=== PATIENT | female | born 1985 | race African-American/Black ===

== ENCOUNTER 2017-08-21 12:26 | Emergency (ER) | payer SELFPAY ==
[2017-08-21 13:23] LABS: Absolute Lymphocytes (CBC) 1.4 K/uL (0.7-4.9); Absolute Monocytes 0.3 K/uL (0.1-1.3); Absolute Neutrophil 1.8 K/uL (1.8-8.0); Basophils % 0.3 % (0-1.3); Hematocrit 30.7 % (36.0-45.0); Lymphocytes % 39.7 % (15.3-44.8); MCH 24.8 pg (27.0-35.0); Monocytes % 7.2 % (3.3-12.3); RBC Red Blood Cell Count 3.99 M/uL (3.86-4.86)
[2017-08-21 13:42] LABS: ALT/SGPT 16 U/L (12-78); AST/SGOT 14 U/L (15-37); Albumin 3.3 g/dL (3.4-5.0); Alkaline Phosphatase 38 U/L (45-117); BUN Blood Urea Nitrogen 11 mg/dL (7-18); Bicarbonate 29 mmol/L (21-32); Bilirubin Direct 0.1 mg/dL (0-0.2); Bilirubin Total 0.5 mg/dL (0.2-1.0); Glucose Level 83 mg/dL (74-106); Lipase 76 U/L (73-393); Potassium 3.5 mmol/L (3.5-5.1); Protein, Total 7.5 g/dL (6.4-8.2); Sodium Level 140 mmol/L (136-145)
--- NOTE | 2017-08-21 13:45 | RAD REPORT ---
EXAM DESCRIPTION: CT - Abdomen Pelvis Wo Contrast - 08/21/2017 1:27 pm CLINICAL HISTORY: Abdominal pain, iodinated contrast allergy COMPARISON: CT study January 2017 TECHNIQUE: Axial [address] imaging of the abdomen and pelvis was performed without IV contrast. No IV contrast was given because of allergy, abnormal renal function, patient refusal or physician re quest. No oral contrast administered. All CT scans are performed using dose optimization technique as appropriate and may include automated exposure control or mA/KV adjustment according to patient size. FINDINGS: No suspicious findings in the lung bases. The liver, spleen and pancreas show no suspicious findings on non-contrast imaging. Gallbladder and b iliary tree are also without suspicious finding. No hydronephrosis or suspicious renal mass. No significant adrenal finding. Isodense renal masses an d pyelonephritis cannot be excluded in the absence of IV contrast. The urinary bladder is without sig nificant finding. Uterus and ovaries show no suspicious findings. No dilated bowel loops or bowel wall thickening. No free air, free fluid or inflammatory stranding. N o hernia, mass or bulky lymphadenopathy. No suspicion for appendicitis. There is moderate stool volum e in the right-side of the colon. No suspicious bony findings. IMPRESSION: Non-contrast enhanced CT abdomen and pelvis imaging show no significant or suspicious fi nding. Full assessment is limited is the absence of IV contrast.
[2017-08-21 13:54] LABS: Urine Bacteria 20-50 /HPF (<20); Urine Culture Reflex Order REFLEXED; Urine RBC <5 /HPF (NONE SEEN)
[2017-08-21 13:54] LABS: Urine Blood NEGATIVE (NEG); Urine Glucose NEGATIVE (NEG); Urine Protein NEGATIVE (NEG); Urine Specific Gravity 1.025 (1.005-1.030)
[2017-08-21] MEDS ORDERED: HYDROCODONE/APAP 5/325 MG TAB ONE (13:54)
--- NOTE | 2017-08-21 14:31 | EDPHYS ---
Physician Documentation [facility] Name: Alanna Barreto Age: 31 yrs Sex: Female : 1985 Arrival Date: 08/21/2017 Time: 12:30 Bed 24 Private MD: None, None ED Physician Leonard Lin HPI: 08/21 13:00 This 31 yrs old Black Female presents to ER via Ambulatory with complaints of Abdominal rn Cramping. 13:00 The patient presents with abdominal pain that is diffuse. Onset: The symptoms/episode rn began/occurred 1 week(s) ago. The symptoms do not radiate. Associated signs and symptoms: Pertinent positives: diarrhea, Pertinent negatives: dysuria, fever. The symptoms are described as crampy, intermittent. Modifying factors: The symptoms are alleviated by nothing, the symptoms are aggravated by nothing. Severity of pain: At its worst the pain was mild in the emergency department the pain is unchanged. The patient has not experienced similar symptoms in the past. 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 - Social history:: Smoking status: Patient/guardian denies using tobacco. - Ebola Screening: : Patient negative for fever greater than or equal to 101.5 degrees Fahrenheit, and additional compatible Ebola Virus Disease symptoms Patient denies exposure to infectious person Patient denies travel to an Ebola-affected area in the 21 days before illness onset No symptoms or risks identified at this time. - Family history:: not pertinent. - Hospitalizations: : No recent hospitalization is reported. ROS: 13:00 Constitutional: Negative for fever, chills, and weight loss, Eyes: Negative for injury, rn pain, redness, and discharge, Neck: Negative for injury, pain, and swelling, Cardiovascular: Negative for chest pain, palpitations, and edema, Respiratory: Negative for shortness of breath, cough, wheezing, and pleuritic chest pain, Abdomen/GI: + abd cramping/diarrhea, no vomiting MS/Extremity: Negative for injury and deformity, Neuro: Negative for headache, weakness, numbness, tingling, and seizure. Exam: 13:00 Constitutional: This is a well developed, well nourished patient who is awake, alert, rn and in no acute distress. Head/Face: Normocephalic, atraumatic. ENT: MMM Cardiovascular: Regular rate and rhythm with a normal S1 and S2. No gallops, murmurs, or rubs. Normal PMI, no JVD. No pulse deficits. Respiratory: Lungs have equal breath sounds bilaterally, clear to auscultation and percussion. No rales, rhonchi or wheezes noted. No increased work of breathing, no retractions or nasal flaring. Abdomen/GI: soft, mild left sided abd tenderness, no rebound MS/ Extremity: Pulses equal, no cyanosis. Neurovascular intact. Full, normal range of motion. Equal circumference. Neuro: Awake and alert, GCS 15, oriented to person, place, time, and situation. Cranial nerves II-XII grossly intact. Motor strength 5/5 in all extremities. Sensory grossly intact. Cerebellar exam normal. Normal gait. Vital Signs: 12:37 BP 108 / 76; Pulse 72; Resp 18; Temp 98.6; Pulse Ox 98% on R/A; Weight 65.77 kg; Height aj 5 ft. 4 in. (162.56 cm); 14:04 BP 105 / 77; Pulse 65; Resp 14; Temp 97.8; Pulse Ox 99% on R/A; Pain 8/10; ch 14:40 BP 108 / 61; Pulse 68; Resp 16; Temp 98.8; Pulse Ox 99% on R/A; Pain 6/10; ch 12:37 Body Mass Index 24.89 (65.77 kg, 162.56 cm) aj MDM: 12:53 Patient medically screened. rn 14:30 Differential diagnosis: gastritis, gastroesophageal reflux disease, non-specific abd rn pain, pancreatitis, Ureterolithiasis, urinary tract infection. Data reviewed: vital signs, nurses notes, lab test result(s), radiologic studies, CT scan, and as a result, I will discharge patient. Counseling: I had a detailed discussion with the patient and/or guardian regarding: the historical points, exam findings, and any diagnostic results supporting the discharge/admit diagnosis, lab results, radiology results, the need for outpatient follow up, to return to the emergency department if symptoms worsen or persist or if there are any questions or concerns that arise at home. Special discussion: Based on the patient's Hx, exam, and Dx evaluation, there is no indication for emergent surgery or inpatient Tx. It is understood by the patient/guardian that if the Sx's persist or worsen they need to return immediately for re-evaluation. I discussed with the patient/guardian in detail that at this point there is no indication for admission to the hospital. It is understood, however, that if the symptoms persist or worsen the patient needs to return immediately for re-evaluation. 08/21 12:59 Order name: Basic Metabolic Panel rn 08/21 12:59 Order name: CBC with Diff rn 08/21 12:59 Order name: Creatinine for perianesthesia rn 08/21 12:59 Order name: Hepatic Function rn 08/21 12:59 Order name: Lipase rn 08/21 12:59 Order name: Urine Microscopic Only rn 08/21 12:59 Order name: Basic Metabolic Panel; Complete Time: 14:30 EDMS 08/21 12:59 Order name: CBC with Automated Diff; Complete Time: 14:30 EDMS 08/21 12:59 Order name: Creatinine (Radiology Only); Complete Time: 14:30 EDMS 08/21 12:59 Order name: Liver (Hepatic) Function; Complete Time: 14:30 EDMS 08/21 12:59 Order name: Lipase; Complete Time: 14:30 EDMS 08/21 12:59 Order name: Urine Microscopic Only; Complete Time: 14:30 EDMS 08/21 13:28 Order name: Urine Dipstick--Ancillary (enter results); Complete Time: 14:30 ag 08/21 13:28 Order name: Urine --Ancillary (enter results); Complete Time: 14:30 ag 08/21 12:59 Order name: Urine Test (obtain specimen); Complete Time: 13:16 rn 08/21 12:59 Order name: IV Saline Lock; Complete Time: 13:16 rn 08/21 12:59 Order name: Labs collected and sent; Complete Time: 13:16 rn 08/21 12:59 Order name: Urine Dipstick-Ancillary (obtain specimen); Complete Time: 13:16 rn 08/21 12:59 Order name: CT Abd/Pelvis - Without Cont; Complete Time: 14:30 rn 08/21 13:54 Order name: Urine Culture EDMS Administered Medications: No medications were administered Disposition: 08/21/17 14:31 Discharged to Home. Impression: Urinary tract infection, site not specified. - Condition is Stable. - Discharge Instructions: Urinary Tract Infection. - Prescriptions for Macrobid 100 mg Oral Capsule - take 1 capsule by ORAL route every 12 hours for 10 days; 20 capsule. - Medication Reconciliation Form, Thank You Letter, Antibiotic Education, Prescription Opioid Use form. - Follow up: Private Physician; When: As needed; Reason: Recheck today's complaints, Re-evaluation by your physician. - Problem is new. - Symptoms have improved. Signatures: Dispatcher [employer] EDMS Olga Thompson RN RN ch Myers, Amanda, RN RN aj Nieto, Roman, MD MD internal combustion engine subassembler: (The following items were deleted from the chart) 14:41 14:31 08/21/2017 14:31 Discharged to Home. Impression: Urinary tract infection, site ch not specified. Condition is Stable. Forms are Medication Reconciliation Form, Thank You Letter, Antibiotic Education, Prescription Opioid Use. Follow up: Private Physician; When: As needed; Reason: Recheck today's complaints, Re-evaluation by your physician. Problem is new. Symptoms have improved. rn
--- NOTE | 2017-08-21 14:31 | ER ---
Nurse's Notes [facility] Name: Alanna Barreto Age: 31 yrs Sex: Female : 1985 Arrival Date: 08/21/2017 Time: 12:30 Bed 24 Private MD: None, None Diagnosis: Urinary tract infection, site not specified Presentation: 08/21 12:35 Presenting complaint: Patient states: Generalized abdominal pain for 1 week, with aj nausea. Denies vomiting. Transition of care: patient was not received from another setting of care. Onset of symptoms was August 15, 2017. Risk Assessment: Do you want to hurt yourself or someone else? Patient reports no desire to harm self or others. Initial Sepsis Screen: Does the patient meet any 2 criteria? No. Patient's initial sepsis screen is negative. Does the patient have a suspected source of infection? No. Patient's initial sepsis screen is negative. Care prior to arrival: None. 12:35 Method Of Arrival: Ambulatory aj 12:35 Acuity: CHRISTOPHER 3 aj Triage Assessment: 12:37 General: Appears in no apparent distress. comfortable, Behavior is calm, cooperative, aj appropriate for age. Pain: Complains of pain in abdomen. Neuro: Level of Consciousness is awake, alert, obeys commands, Oriented to person, place, time, situation, Appropriate for age. Respiratory: Airway is patent Respiratory effort is even, unlabored, Respiratory pattern is regular, symmetrical. GI: Abdomen is non-distended, obese, Reports lower abdominal pain, upper abdominal pain, nausea. Derm: Skin is intact, is healthy with good turgor, Skin is pink, warm \T\ dry. normal. 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 - Social history:: Smoking status: Patient/guardian denies using tobacco. - Ebola Screening: : Patient negative for fever greater than or equal to 101.5 degrees Fahrenheit, and additional compatible Ebola Virus Disease symptoms Patient denies exposure to infectious person Patient denies travel to an Ebola-affected area in the 21 days before illness onset No symptoms or risks identified at this time. - Family history:: not pertinent. - Hospitalizations: : No recent hospitalization is reported. Screenin:14 Abuse screen: Denies threats or abuse. Denies injuries from another. Nutritional ch screening: No deficits noted. Tuberculosis screening: No symptoms or risk factors identified. Fall Risk None identified. Assessment: 13:14 General: Appears in no apparent distress. comfortable, Behavior is calm, cooperative, ch appropriate for age. Pain: Complains of pain in abdomen Pain currently is 8 out of 10 on a pain scale. Pain began gradually, 10 days ago. Neuro: No deficits noted. Respiratory: Airway is patent Respiratory effort is even, unlabored, Breath sounds are clear bilaterally. GI: Bowel sounds present X 4 quads. Abd is soft X 4 quads Abdomen is tender to palpation X 4 quads. Reports diarrhea, nausea. : No signs and/or symptoms were reported regarding the genitourinary system. Derm: Skin is pink, warm \T\ dry. 14:03 Reassessment: Patient appears in no apparent distress at this time. Patient and/or ch family updated on plan of care and expected duration. Pain level reassessed. Patient is alert, oriented x 3, equal unlabored respirations, skin warm/dry/pink. 14:21 Reassessment: Patient appears in no apparent distress at this time. No changes from previously documented assessment. Patient and/or family updated on plan of care and expected duration. Pain level reassessed. Patient is alert, oriented x 3, equal unlabored respirations, skin warm/dry/pink. 14:40 Reassessment: Patient appears in no apparent distress at this time. Patient and/or ch family updated on plan of care and expected duration. Pain level reassessed. Patient is alert, oriented x 3, equal unlabored respirations, skin warm/dry/pink. Vital Signs: 12:37 BP 108 / 76; Pulse 72; Resp 18; Temp 98.6; Pulse Ox 98% on R/A; Weight 65.77 kg; Height aj 5 ft. 4 in. (162.56 cm); 14:04 BP 105 / 77; Pulse 65; Resp 14; Temp 97.8; Pulse Ox 99% on R/A; Pain 8/10; ch 14:40 BP 108 / 61; Pulse 68; Resp 16; Temp 98.8; Pulse Ox 99% on R/A; Pain 6/10; ch 12:37 Body Mass Index 24.89 (65.77 kg, 162.56 cm) ED Course: 12:30 Patient arrived in ED. mr 12:30 None, None is Private Physician. mr 12:37 Triage completed. aj 12:37 Arm band placed on right wrist. Patient placed in waiting room, Patient notified of wait time. 12:53 Leonard Lin MD is Attending Physician. rn 12:58 Olga Thompson RN is Primary Nurse. ch 13:14 No apparent distress. Resting quietly. ch 13:14 Patient has correct armband on for positive identification. Placed in gown. Bed in low ch position. Call light in reach. Side rails up X 1. Adult w/ patient. Warm blanket given. 13:14 No provider procedures requiring assistance completed. Initial lab(s) drawn, by ky, ch sent to lab. Urine collected: clean catch specimen. Inserted saline lock: 20 gauge in right antecubital area, using aseptic technique. Blood collected. 13:16 Basic Metabolic Panel Sent. ch 13:16 CBC with Diff Sent. ch 13:16 Creatinine for Radiology Sent. ch 13:16 Hepatic Function Sent. ch 13:16 Lipase Sent. ch 13:16 Urine Microscopic Only Sent. ch 13:27 CT Abd/Pelvis - Without Cont In Process Unspecified. EDMS 14:03 Pulse ox on. NIBP on. ch 14:40 IV discontinued, intact, bleeding controlled, No redness/swelling at site. Pressure ch dressing applied. Administered Medications: No medications were administered Outcome: 14:31 Discharge ordered by . rn 14:40 Discharged to home ambulatory, with family. ch 14:40 Condition: stable 14:40 Discharge instructions given to patient, family, Instructed on discharge instructions, follow up and referral plans. medication usage, Demonstrated understanding of instructions, follow-up care, medications, Prescriptions given X 1. 14:41 Patient left the ED. Signatures: Dispatcher [employer] EDNH Olga Thompson RN RN ch Myers, Amanda, RN RN aj Rivera, Maria mr Leonard Lin MD MD rn
[2017-08-21 14:47] VITALS: O2SAT 99
[2017-08-21 14:48] VITALS: BP 108/61; TEMP 98.8
== END 2017-08-21 14:41 | disposition home or self-care (01) ==
LOC: ER 12:26
DX: N39.0 Urinary tract infection, site not specified (principal); Z88.6 Allergy status to analgesic agent; Z88.8 Allergy status to other drugs, medicaments and biological substances; Z91.048 Other nonmedicinal substance allergy status
CPT/HCPCS: 36415; 74176; 80048; 80076; 81003; 81015; 81025; 83690; 85025; 87086; 87088; 99284

== ENCOUNTER 2017-10-25 13:25 | Emergency (ER) | payer SELFPAY ==
--- NOTE | 2017-10-25 14:04 | EDPHYS ---
Physician Documentation [facility] Name: Alanna Barreto Age: 32 yrs Sex: Female : 1985 Arrival Date: 10/25/2017 Time: 13:26 Bed 15 Private MD: None, None ED Physician Leonard Lin HPI: 10/25 14:00 This 32 yrs old Black Female presents to ER via Ambulatory with complaints of Toothache.[facility] 14:00 The patient presents with swelling. The problem is located in the lower left lateral jmm incisor, lower left central incisor, lower right central incisor and lower right lateral incisor. Onset: The symptoms/episode began/occurred gradually, 1 week(s) ago. Duration: The symptoms are continuous. Modifying factors: The symptoms are alleviated by nothing, the symptoms are aggravated by nothing. Associated signs and symptoms: Pertinent negatives: fever. 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 - Social history:: Smoking status: Patient/guardian denies using tobacco. - Ebola Screening: : Patient denies travel to an Ebola-affected area in the 21 days before illness onset. ROS: 14:00 Constitutional: Negative for fever, chills, and weight loss. [facility] 14:00 Cardiovascular: Negative for chest pain, palpitations, and edema, Respiratory: Negative for shortness of breath, cough, wheezing, and pleuritic chest pain, Abdomen/GI: Negative for abdominal pain, nausea, vomiting, diarrhea, and constipation. 14:00 ENT: Positive for Gum pain 14:00 All other systems are negative. Exam: 14:00 Head/Face: atraumatic. [facility] 14:00 Cardiovascular: Regular rate and rhythm. No edema appreciated Respiratory: Normal respirations, no respiratory distress appreciated Back: Normal ROM Skin: General appearance color normal MS/ Extremity: Moves all extremities, no obvious deformities appreciated, no edema noted to the lower extremities Neuro: Awake and alert, normal gait Psych: Behavior is normal, Mood is normal, Patient is cooperative and pleasant 14:00 Constitutional: The patient appears in no acute distress, alert, awake. 14:00 ENT: Dental exam: gum swelling, that is moderate, specifically in the lower left cuspid (#22), lower left lateral incisor (#23), lower left central incisor (#24), lower right central incisor (#25), lower right lateral incisor (#26) and lower right cuspid (#27). Vital Signs: 13:51 BP 113 / 70; Pulse 74; Resp 18; Temp 97.4(TE); Pulse Ox 100% on R/A; Weight 83.91 kg aj1 (R); Height 5 ft. 4 in. (162.56 cm) (R); Pain 10/10; 14:25 BP 97 / 69; Pulse 74; Resp 15; Pulse Ox 97% on R/A; rb1 13:51 Body Mass Index 31.75 (83.91 kg, 162.56 cm) 1 MDM: 14:00 Patient medically screened. [facility] 14:00 Data reviewed: vital signs, nurses notes. Counseling: I had a detailed discussion with [facility] the patient and/or guardian regarding: the historical points, exam findings, and any diagnostic results supporting the discharge/admit diagnosis, the need for outpatient follow up, to return to the emergency department if symptoms worsen or persist or if there are any questions or concerns that arise at home. Administered Medications: No medications were administered Disposition: 14:00 Chart complete. [facility] 16:44 Co-signature as Attending Physician, Leonard Lin MD. rn Disposition: 10/25/17 14:03 Discharged to Home. Impression: Gingivitis and periodontal diseases. - Condition is Stable. - Discharge Instructions: Gingivitis. - Prescriptions for Peridex 0.12 % Mucous Membrane mouthwash - place 15 milliliter by MUCOUS MEMBRANE route 2 times per day after brushing teeth, swish in mouth for 30 seconds then spit out; 1 bottle. Amoxicillin 875 mg Oral Tablet - take 1 tablet by ORAL route every 12 hours for 10 days; 20 tablet. Ultracet 37.5- 325 mg Oral Tablet - take 1 tablet by ORAL route every 6 hours - for up to 5 days; do not exceed 8 tablets per day.; 12 tablet. - Medication Reconciliation Form, Thank You Letter, Antibiotic Education, Prescription Opioid Use form. - Follow up: Private Physician; When: 2 - 3 days; Reason: Recheck today's complaints, Continuance of care, Re-evaluation by your physician. Signatures: Vanessa Whitaker RN RN aj1 Baljit Bearden PA PA jmm Nieto, Roman, MD MD rn Dede Vivas RN RN rb1 Corrections: (The following items were deleted from the chart) 14:29 14:03 10/25/2017 14:03 Discharged to Home. Impression: Gingivitis and periodontal rb1 diseases. Condition is Stable. Forms are Medication Reconciliation Form, Thank You Letter, Antibiotic Education, Prescription Opioid Use. Follow up: Private Physician; When: 2 - 3 days; Reason: Recheck today's complaints, Continuance of care, Re-evaluation by your physician. yonatan
--- NOTE | 2017-10-25 14:04 | ER ---
Nurse's Notes [facility] Name: Alanna Barreto Age: 32 yrs Sex: Female : 1985 Arrival Date: 10/25/2017 Time: 13:26 Bed 15 Private MD: None, None Diagnosis: Gingivitis and periodontal diseases Presentation: 10/25 13:48 Presenting complaint: Patient states: She has been having a pain to her gums and her aj1 bottom two front teeth for the past 3 days. Denies fever. Transition of care: patient was not received from another setting of care. Onset of symptoms was October 22, 2017. Risk Assessment: Do you want to hurt yourself or someone else? Patient reports no desire to harm self or others. Initial Sepsis Screen: Does the patient meet any 2 criteria? No. Patient's initial sepsis screen is negative. Does the patient have a suspected source of infection? No. Patient's initial sepsis screen is negative. Care prior to arrival: None. 13:48 Method Of Arrival: Ambulatory aj1 13:48 Acuity: CHRISTOPHER 4 aj1 Triage Assessment: 13:51 General: Appears in no apparent distress. comfortable, Behavior is calm, cooperative, aj1 appropriate for age. Pain: Complains of pain in lower left central incisor and lower right central incisor Pain currently is 10 out of 10 on a pain scale. EENT: Reports pain since to two front teeth and gums. Neuro: Level of Consciousness is awake, alert, obeys commands. Cardiovascular: Patient's skin is warm and dry. Respiratory: Airway is patent Respiratory effort is even, unlabored, Respiratory pattern is regular, symmetrical. 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 - Social history:: Smoking status: Patient/guardian denies using tobacco. - Ebola Screening: : Patient denies travel to an Ebola-affected area in the 21 days before illness onset. Screenin:00 Abuse screen: Denies threats or abuse. Nutritional screening: No deficits noted. rb1 Tuberculosis screening: No symptoms or risk factors identified. Fall Risk None identified. Assessment: 14:00 General: Appears uncomfortable, Behavior is calm, cooperative, Denies fever. Pain: rb1 Complains of pain in lower jaw Pain currently is 10 out of 10 on a pain scale. Pain began x 3 days. Neuro: Level of Consciousness is awake, alert, obeys commands, Oriented to person, place, time, situation. Cardiovascular: Capillary refill < 3 seconds is brisk in bilateral fingers. Respiratory: Airway is patent Respiratory effort is even, unlabored, Respiratory pattern is regular, symmetrical. GI: No signs and/or symptoms were reported involving the gastrointestinal system. : No signs and/or symptoms were reported regarding the genitourinary system. Derm: Skin is pink, warm \T\ dry. Vital Signs: 13:51 BP 113 / 70; Pulse 74; Resp 18; Temp 97.4(TE); Pulse Ox 100% on R/A; Weight 83.91 kg aj1 (R); Height 5 ft. 4 in. (162.56 cm) (R); Pain 10/10; 14:25 BP 97 / 69; Pulse 74; Resp 15; Pulse Ox 97% on R/A; rb1 13:51 Body Mass Index 31.75 (83.91 kg, 162.56 cm) aj ED Course: 13:26 Patient arrived in ED. sb2 13:27 None, None is Private Physician. sb2 13:51 Triage completed. aj1 13:51 Arm band placed on Patient placed in an exam room. [facility] 13:54 Baljit Bearden PA is PHCP. [facility] 13:54 Leonard Lin MD is Attending Physician. [facility] 14:00 Patient has correct armband on for positive identification. Bed in low position. Call rb1 light in reach. Side rails up X 1. Pulse ox on. NIBP on. 14:14 Dede Vivas, RN is Primary Nurse. rb1 14:29 No provider procedures requiring assistance completed. Patient did not have IV access rb1 during this emergency room visit. Administered Medications: No medications were administered Outcome: 14:03 Discharge ordered by . jmm 14:29 Patient left the ED. rb1 14:29 Discharged to home ambulatory. rb1 14:29 Condition: stable 14:29 Discharge instructions given to patient, Instructed on discharge instructions, follow up and referral plans. medication usage, Demonstrated understanding of instructions, follow-up care, medications, Prescriptions given X 3. Signatures: Vanessa Whitaker RN RN aj1 Baljit Bearden PA PA jmm Barber, Rebecca, RN RN rb1 Sarah Evans2
[2017-10-25 14:41] VITALS: BP 113/70; TEMP 97.4; O2SAT 100
== END 2017-10-25 14:29 | disposition home or self-care (01) ==
LOC: ER 13:25
DX: K05.10 Chronic gingivitis, plaque induced (principal); K05.6 Periodontal disease, unspecified; K21.9 Gastro-esophageal reflux disease without esophagitis; F41.8 Other specified anxiety disorders; Z88.8 Allergy status to other drugs, medicaments and biological substances; Z88.6 Allergy status to analgesic agent; Z91.041 Radiographic dye allergy status
CPT/HCPCS: 99283

== ENCOUNTER 2017-12-09 14:21 | Emergency (ER) | payer SELFPAY ==
[2017-12-09 15:39] LABS: Urine Bacteria NONE SEEN /HPF (<20); Urine RBC NONE SEEN /HPF (NONE SEEN)
[2017-12-09 15:40] LABS: Urine Culture Reflex Order NOT NEEDED
[2017-12-09 15:57] LABS: Absolute Lymphocytes (CBC) 1.1 K/uL (0.7-4.9); Absolute Monocytes 0.3 K/uL (0.1-1.3); Basophils % 0.7 % (0-1.3); Eosinophils % 0.5 % (0-4.4); Hematocrit 35.8 % (36.0-45.0); Lymphocytes % 32.4 % (15.3-44.8); MCH 24.6 pg (27.0-35.0); MCV 77.6 fL (80-100); MPV 8.4 fL (7.6-11.3); Monocytes % 8.3 % (3.3-12.3); RBC Red Blood Cell Count 4.61 M/uL (3.86-4.86)
[2017-12-09 15:58] LABS: BUN Blood Urea Nitrogen 10 mg/dL (7-18); Bicarbonate 30 mmol/L (21-32); Glucose Level 87 mg/dL (74-106); Potassium 3.6 mmol/L (3.5-5.1); Sodium Level 137 mmol/L (136-145)
--- NOTE | 2017-12-09 16:28 | RAD REPORT ---
EXAM DESCRIPTION: CT - Stone Protocol - 12/09/2017 4:16 pm CLINICAL HISTORY: Abdominal pain. Dysuria COMPARISON: August 2017 TECHNIQUE: Computed axial tomography of the abdomen pelvis was obtained without oral or IV contrast. Lack of IV and oral contrast limits evaluation of solid organs, bowel, and vessels. Coronal reformat delmi images were obtained and reviewed. All CT scans are performed using dose optimization technique as appropriate and may include automated exposure control or mA/KV adjustment according to patient size. FINDINGS: A renal calculus is not seen. An ureteral calculus is not noted. A bladder calculus is not present. The liver, spleen, pancreas and adrenals appear grossly normal There is no evidence of diverticulitis. The appendix appears normal Tiny umbilical hernia is present IMPRESSION: Negative for a genitourinary calculus
--- NOTE | 2017-12-09 16:35 | ER ---
Nurse's Notes [facility] Name: Alanna Barreto Age: 32 yrs Sex: Female : 1985 Arrival Date: 12/09/2017 Time: 14:23 Bed 7 Private MD: Diagnosis: Dysuria Presentation: 12/09 14:47 Presenting complaint: Patient states: "I have burning when I urinate and I have a pain aj1 in my left side for the past 2 weeks." Reports that she feels like she's had a fever, but she has not checked it. Also reports poor appetite. Transition of care: patient was not received from another setting of care. Onset of symptoms was November 2017. Risk Assessment: Do you want to hurt yourself or someone else? Patient reports no desire to harm self or others. Initial Sepsis Screen: Does the patient meet any 2 criteria? No. Patient's initial sepsis screen is negative. Does the patient have a suspected source of infection? Yes: Dysuria/Frequency/Urgency/UTI. Care prior to arrival: None. 14:47 Method Of Arrival: Ambulatory aj1 14:47 Acuity: CHRISTOPHER 4 aj1 Triage Assessment: 14:48 General: Appears in no apparent distress. comfortable, Behavior is calm, cooperative, aj1 appropriate for age. Pain: Pain currently is 10 out of 10 on a pain scale. Neuro: Level of Consciousness is awake, alert, obeys commands. Cardiovascular: Patient's skin is warm and dry. Respiratory: Airway is patent Respiratory effort is even, unlabored, Respiratory pattern is regular, symmetrical. : Reports burning with urination. 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 - Social history:: Smoking status: unknown. - Ebola Screening: : No symptoms or risks identified at this time. Screenin:11 Abuse screen: Denies threats or abuse. Denies injuries from another. Nutritional sv screening: No deficits noted. Tuberculosis screening: No symptoms or risk factors identified. Fall Risk None identified. Assessment: 15:25 General: Appears in no apparent distress. comfortable, well developed, Behavior is sv calm, cooperative, appropriate for age. Pain: Complains of pain in anterior aspect of left lateral abdomen, left upper quadrant and left lower quadrant Pain currently is 10 out of 10 on a pain scale. Pain began about 2 weeks. Neuro: Level of Consciousness is awake, alert, obeys commands, Oriented to person, place, time, situation, Moves all extremities. Full function Gait is steady, Speech is normal. Respiratory: Respiratory effort is even, unlabored, Respiratory pattern is regular, symmetrical. GI: Abd is soft X 4 quads Abd is non tender in right upper quadrant and right lower quadrant Abdomen is tender to palpation in left upper quadrant and left lower quadrant Reports nausea, decreased appetite. : Reports burning with urination. Derm: Skin is pink, warm \\T\\ dry. Vital Signs: 14:48 BP 127 / 79; Pulse 72; Resp 16; Temp 97.6; Pulse Ox 100% on R/A; Weight 74.84 kg (R); aj1 Height 5 ft. 4 in. (162.56 cm) (R); Pain 10/10; 14:48 Body Mass Index 28.32 (74.84 kg, 162.56 cm) aj1 ED Course: 14:23 Patient arrived in ED. as 14:48 Triage completed. aj1 14:48 Arm band placed on Patient placed in waiting room, Patient notified of wait time. aj1 15:10 Therese Warner [facility]-C [facility]. kb 15:10 Tay Goodwin MD is Attending Physician. kb 15:11 Marnie Roberson, BRADY is Primary Nurse. sv 15:11 Patient has correct armband on for positive identification. Bed in low position. Adult sv w/ patient. Door closed. Head of bed elevated. 15:30 Initial lab(s) drawn, by me, sent to lab. Inserted saline lock: 20 gauge in right sv antecubital area, using aseptic technique. Blood collected. Flushed right antecubital with 5 ml normal saline. 15:42 Awaiting lab results. sv 15:42 Basic Metabolic Panel Sent. sv 16:[address] vm2 16:16 CT Stone Protocol In Process Unspecified. EDMS 16:17 CT completed. Patient tolerated procedure well. Patient moved back from CT. 2 16:50 No provider procedures requiring assistance completed. IV discontinued, intact, sv bleeding controlled, No redness/swelling at site. Pressure dressing applied. Administered Medications: No medications were administered Outcome: 16:34 Discharge ordered by . river 16:50 Discharged to home ambulatory, with family. sv 16:50 Condition: stable 16:50 Discharge instructions given to patient, Instructed on discharge instructions, follow up and referral plans. Demonstrated understanding of instructions, follow-up care. 16:50 Patient left the ED. sv Signatures: Dispatcher [employer] EDMS Therese Warner, ORNAMENTER HAND-C ORNAMENTER HAND-Vanessa Campbell RN RN aj1 Marnie Roberson RN RN Felisa Baez Victoria 2
--- NOTE | 2017-12-09 16:35 | EDPHYS ---
Physician Documentation [facility] Name: Alanna Barreto Age: 32 yrs Sex: Female : 1985 Arrival Date: 12/09/2017 Time: 14:23 Bed 7 Private MD: ED Physician Tay Goodwin HPI: 12/09 16:00 This 32 yrs old Black Female presents to ER via Ambulatory with complaints of Pain With kb Urination. 16:00 The patient presents with abdominal pain in the left upper quadrant, in the left lower kb quadrant. Onset: The symptoms/episode began/occurred 2 week(s) ago. The symptoms do not radiate. Associated signs and symptoms: Pertinent positives: diarrhea, dysuria, nausea. The symptoms are described as achy. Modifying factors: The symptoms are alleviated by nothing, the symptoms are aggravated by nothing. Severity of pain: At its worst the pain was moderate in the emergency department the pain is unchanged. The patient has not experienced similar symptoms in the past. The patient has not recently seen a physician. 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 - Social history:: Smoking status: unknown. - Ebola Screening: : No symptoms or risks identified at this time. ROS: 16:00 Constitutional: Negative for fever, chills, and weight loss, Cardiovascular: Negative kb for chest pain, palpitations, and edema, Respiratory: Negative for shortness of breath, cough, wheezing, and pleuritic chest pain, Back: Negative for injury and pain, MS/Extremity: Negative for injury and deformity, Skin: Negative for injury, rash, and discoloration, Neuro: Negative for headache, weakness, numbness, tingling, and seizure. 16:00 Abdomen/GI: Positive for abdominal pain, nausea, diarrhea. 16:00 : Positive for burning with urination. Exam: 16:00 Constitutional: This is a well developed, well nourished patient who is awake, alert, kb and in no acute distress. Head/Face: Normocephalic, atraumatic. Chest/axilla: Normal chest wall appearance and motion. Nontender with no deformity. No lesions are appreciated. Cardiovascular: Regular rate and rhythm with a normal S1 and S2. No gallops, murmurs, or rubs. Normal PMI, no JVD. No pulse deficits. Respiratory: Lungs have equal breath sounds bilaterally, clear to auscultation and percussion. No rales, rhonchi or wheezes noted. No increased work of breathing, no retractions or nasal flaring. Back: No spinal tenderness. No costovertebral tenderness. Full range of motion. Skin: Warm, dry with normal turgor. Normal color with no rashes, no lesions, and no evidence of cellulitis. MS/ Extremity: Pulses equal, no cyanosis. Neurovascular intact. Full, normal range of motion. Neuro: Awake and alert, GCS 15, oriented to person, place, time, and situation. Cranial nerves II-XII grossly intact. Motor strength 5/5 in all extremities. Sensory grossly intact. Cerebellar exam normal. Normal gait. 16:00 Abdomen/GI: Inspection: abdomen appears normal, Bowel sounds: normal, in all quadrants, Palpation: soft, in all quadrants, mild abdominal tenderness, in the left upper quadrant and left lower quadrant. Vital Signs: 14:48 BP 127 / 79; Pulse 72; Resp 16; Temp 97.6; Pulse Ox 100% on R/A; Weight 74.84 kg (R); aj1 Height 5 ft. 4 in. (162.56 cm) (R); Pain 10/10; 14:48 Body Mass Index 28.32 (74.84 kg, 162.56 cm) aj1 MDM: 15:10 Patient medically screened. kb 16:00 Data reviewed: vital signs, nurses notes. Data interpreted: Pulse oximetry: on room air kb is 100 %. Interpretation: normal. 16:33 Counseling: I had a detailed discussion with the patient and/or guardian regarding: the kb historical points, exam findings, and any diagnostic results supporting the discharge/admit diagnosis, lab results, radiology results, the need for outpatient follow up, a family practitioner, to return to the emergency department if symptoms worsen or persist or if there are any questions or concerns that arise at home. 12/09 15:10 Order name: Urine Microscopic Only; Complete Time: 15:50 kb 12/09 15:27 Order name: Basic Metabolic Panel kb 12/09 15:27 Order name: CBC with Diff; Complete Time: 15:59 kb 12/09 15:28 Order name: Basic Metabolic Panel; Complete Time: 15:59 EDMS 12/09 15:39 Order name: Urine Dipstick--Ancillary (enter results) bd 12/09 15:39 Order name: Urine --Ancillary (enter results) bd 12/09 15:10 Order name: Urine Test (obtain specimen); Complete Time: 15:11 kb 12/09 15:10 Order name: Urine Dipstick-Ancillary (obtain specimen); Complete Time: 15:11 kb 12/09 15:27 Order name: IV Saline Lock; Complete Time: 15:42 kb 12/09 15:27 Order name: Labs collected and sent; Complete Time: 15:42 kb 12/09 16:00 Order name: CT Stone Protocol; Complete Time: 16:32 kb Administered Medications: No medications were administered Disposition: 12/09/17 16:34 Discharged to Home. Impression: Dysuria. - Condition is Stable. - Discharge Instructions: Dysuria. - Medication Reconciliation Form, Thank You Letter, Antibiotic Education, Prescription Opioid Use form. - Follow up: Emergency Department; When: As needed; Reason: Worsening of condition. Follow up: Private Physician; When: 2 - 3 days; Reason: Recheck today's complaints, Continuance of care, Re-evaluation by your physician. Signatures: Dispatcher [employer] EDMO Therese Warner, SHAMAR LONGORIA-Vanessa Campbell RN RN aj1 Marnie Roberson RN RN sv Corrections: (The following items were deleted from the chart) 16:50 16:34 12/09/2017 16:34 Discharged to Home. Impression: Dysuria. Condition is Stable. sv Forms are Medication Reconciliation Form, Thank You Letter, Antibiotic Education, Prescription Opioid Use. Follow up: Emergency Department; When: As needed; Reason: Worsening of condition. Follow up: Private Physician; When: 2 - 3 days; Reason: Recheck today's complaints, Continuance of care, Re-evaluation by your physician. kb
[2017-12-09 16:47] LABS: Urine Blood NEGATIVE (NEG); Urine Glucose NEGATIVE (NEG); Urine Protein NEGATIVE (NEG); Urine Specific Gravity 1.015 (1.005-1.030); Urine pH 8.5 (5.0-7.0)
[2017-12-09 16:55] VITALS: BP 127/79; TEMP 97.6; O2SAT 100
== END 2017-12-09 16:50 | disposition home or self-care (01) ==
LOC: ER 14:21
DX: R30.0 Dysuria (principal); Z88.6 Allergy status to analgesic agent; Z88.8 Allergy status to other drugs, medicaments and biological substances; Z91.048 Other nonmedicinal substance allergy status
CPT/HCPCS: 36415; 74176; 76377; 80048; 81003; 81015; 81025; 85025; 99284

== ENCOUNTER 2018-03-26 12:56 | Emergency (ER) | payer SELFPAY ==
[2018-03-26 15:21] LABS: Absolute Lymphocytes (CBC) 1.1 K/uL (0.7-4.9); Absolute Monocytes 0.3 K/uL (0.1-1.3); Absolute Neutrophil 1.6 K/uL (1.8-8.0); Basophils % 0.4 % (0-1.3); Eosinophils % 0.6 % (0-4.4); Hematocrit 34.4 % (36.0-45.0); Lymphocytes % 36.6 % (15.3-44.8); MPV 8.7 fL (7.6-11.3); Monocytes % 9.5 % (3.3-12.3); RBC Red Blood Cell Count 4.44 M/uL (3.86-4.86)
[2018-03-26 15:32] LABS: ALT/SGPT 14 U/L (12-78); AST/SGOT 13 U/L (15-37); Albumin 3.7 g/dL (3.4-5.0); Alkaline Phosphatase 41 U/L (45-117); BUN Blood Urea Nitrogen 10 mg/dL (7-18); Bicarbonate 26 mmol/L (21-32); Bilirubin Direct 0.2 mg/dL (0-0.2); Bilirubin Total 0.5 mg/dL (0.2-1.0); Glucose Level 81 mg/dL (74-106); Lipase 125 U/L (73-393); Potassium 3.7 mmol/L (3.5-5.1); Protein, Total 7.7 g/dL (6.4-8.2); Sodium Level 139 mmol/L (136-145)
--- NOTE | 2018-03-26 16:31 | RAD REPORT ---
EXAM DESCRIPTION: CT - Stone Protocol - 03/26/2018 4:17 pm CLINICAL HISTORY: Abdominal pain, left flank pain COMPARISON: CT study November 2017 TECHNIQUE: Axial 5 mm thick images were obtained without oral or IV contrast. The [id number] span s the entirety of the system partially obscuring uppermost abdomen and lung bases. All CT scans are performed using dose optimization technique as appropriate and may include automated exposure control or mA/KV adjustment according to patient size. FINDINGS: No hydronephrosis is present and no obstructing ureteral calculi. No suspicious renal mass es. Isodense masses and pyelonephritis are not excluded on a stone protocol CT scan. No urinary bladd er suspicious finding. No significant adrenal finding. Uterus and ovaries show no significant finding or suspicious change from comparison. Imaged portions of the liver, spleen and pancreas show no suspicious findings on non-contrast imaging . No gallbladder or biliary tree abnormality identified. No dilated bowel loops or bowel wall thickening. A few small mesenteric lymph nodes are present. No hernia, mass or bulky lymphadenopathy noted. No free air, free fluid or inflammatory stranding. No significant bony abnormality. IMPRESSION: No hydronephrosis, obstructing calculus or other acute finding. 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 A few small mesenteric lymph nodes are present. Isodense masses and pyelonephritis are not excluded on stone protocol technique.Overall assessment is limited in the absence of oral and IV contrast.
[2018-03-26 16:33] LABS: Urine Blood NEGATIVE (NEG); Urine Glucose NEGATIVE (NEG); Urine Protein 1+ (NEG); Urine pH 7.5 (5.0-7.0)
[2018-03-26 16:36] LABS: Urine Bacteria <20 /HPF (<20); Urine Culture Reflex Order NOT NEEDED; Urine RBC NONE SEEN /HPF (NONE SEEN)
--- NOTE | 2018-03-26 17:02 | EDPHYS ---
Physician Documentation [facility] Name: Alanna Barreto Age: 32 yrs Sex: Female : 1985 Arrival Date: 03/26/2018 Time: 12:59 Bed 28 Private MD: None, None ED Physician Tay Goodwin HPI: 03/26 15:45 This 32 yrs old Black Female presents to ER via Ambulatory with complaints of Abdominal cp Pain. 15:45 The patient presents with abdominal pain. 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 - Social history:: Smoking status: Patient/guardian denies using tobacco. - Ebola Screening: : No symptoms or risks identified at this time. ROS: 16:00 Constitutional: Negative for body aches, chills, fever, poor PO intake. cp 16:00 Eyes: Negative for injury, pain, redness, and discharge. cp 16:00 ENT: Negative for drainage from ear(s), ear pain, sore throat, difficulty swallowing, difficulty handling secretions. 16:00 Neck: Negative for pain with movement, pain at rest, stiffness, tenderness. 16:00 Cardiovascular: Negative for chest pain, edema, palpitations. 16:00 Respiratory: Negative for cough, shortness of breath, wheezing. 16:00 Abdomen/GI: Positive for abdominal pain, nausea, Negative for vomiting, diarrhea, constipation, black/tarry stool, rectal bleeding. 16:00 Back: Negative for radiated pain. 16:00 : Positive for burning with urination, Negative for hematuria, vaginal bleeding, vaginal discharge. 16:00 Skin: Negative for cellulitis, rash. 16:00 Neuro: Negative for altered mental status, dizziness, headache, weakness. 16:00 All other systems are negative. Exam: 16:05 Constitutional: The patient appears in no acute distress, alert, awake, non-toxic, well cp developed, well nourished. 16:05 Head/Face: Normocephalic, atraumatic. Eyes: Pupils equal round and reactive to light, cp extra-ocular motions intact. Lids and lashes normal. Conjunctiva and sclera are non-icteric and not injected. Cornea within normal limits. Periorbital areas with no swelling, redness, or edema. ENT: Nares patent. No nasal discharge, no septal abnormalities noted. Tympanic membranes are normal and external auditory canals are clear. Oropharynx with no redness, swelling, or masses, exudates, or evidence of obstruction, uvula midline. Mucous membranes moist. Chest/axilla: Normal chest wall appearance and motion. Nontender with no deformity. No lesions are appreciated. 16:05 Cardiovascular: Rate: normal, Rhythm: regular, Edema: is not appreciated, JVD: is not appreciated. 16:05 Respiratory: the patient does not display signs of respiratory distress, Respirations: normal, no use of accessory muscles, no retractions, no splinting, no tachypnea, labored breathing, is not present, Breath sounds: are clear throughout, no decreased breath sounds, no stridor, no wheezing. 16:05 Abdomen/GI: Inspection: abdomen appears normal, Bowel sounds: active, all quadrants, Palpation: soft, in all quadrants, mild abdominal tenderness, in the anterior aspect of left lateral abdomen and left upper quadrant, rebound tenderness, is not appreciated, involuntary guarding, is not appreciated. 16:05 Back: pain, is absent, ROM is normal. 16:05 Skin: cellulitis, is not appreciated, no rash present. 16:05 Neuro: Orientation: to person, place \T\ time. Mentation: is normal, Cerebellar function: is grossly normal, Motor: moves all fours, strength is normal, Sensation: is normal. Vital Signs: 13:00 BP 112 / 74; Pulse 73; Resp 16; Temp 98.6; Pulse Ox 100% ; Weight 68.04 kg; Height 5 sv ft. 4 in. (162.56 cm); 17:10 BP 120 / 78; Pulse 70; Resp 18; Pulse Ox 100% on R/A; Pain 0/10; mg2 13:00 Body Mass Index 25.75 (68.04 kg, 162.56 cm) sv MDM: 15:00 Patient medically screened. cp 15:00 Differential diagnosis: cholecystitis, Cholelithiasis, diverticulitis, Ectopic cp , gastritis, Pelvic Inflammatory Disease, Pyelonephritis, Ureterolithiasis, urinary tract infection. 17:00 Data reviewed: vital signs, nurses notes, lab test result(s), radiologic studies, CT cp scan. 17:00 Counseling: I had a detailed discussion with the patient and/or guardian regarding: the cp historical points, exam findings, and any diagnostic results supporting the discharge/admit diagnosis, lab results, radiology results, to return to the emergency department if symptoms worsen or persist or if there are any questions or concerns that arise at home. Response to treatment: the patient's symptoms have mildly improved after treatment, and as a result, I will discharge patient. Special discussion: Based on the patient's Hx, exam, and Dx evaluation, there is no indication for emergent surgery or inpatient Tx. It is understood by the patient/guardian that if the Sx's persist or worsen they need to return immediately for re-evaluation. 03/26 14:56 Order name: Basic Metabolic Panel; Complete Time: 15:39 mg2 03/26 16:46 Interpretation: Normal except: CL 109. cp 03/26 14:56 Order name: CBC with Diff mg2 03/26 16:53 Interpretation: Normal except: WBC 2.9; HGB 10.8; HCT 34.4; MCV 77.5; MCH 24.2; MCHC cp 31.2; NEUT A 1.6. 03/26 14:56 Order name: Creatinine for Radiology; Complete Time: 15:39 mg2 03/26 14:56 Order name: Hepatic Function; Complete Time: 15:39 mg2 03/26 16:53 Interpretation: Normal except: AST 13; ALK 41; GLOB 4.0; A/G 0.9. cp 03/26 14:56 Order name: Lipase; Complete Time: 15:39 mg2 03/26 15:05 Order name: Urine Microscopic Only; Complete Time: 16:46 cp 03/26 14:56 Order name: IV Saline Lock; Complete Time: 15:02 mg2 03/26 14:56 Order name: Labs collected and sent; Complete Time: 15:02 mg2 03/26 15:05 Order name: Urine Test (obtain specimen); Complete Time: 16:10 cp 03/26 15:05 Order name: Urine Dipstick-Ancillary (obtain specimen); Complete Time: 16:10 cp 03/26 15:41 Order name: CT Stone Protocol; Complete Time: 16:46 cp 03/26 16:19 Order name: Urine Dipstick--Ancillary (enter results); Complete Time: 16:46 eb 03/26 16:59 Interpretation: Normal except: UPH 7.5; UPROT 1+. cp 03/26 16:19 Order name: Urine --Ancillary (enter results); Complete Time: 16:46 eb 03/26 16:46 Order name: PO challenge; Complete Time: 17:09 cp Administered Medications: No medications were administered Disposition: 03/26/18 17:02 Discharged to Home. Impression: Unspecified abdominal pain. - Condition is Stable. - Discharge Instructions: Abdominal Pain, Adult. - Prescriptions for Bentyl 20 mg Oral Tablet - take 2 tablet by ORAL route every 6 hours As needed; 40 tablet. Zofran 4 mg Oral Tablet - take 1 tablet by ORAL route every 12 hours As needed; 20 tablet. - Medication Reconciliation Form, Thank You Letter, Antibiotic Education, Prescription Opioid Use form. - Follow up: Braden Peña MD; When: 2 - 3 days; Reason: Recheck today's complaints. - Problem is new. - Symptoms have improved. Addendum: 03/29/2018 07:45 Co-signature as Attending Physician, Tay Goodwin MD I agree with the assessment and k dr plan of care. Signatures: Dispatcher [employer] Marnie Guillen, RN RN Tay Goodwin MD MD kdr Alberto Palomino PA PA cp Chris Hill RN RN mg2 Corrections: (The following items were deleted from the chart) 03/26 17:15 17:02 03/26/2018 17:02 Discharged to Home. Impression: Unspecified abdominal pain. mg2 Condition is Stable. Forms are Medication Reconciliation Form, Thank You Letter, Antibiotic Education, Prescription Opioid Use. Follow up: Braden Peña; When: 2 - 3 days; Reason: Recheck today's complaints. Problem is new. Symptoms have improved. cp
--- NOTE | 2018-03-26 17:02 | ER ---
Nurse's Notes [facility] Name: Alanna Barreto Age: 32 yrs Sex: Female : 1985 Arrival Date: 03/26/2018 Time: 12:59 Bed 28 Private MD: None, None Diagnosis: Unspecified abdominal pain Presentation: 03/26 12:59 Presenting complaint: Patient states: left side pain, nausea, unable to eat x 2 weeks. sv Transition of care: patient was not received from another setting of care. Onset of symptoms was February 2018. Care prior to arrival: None. 12:59 Method Of Arrival: Ambulatory sv 12:59 Acuity: CHRISTOPHER 3 sv 17:11 Risk Assessment: Do you want to hurt yourself or someone else? Patient reports no mg2 desire to harm self or others. Initial Sepsis Screen: Does the patient meet any 2 criteria? No. Patient's initial sepsis screen is negative. Does the patient have a suspected source of infection? No. Patient's initial sepsis screen is negative. Triage Assessment: 13:04 General: Appears in no apparent distress. comfortable, Behavior is calm, cooperative, sv appropriate for age. Pain: Complains of pain in posterior aspect of left lateral abdomen and anterior aspect of left lateral abdomen. Neuro: Level of Consciousness is awake, alert, obeys commands, Oriented to person, place, time, situation, Gait is steady. Respiratory: Respiratory effort is even, unlabored, Respiratory pattern is regular, symmetrical. Derm: Skin is pink, warm \T\ dry. 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 - Social history:: Smoking status: Patient/guardian denies using tobacco. - Ebola Screening: : No symptoms or risks identified at this time. Screenin:04 Abuse screen: Denies threats or abuse. Denies injuries from another. Nutritional mg2 screening: No deficits noted. Tuberculosis screening: No symptoms or risk factors identified. Fall Risk IV access (20 points). Assessment: 15:02 General: Appears in no apparent distress. comfortable, Behavior is calm, cooperative. mg2 Pain: Complains of pain in LUQ Pain radiates to RUQ Pain currently is 10 out of 10 on a pain scale. Quality of pain is described as aching, Pain began gradually, 2 weeks ago Is intermittent. Neuro: Level of Consciousness is awake, alert, obeys commands, Oriented to person, place, time, situation. Cardiovascular: Capillary refill < 3 seconds Patient's skin is warm and dry. Respiratory: Airway is patent Respiratory effort is even, unlabored, Respiratory pattern is regular, symmetrical. GI: Abdomen is round non-distended, Reports upper abdominal pain, nausea. : No signs and/or symptoms were reported regarding the genitourinary system. EENT: No signs and/or symptoms were reported regarding the EENT system. Derm: Skin is intact, is healthy with good turgor, Skin is pink, warm \T\ dry. normal. Musculoskeletal: Circulation, motion, and sensation intact. Capillary refill < 3 seconds. 17:10 Reassessment: po challenge tolerated. mg2 Vital Signs: 13:00 BP 112 / 74; Pulse 73; Resp 16; Temp 98.6; Pulse Ox 100% ; Weight 68.04 kg; Height 5 sv ft. 4 in. (162.56 cm); 17:10 BP 120 / 78; Pulse 70; Resp 18; Pulse Ox 100% on R/A; Pain 0/10; mg2 13:00 Body Mass Index 25.75 (68.04 kg, 162.56 cm) sv ED Course: 12:59 Patient arrived in ED. sb2 12:59 None, None is Private Physician. sb2 13:00 Triage completed. sv 13:04 Arm band placed on Patient placed in waiting room, Patient notified of wait time. sv 14:47 Jose Oquendo NP is PHCP. pm1 14:47 Tay Goodwin MD is Attending Physician. pm1 14:47 PHCP role handed off by Jose Oquendo NP cp 14:47 Alberto Palomino PA is PHCP. cp 14:51 Chris Hill RN is Primary Nurse. mg2 15:04 No provider procedures requiring assistance completed. Inserted saline lock: 20 gauge mg2 in left antecubital area, using aseptic technique. Blood collected. 16:18 CT Stone Protocol In Process Unspecified. EDMS 16:44 CT completed. Patient tolerated procedure well. Patient moved to CT via wheelchair. Patient moved back from OR. 17:01 Braden Peña MD is Referral Physician. cp 17:10 IV discontinued, intact, bleeding controlled, No redness/swelling at site. Pressure mg2 dressing applied. 17:11 Patient has correct armband on for positive identification. mg2 Administered Medications: No medications were administered Outcome: 17:02 Discharge ordered by . cp 17:10 Discharged to home ambulatory. mg2 17:10 Condition: stable 17:10 Discharge instructions given to patient, Instructed on discharge instructions, follow up and referral plans. medication usage, Demonstrated understanding of instructions, follow-up care, medications, Prescriptions given X 2. 17:15 Patient left the ED. mg2 Signatures: Dispatcher [employer] EDMS Marnie Roberson, RN RN Samuel Quintanilla Corey, PA PA cp Jose Oquendo, GARMENT FORM ASSEMBLER GARMENT FORM ASSEMBLER pm1 Sarah Evans sb2 Chris Hill RN RN mg2
[2018-03-26 17:37] VITALS: TEMP 98.6; O2SAT 100
[2018-03-26 17:38] VITALS: BP 120/78
[2018-03-26 19:44] LABS: Blood Morphology Comment NOT SEEN (NOT SEEN); Platelet Estimate ADEQ; Urine White Blood Cell Casts OK
== END 2018-03-26 17:15 | disposition home or self-care (01) ==
LOC: ER 12:56
DX: R10.9 Unspecified abdominal pain (principal); Z88.6 Allergy status to analgesic agent; Z88.8 Allergy status to other drugs, medicaments and biological substances; Z91.048 Other nonmedicinal substance allergy status
CPT/HCPCS: 36415; 74176; 76377; 80048; 80076; 81003; 81015; 81025; 83690; 85025; 99284

== ENCOUNTER 2018-10-09 15:39 | Emergency (ER) | payer SELFPAY ==
--- OUTSIDE RECORDS SUMMARY | 2018-10-09 15:41 | XMS REPORT ---
:1985 Author Organization [facility] Address [address] [place] [address] [address] [place] [address] Care Team Providers Name Role Phone Unavailable Unavailable Unavailable Problems This patient has no known problems. Allergies, Adverse Reactions, Alerts This patient has no known allergies or adverse reactions. Medications This patient has no known medications.
[2018-10-09 17:08] LABS: Urine Blood NEGATIVE (NEG); Urine Glucose NEGATIVE (NEG); Urine Protein NEGATIVE (NEG); Urine Specific Gravity 1.015 (1.005-1.030)
--- NOTE | 2018-10-09 17:49 | ER ---
Nurse's Notes [facility] Name: Alanna Barreto Age: 32 yrs Sex: Female : 1985 Arrival Date: 10/09/2018 Time: 15:43 Bed 25 Private MD: Diagnosis: Urinary tract infection, site not specified Presentation: 10/09 16:27 Presenting complaint: Patient states: Nausea, low back and abdominal pain x 3 weeks, ph denies V/D, also reports fever and chills x 3 days and intermittent burning w/ urination, LMP approx 2 months ago but pt reports irregular menses. Transition of care: patient was not received from another setting of care. Onset of symptoms. Risk Assessment: Do you want to hurt yourself or someone else? Patient reports no desire to harm self or others. Initial Sepsis Screen: Does the patient meet any 2 criteria? No. Patient's initial sepsis screen is negative. Does the patient have a suspected source of infection? No. Patient's initial sepsis screen is negative. Care prior to arrival: None. 16:27 Method Of Arrival: Ambulatory ph 16:27 Acuity: CHRISTOPHER 3 ph Triage Assessment: 17:55 GI: Reports nausea. 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 - Social history:: Smoking status: . - Ebola Screening: : No symptoms or risks identified at this time. Screenin:34 Abuse screen: Denies threats or abuse. Denies injuries from another. Nutritional mg2 screening: No deficits noted. Tuberculosis screening: No symptoms or risk factors identified. Fall Risk None identified. Assessment: 17:33 General: Appears in no apparent distress. comfortable, Behavior is calm, cooperative. mg2 Pain: Complains of pain in abdomen Pain does not radiate. Pain currently is 2 out of 10 on a pain scale. Quality of pain is described as aching, Pain began gradually. Neuro: Level of Consciousness is awake, alert, obeys commands, Oriented to person, place, time, situation. Cardiovascular: Capillary refill < 3 seconds Patient's skin is warm and dry. Respiratory: Airway is patent Respiratory effort is even, unlabored, Respiratory pattern is regular, symmetrical. GI: Abdomen is round non-distended. : No signs and/or symptoms were reported regarding the genitourinary system. : Urine is see urine dip. EENT: No signs and/or symptoms were reported regarding the EENT system. Derm: Skin is intact, is healthy with good turgor, Skin is pink, warm \T\ dry. normal. Musculoskeletal: No signs and/or symptoms reported regarding the musculoskeletal system. Vital Signs: 16:29 BP 108 / 79; Pulse 64; Resp 18; Temp 98.1; Pulse Ox 100% on R/A; Weight 84.37 kg; ph Height 5 ft. 4 in. (162.56 cm); 17:35 BP 110 / 57; Pulse 70; Resp 18; Temp 98; Pulse Ox 100% on R/A; Pain 2/10; mg2 16:29 Body Mass Index 31.93 (84.37 kg, 162.56 cm) ph ED Course: 15:43 Patient arrived in ED. mr 16:22 Baljit Bearden PA is PHCP. [facility] 16:23 Alberto Ponce MD is Attending Physician. [facility] 16:29 Triage completed. ph 16:29 Arm band placed on. ph 16:54 Chris Hill, BRADY is Primary Nurse. mg2 17:34 intraabdominal ultrasound bedside. Patient did not have IV access during this emergency mg2 room visit. 17:35 Patient has correct armband on for positive identification. mg2 Administered Medications: No medications were administered Outcome: 17:48 Discharge ordered by . [facility] 17:54 Discharged to home ambulatory. mg2 17:54 Condition: stable 17:54 Discharge instructions given to patient, Instructed on discharge instructions, follow up and referral plans. medication usage, Demonstrated understanding of instructions, follow-up care, medications, Prescriptions given X 1. 17:55 Patient left the ED. mg2 Signatures: Baljit Bearden PA PA jmm Rivera, Mary mr VilledaJacy, RN RN Chris Hill, BRADY RN mg2
--- NOTE | 2018-10-09 17:50 | EDPHYS ---
Physician Documentation [facility] Name: Alanna Barreto Age: 32 yrs Sex: Female : 1985 Arrival Date: 10/09/2018 Time: 15:43 Bed 25 Private MD: ED Physician Alberto Ponce HPI: 10/09 16:41 This 32 yrs old Black Female presents to ER via Ambulatory with complaints of Nausea. jmm 16:41 The patient presents with urinary symptoms, dysuria. Onset: The symptoms/episode jmm began/occurred gradually, 3 week(s) ago. Modifying factors: The symptoms are alleviated by nothing, the symptoms are aggravated by nothing. This is a 32 year old female with a history of anxiety, depression, GERD that presents to the ED with concerns she may be . Patient states she has taken multiple tests at home which have been negative. LMP was in July. Patient has sensation there is something moving in her abdomen. . 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 - Social history:: Smoking status: . - Ebola Screening: : No symptoms or risks identified at this time. ROS: 16:41 Constitutional: Negative for fever, chills, and weight loss, Cardiovascular: Negative jmm for chest pain, palpitations, and edema, Respiratory: Negative for shortness of breath, cough, wheezing, and pleuritic chest pain. 16:41 Abdomen/GI: Positive for abdominal pain. 16:41 : Positive for urinary symptoms. 16:41 All other systems are negative. Exam: 16:41 Constitutional: This is a well developed, well nourished patient who is awake, alert, jmm and in no acute distress. Head/Face: atraumatic. Eyes: EOMI, no conjunctival erythema appreciated ENT: Moist Mucus Membranes Neck: Trachea midline, Supple Chest/axilla: Normal chest wall appearance and motion. Cardiovascular: Regular rate and rhythm. No edema appreciated Respiratory: Normal respirations, no respiratory distress appreciated 16:41 Back: Normal ROM Skin: General appearance color normal MS/ Extremity: Moves all extremities, no obvious deformities appreciated, no edema noted to the lower extremities Neuro: Awake and alert, normal gait Psych: Behavior is normal, Mood is normal, Patient is cooperative and pleasant 16:41 Abdomen/GI: Inspection: abdomen appears normal, Bowel sounds: normal, Palpation: abdomen is soft and non-tender, in all quadrants, rebound tenderness, is not appreciated, voluntary guarding, is not appreciated. Vital Signs: 16:29 BP 108 / 79; Pulse 64; Resp 18; Temp 98.1; Pulse Ox 100% on R/A; Weight 84.37 kg; ph Height 5 ft. 4 in. (162.56 cm); 17:35 BP 110 / 57; Pulse 70; Resp 18; Temp 98; Pulse Ox 100% on R/A; Pain 2/10; mg2 16:29 Body Mass Index 31.93 (84.37 kg, 162.56 cm) ph MDM: 16:41 Patient medically screened. esmer 17:48 Data reviewed: vital signs, nurses notes. Counseling: I had a detailed discussion with yonatan the patient and/or guardian regarding: the historical points, exam findings, and any diagnostic results supporting the discharge/admit diagnosis, lab results, the need for outpatient follow up, to return to the emergency department if symptoms worsen or persist or if there are any questions or concerns that arise at home. 17:48 ED course: Abdomen is non tender to palpation. Symptoms have been ongoing for 3 weeks. yonatan I do not suspect an acute intraabdominal process. UPT negative. Patient advised to follow up with GI and otherwise given strict return precautions. Patient understood and agrees with the plan of care. . 08 16:58 Order name: Urine Dipstick--Ancillary (enter results); Complete Time: 17:31 sp 10/09 16:58 Order name: Urine --Ancillary (enter results); Complete Time: 17:31 sp 10/09 16:52 Order name: Urine Dipstick-Ancillary (obtain specimen); Complete Time: 16:56 jessica 10/09 16:54 Order name: Urine Test (obtain specimen); Complete Time: 16:56 [facility] Administered Medications: No medications were administered Disposition: 10/09/18 17:48 Discharged to Home. Impression: Urinary tract infection, site not specified. - Condition is Stable. - Discharge Instructions: Urinary Tract Infection, Adult. - Prescriptions for Cephalexin 500 mg Oral Capsule - take 1 capsule by ORAL route every 12 hours for 10 days; 20 capsule. - Medication Reconciliation Form, Thank You Letter, Antibiotic Education, Prescription Opioid Use form. - Follow up: Private Physician; When: 2 - 3 days; Reason: Recheck today's complaints, Continuance of care, Re-evaluation by your physician. Signatures: Dispatcher [employer] EDAlberto Baumann MD MD cha Mickail, Joel, PA PA Jacy Higuera, RN RN ph Chris Hill RN RN mg2 Corrections: (The following items were deleted from the chart) 17:55 17:48 10/09/2018 17:48 Discharged to Home. Impression: Urinary tract infection, site mg2 not specified. Condition is Stable. Forms are Medication Reconciliation Form, Thank You Letter, Antibiotic Education, Prescription Opioid Use. Follow up: Private Physician; When: 2 - 3 days; Reason: Recheck today's complaints, Continuance of care, Re-evaluation by your physician. yonatan
[2018-10-09 19:09] VITALS: O2SAT 100
[2018-10-09 19:12] VITALS: BP 110/57; TEMP 98
== END 2018-10-09 17:55 | disposition home or self-care (01) ==
LOC: ER 15:39
DX: N39.0 Urinary tract infection, site not specified (principal); Z88.6 Allergy status to analgesic agent; Z88.8 Allergy status to other drugs, medicaments and biological substances; Z91.048 Other nonmedicinal substance allergy status
CPT/HCPCS: 81003; 81025; 99282

== ENCOUNTER 2019-01-13 10:33 | Emergency (ER) | payer SELFPAY ==
--- OUTSIDE RECORDS SUMMARY | 2019-01-13 10:35 | XMS REPORT ---
:1985 [facility] Address [address] [place] [address] [address] [place] [address] Care Team Providers Name Role Phone Unavailable Unavailable Unavailable Problems This patient has no known problems. Allergies, Adverse Reactions, Alerts This patient has no known allergies or adverse reactions. Medications This patient has no known medications.
--- NOTE | 2019-01-13 11:00 | ER ---
Nurse's Notes [facility] Name: Alanna Barreto Age: 33 yrs Sex: Female : 1985 Arrival Date: 01/13/2019 Time: 10:35 Bed 19 Private MD: Diagnosis: Fever, unspecified;Acute upper respiratory infection, unspecified;Cough Presentation: 01/13 10:36 Presenting complaint: Patient states: i am having trouble breathing and am coughing and tw2 running fever, i have been taking medicine and it is not helping and my throat is sore. Transition of care: patient was not received from another setting of care. Onset of symptoms was January 13, 2019. Risk Assessment: Do you want to hurt yourself or someone else? Patient reports no desire to harm self or others. Initial Sepsis Screen: Does the patient meet any 2 criteria? No. Patient's initial sepsis screen is negative. Does the patient have a suspected source of infection? No. Patient's initial sepsis screen is negative. Care prior to arrival: None. 10:36 Method Of Arrival: Ambulatory tw2 10:36 Acuity: CHRISTOPHER 4 tw2 Triage Assessment: 10:37 General: Appears in no apparent distress. Behavior is calm, cooperative, appropriate tw2 for age. Pain: Denies pain. Pain: Complains of pain in mouth. EENT: Reports nasal congestion nasal discharge. Respiratory: Reports shortness of breath cough that is non-productive. 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 - Social history:: Smoking status: . - Ebola Screening: : Patient denies travel to an Ebola-affected area in the 21 days before illness onset. - Family history:: not pertinent. Screenin:54 Abuse screen: Denies threats or abuse. Nutritional screening: No deficits noted. tw2 Tuberculosis screening: No symptoms or risk factors identified. Fall Risk None identified. Assessment: 11:00 General: Appears in no apparent distress. comfortable, well groomed, Behavior is calm, ph cooperative, appropriate for age, Reports chills for fever for. Pain: Denies pain. Neuro: Level of Consciousness is awake, alert, Oriented to person, place, time, situation. Cardiovascular: Capillary refill < 3 seconds in bilateral Patient's skin is warm and dry. Respiratory: Reports shortness of breath on exertion cough that is Airway is patent Respiratory effort is even, unlabored, Respiratory pattern is regular, symmetrical, Breath sounds are coarse in mediastinum. GI: No signs and/or symptoms were reported involving the gastrointestinal system. Derm: Skin is intact, Skin is pink, warm \T\ dry. Vital Signs: 10:38 BP 120 / 86; Pulse 75; Resp 18; Temp 97.7(TE); Pulse Ox 100% on R/A; Weight 72.57 kg tw2 (R); Height 5 ft. 4 in. (162.56 cm); Pain 10/10; 10:38 Body Mass Index 27.46 (72.57 kg, 162.56 cm) tw2 ED Course: 10:35 Patient arrived in ED. mr 10:37 Triage completed. tw2 10:37 Arm band placed on. tw2 10:40 Bed in low position. Call light in reach. tw2 10:43 Alberto Ponce MD is Attending Physician. esmer 10:45 Jacy Villeda, BRADY is Primary Nurse. ph 11:25 No provider procedures requiring assistance completed. Patient did not have IV access ph during this emergency room visit. Administered Medications: 11:24 Drug: Zithromax 500 mg Route: PO; ph 11:27 Follow up: Response: No adverse reaction; Medication administered at discharge. ph Outcome: 11:00 Discharge ordered by . [facility] 11:26 Discharged to home ambulatory. ph 11:26 Condition: good 11:26 Discharge instructions given to patient, Instructed on discharge instructions, follow up and referral plans. medication usage, Demonstrated understanding of instructions, follow-up care, medications, Prescriptions given X 3. 11:27 Patient left the ED. ph Signatures: Alberto Ponce MD MD cha Rivera, Mary Jacy Villeda, BRADY RN Jenniffer Cuellar RN RN tw2 Corrections: (The following items were deleted from the chart) 10:38 10:36 Presenting complaint: Patient states: i am having trouble breathing and am tw2 coughing and running fever, i have been taking medicine and it is not helping. tw2
--- NOTE | 2019-01-13 11:01 | EDPHYS ---
Physician Documentation [facility] Name: Alanna Barreto Age: 33 yrs Sex: Female : 1985 Arrival Date: 01/13/2019 Time: 10:35 Bed 19 Private MD: ED Physician Alberto Ponce HPI: 01/13 10:54 This 33 yrs old Black Female presents to ER via Ambulatory with complaints of Fever. esmer 10:54 The patient reports fever, that was measured at 100 degrees Fahrenheit. Onset: The esmer symptoms/episode began/occurred 3 day(s) ago. Modifying factors: there are no obvious modifying factors. Associated signs and symptoms: Pertinent positives: chills, cough, nausea, runny nose, sinus congestion, sinus drainage. Severity of symptoms: At their worst the symptoms were mild in the emergency department the symptoms are unchanged. The patient has experienced similar episodes in the past, a few times. 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 - Social history:: Smoking status: . - Ebola Screening: : Patient denies travel to an Ebola-affected area in the 21 days before illness onset. - Family history:: not pertinent. ROS: 10:54 Eyes: Negative for injury, pain, redness, and discharge, ENT: Negative for injury, esmer pain, and discharge, Neck: Negative for injury, pain, and swelling, Cardiovascular: Negative for chest pain, palpitations, and edema, Abdomen/GI: Negative for abdominal pain, nausea, vomiting, diarrhea, and constipation, Back: Negative for injury and pain, : Negative for injury, bleeding, discharge, and swelling, MS/Extremity: Negative for injury and deformity, Skin: Negative for injury, rash, and discoloration, Neuro: Negative for headache, weakness, numbness, tingling, and seizure, Psych: Negative for depression, anxiety, suicide ideation, homicidal ideation, and hallucinations, Allergy/Immunology: Negative for hives, rash, and allergies, Endocrine: Negative for neck swelling, polydipsia, polyuria, polyphagia, and marked weight changes, Hematologic/Lymphatic: Negative for swollen nodes, abnormal bleeding, and unusual bruising. 10:54 Constitutional: Positive for chills, fatigue, fever. 10:54 Respiratory: Positive for cough, with no reported sputum. Exam: 10:54 Constitutional: This is a well developed, well nourished patient who is awake, alert, esmer and in no acute distress. Head/Face: Normocephalic, atraumatic. Eyes: Pupils equal round and reactive to light, extra-ocular motions intact. Lids and lashes normal. Conjunctiva and sclera are non-icteric and not injected. Cornea within normal limits. Periorbital areas with no swelling, redness, or edema. ENT: Nares patent. No nasal discharge, no septal abnormalities noted. Tympanic membranes are normal and external auditory canals are clear. Oropharynx with no redness, swelling, or masses, exudates, or evidence of obstruction, uvula midline. Mucous membranes moist. Neck: Trachea midline, no thyromegaly or masses palpated, and no cervical lymphadenopathy. Supple, full range of motion without nuchal rigidity, or vertebral point tenderness. No Meningismus. Chest/axilla: Normal chest wall appearance and motion. Nontender with no deformity. No lesions are appreciated. Cardiovascular: Regular rate and rhythm with a normal S1 and S2. No gallops, murmurs, or rubs. Normal PMI, no JVD. No pulse deficits. Respiratory: Lungs have equal breath sounds bilaterally, clear to auscultation and percussion. No rales, rhonchi or wheezes noted. No increased work of breathing, no retractions or nasal flaring. Abdomen/GI: Soft, non-tender, with normal bowel sounds. No distension or tympany. No guarding or rebound. No evidence of tenderness throughout. Back: No spinal tenderness. No costovertebral tenderness. Full range of motion. Skin: Warm, dry with normal turgor. Normal color with no rashes, no lesions, and no evidence of cellulitis. MS/ Extremity: Pulses equal, no cyanosis. Neurovascular intact. Full, normal range of motion. Neuro: Awake and alert, GCS 15, oriented to person, place, time, and situation. Cranial nerves II-XII grossly intact. Motor strength 5/5 in all extremities. Sensory grossly intact. Cerebellar exam normal. Normal gait. Psych: Awake, alert, with orientation to person, place and time. Behavior, mood, and affect are within normal limits. 10:54 Musculoskeletal/extremity: DVT Exam: No signs of deep vein thrombosis. no pain, no esmer swelling, no tenderness, negative Homans' sign noted on exam, no appreciated bluish discoloration, no erythema, no increased warmth. Vital Signs: 10:38 BP 120 / 86; Pulse 75; Resp 18; Temp 97.7(TE); Pulse Ox 100% on R/A; Weight 72.57 kg tw2 (R); Height 5 ft. 4 in. (162.56 cm); Pain 10/10; 10:38 Body Mass Index 27.46 (72.57 kg, 162.56 cm) tw2 MDM: 10:43 Patient medically screened. [facility] 10:58 Data reviewed: vital signs, nurses notes. [facility] Administered Medications: 11:24 Drug: Zithromax 500 mg Route: PO; ph 11:27 Follow up: Response: No adverse reaction; Medication administered at discharge. ph Disposition: 01/13/19 11:00 Discharged to Home. Impression: Fever, unspecified, Acute upper respiratory infection, unspecified, Cough. - Condition is Stable. - Discharge Instructions: Fever, Adult, Upper Respiratory Infection, Adult, Upper Respiratory Infection, Adult, [id number], Cough, Adult, [id number], Cough, Adult. - Prescriptions for Bromfed DM 2- 30-10 mg/5 mL Oral syrup - take 10 milliliter by ORAL route every 4 hours; 160 milliliter. Randi- D 12 Hour 60-120 mg Oral Tablet Sustained Release 12 hr - take 1 tablet by ORAL route every 12 hours As needed; 20 tablet. Zithromax Z- Mumtaz 250 mg Oral Tablet - take 1 tablet by ORAL route as directed for 5 days Day 1 - take two (2) tablets one time. Day 2, 3, 4 , 5 take one (1) tablet once daily.; 6 tablet. - Medication Reconciliation Form, Thank You Letter, Antibiotic Education, Prescription Opioid Use, Work release form form. - Follow up: Private Physician; When: 2 - 3 days; Reason: Recheck today's complaints, Continuance of care, Re-evaluation by your physician. - Problem is new. - Symptoms have improved. Signatures: Alberto Ponce MD MD cha Hall, Patricia, RN RN Jenniffer Hou RN RN tw2 Corrections: (The following items were deleted from the chart) 11:27 11:00 01/13/2019 11:00 Discharged to Home. Impression: Fever, unspecified; Acute upper ph respiratory infection, unspecified; Cough. Condition is Stable. Forms are Medication Reconciliation Form, Thank You Letter, Antibiotic Education, Prescription Opioid Use. Follow up: Private Physician; When: 2 - 3 days; Reason: Recheck today's complaints, Continuance of care, Re-evaluation by your physician. Problem is new. Symptoms have improved. esmer
[2019-01-13] MEDS ORDERED: AZITHROMYCIN 250 MG TAB ONE (11:18)
[2019-01-13 12:06] VITALS: BP 120/86; TEMP 97.7; O2SAT 100
== END 2019-01-13 11:27 | disposition home or self-care (01) ==
LOC: ER 10:33
DX: J06.9 Acute upper respiratory infection, unspecified (principal); R05 Cough; Z88.6 Allergy status to analgesic agent; Z88.8 Allergy status to other drugs, medicaments and biological substances; Z91.048 Other nonmedicinal substance allergy status
CPT/HCPCS: 99283

== ENCOUNTER 2019-07-05 08:57 | Emergency (ER) | payer SELFPAY ==
--- OUTSIDE RECORDS SUMMARY | 2019-07-05 09:56 | XMS REPORT ---
:1985 Author Organization [facility] t Address [address] [place] [address] [address] [place] [address] Care Team Providers Name Role Phone Unavailable Unavailable Unavailable Problems This patient has no known problems. Allergies, Adverse Reactions, Alerts This patient has no known allergies or adverse reactions. Medications This patient has no known medications. Procedures This patient has no known procedures. Results This patient has no known results.
[2019-07-05 10:00] LABS: Absolute Lymphocytes (CBC) 0.8 K/uL (0.7-4.9); Basophils % 0.2 % (0-1.3); Hematocrit 34.1 % (36.0-45.0); Lymphocytes % 17.8 % (15.3-44.8); MPV 9.3 fL (7.6-11.3); RBC Red Blood Cell Count 4.34 M/uL (3.86-4.86)
[2019-07-05] MEDS ORDERED: NA CHLORIDE 0.9% 1,000 ML ONE (10:05)
[2019-07-05] MEDS ORDERED: MORPHINE 2 MG/ML SYR ONE (10:05)
[2019-07-05] MEDS ORDERED: ONDANSETRON 4 MG/2 ML VIAL ONE (10:05)
[2019-07-05] MEDS ORDERED: FAMOTIDINE 20 MG/2 ML VIAL IV ONE (10:06)
[2019-07-05 10:16] LABS: ALT/SGPT 14 U/L (12-78); AST/SGOT 15 U/L (15-37); Albumin 3.4 g/dL (3.4-5.0); Alkaline Phosphatase 37 U/L (45-117); BUN Blood Urea Nitrogen 7 mg/dL (7-18); Bicarbonate 25 mmol/L (21-32); Bilirubin Direct 0.2 mg/dL (0-0.2); Bilirubin Total 0.4 mg/dL (0.2-1.0); Glucose Level 95 mg/dL (74-106); Lipase 122 U/L (73-393); Potassium 3.9 mmol/L (3.5-5.1); Protein, Total 7.7 g/dL (6.4-8.2); Sodium Level 139 mmol/L (136-145)
--- NOTE | 2019-07-05 10:26 | RAD REPORT ---
EXAM DESCRIPTION: CT - Abdomen Pelvis Wo Contrast - 07/05/2019 10:07 am CLINICAL HISTORY: Abdominal pain COMPARISON: 2019 TECHNIQUE: Computed axial tomography of the abdomen and pelvis was obtained. IV and oral contrast we re not requested. All CT scans are performed using dose optimization technique as appropriate and may include automated exposure control or mA/KV adjustment according to patient size. FINDINGS: The evaluation of solid organs, vessels and bowel is limited secondary to the lack of con trast administration. The liver, spleen, pancreas, adrenals and kidneys appear grossly normal. The appendix is normal. There is no evidence of diverticulitis. Tiny umbilical hernia IMPRESSION: No acute abnormality is displayed.
--- NOTE | 2019-07-05 11:07 | EDPHYS ---
Physician Documentation [facility] Name: Alanna Barreto Age: 33 yrs Sex: Female : 1985 Arrival Date: 07/05/2019 Time: 09:02 Bed 18 Private MD: ED Physician Tay Goodwin HPI: 07/04 09:42 This 33 yrs old Black Female presents to ER via Ambulatory with complaints of Nausea, kdr Abdominal Pain. 09:42 The patient presents to the emergency department with nausea, that is moderate, kdr diarrhea, that is intermittent, abdominal pain, of the anterior aspect of left lateral abdomen and abdomen diffusely. Onset: The symptoms/episode began/occurred suddenly, last night. Possible causes: unknown. The symptoms are aggravated by food , The symptoms are alleviated by nothing. Associated signs and symptoms: Pertinent positives: abdominal pain, anorexia, nausea, Pertinent negatives: constipation, dysuria, fever, GI bleeding, hematuria, vaginal discharge, vomiting. Severity of symptoms: At their worst the symptoms were moderate in the emergency department the symptoms are unchanged. The patient has not experienced similar symptoms in the past. The patient has not recently seen a physician. 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 - Social history:: Smoking status: . ROS: 09:42 Constitutional: Negative for fever, chills, and weight loss, Eyes: Negative for injury, kdr pain, redness, and discharge, Neck: Negative for injury, pain, and swelling, Cardiovascular: Negative for chest pain, palpitations, and edema, Respiratory: Negative for shortness of breath, cough, wheezing, and pleuritic chest pain, Back: Negative for injury and pain, : Negative for injury, bleeding, discharge, and swelling, MS/Extremity: Negative for injury and deformity, Skin: Negative for injury, rash, and discoloration, Neuro: Negative for headache, weakness, numbness, tingling, and seizure activity. Psych: Negative for depression, anxiety, suicide ideation, homicidal ideation, and hallucinations, Allergy/Immunology: Negative for hives, rash, and allergies, Endocrine: Negative for neck swelling, polydipsia, polyuria, polyphagia, and marked weight changes, Hematologic/Lymphatic: Negative for swollen nodes, abnormal bleeding, and unusual bruising. 09:42 Abdomen/GI: Positive for abdominal pain, nausea, diarrhea, Negative for vomiting, abdominal distension, dysphagia, hematemesis, black/tarry stool, rectal pain, rectal bleeding, bowel incontinence. Exam: 09:42 Constitutional: This is a well developed, well nourished patient who is awake, alert, kdr and in no acute distress. Head/Face: Normocephalic, atraumatic. Eyes: Pupils equal round and reactive to light, extra-ocular motions intact. Lids and lashes normal. Conjunctiva and sclera are non-icteric and not injected. Cornea within normal limits. Periorbital areas with no swelling, redness, or edema. Neck: Trachea midline, no thyromegaly or masses palpated, and no cervical lymphadenopathy. Supple, full range of motion without nuchal rigidity, or vertebral point tenderness. No Meningismus. Chest/axilla: Normal chest wall appearance and motion. Nontender with no deformity. No lesions are appreciated. Cardiovascular: Regular rate and rhythm with a normal S1 and S2. No gallops, murmurs, or rubs. Normal PMI, no JVD. No pulse deficits. Respiratory: Lungs have equal breath sounds bilaterally, clear to auscultation and percussion. No rales, rhonchi or wheezes noted. No increased work of breathing, no retractions or nasal flaring. Back: No spinal tenderness. No costovertebral tenderness. Full range of motion. Skin: Warm, dry with normal turgor. Normal color with no rashes, no lesions, and no evidence of cellulitis. MS/ Extremity: Pulses equal, no cyanosis. Neurovascular intact. Full, normal range of motion. Neuro: Awake and alert, GCS 15, oriented to person, place, time, and situation. Cranial nerves II-XII grossly intact. Motor strength 5/5 in all extremities. Sensory grossly intact. Cerebellar exam normal. Normal gait. Psych: Awake, alert, with orientation to person, place and time. Behavior, mood, and affect are within normal limits. 09:42 Abdomen/GI: Inspection: abdomen appears normal, Bowel sounds: active, all quadrants, Palpation: soft, mild abdominal tenderness, in the left upper quadrant and abdomen diffusely. Vital Signs: 09:14 BP 124 / 75; Pulse 76; Resp 17; Temp 97.8(TE); Pulse Ox 100% on R/A; Weight 85.73 kg tw2 (R); Height 5 ft. 4 in. (162.56 cm); Pain 10/10; 10:30 BP 109 / 74; Pulse 62; Resp 17; Pulse Ox 100% on R/A; tw2 11:18 BP 112 / 69; Pulse 57; Resp 17; Pulse Ox 100% on R/A; tw2 12:21 BP 106 / 66; Pulse 69; Resp 17; Pulse Ox 97% on R/A; ph 09:14 Body Mass Index 32.44 (85.73 kg, 162.56 cm) tw2 MDM: 09:42 Data reviewed: vital signs, nurses notes, lab test result(s), radiologic studies. kdr Counseling: I had a detailed discussion with the patient and/or guardian regarding: the historical points, exam findings, and any diagnostic results supporting the discharge/admit diagnosis, lab results, radiology results. 11:07 Patient medically screened. [facility] 07/04 09:37 Order name: Basic Metabolic Panel; Complete Time: 10:21 [facility] 07/04 09:37 Order name: CBC with Diff; Complete Time: 10:21 [facility] 07/04 09:37 Order name: Hepatic Function; Complete Time: 10:21 kdr 07/04 09:37 Order name: Lipase; Complete Time: 10:21 [facility] 07/04 11:48 Order name: Urine Dipstick--Ancillary (enter results) 07/04 11:48 Order name: Urine --Ancillary (enter results) 07/04 09:37 Order name: IV Saline Lock; Complete Time: 09:58 kdr 07/04 09:37 Order name: Labs collected and sent; Complete Time: 09:58 [facility] 07/04 09:41 Order name: CT Abd/Pelvis - Without Contrast; Complete Time: 11:00 kdr Administered Medications: 10:20 Drug: NS 0.9% 1000 ml Route: IV; Rate: 1 bolus; Site: right antecubital; tw2 12:20 Follow up: IV Status: Order to discontinue infusion; IV Intake: 500ml tw2 10:20 Drug: Zofran (Ondansetron) 4 mg Route: IVP; Site: right antecubital; tw2 11:13 Follow up: Response: No adverse reaction; Nausea is decreased tw2 10:22 Drug: Pepcid 20 mg Route: IVP; Site: right antecubital; tw2 11:13 Follow up: Response: No adverse reaction tw2 10:24 Drug: morphine 2 mg Route: IVP; Site: right antecubital; tw2 11:13 Follow up: Response: No adverse reaction; Pain is decreased; RASS: Alert and Calm (0) tw2 11:13 Not Given (discharge ordered.): NS 0.9% 1000 ml IV at 125 ml/hr once tw2 Disposition: 07/05/19 11:07 Discharged to Home. Impression: Abdominal and pelvic pain, Diarrhea, unspecified. - Condition is Stable. - Discharge Instructions: Abdominal Pain, Adult, [id number], Diarrhea, Adult, [id number]. - Prescriptions for Bentyl 20 mg Oral Tablet - take 1 tablet by ORAL route every 6 hours As needed; 10 tablet. Pepcid 20 mg Oral Tablet - take 1 tablet by ORAL route every 12 hours for 5 days; 20 tablet. Zofran 4 mg Oral Tablet - take 1 tablet by ORAL route every 4-6 hours As needed; 12 tablet. Tramadol 50 mg Oral Tablet - take 1 tablet by ORAL route every 8 hours as needed; 12 tablet. - Medication Reconciliation Form, Thank You Letter, Prescription Opioid Use, Work release form form. - Follow up: Private Physician; When: 2 - 3 days; Reason: If symptoms return, Further diagnostic work-up, Recheck today's complaints, Continuance of care, Re-evaluation by your physician. - Problem is new. - Symptoms have improved. Signatures: Dispatcher [employer] EDMS Tay Goodwin MD MD [facility] Jacy Villeda RN RN Jenniffer Hou RN RN tw2 Corrections: (The following items were deleted from the chart) 12:24 11:07 07/05/2019 11:07 Discharged to Home. Impression: Abdominal and pelvic pain; ph Diarrhea, unspecified. Condition is Stable. Forms are Work release form, Medication Reconciliation Form, Thank You Letter, Antibiotic Education, Prescription Opioid Use. Follow up: Private Physician; When: 2 - 3 days; Reason: If symptoms return, Further diagnostic work-up, Recheck today's complaints, Continuance of care, Re-evaluation by your physician. Problem is new. Symptoms have improved. kdr
--- NOTE | 2019-07-05 11:07 | ER ---
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 Coronavirus screen: Proceed with normal triage. Patient reports a cough. Patient denies shortness of breath or difficulty breathing. Patient denies measured and/or subjective temperature greater than 100.4F prior to today's visit. Patient denies travel on a cruise ship or to a country the [facility] currently lists as an affected area. Patient denies contact with known and/or suspected case of COVID-19. Ebola Screen: Patient denies travel to an Ebola-affected area in the 21 days before illness onset. Initial Sepsis Screen: Does the patient meet any 2 criteria? No. Patient's initial sepsis screen is negative. Does the patient have a suspected source of infection? No. Patient's initial sepsis screen is negative. Risk Assessment: Do you want to hurt yourself or someone else? Patient reports no desire to harm self or others. Onset of symptoms was July 05, 2019. 09:14 Method Of Arrival: Ambulatory tw2 09:14 Acuity: CHRISTOPHER 3 tw2 Triage Assessment: 09:17 General: Appears in no apparent distress. Behavior is cooperative, appropriate for age, tw2 anxious. Pain: Complains of pain in abdomen diffusely. GI: Reports lower abdominal pain, upper abdominal pain, intolerance of fluids, intolerance of food, nausea. 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 - Social history:: Smoking status: . Screenin:02 Abuse screen: Denies threats or abuse. Nutritional screening: No deficits noted. tw2 Tuberculosis screening: No symptoms or risk factors identified. Fall Risk None identified. Assessment: 09:10 General: Appears in no apparent distress. Behavior is cooperative, appropriate for age, tw2 anxious. Neuro: Level of Consciousness is awake, alert, obeys commands, Oriented to person, place, time, situation. Cardiovascular: Heart tones S1 S2 Patient's skin is warm and dry. Respiratory: Airway is patent Respiratory effort is even, unlabored, Respiratory pattern is regular, symmetrical, Breath sounds are clear bilaterally. GI: Abdomen is round non-distended, Bowel sounds present X 4 quads. Abd is soft X 4 quads Reports lower abdominal pain, upper abdominal pain, nausea. : No signs and/or symptoms were reported regarding the genitourinary system. EENT: No signs and/or symptoms were reported regarding the EENT system. Derm: No signs and/or symptoms reported regarding the dermatologic system. Musculoskeletal: Range of motion: intact in all extremities. 10:30 Reassessment: Patient appears in no apparent distress at this time. No changes from tw2 previously documented assessment. Patient and/or family updated on plan of care and expected duration. Pain level reassessed. Patient is alert, oriented x 3, equal unlabored respirations, skin warm/dry/pink. 11:02 Reassessment: Patient appears in no apparent distress at this time. Patient and/or tw2 family updated on plan of care and expected duration. Pain level reassessed. Patient is alert, oriented x 3, equal unlabored respirations, skin warm/dry/pink. Patient states feeling better. 12:22 Reassessment: Patient appears in no apparent distress at this time. No changes from ph previously documented assessment. Patient and/or family updated on plan of care and expected duration. Pain level reassessed. Patient is alert, oriented x 3, equal unlabored respirations, skin warm/dry/pink. Patient states feeling better. Vital Signs: 09:14 BP 124 / 75; Pulse 76; Resp 17; Temp 97.8(TE); Pulse Ox 100% on R/A; Weight 85.73 kg tw2 (R); Height 5 ft. 4 in. (162.56 cm); Pain 10/10; 10:30 BP 109 / 74; Pulse 62; Resp 17; Pulse Ox 100% on R/A; tw2 11:18 BP 112 / 69; Pulse 57; Resp 17; Pulse Ox 100% on R/A; tw2 12:21 BP 106 / 66; Pulse 69; Resp 17; Pulse Ox 97% on R/A; ph 09:14 Body Mass Index 32.44 (85.73 kg, 162.56 cm) tw2 ED Course: 09:02 Patient arrived in ED. mr 09:12 Bed in low position. Call light in reach. Side rails up X 1. Pulse ox on. NIBP on. tw2 09:15 Tay Goodwin MD is Attending Physician. kdr 09:16 Triage completed. tw2 09:18 Arm band placed on. tw2 09:34 Jenniffer Hou RN is Primary Nurse. tw2 09:57 CT Abd/Pelvis - Without Contrast In Process Unspecified. EDMS 10:20 Inserted saline lock: 20 gauge in right antecubital area, using aseptic technique. tw2 Blood collected. 11:16 No provider procedures requiring assistance completed. tw2 12:23 IV discontinued, intact, bleeding controlled, No redness/swelling at site. Pressure ph dressing applied. Administered Medications: 10:20 Drug: NS 0.9% 1000 ml Route: IV; Rate: 1 bolus; Site: right antecubital; tw2 12:20 Follow up: IV Status: Order to discontinue infusion; IV Intake: 500ml tw2 10:20 Drug: Zofran (Ondansetron) 4 mg Route: IVP; Site: right antecubital; tw2 11:13 Follow up: Response: No adverse reaction; Nausea is decreased tw2 10:22 Drug: Pepcid 20 mg Route: IVP; Site: right antecubital; tw2 11:13 Follow up: Response: No adverse reaction tw2 10:24 Drug: morphine 2 mg Route: IVP; Site: right antecubital; tw2 11:13 Follow up: Response: No adverse reaction; Pain is decreased; RASS: Alert and Calm (0) tw2 11:13 Not Given (discharge ordered.): NS 0.9% 1000 ml IV at 125 ml/hr once tw2 Intake: 12:20 IV: 500ml; Total: 500ml. tw2 Outcome: 11:07 Discharge ordered by . kdr 12:22 Discharged to home ambulatory. ph 12:22 Condition: stable 12:22 Discharge instructions given to patient, Instructed on discharge instructions, follow up and referral plans. no drinking with medication, no driving heavy equipment, medication usage, Demonstrated understanding of instructions, follow-up care, medications, Prescriptions given X 4. 12:24 Patient left the ED. ph Signatures: Dispatcher [employer] EDMS Tay Goodwin MD MD kdr Rivera, Mary mr Jacy Villeda RN RN ph Jenniffer Hou RN RN tw2
[2019-07-05 12:10] LABS: Urine Blood NEGATIVE (NEG); Urine Glucose NEGATIVE (NEG); Urine Protein NEGATIVE (NEG); Urine Specific Gravity 1.025 (1.005-1.030)
== END 2019-07-05 12:24 | disposition home or self-care (01) ==
LOC: ER 08:57
DX: R19.7 Diarrhea, unspecified (principal); Z88.6 Allergy status to analgesic agent; Z88.8 Allergy status to other drugs, medicaments and biological substances
CPT/HCPCS: 36415; 74176; 80048; 80076; 81003; 81025; 83690; 85025; 96361; 96374; 96375; 99284; J2270; J2405; J7030

== ENCOUNTER 2019-09-03 19:18 | Emergency (ER) | payer SELFPAY ==
--- OUTSIDE RECORDS SUMMARY | 2019-09-03 19:21 | XMS REPORT | Continuity of Care Document ---
:1985 Author Organization [facility] t Address [address] [place] [address] [address]. [address] [place] [address] Care Team Providers Name Role Phone Unavailable Unavailable Unavailable Problems This patient has no known problems. Allergies, Adverse Reactions, Alerts This patient has no known allergies or adverse reactions. Medications This patient has no known medications. Procedures This patient has no known procedures. Results This patient has no known results.
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
[2019-09-04 00:19] VITALS: TEMP 98.5; O2SAT 95
[2019-09-04 00:20] VITALS: BP 107/71
--- NOTE | 2019-09-05 09:49 | RAD REPORT ---
EXAM DESCRIPTION: CTA head with contrast Head angio CLINICAL HISTORY: Left-sided weakness COMPARISON: CT head without contrast 09/03/2019 at 8:58 PM TECHNIQUE: Head CTA axial images acquired with IV contrast. Coronal and sagittal CTA MIPs and MPRs c reated. Exam performed according to departmental dose-optimization program which includes automated e xposure control, adjustment of mA and/or kV according to patient size, and/or use of iterative recons truction technique. FINDINGS: Small calcified atherosclerotic plaque of intracranial left vertebral artery causing mild stenosis (about 10% diameter stenosis). Unremarkable intracranial right vertebral, right posterior cerebral, and basilar arteries. Persistent origin of left posterior cerebral artery and atretic left P1 segment (normal variant ). Right and left internal carotid arteries' cavernous segments shows minimal calcified atherosclerotic plaques causing no significant stenosis (less than 10% diameter stenosis). Unremarkable bilateral middle and anterior cerebral arteries. No evidence of aneurysm, AVM, or large intracranial arterial occlusion. IMPRESSION: 1. No evidence of aneurysm, AVM, or large intracranial arterial occlusion. 2. Minimal calcified atherosclerotic plaques described above. If there remains strong clinical suspicion of acute ischemic infarct, then MR brain/head recommended (if there are no contraindications). Electronically signed by: Roman Nation MD 09/03/2019 11:33 PM CDT Due to temporary technical issues with the PACS/Fluency reporting system, reports are being signed by the in house radiologist without review as a courtesy to ensure prompt reporting. The interpreting r adiologist is fully responsible for the content of the report.
== END 2019-09-04 00:01 | disposition home or self-care (01) ==
LOC: ER 19:18
DX: S00.83XA Contusion of other part of head, initial encounter (principal); W22.8XXA Striking against or struck by other objects, initial encounter; Y93.9 Activity, unspecified; Y92.9 Unspecified place or not applicable; Z88.6 Allergy status to analgesic agent; Z88.8 Allergy status to other drugs, medicaments and biological substances; Z91.048 Other nonmedicinal substance allergy status
CPT/HCPCS: 70486; 76377; 99284

== ENCOUNTER 2021-01-17 11:47 | Emergency (ER) | payer OTHER, SELFPAY ==
--- OUTSIDE RECORDS SUMMARY | 2021-01-17 11:49 | XMS REPORT | Continuity of Care Document ---
:1985 Author Organization [facility] t Address [address] [place] [address] [address]. [address] [place] [address] Care Team Providers Name Role Phone Luisu_P Attending Clinician Unavailable Luisu_P Admitting Clinician Unavailable Problems This patient has no known problems. Allergies, Adverse Reactions, Alerts This patient has no known allergies or adverse reactions. Medications This patient has no known medications. Procedures This patient has no known procedures. Encounters Start End Encounter Admission Attending Care Care Encounter Source Date/Time Date/Time Type Type Clinicians Facility Department ID 2020-03-28 2020-03-28 Outpatient [id number] [place] 09:06:00 09:06:00 [facility] Results This patient has no known results.
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
--- NOTE | 2021-01-17 15:08 | RAD REPORT ---
EXAM DESCRIPTION: RAD - Hand Left 3 View - 01/17/2021 2:57 pm CLINICAL HISTORY: PAIN COMPARISON: Hand Left 3 View dated 08/08/2015 FINDINGS: No acute fracture. No malalignment. No significant focal degenerative changes. IMPRESSION: No acute osseous abnormality involving the left hand.
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
[2021-01-17] MEDS ORDERED: CYCLOBENZAPRINE 10 MG TAB ONE (15:24)
[2021-01-17 16:04] VITALS: TEMP 98.1; O2SAT 100
[2021-01-17 16:05] VITALS: BP 109/69
== END 2021-01-17 15:36 | disposition home or self-care (01) ==
LOC: ER 11:47
DX: S29.012A Strain of muscle and tendon of back wall of thorax, initial encounter (principal); V43.52XA Car driver injured in collision with other type car in traffic accident, initial encounter
CPT/HCPCS: 70450; 71250; 72125; 99284

== ENCOUNTER 2022-02-21 07:53 | Emergency (ER) | payer SELFPAY ==
--- OUTSIDE RECORDS SUMMARY | 2022-02-21 07:59 | XMS REPORT | Continuity of Care Document ---
:1985 Author Organization [facility] t Address [address] [place] [address] Care Team Providers Name Role Phone Raju_P Attending Clinician Unavailable Luisu_P Admitting Clinician Unavailable [...] Department ID 2020-03-28 2020-03-28 Outpatient Marques_P [facility] [id number] [place] 09:06:00 09:06:00 0210 [facility] Results This patient has no known results.
[2022-02-21] MEDS ORDERED: KETOROLAC 30 MG/ML INJ ONE (08:35)
[2022-02-21 08:53] LABS: SARS-COV-2 RT PCR NEGATIVE (NEGATIVE)
--- NOTE | 2022-02-21 08:59 | RAD REPORT ---
EXAM DESCRIPTION: RAD - Chest Single View - 02/21/2022 8:49 am CLINICAL HISTORY: COUGH COMPARISON: Chest Single View dated 05/25/2016; Chest Single View dated 02/24/2016; Chest Single View da delmi 08/08/2015 FINDINGS: Lines: None. Lungs: No evidence of edema or pneumonia. Pleural: No significant pleural effusions or pneumothorax. Cardiac: The heart size is within normal limits. Mediastinum: Within normal limits. Bones: No acute fractures. Other: None IMPRESSION: No acute cardiopulmonary disease.
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
--- NOTE | 2022-02-21 09:24 | EDPHYS ---
Physician Documentation [facility] Name: Alanna Barreto Age: 36 yrs Sex: Female : 1985 Arrival Date: 02/21/2022 Time: 07:56 Bed 11 Private MD: ED Physician Jason Esparza HPI: 02/21 08:26 This 36 yrs old Black Female presents to ER via Ambulatory with complaints of Cough, ms3 Shortness Of Breath, Chest Pain. 08:26 36-year-old female with past medical history of anxiety, depression, GERD presents for ms3 cough and shortness of breath that is been ongoing for 2 weeks. Patient states she is currently having 10/10 sharp chest pain that is located diffusely through her chest. Patient states pain is worse with cough. Patient denies alleviating factors. Patient states her immunizations are current for COVID and she has not received her flu shot. Patient denies fevers chills, nausea, vomiting. Patient states she is allergic to ibuprofen, and [id number] pain medications. Patient states her allergy is GI upset when taking those medications.. 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 - Social history:: Smoking status: Patient denies any tobacco usage or history of. ROS: 08:26 Constitutional: Negative for fever, and chills. Neck: Negative for injury, pain, and ms3 swelling, Abdomen/GI: Negative for abdominal pain, nausea, vomiting, diarrhea, and constipation. 08:26 Cardiovascular: Positive for chest pain, with cough. 08:26 Respiratory: Positive for cough, shortness of breath. Exam: 08:26 Constitutional: This is a well developed, well nourished patient who is awake, alert, ms3 and in no acute distress. Head/Face: Normocephalic, atraumatic. Chest/axilla: Normal chest wall appearance and motion. Nontender with no deformity. Cardiovascular: Regular rate and rhythm with a normal S1 and S2. No gallops, murmurs, or rubs. Normal PMI, no JVD. No pulse deficits. Respiratory: Lungs have equal breath sounds bilaterally, clear to auscultation and percussion. No rales, rhonchi or wheezes noted. No increased work of breathing, no retractions or nasal flaring. Abdomen/GI: Soft, non-tender, with normal bowel sounds. No distension or tympany. No guarding or rebound. No evidence of tenderness throughout. Skin: Warm, dry with normal turgor. Normal color with no rashes, no lesions, and no evidence of cellulitis. 08:46 ECG was reviewed by the Attending Physician. ms3 Vital Signs: 07:59 Pulse 91; Resp 18; Temp 97.7; Pulse Ox 100% ; Weight 83.91 kg; Height 5 ft. 5 in. ap3 (165.10 cm); 08:01 BP 117 / 70; ap3 09:35 BP 117 / 78; Pulse 71; Resp 18; Pulse Ox 100% on R/A; kr3 07:59 Body Mass Index 30.79 (83.91 kg, 165.10 cm) ap3 MDM: 08:24 Patient medically screened. ms3 08:26 Differential Diagnosis: Bronchitis Influenza Upper Respiratory Infection Viral Syndrome ms3 Pneumonia. 09:24 Data reviewed: vital signs, nurses notes, lab test result(s), radiologic studies, plain ms3 films, My interpretation: normal , and as a result, I will discharge patient. Test interpretation: by ED physician or midlevel provider: ECG, plain radiologic studies. Counseling: I had a detailed discussion with the patient and/or guardian regarding: the historical points, exam findings, and any diagnostic results supporting the discharge/admit diagnosis, lab results, radiology results, the need for outpatient follow up, to return to the emergency department if symptoms worsen or persist or if there are any questions or concerns that arise at home. ED course: Patient COVID, flu, RSV negative. Patient's chest x-ray is normal. No indication for admission at this time. Patient to follow-up Dr. Simmons in 2 to 3 days. Patient understands agrees with plan. All questions were answered. Return precautions discussed include worsening symptoms, or any other concerns. On reevaluation patient is alert and oriented x4, in no apparent distress, nontoxic, ambulatory emergency primary, speaking full sentences. Patient given prescription for Tessalon Perles.. 02/21 08:04 Order name: COVID-19/FLU A+B/RSV; Complete Time: 08:54 ap3 02/21 08:25 Order name: CXR XRAY; Complete Time: 09:08 ms3 02/21 08:25 Order name: EKG; Complete Time: 08:26 ms3 02/21 08:25 Order name: EKG - Nurse/Tech; Complete Time: 09:02 ms3 EC:46 Rate is 80 beats/min. Rhythm is regular. QRS [employer] is Normal. PA interval is normal. QRS ms3 interval is normal. QT interval is normal. Clinical impression: Normal ECG. Interpreted by me. Reviewed by me. Administered Medications: 08:38 Drug: Ketorolac 15 mg Route: IM; Site: right deltoid; kr3 09:37 Follow up: Response: No adverse reaction kr3 Disposition Summary: 02/21/22 09:23 Discharge Ordered Location: Home ms3 Condition: Stable ms3 Diagnosis - Acute upper respiratory infection, unspecified ms3 - Chest pain, unspecified ms3 Followup: ms3 - With: Eulogio Simmons DO - When: 2 - 3 days - Reason: Recheck today's complaints Discharge Instructions: - Discharge Summary Sheet ms3 - Upper Respiratory Infection, Adult ms3 Forms: - Medication Reconciliation Form ms3 - Thank You Letter ms3 - Work release form eb - Antibiotic Education ms3 - Prescription Opioid Use ms3 Prescriptions: - Tessalon Perles 100 mg Oral Capsule - take 1 capsule by ORAL route every 8 hours As needed; 15 capsule; Refills: 0, ms3 Product Selection Permitted Signatures: Dispatcher [employer] Nuris Andres RN RN ap3 Jason Esparza DO DO ms3 Shannon Norris RN RN kr3
[2022-02-21 09:45] VITALS: TEMP 97.7; O2SAT 100
[2022-02-21 09:55] VITALS: BP 117/78
--- NOTE | 2022-02-24 16:34 | EKG ---
Test Date: 2022-02-21 Test Time: 08:39:46 Report Clerk: TAYLER MEASUREMENT RESULTS: Intervals: Rate: 80 NV: 136 QRSD: 74 QT: 348 QTc: 401 [place]: P: 28 NV: 136 QRS: 30 T: 44 INTERPRETIVE STATEMENTS: Normal sinus rhythm Normal ECG Compared to ECG 05/25/2016 02:32:19 No significant changes Electronically Signed On 02-24-22 16:29:26 BANK NOTE DESIGNER by Dillon Alegria
== END 2022-02-21 09:38 | disposition home or self-care (01) ==
LOC: ER 07:53
DX: J06.9 Acute upper respiratory infection, unspecified (principal); R07.9 Chest pain, unspecified; Z20.822 Contact with and (suspected) exposure to COVID-19; Z88.6 Allergy status to analgesic agent; Z91.048 Other nonmedicinal substance allergy status
CPT/HCPCS: 0241U; 71045; 93005; 96372; 99284

== ENCOUNTER 2022-03-07 07:49 | Emergency (ER) | payer SELFPAY ==
--- OUTSIDE RECORDS SUMMARY | 2022-03-07 07:57 | XMS REPORT | Continuity of Care Document ---
:1985 Author Organization [facility] t Address [facility] [place] [address] Care Team Providers Name Role Phone Luisu_P [...] ID 2020-03-28 2020-03-28 Outpatient Marques_P [facility] [id number] [place] 09:06:00 09:06:00 0210 [facility] Results This patient has no known results.
[2022-03-07] MEDS ORDERED: HYDROCODONE/APAP 5/325 MG TAB ONE (08:30)
[2022-03-07] MEDS ORDERED: DIAZEPAM 5 MG TABLET ONE (08:30)
[2022-03-07] MEDS ORDERED: METHYLPREDNISOLONE 125 MG INJ ONE (09:45)
[2022-03-07] MEDS ORDERED: DIPHENHYDRAMINE 50 MG/ML VIAL ONE (09:46)
[2022-03-07 10:31] LABS: Potassium 4.2 mmol/L (3.5-5.1)
[2022-03-07 10:33] LABS: Absolute Lymphocytes (CBC) 1.2 K/uL (0.7-4.9); Hematocrit 33.7 % (36.0-45.0); Lymphocytes % 30.5 % (15.3-44.8); MCV 76.2 fL (80-100); MPV 8.7 fL (7.6-11.3); RBC Red Blood Cell Count 4.42 M/uL (3.86-4.86)
--- NOTE | 2022-03-07 10:55 | RAD REPORT ---
EXAM DESCRIPTION: CT - Head Brain Wo Cont - 03/07/2022 10:46 am CLINICAL HISTORY: Headache COMPARISON: 2020 TECHNIQUE: Computed axial tomography of the head was obtained. IV contrast was not requested. All CT scans are performed using dose optimization technique as appropriate and may include automated exposure control or mA/KV adjustment according to patient size. FINDINGS: An intracranial bleed is not seen . The ventricles are normal in caliber. No extra-axial fluid collection is noted. Cerebellar tonsillar ectopia is present Fluid within the sinuses/ mastoids is not seen. IMPRESSION: Cerebellar tonsillar ectopia No acute intracranial abnormality is seen. If patient's symptoms persist MRI of the brain would be r ecommended.
--- NOTE | 2022-03-07 10:59 | RAD REPORT ---
EXAM DESCRIPTION: Emily Angio03/07/2022 10:44 am CLINICAL HISTORY: Neck pain COMPARISON: None TECHNIQUE: 50 cc Isovue 370 was administered intravenously. 3D MIP reconstruction performed All CT scans are performed using dose optimization technique as appropriate and may include automated exposure control or mA/KV adjustment according to patient size. FINDINGS: The common carotid, internal carotid and external carotid arteries bilaterally are unremar kable. No significant plaque Right vertebral artery is hypoplastic. Vertebral arteries are otherwise unremarkable. No dissection seen IMPRESSION: No significant abnormality is displayed NASCET criteria used. Mild 0-49% stenosis Moderate 50-69% stenosis Severe 70-99% stenosis
--- NOTE | 2022-03-07 11:04 | RAD REPORT ---
EXAM DESCRIPTION: CTHead angio03/07/2022 10:42 am CLINICAL HISTORY: Neck pain/headache COMPARISON: None TECHNIQUE: CT angiogram of the head was obtained. 3D MIPS reconstruction performed. All CT scans are performed using dose optimization technique as appropriate and may include automated exposure control or mA/KV adjustment according to patient size. FINDINGS: The basilar, internal carotid, anterior cerebral, middle cerebral and posterior cerebral a rteries do not demonstrate a significant abnormality An aneurysm is not seen A significant stenosis is not noted. IMPRESSION: No acute abnormality is displayed
--- NOTE | 2022-03-07 11:38 | ER ---
Nurse's Notes [facility] Name: Alanna Barreto Age: 36 yrs Sex: Female : 1985 Arrival Date: 03/07/2022 Time: 07:51 Bed 8 Private MD: Diagnosis: Neck pain;Tension-type headache;Pain in left shoulder Presentation: 03/07 08:18 Chief complaint: Patient states: she is having pain in her head that radiates down her ap3 neck into her left arm. patient reports her pain to be 10/10. Coronavirus screen: At this time, the client does not indicate any symptoms associated with coronavirus-19. Ebola Screen: No symptoms or risks identified at this time. Initial Sepsis Screen: Does the patient meet any 2 criteria? No. Patient's initial sepsis screen is negative. Does the patient have a suspected source of infection? No. Patient's initial sepsis screen is negative. Risk Assessment: Do you want to hurt yourself or someone else? Patient reports no desire to harm self or others. Onset of symptoms is unknown. 08:18 Method Of Arrival: Ambulatory ap3 08:18 Acuity: CHRISTOPHER 3 ap3 Triage Assessment: 08:20 Headache History: The patient has had previous headaches and this one is similar to ap3 previous episodes. General: Appears in no apparent distress. Behavior is calm, cooperative. Pain: Complains of pain in head, left side of neck, left shoulder Pain currently is 10 out of 10 on a pain scale. Pain began gradually, Noted to be pain upon palpation of the left neck. Pain: Also complains of no other associated symptoms. Neuro: Level of Consciousness is awake, alert, obeys commands, Oriented to person, place, time. Cardiovascular: Patient's skin is warm and dry. Respiratory: Airway is patent Respiratory effort is even, unlabored, Respiratory pattern is regular, symmetrical. 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 - Social history:: Smoking status: Patient denies any tobacco usage or history of. Screenin:22 [facility] ED Fall Risk Assessment (Adult) History of falling in the last 3 months, ap3 including since admission No falls in past 3 months (0 pts). Abuse screen: Denies threats or abuse. Nutritional screening: No deficits noted. Tuberculosis screening: No symptoms or risk factors identified. Vital Signs: 08:18 BP 119 / 77; Pulse 84; Resp 17; Temp 98.4; Pulse Ox 100% ; Weight 83.91 kg; Height 5 ap3 ft. 5 in. (165.10 cm); 08:18 Pain 10/10; ap3 09:53 BP 129 / 79; Pulse 73; Pulse Ox 100% on R/A; ap3 11:43 BP 115 / 75; Pulse 67; Pulse Ox 100% on R/A; ap3 08:18 Body Mass Index 30.79 (83.91 kg, 165.10 cm) ap3 ED Course: 07:51 Patient arrived in ED. am2 07:57 Jason Esparza DO is Attending Physician. ms3 08:19 Triage completed. ap3 08:22 Arm band placed on right wrist. ap3 08:22 Patient has correct armband on for positive identification. Bed in low position. Call ap3 light in reach. Side rails up X 1. Pulse ox on. NIBP on. Door closed. Noise minimized. 08:31 Nuris Valladares, RN is Primary Nurse. ap3 09:53 Inserted saline lock: 22 gauge in right antecubital area, using aseptic technique. ap3 10:44 CT Head Angio In Process Unspecified. EDMS 10:46 CT Neck Angio In Process Unspecified. EDMS 10:47 CT Head Brain wo Cont In Process Unspecified. EDMS 11:36 Eulogio Simmons DO is Referral Physician. ms3 11:52 No provider procedures requiring assistance completed. IV discontinued, intact, ap3 bleeding controlled, No redness/swelling at site. Pressure dressing applied. Administered Medications: 08:31 Drug: HYDROcodone-acetaminophen 5 mg-325 mg 1 tabs Route: PO; ap3 09:53 Follow up: Response: No adverse reaction; Pain is unchanged, physician notified ap3 08:31 Drug: Valium (diazepam) 5 mg Route: PO; ap3 09:53 Follow up: Response: No adverse reaction; Pain is unchanged, physician notified ap3 09:53 Drug: Benadryl (diphenhydrAMINE) 50 mg Route: IVP; Site: right antecubital; ap3 11:43 Follow up: Response: No adverse reaction ap3 09:53 Drug: SOLU-Medrol (methylPrednisoLONE) 125 mg Route: IVP; Site: right antecubital; ap3 11:43 Follow up: Response: No adverse reaction ap3 Medication: 08:22 VIS not applicable for this client. ap3 Outcome: 11:37 Discharge ordered by MD. ms3 11:52 Discharged to home ambulatory, with family. ap3 11:52 Condition: good 11:52 Discharge instructions given to patient, family, Instructed on discharge instructions, follow up and referral plans. medication usage, Demonstrated understanding of instructions, follow-up care, medications, Prescriptions given X 1. 11:59 Patient left the ED. ap3 Signatures: Dispatcher [employer] EDMS Nuris Langford am2 Nuris Valladares, RN RN ap3 Jason Esparza DO DO ms3 Corrections: (The following items were deleted from the chart) 08:20 08:20 Home Meds: apple cider vinegar 500 mg Oral tab; ap3 ap3
--- NOTE | 2022-03-07 11:38 | EDPHYS ---
Physician Documentation [facility] Name: Alanna Barreto Age: 36 yrs Sex: Female : 1985 Arrival Date: 03/07/2022 Time: 07:51 Bed 8 Private MD: ED Physician Jason Esparza HPI: 03/07 08:53 This 36 yrs old Black Female presents to ER via Ambulatory with complaints of left ms3 sided pain, Headache. 08:53 36-year-old female presents for left-sided headache, left neck pain, left shoulder ms3 pain. Patient states her symptoms began 2 days prior to arrival. Patient notes she recently has had a URI. Patient denies fevers, chills, nausea, vomiting, numbness.. 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 - Social history:: Smoking status: Patient denies any tobacco usage or history of. ROS: 08:55 Constitutional: Negative for fever, and chills. Neck: Negative for injury, pain, and ms3 swelling, Cardiovascular: Negative for chest pain, and palpitations. Respiratory: Negative for shortness of breath, cough, wheezing, and pleuritic chest pain, Abdomen/GI: Negative for abdominal pain, nausea, vomiting, diarrhea, and constipation, MS/Extremity: Negative for injury and deformity, Skin: Negative for injury, rash, and discoloration. 08:55 Neuro: Positive for headache. 08:55 All other systems are negative. Exam: 08:55 Constitutional: This is a well developed, well nourished patient who is awake, alert, ms3 and in no acute distress. Head/Face: Normocephalic, atraumatic. Neck: Trachea midline, no cervical lymphadenopathy. Supple, full range of motion without nuchal rigidity, or vertebral point tenderness. No Meningismus. Chest/axilla: Normal chest wall appearance and motion. Nontender with no deformity. Cardiovascular: Regular rate and rhythm with a normal S1 and S2. No gallops, murmurs, or rubs. Normal PMI, no JVD. No pulse deficits. Abdomen/GI: Soft, non-tender, with normal bowel sounds. No distension or tympany. No guarding or rebound. No evidence of tenderness throughout. Skin: Warm, dry with normal turgor. Normal color with no rashes, no lesions, and no evidence of cellulitis. 08:55 Musculoskeletal/extremity: Extremities: noted in the Left shoulder: pain, tenderness, Spasm. Vital Signs: 08:18 BP 119 / 77; Pulse 84; Resp 17; Temp 98.4; Pulse Ox 100% ; Weight 83.91 kg; Height 5 ap3 ft. 5 in. (165.10 cm); 08:18 Pain 10/10; ap3 09:53 BP 129 / 79; Pulse 73; Pulse Ox 100% on R/A; ap3 11:43 BP 115 / 75; Pulse 67; Pulse Ox 100% on R/A; ap3 08:18 Body Mass Index 30.79 (83.91 kg, 165.10 cm) ap3 MDM: 08:13 Patient medically screened. ms3 08:55 Differential diagnosis: muscle spasm, tension almanzar, sinusitis. ms3 09:30 ED course: Patient states she is still having left sided ALMANZAR, neck, shoulder pain. Will ms3 obtain CTA Head/ Neck.. 11:43 Data reviewed: vital signs, nurses notes, lab test result(s), CBC, electrolytes, ms3 radiologic studies, CT scan, and as a result, I will discharge patient. Consideration of Admission/Observation Escalation of care including admission/observation considered. No emergent medical condition requiring admission identified at this time.. I considered the following discharge prescriptions or medication management in the emergency department I discussed and recommended Over The Counter medications, Medications were administered in the Emergency Department. See MAR. Care significantly affected by the following chronic conditions: Anxiety, Depression, GERD. Counseling: I had a detailed discussion with the patient and/or guardian regarding: the historical points, exam findings, and any diagnostic results supporting the discharge/admit diagnosis, lab results, radiology results, the need for outpatient follow up. 03/07 09:38 Order name: CBC with Diff; Complete Time: 10:49 ms3 03/07 09:38 Order name: BMP; Complete Time: 10:49 ms3 01/20 09:34 Order name: CT Head Angio; Complete Time: 11:32 ms3 03/07 09:34 Order name: CT Neck Angio; Complete Time: 11:32 ms3 03/07 10:29 Order name: CT Head Brain wo Cont; Complete Time: 11:32 ms3 03/07 10:58 Order name: CREATININE WHOLE BLOOD; Complete Time: 11:32 EDMS Administered Medications: 08:31 Drug: HYDROcodone-acetaminophen 5 mg-325 mg 1 tabs Route: PO; ap3 09:53 Follow up: Response: No adverse reaction; Pain is unchanged, physician notified ap3 08:31 Drug: Valium (diazepam) 5 mg Route: PO; ap3 09:53 Follow up: Response: No adverse reaction; Pain is unchanged, physician notified ap3 09:53 Drug: Benadryl (diphenhydrAMINE) 50 mg Route: IVP; Site: right antecubital; ap3 11:43 Follow up: Response: No adverse reaction ap3 09:53 Drug: SOLU-Medrol (methylPrednisoLONE) 125 mg Route: IVP; Site: right antecubital; ap3 11:43 Follow up: Response: No adverse reaction ap3 Disposition Summary: 03/07/22 11:37 Discharge Ordered Location: Home ms3 Condition: Stable ms3 Diagnosis - Neck pain ms3 - Tension-type headache ms3 - Pain in left shoulder ms3 Followup: ms3 - With: Eulogio Simmons DO - When: 2 - 3 days - Reason: Recheck today's complaints Discharge Instructions: - Discharge Summary Sheet ms3 - Musculoskeletal Pain ms3 Forms: - Medication Reconciliation Form ms3 - Thank You Letter ms3 - Antibiotic Education ms3 - Prescription Opioid Use ms3 Prescriptions: - Cyclobenzaprine 5 mg Oral Tablet - take 1 tablet by ORAL route 3 times per day As needed; 15 tablet; Refills: 0, ms3 Product Selection Permitted Signatures: Dispatcher [employer] Nuris Andres RN RN ap3 Jason Esparza DO DO ms3 Corrections: (The following items were deleted from the chart) 08:20 08:20 Home Meds: apple cider vinegar 500 mg Oral tab; ap3 ap3 08:55 08:53 36-year-old female presents for left-sided headache, left neck pain, left ms3 shoulder pain. Patient states her symptoms began 2 days prior to arrival. Patient notes she recently has had a URI. Patient denies fevers, chills, nausea, vomiting, numbness.. ms3
[2022-03-07 12:37] VITALS: TEMP 98.4; O2SAT 100
[2022-03-07 12:39] VITALS: BP 115/75
== END 2022-03-07 11:59 | disposition home or self-care (01) ==
LOC: ER 07:49
DX: G44.209 Tension-type headache, unspecified, not intractable (principal); M54.2 Cervicalgia; M25.512 Pain in left shoulder; Z91.048 Other nonmedicinal substance allergy status
CPT/HCPCS: 36415; 70450; 70496; 70498; 80048; 82565; 85025; 96374; 96375; 99284; J1200; J2930; Q9967

== ENCOUNTER 2022-07-07 16:56 | Emergency (ER) | payer OTHER ==
--- OUTSIDE RECORDS SUMMARY | 2022-07-07 16:59 | XMS REPORT | Continuity of Care Document ---
:1985 Author Organization [facility] t Address [address] [place] [id number] Care Team Providers Name Role Phone Luisu_P [...] ID 2020-03-28 2020-03-28 Outpatient Marques_P MM[facility] MMG [id number] [place] 09:06:00 09:06:00 0210 [facility] Results This patient has no known results.
--- NOTE | 2022-07-07 18:26 | RAD REPORT ---
EXAM DESCRIPTION: RAD - Chest Single View - 07/07/2022 6:15 pm CLINICAL HISTORY: BLUNT CHEST TRAUMA Chest pain. COMPARISON: Chest Single View dated 02/21/2022; Chest Single View dated 05/25/2016; Chest Single View da delmi 02/24/2016; Chest Single View dated 08/08/2015 FINDINGS: Portable technique limits examination quality. The lungs are grossly clear. The heart is normal in size. No displaced fractures. IMPRESSION: No acute intrathoracic process suspected.
--- NOTE | 2022-07-07 18:27 | RAD REPORT ---
EXAM DESCRIPTION: RAD - Humerus Right - 07/07/2022 6:15 pm CLINICAL HISTORY: PAIN COMPARISON: No comparisons FINDINGS: No acute fracture or dislocation.
--- NOTE | 2022-07-07 18:31 | RAD REPORT ---
EXAM DESCRIPTION: RAD - Forearm Left - 07/07/2022 6:15 pm CLINICAL HISTORY: PAIN COMPARISON: <Comparisons> FINDINGS: No bone or joint abnormality.
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
[2022-07-07 19:45] VITALS: BP 127/74; TEMP 98.5; O2SAT 100
== END 2022-07-07 19:08 | disposition home or self-care (01) ==
LOC: ER 16:56
DX: R07.9 Chest pain, unspecified (principal); M79.632 Pain in left forearm; M79.621 Pain in right upper arm; Z88.6 Allergy status to analgesic agent; Z91.048 Other nonmedicinal substance allergy status
CPT/HCPCS: 71045

== ENCOUNTER 2022-08-19 20:32 | Emergency (ER) | payer OTHER ==
--- OUTSIDE RECORDS SUMMARY | 2022-08-19 20:35 | XMS REPORT | Continuity of Care Document ---
:1985 Author Organization [facility] t Address [address] [place] [id number] Care Team Providers Name Role Phone Luisu_P [...] ID 2020-03-28 2020-03-28 Outpatient Marques_P [id number] [place] 09:06:00 09:06:00 [id number] [facility] Results This patient has no known results.
[2022-08-19 21:33] LABS: Absolute Lymphocytes (CBC) 0.9 K/uL (0.7-4.9); Hematocrit 34.9 % (36.0-45.0); Lymphocytes % 33.3 % (15.3-44.8); MCV 77.4 fL (80-100); MPV 8.9 fL (7.6-11.3); RBC Red Blood Cell Count 4.51 M/uL (3.86-4.86)
[2022-08-19 21:46] LABS: Troponin High Sensitivity 3.9 pg/mL (<58.9)
[2022-08-19] MEDS ORDERED: KETOROLAC 30 MG/ML INJ ONE (21:53)
[2022-08-19] MEDS ORDERED: METOCLOPRAMIDE 10 MG/2mL INJ ONE (21:53)
[2022-08-19] MEDS ORDERED: DIPHENHYDRAMINE 50 MG/ML VIAL ONE (21:53)
[2022-08-19] MEDS ORDERED: NA CHLORIDE 0.9% 1,000 ML ONE (21:54)
[2022-08-19] MEDS ORDERED: GUAIFENESIN/DM 5 ML UCUP ONE (21:54)
[2022-08-19 22:26] LABS: Blood Morphology Comment NOT SEEN (NOT SEEN); Platelet Estimate ADEQ; White Blood Cell Scan OK (OK)
--- NOTE | 2022-08-19 22:42 | RAD REPORT ---
EXAM DESCRIPTION: RADChest Single View08/19/2022 10:23 pm CLINICAL HISTORY: CHEST PAIN COMPARISON: Chest Single View dated 07/07/2022; Chest Single View dated 02/21/2022; Chest Single View d ated 05/25/2016; Chest Single View dated 02/24/2016 TECHNIQUE: Portable AP view of the chest. FINDINGS: The lungs are clear. No pneumothorax or effusion. The cardiomediastinal contours are unre markable. IMPRESSION: No acute cardiopulmonary process.
[2022-08-19 22:45] LABS: Protime INR 1.01
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
[2022-08-20 00:27] VITALS: BP 125/92; TEMP 97.6; O2SAT 99
--- NOTE | 2022-08-20 12:29 | EKG ---
Test Date: 2022-08-19 Test Time: 21:05:27 Educational Therapy Teacher: CATHERINE MEASUREMENT RESULTS: Intervals: Rate: 77 MS: 134 QRSD: 84 QT: 364 QTc: 411 [place]: P: 24 MS: 134 QRS: 26 T: 40 INTERPRETIVE STATEMENTS: Normal sinus rhythm Normal ECG Compared to ECG 02/21/2022 08:39:46 No significant changes Electronically Signed On 08-20-22 12:28:47 CDT by Dillon Alegria
== END 2022-08-19 23:53 | disposition home or self-care (01) ==
LOC: ER 20:32
DX: U07.1 COVID-19 (principal); Z91.048 Other nonmedicinal substance allergy status
CPT/HCPCS: 93005; 85025; 80048; 36415; 85610; 84484; 83880; 71045; 96375; 96374; 99284; J2765; J1200; J7030

== ENCOUNTER 2023-01-06 02:37 | Emergency (ER) | payer OTHER, SELFPAY ==
--- OUTSIDE RECORDS SUMMARY | 2023-01-06 02:41 | XMS REPORT | Continuity of Care Document ---
:1985 Author Organization [facility] t Address [address] [place] [address] Care Team Providers Name Role Phone PCP, PATIENT DOES NOT HAVE A Primary Care Physician UnavailMARIELA Prajapati Attending Clinician Unavailable Mariela Martins CNM Attending Clinician GC_CHAKA_Connor_S Attending Clinician Unavailable Doctor Unassigned, [place] Attending Clinician Unavailable YFN BLOCK Attending Clinician Unavailable YFN BLOCK Attending Clinician Unavailable Pcp, Patient Does Not Have A Attending Clinician [phone] Marques_P Attending Clinician Unavailable MARIELA MARTINS Admitting Clinician Unavailable NIKO_Connor_Natalie Admitting Clinician Unavailable Marques_Su Admitting Clinician Unavailable Payers Payer Name Policy Type Policy Number Effective Date Expiration Date S ource [place] [id number] 2022 00:00:00 Problems Condition Condition Condition Status Onset Resolution Last Treating Co mments Source Name Details Category Date Date Treatment Clinician Date Declines Declines Disease Active 2022-02 Unive rs flu flu 0-25 ity of vaccine vaccine 00:00: [place] [facility] Menorrhagi Menorrhagi Disease Active 2022-02 U omar a with a with 0-25 ity of irregular irregular 00:00: [facility] s cycle cycle Medical [place] Dysmenorrh Dysmenorrh Disease Active 2022-02 U omar ea ea 0-25 ity of 00:00: [place] [facility] History of History of Disease Active 2022-02 Overview : Univers abnormal abnormal 0-24 Formattin ity of cervical cervical 00:00: g of this [place] Pap smear Pap smear 00 note Medi geri might be Branch different from the original. 5 negative pap with +hpv02/23 negative pap and hpv2022 LGSIL with +HPV, FU 1 year per ASCCP guideline s History of History of Disease Active U nivers tubal tubal 4- ity of ligation ligation 00:00: [place] [facility] Over Over Disease Active Univers weight weight 02-24 ity of 00:00: Medical Branch History of History of Disease Active U nivers depression depression 02-24 it y of 00:00: Medical Branch History of History of Disease Active U nivers anxiety anxiety 02-24 ity of 00:00: Medical Branch Encounter Encounter Disease Active Uni vers for other for other 02-24 ity of general general 00:00: [place] counseling counseling 00 Me dical or advice or advice Bran ch on on contracept contracept ion ion Obesity Obesity Disease Active Univers (BMI (BMI 02-24 ity of 30-39.9) 30-39.9) 00:00: [place] [facility] Anxiety Anxiety Disease Active Univers and and 02-24 ity of depression depression 00:00: [place] [facility] Cervical Cervical Disease Active 2014-02 Overview: Un jd high risk high risk 2-02 Formattin i ty of human human 00:00: g of this [place] papillomav papillomav 00 note Me dical irus (HPV) irus (HPV) might be Branch DNA test DNA test different positive positive from the original. Pap pending Well woman Well woman Disease Active 2014-02 U nivers exam exam 2 ity of 00:00: [place] [facility] History of History of Disease Active 2014-02 U nivers herpes herpes 03-19 [place] of genitalis genitalis 00:[place] [facility] [place] Allergies, Adverse Reactions, Alerts Allergy Allergy Status Severity Reaction(s) Onset Inactive Treating Comm ents Source Name Type Date Date Clinician IBUPROFE DRUG Active N/V 2014-02 Univers N INGREDI 2 ity of 00:00: [place] 00 [facility] IODINE DRUG Active Rash 2014-02 Univers INGREDI 03-19 ity of 00:00: [place] 00 [facility] Ibuprofe Propensi Active Nausea 2014-02 Univer s n ty to and/or 03-19 ity of adverse Vomiting 00:00: [place] reaction 00 [facility] Iodine Propensi Active Rash 2014-02 Univers ty to 03-19 ity of adverse 00:00: [place] reaction [facility] Social History Social Habit Start Date Stop Date Quantity Comments Source Gender identity [facility] 2022-12-10 2022-12-10 0 /d University of 00:00:00 00:00:00 [facility] History of Social 2022-12-09 2022-12-09 Univers ity of function 00:00:00 00:00:00 [facility] Tobacco use and 2015-01-16 2015-01-16 Smokeless Universit y of exposure 00:00:00 00:00:00 tobacco non-user [facility] Sex Ass[birth year] At [birth year] Universit y of 00:00:00 00:00:00 [facility] Smoking Status Start Date Stop Date Source Never smoked tobacco [facility] Medications Ordered Filled Start Stop Current Ordering Indication Dosage Frequency Signature Comments Components Source Medication Medication Date Date Medication? Clinician (SIG) Name Name ibuprofen Yes TAKE 1 Univer s 600 mg 7-05 TABLET BY ity of tablet 00:00: MOUTH [place] 00 EVERY 6 Medical HOURS Branch NEEDED FOR PAIN TAKE WITH FOOD PAXLOVID, Yes TAKE BY Unive rs EUA, 300 mg 7-05 MOUTH ity of (150 mg x 00:00: [place] 2 [place] 2)-100 mg 00 TABLETS 2 Medic al tablet TIMES A Branch DAY proMETHazin Yes TAKE BY Uni vers e 25 mg 7-05 MOUTH 1 ity of tablet 00:00: TABLET [place] 00 EVERY 6 Medical HOURS Branch NEEDED FOR NAUSEA ibuprofen 2022- No TAKE 1 Unive rs 600 mg 7-05 -24 TABLET BY ity of tablet 00:00: 00:00 MOUTH [place] 00 :00 EVERY 6 Medical HOURS Branch NEEDED FOR PAIN TAKE WITH FOOD PAXLOVID, 2022- No TAKE BY [facility] ers EUA, 300 mg 7-05 10-24 MOUTH ity of (150 mg x 00:00: 00:00 DIRECTED 2 [place] 2)-100 mg 00 :00 TABLETS 2 Medic al tablet TIMES A Branch DAY proMETHazin 2022- No TAKE BY Un jd e 25 mg 7-05 10-24 MOUTH 1 ity of tablet 00:00: 00:00 TABLET [place] 00 :00 EVERY 6 Medical HOURS Branch NEEDED FOR NAUSEA ibuprofen 2022- No TAKE 1 Unive rs 600 mg 7-05 10-24 TABLET BY ity of tablet 00:00: 00:00 MOUTH [place] 00 :00 EVERY 6 Medical HOURS Branch NEEDED FOR PAIN TAKE WITH FOOD PAXLOVID, 2022- No TAKE BY [facility] ers EUA, 300 mg 7-05 10-24 MOUTH ity of (150 mg x 00:00: 00:00 DIRECTED 2 [place] 2)-100 mg 00 :00 TABLETS 2 Medic al tablet TIMES A Branch DAY proMETHazin 2022- No TAKE BY Un jd e 25 mg 7-05 10-24 MOUTH 1 ity of tablet 00:00: 00:00 TABLET [place] 00 :00 EVERY 6 Medical HOURS Branch NEEDED FOR NAUSEA orphenadrin Yes TAKE 1 Univ ers e 100 mg SR 5-26 TABLET BY ity of tablet 00:00: MOUTH [place] 00 TWICE A Medical DAY Branch NEEDED orphenadrin 2022-0 2022- No TAKE 1 Uni vers e 100 mg SR 5-26 10-24 TABLET BY it y of tablet 00:00: 00:00 MOUTH [place] 00 :00 TWICE A Medical DAY Branch NEEDED orphenadrin 2022-0 2022- No TAKE 1 Uni vers e 100 mg SR 5-26 10-24 TABLET BY it y of tablet 00:00: 00:00 MOUTH [place] 00 :00 TWICE A Medical DAY Branch NEEDED CIPROFLOXAC Yes Take by Uni vers IN HCL 4-09 mouth. ity of (CIPRO 13:57: [place] ORAL) 52 Medical Branch citalopram Yes [id number] 20mg Take 1 U nivers (CELEXA) 20 1-11 tablet by ity of mg tablet 00:00: mouth [place] 00 daily. Medical Branch citalopram Yes [id number] 20mg Take 1 U nivers (CELEXA) 20 1-11 tablet by ity of mg tablet 00:00: mouth [place] 00 daily. [facility] Branch citalopram Yes [id number] 20mg Take 1 U nivers (CELEXA) 20 1-11 tablet by ity of mg tablet 00:00: mouth [place] 00 daily. [facility] Branch citalopram 2022- No [id number] 20mg Take 1 Univers (CELEXA) 20 1-11 10-24 tablet by it y of mg tablet 00:00: 00:00 mouth [place] 00 :00 daily. [facility] Branch citalopram 2022- No [id number] 20mg Take 1 Univers (CELEXA) 20 1-11 10-24 tablet by it y of mg tablet 00:00: 00:00 mouth [place] 00 :00 daily. [facility] Immunizations Ordered Filled Date Status Comments Source Immunization Name Immunization Name SARS-COV-2 COVID-19 2021-12-23 Completed Unive rsity of VACCINE, [facility] [place] SARS-COV-2 COVID-19 2021-09-12 Completed Unive rsity of VACCINE - (MODERNA) 00:00:00 [facility] SARS-COV-2 COVID-19 2020-07-09 Completed Unive rsity of VACCINE - (MODERNA) 00:00:00 [facility] SARS-COV-2 COVID-19 2020-06-12 Completed Unive rsity of VACCINE - (MODERNA) 00:00:00 [facility] TDAP 2016-02-25 Completed University of 00:00:00 [facility] SARS-COV-2 COVID-19 Unknown Completed Unive rsity of VACCINE - (MODERNA) [facility] SARS-COV-2 COVID-19 Unknown Completed Unive rsity of VACCINE - (MODERNA) [facility] SARS-COV-2 COVID-19 Unknown Completed Unive rsity of VACCINE - (MODERNA) [facility] SARS-COV-2 COVID-19 Unknown Completed Unive rsity of VACCINE, BIVALENT [place] [facility] (MODERNA BOOSTER) Branch HPV9 Unknown Completed [facility] TDAP Unknown Completed [facility] SARS-COV-2 COVID-19 Unknown Completed Unive rsity of VACCINE - (MODERNA) [facility] SARS-COV-2 COVID-19 Unknown Completed Unive rsity of VACCINE - (MODERNA) [facility] SARS-COV-2 COVID-19 Unknown Completed Unive rsity of VACCINE - (MODERNA) [facility] SARS-COV-2 COVID-19 Unknown Completed Unive rsity of VACCINE, BIVALENT [place] [facility] (MODERNA BOOSTER) Branch HPV9 Unknown Completed [facility] TDAP Unknown Completed [facility] SARS-COV-2 COVID-19 Unknown Completed Unive rsity of VACCINE - (MODERNA) [facility] SARS-COV-2 COVID-19 Unknown Completed Unive rsity of VACCINE - (MODERNA) [facility] SARS-COV-2 COVID-19 Unknown Completed Unive rsity of VACCINE - (MODERNA) [facility] SARS-COV-2 COVID-19 Unknown Completed Unive rsity of VACCINE, BIVALENT [place] [facility] (MODERNA BOOSTER) Branch HPV9 Unknown Completed [facility] TDAP Unknown Completed [facility] SARS-COV-2 COVID-19 Unknown Completed Unive rsity of VACCINE - (MODERNA) [facility] SARS-COV-2 COVID-19 Unknown Completed Unive rsity of VACCINE - (MODERNA) [facility] SARS-COV-2 COVID-19 Unknown Completed Unive rsity of VACCINE - (MODERNA) [facility] SARS-COV-2 COVID-19 Unknown Completed Unive rsity of VACCINE, BIVALENT [place] [facility] (MODERNA BOOSTER) Branch HPV9 Unknown Completed [facility] TDAP Unknown Completed [facility] SARS-COV-2 COVID-19 Unknown Completed Unive rsity of VACCINE - (MODERNA) [facility] SARS-COV-2 COVID-19 Unknown Completed Unive rsity of VACCINE - (MODERNA) [facility] SARS-COV-2 COVID-19 Unknown Completed Unive rsity of VACCINE - (MODERNA) [facility] SARS-COV-2 COVID-19 Unknown Completed Unive rsity of VACCINE, BIVALENT [place] [facility] (MODERNA BOOSTER) Branch HPV9 Unknown Completed [facility] TDAP Unknown Completed [facility] SARS-COV-2 COVID-19 Unknown Completed Unive rsity of VACCINE - (MODERNA) [facility] SARS-COV-2 COVID-19 Unknown Completed Unive rsity of VACCINE - (MODERNA) [facility] SARS-COV-2 COVID-19 Unknown Completed Unive rsity of VACCINE - (MODERNA) [facility] SARS-COV-2 COVID-19 Unknown Completed Unive rsity of VACCINE, BIVALENT [place] [facility] (MODERNA BOOSTER) Branch HPV9 Unknown Completed [facility] TDAP Unknown Completed [facility] SARS-COV-2 COVID-19 Unknown Completed Unive rsity of VACCINE - (MODERNA) [facility] SARS-COV-2 COVID-19 Unknown Completed Unive rsity of VACCINE - (MODERNA) [facility] SARS-COV-2 COVID-19 Unknown Completed Unive rsity of VACCINE - (MODERNA) [facility] SARS-COV-2 COVID-19 Unknown Completed Unive rsity of VACCINE, BIVALENT [place] [facility] (MODERNA BOOSTER) Branch TDAP Unknown Completed [facility] SARS-COV-2 COVID-19 Unknown Completed Unive rsity of VACCINE - (MODERNA) [facility] SARS-COV-2 COVID-19 Unknown Completed Unive rsity of VACCINE - (MODERNA) [facility] SARS-COV-2 COVID-19 Unknown Completed Unive rsity of VACCINE - (MODERNA) [facility] SARS-COV-2 COVID-19 Unknown Completed Unive rsity of VACCINE, BIVALENT [place] [facility] (MODERNA BOOSTER) Branch TDAP Unknown Completed [facility] Vital Signs Vital Name Observation Time Observation Value Comments Source Systolic blood 2022-12-09 13:37:00 132 mm[Hg] Univer sity of pressure [facility] Diastolic blood 2022-12-09 13:37:00 83 mm[Hg] Unive rsity of pressure [facility] Heart rate 2022-12-09 13:37:00 68 /min [facility] Body temperature 2022-12-09 13:37:00 36.33 Arlen [facility] Res[facility] rate 2022-12-09 13:37:00 18 /min [facility] Body height 2022-12-09 13:37:00 165.1 cm [facility] Body weight 2022-12-09 13:37:00 96.798 kg [facility] BMI 2022-12-09 13:37:00 35.51 kg/m2 [facility] Procedures Procedure Date / Time Performing Clinician Source Performed US PELVIS COMPLETE WITH 2022-12-24 15:50:00 Mariela Martins [facility] TRANSVAGINAL [facility] THYROID STIMULATING 2022-12-09 14:35:00 Mariela Martins [facility] HORMONE [facility] CBC WITH DIFF 2022-12-09 14:35:00 Mariela Martins [facility] GLYCOSYLATED HEMOGLOBIN 2022-12-09 14:35:00 Mariela Martins [facility] (A1C) [facility] HCV ANTIBODY 2022-12-09 14:35:00 Mariela Martins [facility] HIV 1/2 AG-AB WITH 2022-12-09 14:35:00 Mariela Martins [facility] REFLEX [facility] SYPHILIS IGG/IGM 2022-12-09 14:35:00 Mariela Martins [facility] PAP SMEAR-LIQUID 2022-12-09 14:29:00 Mariela Martins [facility] GARDASIL 9 (HPV 9V) 2022-12-09 13:48:27 Brandi Cole [facility] VACCINE [facility] ASSIGNMENT OF BENEFITS 2022-12-09 13:07:14 Doctor Unassigned, No [facility] Encounters Start End Encounter Admission Attending Care Care Encounter Source Date/Time Date/Time Type Type Clinicians Facility Department ID 2023-06-16 2023-06-16 Outpatient R [facility] [id number] Univers 08:30:00 08:30:00 [facility] 2023-01-13 2023-01-13 Outpatient R [facility] [id number] Univers 08:30:00 08:30:00 [facility] 2022-12-24 2022-12-24 Outpatient R SHRADDHA [facility] [id number] Univers 08:57:28 23:59:00 MARIELA boateng [facility] 2022-12-24 2022-12-24 [facility] [id number] Univers 08:57:28 23:59:00 Encounter Mariela Silverman [place] [id number] ity [facility] 4.2.7.2.686 [place] [id number] [address] 2022-12-23 2022-12-23 Telephone [facility] [id number] Univers 00:00:00 00:00:00 Mariela Herrera [employer] [id number] i ty of [facility] 4.2.7.2.686 [place] MATERNAL [id number] [facility] & CHILD [address] [place] [address] 2022-12-22 2022-12-22 Telephone [facility] [id number] Univers 00:00:00 00:00:00 Mariela Silverman [employer] [id number] i ty of [facility] 4.2.7.2.686 [place] MATERNAL [id number] [facility] & [address] 2022-12-22 2022-12-22 Telephone [facility] [id number] Univers 00:00:00 00:00:00 Mariela Silverman [employer] [id number] i ty of [facility] 4.7.2.686 [place] MATERNAL [id number] [facility] & [address] 2022-12-17 2022-12-17 Outpatient GC_GCBZW_Ka PRIV PRIV [id number] [facility] 00:00:00 00:00:00 jg_Natalie [id number] [facility] 2022-12-09 2022-12-09 [facility] [id number] [facility] 09:00:00 09:35:19 MARIELA boateng [facility] 2022-12-09 2022-12-09 Office [facility] [id number] [facility] 09:00:00 09:35:19 Visit Mariela Silverman [employer] [id number] i ty of REGIONAL 4.2.7.2.686 [place] MATERNAL [phone] Med ical & CHILD 107 [facility] 2022-12-09 2022-12-09 Orders Doctor TODD [id number] Univers 00:00:00 00:00:00 Only Unassigned, [place] 350.1.13.10 ity of [place] [facility] 4.2.7.2.686 [place] [id number] [address] 2022-10-06 2022-10-06 Outpatient R YFN BLOCK [facility] B [id number] Univers 09:30:00 09:30:00 YFN BLOCK [facility] 2022-10-02 2022-10-02 Patient Doctor [facility] [id number] Univers 00:00:00 00:00:00 Secure Msg Unassigned, ANICETO 350.1.13.10 ity of [place] [facility] 4.2.7.2.686 [place] [facility] [id number] [facility] [address] 2022-09-29 2022-09-29 Pre Visit PcpANCA [id number] Univers 00:00:00 00:00:00 Outreach Patient NAINA 350.1.13.10 i ty of Does Not [place] 4.2.7.2.686 [place] Have A [id number] [place] [id number] [place] 2020-03-28 2020-03-28 Outpatient Raju_P MMG MMG [id number] [place] 09:06:00 09:06:00 [facility]10 [facility] Results Test Description Test Time Test Comments Results Result Comments Source [facility] ONLY - SYPHILIS IGG/IGM 2022-12-10 16:28:05 Test Item Value Reference Range Interpretation Comme nts Syphilis IgG/IgM (test code = Non-reactive Non-reactive 14706-3) MANGO (test code = MANGO) Non-reactive - No serologic evidence of T. pallidum infection. Cannot exclude incubating or early syphilis. Submit a second specimen in 2-4 weeks if syphilis is clinically suspected. Equivocal - Further testing to follow. Reactive - Further testing to follow. Lab Interpretation (test code = Normal 15553-7) [facility] ONLY - SYPHILIS [id number] 16:28:05 Test Item Value Reference Range Interpretation Comments Syphilis IgG/IgM (test Non-reactive Non-reactive code = 61202-3) MANGO (test code = MANGO) Non-reactive - No serologic evidence of T. pallidum infection. Cannot exclude incubating or early syphilis. Submit a second specimen in 2-4 weeks if syphilis is clinically suspected. Equivocal - Further testing to follow. Reactive - Further testing to follow. Lab Interpretation (test Normal code = 95689-1) [facility] 1/2 AG-AB WITH [id number] 08:00:17 Test Item Value Reference Range Interpretation Comments HIV 0.08 Negative Semi-quantitative (test code = 34541-4) MANGO (test code = Non-reactive for HIV-1 MANGO) antigen and HIV-1/HIV-2 antibodies. ?No laboratory evidence of HIV infection. ?Repeat in 2-4 weeks if acute HIV infection is suspected. [facility] 1/2 AG-AB WITH [id number] 08:00:17 Test Item Value Reference Range Interpretation Comments HIV 0.08 Negative Semi-quantitative (test code = 20676-1) MANGO (test code = Non-reactive for HIV-1 MANGO) antigen and HIV-1/HIV-2 antibodies. ?No laboratory evidence of HIV infection. ?Repeat in 2-4 weeks if acute HIV infection is suspected. [place] [facility]2022-12-10 07:25:06 Test Item Value Reference Range Interpretation Comments HGB A1C (test code = 5.2 % 4.0-5.7 4548-4) MANGO (test code = MANGO) Reference RangesNormal: <5.7%Prediabetes: 5.7 - 6.4%Diabetes: > 6.5% Lab Interpretation (test Normal code = 69602-5) [place] [facility]2022-12-10 07:25:06 Test Item Value Reference Range Interpretation Comments HGB A1C (test code = 5.2 % 4.0-5.7 4548-4) MANGO (test code = MANGO) Reference RangesNormal: <5.7%Prediabetes: 5.7 - 6.4%Diabetes: > 6.5% Lab Interpretation (test Normal code = 07803-9) [facility] [id number] 06:52:12 Test Item Value Reference Range Interpretation Comments HCV Ab (test code = 54488-4) Negative HCV Semi-Quantitative (test code = 0.02 07695-6) [facility] [id number] 06:52:12 Test Item Value Reference Range Interpretation Comments HCV Ab (test code = 17136-3) Negative HCV Semi-Quantitative (test code = 0.02 25351-6) [facility] [id number] 06:35:06 Test Item Value Reference Range Interpretation Comments TSH (test code = 1.04 See_Comment Biotin has been [id number]) reported to cau se a negative bias, interpret resul ts relative to pat ient's use of biotin. [Automated mess age] The system [employer] generated this result transmitted ref erence range: 0.45 - 4 .70 mIU/L. The refe rence range was not u sed to interpret this result as normal/abnor mal. Lab Interpretation (test Normal code = 19654-8) [place] [facility] [id number] 06:35:06 Test Item Value Reference Range Interpretation Comments TSH (test code = 1.04 See_Comment Biotin has been [id number]) reported to cau se a negative bias, interpret resul ts relative to pat ient's use of biotin. [Automated mess age] The system [employer] generated this result transmitted ref erence range: 0.45 - 4 .70 mIU/L. The refe rence range was not u sed to interpret this result as normal/abnor mal. Lab Interpretation (test Normal code = 51234-7) [facility] WITH [id number] 06:00:26 Test Item Value Reference Range Interpretation Comments WBC (test code = 3.63 See_Comment L [Automated 6690-2) message] The sy stem which generated this result transmitted reference range : 4.30 - 11.10 10*3/?L. The reference range was not used to interpret this result as normal/abnormal . RBC (test code = 4.76 See_Comment [Automated 789-8) message] The sy stem which generated this result transmitted reference range : 3.93 - 5.25 10*6/?L. The reference range was not used to interpret this result as normal/abnormal . HGB (test code = 11.6 g/dL 11.6-15.0 718-7) HCT (test code = 38.2 % 35.7-45.2 4544-3) MCV (test code = 80.3 fL 80.6-95.5 L 787-2) MCH (test code = 24.4 pg 25.9-32.8 L 785-6) MCHC (test code = 30.4 g/dL 31.6-35.1 L 786-4) RDW-SD (test code = 38.6 fL 39.0-49.9 L 31614-6) RDW-CV (test code = 13.3 % 12.0-15.5 788-0) PLT (test code = 368 See_Comment H [Automated 777-3) message] The sy stem which generated this result transmitted reference range : 166 - 358 10*3/ ?L. The reference r arlin was not used to interpret this result as normal/abnormal . MPV (test code = 11.4 fL 9.5-12.9 68216-8) NRBC/100 WBC (test 0.0 See_Comment [Automat ed code = 8571968174) message] The system which generated this result transmitted reference range : 0.0 - 10.0 /100 WBCs. The refer ence range was not u sed to interpret th is result as normal/abnormal . NRBC x10^3 (test code See_Comment [Auto mated = [id number]) message] The s ystem which generated this result transmitted reference range : 10*3/?L. The reference range was not used to interpret this result as normal/abnormal . GRAN MAT (NEUT) % 52.0 % (test code = 770-8) IMM GRAN % (test code 0.00 % = 5087659553) LYMPH % (test code = 27.5 % 736-9) MONO % (test code = 18.2 % 5905-5) EOS % (test code = 1.7 % 713-8) BASO % (test code = 0.6 % 706-2) GRAN MAT x10^3(ANC) 1.89 10*3/uL 1.88-7.09 (test code = 6716042209) IMM GRAN x10^3 (test 0.00-0.06 code = 1994894596) LYMPH x10^3 (test code 1.00 10*3/uL 1.32-3.29 L = 731-0) MONO x10^3 (test code 0.66 10*3/uL 0.33-0.92 = 742-7) EOS x10^3 (test code = 0.06 10*3/uL 0.03-0.39 711-2) BASO x10^3 (test code 0.01-0.07 = 704-7) Lab Interpretation Abnormal (test code = 94143-5) [facility] WITH [id number] 06:00:26 Test Item Value Reference Range Interpretation Comments WBC (test code = 3.63 See_Comment L [Automated 6690-2) message] The sy stem which generated this result transmitted reference range : 4.30 - 11.10 10*3/?L. The reference range was not used to interpret this result as normal/abnormal . RBC (test code = 4.76 See_Comment [Automated 789-8) message] The sy stem which generated this result transmitted reference range : 3.93 - 5.25 10*6/?L. The reference range was not used to interpret this result as normal/abnormal . HGB (test code = 11.6 g/dL 11.6-15.0 718-7) HCT (test code = 38.2 % 35.7-45.2 4544-3) MCV (test code = 80.3 fL 80.6-95.5 L 787-2) MCH (test code = 24.4 pg 25.9-32.8 L 785-6) MCHC (test code = 30.4 g/dL 31.6-35.1 L 786-4) RDW-SD (test code = 38.6 fL 39.0-49.9 L 98857-2) RDW-CV (test code = 13.3 % 12.0-15.5 788-0) PLT (test code = 368 See_Comment H [Automated 777-3) message] The sy stem which generated this result transmitted reference range : 166 - 358 10*3/ ?L. The reference r arlin was not used to interpret this result as normal/abnormal . MPV (test code = 11.4 fL 9.5-12.9 18193-9) NRBC/100 WBC (test 0.0 See_Comment [Automat ed code = [id number]) message] The system which generated this result transmitted reference range : 0.0 - 10.0 /100 WBCs. The refer ence range was not u sed to interpret th is result as normal/abnormal . NRBC x10^3 (test code See_Comment [Auto mated = [id number]) message] The s ystem which generated this result transmitted reference range : 10*3/?L. The reference range was not used to interpret this result as normal/abnormal . GRAN MAT (NEUT) % 52.0 % (test code = 770-8) IMM GRAN % (test code 0.00 % = 3783677932) LYMPH % (test code = 27.5 % 736-9) MONO % (test code = 18.2 % 5905-5) EOS % (test code = 1.7 % 713-8) BASO % (test code = 0.6 % 706-2) GRAN MAT x10^3(ANC) 1.89 10*3/uL 1.88-7.09 (test code = 0024556788) IMM GRAN x10^3 (test 0.00-0.06 code = 3330236904) LYMPH x10^3 (test code 1.00 10*3/uL 1.32-3.29 L = 731-0) MONO x10^3 (test code 0.66 10*3/uL 0.33-0.92 = 742-7) EOS x10^3 (test code = 0.06 10*3/uL 0.03-0.39 711-2) BASO x10^3 (test code 0.01-0.07 = 704-7) Lab Interpretation Abnormal (test code = 71396-5) [facility] Notes Date/Time Note Provider Source 2022-09-29 08:02:44 [id number]:02:44Summary: Pre-Visit [facility] [place] [facility], [facility], and Care Everywhere searched for patient records.No new records found. Taste Filtert Message sent to patient with open care gaps. Patient is established with [facility]. No call necessary. [id number] encounter [id number]:03:34Telephone encounter [id number] for patient [id number] [id number] [id number]:[id number] .[id number]. [id number]"
[2023-01-06] MEDS ORDERED: ASPIRIN 81 MG CHEWABLE TABLET ONE (03:12)
[2023-01-06] MEDS ORDERED: MORPHINE 4 MG/ML SYR ONE (03:13)
[2023-01-06] MEDS ORDERED: DIAZEPAM 5 MG TABLET ONE (03:13)
[2023-01-06] MEDS ORDERED: ONDANSETRON 4 MG/2 ML VIAL ONE (03:13)
[2023-01-06 03:40] LABS: Absolute Lymphocytes (CBC) 1.3 K/uL (0.7-4.9); Hematocrit 35.6 % (36.0-45.0); MCV 76.4 fL (80-100); MPV 8.4 fL (7.6-11.3); Platelets 320 thou/uL (152-406); RBC Red Blood Cell Count 4.66 M/uL (3.86-4.86)
[2023-01-06 03:41] LABS: Protime INR 1.01
[2023-01-06 04:07] LABS: Albumin 3.4 g/dL (3.4-5.0); Bilirubin Direct 0.1 mg/dL (0-0.2); Bilirubin Indirect, Calculated 0.3 mg/dL (0.2-0.8); Bilirubin Total 0.4 mg/dL (0.2-1.0); Magnesium 2.1 mg/dL (1.6-2.4); Potassium 3.5 mEq/L (3.5-5.1); Protein, Total 8.1 g/dL (6.4-8.2); Thyroid Stimulating Hormone 2.52 uIU/mL (0.358-3.740); Troponin High Sensitivity 5.2 pg/mL (<58.9)
--- NOTE | 2023-01-06 06:11 | ER ---
Nurse's Notes [facility] Name: Alanna Barreto Age: 37 yrs Sex: Female : 1985 Arrival Date: 01/06/2023 Time: 02:37 Bed 15 Private MD: Diagnosis: Anxiety disorder, unspecified;Chest pain, unspecified Presentation: 01/06 02:50 Chief complaint: Patient states: chest pain/tightness in the center of chest to right jw7 side with numbness/tightness throughout body as well. 02:50 Acuity: CHRISTOPHER 2 jw7 02:50 Coronavirus screen: At this time, the client does not indicate any symptoms associated jw7 with coronavirus-19. Ebola Screen: No symptoms or risks identified at this time. Initial Sepsis Screen: Does the patient meet any 2 criteria? RR > 20 per min. HR > 90 bpm. Yes Does the patient have a suspected source of infection? No. Patient's initial sepsis screen is negative. Risk Assessment: Do you want to hurt yourself or someone else? Patient reports no desire to harm self or others. Onset of symptoms was January 06, 2023. 02:50 Method Of Arrival: EMS: [facility] jw7 Triage Assessment: 02:50 General: Appears in no apparent distress. uncomfortable, Behavior is calm, cooperative. jw7 02:50 Pain: Complains of pain in chest and throughout body Pain does not radiate. Pain [facility] currently is 10 out of 10 on a pain scale. Quality of pain is described as numb, tightness Pain began suddenly, Is continuous, Alleviated by medications. EENT: No deficits noted. No signs and/or symptoms were reported regarding the EENT system. Neuro: Cormier Agitation-Sedation Scale (RASS): 0 - Alert and Calm Level of Consciousness is awake, alert, obeys commands, Oriented to person, place, time, situation. Cardiovascular: Reports chest pain, shortness of breath, Capillary refill < 3 seconds Clubbing of nail beds is absent JVD is absent Patient's skin is warm and dry. Rhythm is sinus rhythm. Respiratory: Reports shortness of breath Airway is patent Trachea midline Respiratory effort is even, unlabored, Respiratory pattern is regular, symmetrical, Parent/caregiver reports the patient having cough that is productive. GI: No deficits noted. No signs and/or symptoms were reported involving the gastrointestinal system. : No deficits noted. No signs and/or symptoms were reported regarding the genitourinary system. Derm: No deficits noted. No signs and/or symptoms reported regarding the dermatologic system. Musculoskeletal: No deficits noted. No signs and/or symptoms reported regarding the musculoskeletal system. 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 - Social history:: Smoking status: Patient denies any tobacco usage or history of. Patient/guardian denies using alcohol, street drugs, IV drugs. - Family history:: not pertinent. Screenin:50 Abuse screen: Denies threats or abuse. Denies injuries from another. jw7 02:50 [facility] ED Fall Risk Assessment (Adult) History of falling in the last 3 months, jw7 including since admission No falls in past 3 months (0 pts) Score/Fall Risk Level 0 - 2 = Low Risk Oriented to surroundings, Maintained a safe environment. Nutritional screening: No deficits noted. Tuberculosis screening: No symptoms or risk factors identified. Assessment: 03:29 General: see triage assessment. jw7 04:36 Reassessment: Patient appears in no apparent distress at this time. Patient and/or [facility] family updated on plan of care and expected duration. Pain level reassessed. Patient is alert, oriented x 3, equal unlabored respirations, skin warm/dry/pink. Patient states symptoms have improved. 05:39 Reassessment: Patient appears in no apparent distress at this time. No changes from jw7 previously documented assessment. Patient and/or family updated on plan of care and expected duration. Pain level reassessed. Patient is alert, oriented x 3, equal unlabored respirations, skin warm/dry/pink. 06:26 Reassessment: Patient appears in no apparent distress at this time. No changes from jw7 previously documented assessment. Patient and/or family updated on plan of care and expected duration. Pain level reassessed. Patient is alert, oriented x 3, equal unlabored respirations, skin warm/dry/pink. Vital Signs: 02:50 BP 119 / 94; Pulse 92; Resp 23 S; Temp 97.8(O); Pulse Ox 100% on R/A; Weight 96.62 kg; jw7 Height 5 ft. 5 in. ; Pain 10/10; 03:29 BP 125 / 74; Pulse 83; Resp 12 S; Pulse Ox 100% on R/A; jw7 04:36 BP 117 / 74; Pulse 70; Resp 14 S; Pulse Ox 98% on R/A; jw7 05:30 BP 124 / 80; Pulse 66; Resp 14 S; Pulse Ox 98% on R/A; jw7 06:27 BP 116 / 81; Pulse 68; Resp 16 S; Pulse Ox 98% on R/A; jw7 02:50 Body Mass Index 35.44 (96.62 kg, 165.1 cm) jw7 02:50 Pain Scale: Adult jw7 [place] Coma Score: 04:29 Eye Response: spontaneous(4). Motor Response: obeys commands(6). Verbal Response: sp4 oriented(5). Total: 15. ED Course: 02:43 Patient arrived in ED. as6 02:46 Sean Cross MD is Attending Physician. sp4 02:50 Patient has correct armband on for positive identification. Bed in low position. Call jw7 light in reach. Side rails up X2. 02:50 Arm band placed on. jw7 02:52 Jacquelyn Vizcaino, RN is Primary Nurse. jw7 03:18 Initial lab(s) drawn, by ED staff, sent to lab. EKG done, by ED staff, reviewed by jw7 Sean Cross MD. Inserted saline lock: 20 gauge in right antecubital area, using aseptic technique. Blood collected. 03:19 XRAY Chest (1 view) In Process Unspecified. EDMS 03:24 Triage completed. jw7 04:36 Troponin High Sensitivity Sent. jw7 06:10 Dillon Alegria MD is Referral Physician. sp4 06:27 No provider procedures requiring assistance completed. IV discontinued, intact, jw7 bleeding controlled, No redness/swelling at site. Pressure dressing applied. 06:28 Provided Education on: discharge instructions and medication usage. jw7 Administered Medications: 03:18 Drug: Diazepam PO 5 mg PO once Route: PO; jw7 04:37 Follow up: Response: No adverse reaction; Marked relief of symptoms jw7 03:18 Drug: morphine IVP or IV 4 mg IVP once over 4 mins Route: IVP; Infused Over: 4 mins; jw7 Site: right antecubital; 04:37 Follow up: Response: No adverse reaction; Marked relief of symptoms jw7 03:18 Drug: Ondansetron IVP 4 mg IVP once; over 2 minutes Route: IVP; Site: right antecubital;jw7 04:37 Follow up: Response: No adverse reaction jw7 03:18 Drug: Aspirin PO Chewable Tablet 324 mg PO once; 81 mg tablets x 4 Route: PO; jw7 04:37 Follow up: Response: No adverse reaction jw7 Medication: 06:28 VIS not applicable for this client. jw7 Outcome: 06:10 Discharge ordered by . sp4 06:27 Discharged to home ambulatory, jw7 06:27 Condition: stable 06:27 Discharge instructions given to patient, Instructed on discharge instructions, follow up and referral plans. medication usage, Demonstrated understanding of instructions, follow-up care, medications, Prescriptions given X 1, 06:29 Patient left the ED. jw7 Signatures: Dispatcher [employer] EDMS Favian Finch RN RN as6 Jacquelyn Vizcaino RN RN jw7 Sean Cross MD MD sp4
--- NOTE | 2023-01-06 06:11 | EDPHYS ---
Physician Documentation [facility] Name: Alanna Barreto Age: 37 yrs Sex: Female : 1985 Arrival Date: 01/06/2023 Time: 02:37 Bed 15 Private MD: ED Physician Sean Cross HPI: 01/06 02:48 This 37 yrs old Black Female presents to ER via Unassigned with complaints of chest sp4 pains for one year, anxiety . 02:59 Patient reports chest pain for 1 year. Described as pressure daily associated with sp4 shortness of breath. At 11 PM yesterday chest pains have intensified described as pressure and tightness associated with generalized weakness and shortness of breath. Patient denied any history of prior cardiac assessment. No history of diabetes hypertension. History of bilateral tubal ligation.. 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 - Social history:: Smoking status: Patient denies any tobacco usage or history of. Patient/guardian denies using alcohol, street drugs, IV drugs. - Family history:: not pertinent. ROS: 02:59 Constitutional: Negative for fever, chills, and weight loss, Cardiovascular: Positive sp4 chest pain , positive shortness of breath, positive generalized weakness 02:59 All other systems are negative, Exam: 02:59 Constitutional: This is a well developed, well nourished patient who is awake, alert, sp4 and in no acute distress. Anxious appearing Head/Face: Normocephalic, atraumatic. Eyes: Pupils equal round and reactive to light, extra-ocular motions intact. Lids and lashes normal. Conjunctiva and sclera are not injected. Cornea within normal limits. Periorbital areas with no swelling, redness, or edema. ENT: Nares patent. No nasal discharge, no septal abnormalities noted. Tympanic membranes are normal and external auditory canals are clear. Oropharynx with no redness, swelling, or masses, exudates, or evidence of obstruction, uvula midline. Mucous membranes moist. Neck: Trachea midline, no thyromegaly or masses palpated, and no cervical lymphadenopathy. Supple, full range of motion without nuchal rigidity, or vertebral point tenderness. Chest/axilla: Normal chest wall appearance and motion. Nontender with no deformity. No lesions are appreciated. Cardiovascular: Regular rate and rhythm with a normal S1 and S2. No gallops, murmurs, or rubs. Normal PMI, no JVD. No pulse deficits. Respiratory: Lungs have equal breath sounds bilaterally, clear to auscultation and percussion. No rales, rhonchi or wheezes noted. No increased work of breathing, no retractions or nasal flaring. Abdomen/GI: Soft, non-tender, with normal bowel sounds. No distension or tympany. No guarding or rebound. No evidence of tenderness throughout. Back: No spinal tenderness. No costovertebral tenderness. Skin: Warm, dry with normal turgor. Normal color with no rashes, no lesions, and no evidence of cellulitis. MS/ Extremity: Pulses equal, no cyanosis. Neurovascular intact. Full, normal range of motion. Neuro: Awake and alert, GCS 15, oriented to person, place, time, and situation. Cranial nerves II-XII grossly intact. Motor strength 5/5 in all extremities. Sensory grossly intact. Psych: Awake, alert, with orientation to person, place and time. Behavior, mood, and affect are within normal limits 03:05 ECG was reviewed by the Attending Physician. EKG at 0 246, normal sinus rhythm at the sp4 rate of 84, no ST elevation or depression, no ectopy, overall normal EKG Vital Signs: 02:50 BP 119 / 94; Pulse 92; Resp 23 S; Temp 97.8(O); Pulse Ox 100% on R/A; Weight 96.62 kg; jw7 Height 5 ft. 5 in. ; Pain 10/10; 03:29 BP 125 / 74; Pulse 83; Resp 12 S; Pulse Ox 100% on R/A; jw7 04:36 BP 117 / 74; Pulse 70; Resp 14 S; Pulse Ox 98% on R/A; jw7 05:30 BP 124 / 80; Pulse 66; Resp 14 S; Pulse Ox 98% on R/A; jw7 06:27 BP 116 / 81; Pulse 68; Resp 16 S; Pulse Ox 98% on R/A; jw7 02:50 Body Mass Index 35.44 (96.62 kg, 165.1 cm) 7 02:50 Pain Scale: Adult jw7 Janiya Coma Score: 04:29 Eye Response: spontaneous(4). Motor Response: obeys commands(6). Verbal Response: sp4 oriented(5). Total: 15. MDM: 03:05 Differential Diagnosis altered mental status, sepsis, flu. Data reviewed: vital signs, sp4 nurses notes, EMS record, old medical records, lab test result(s), EKG, radiologic studies, plain films. 03:07 Patient medically screened. sp4 04:20 ED course: Chest X ray - TECHNIQUE: Single AP view of the chest. FINDINGS: Lung volumes sp4 diminished. Mild bronchovascular crowding. Cardiac silhouette is normal in size. No pneumothorax. No large pleural effusion. No focal consolidation. No acute bony finding. IMPRESSION: 1. No acute cardiopulmonary findings. 2. Low lung volumes with associated hypoventilatory changes. . 04:29 Consideration of Admission/Observation Escalation of care including sp4 admission/observation considered. ED course: This time no sign of ACS. 06:09 ED course: Troponin X 2 is negative . ED course: Stable for discharge home. . sp4 01/06 02:47 Order name: Basic Metabolic Panel; Complete Time: 04:19 sp4 01/06 02:47 Order name: CBC with Diff; Complete Time: 04:05 sp4 01/06 02:47 Order name: LFT's; Complete Time: 04:19 sp4 01/06 02:47 Order name: Magnesium; Complete Time: 04:19 sp4 01/06 02:47 Order name: NT PRO-BNP; Complete Time: 04:19 sp4 01/06 02:47 Order name: PT-INR; Complete Time: 04:05 sp4 01/06 02:47 Order name: Troponin HS; Complete Time: 04:19 sp4 01/06 02:47 Order name: TSH; Complete Time: 04:19 sp4 01/06 04:21 Order name: Troponin High Sensitivity; Complete Time: 06:09 sp4 01/06 02:47 Order name: XRAY Chest (1 view) sp4 01/06 02:47 Order name: EKG; Complete Time: 02:47 sp4 01/06 02:47 Order name: Cardiac monitoring; Complete Time: 02:52 sp4 01/06 02:47 Order name: EKG - Nurse/Tech; Complete Time: 02:52 sp4 01/06 02:47 Order name: IV Saline Lock; Complete Time: 03:17 sp4 01/06 02:47 Order name: Labs collected and sent; Complete Time: 03:17 sp4 01/06 02:47 Order name: O2 Per Protocol; Complete Time: 02:52 sp4 01/06 02:47 Order name: O2 Sat Monitoring; Complete Time: : sp4 EC:05 Rate is 84 beats/min. Rhythm is regular, Normal Sinus Rhythm. QRS [place] is Normal. CA sp4 interval is normal. QRS interval is normal. QT interval is normal. No Q waves. T waves are Normal. No ST changes noted. Clinical impression: Normal ECG. Interpreted by me. Reviewed by me. Administered Medications: 03:18 Drug: Diazepam PO 5 mg PO once Route: PO; jw7 04:37 Follow up: Response: No adverse reaction; Marked relief of symptoms jw7 03:18 Drug: morphine IVP or IV 4 mg IVP once over 4 mins Route: IVP; Infused Over: 4 mins; jw7 Site: right antecubital; 04:37 Follow up: Response: No adverse reaction; Marked relief of symptoms jw7 03:18 Drug: Ondansetron IVP 4 mg IVP once; over 2 minutes Route: IVP; Site: right antecubital;jw7 04:37 Follow up: Response: No adverse reaction jw7 03:18 Drug: Aspirin PO Chewable Tablet 324 mg PO once; 81 mg tablets x 4 Route: PO; jw7 04:37 Follow up: Response: No adverse reaction jw7 Disposition Summary: 01/06/23 06:10 Discharge Ordered Problem: new sp4 Symptoms: have improved sp4 Condition: Stable sp4 Diagnosis - Anxiety disorder, unspecified sp4 - Chest pain, unspecified sp4 Followup: sp4 - With: Dillon Alegria MD - When: 7 - 10 days - Reason: Recheck today's complaints Discharge Instructions: - Discharge Summary Sheet sp4 - Chest Wall Pain, [id number] sp4 Forms: - Patient Portal Instructions sp4 Prescriptions: - Klonopin 1 mg Oral tablet - take 1 tablet ORAL route once daily As needed PRN anxiety; 20 tablet; Refills: sp4 0, Product Selection Permitted Signatures: Dispatcher [employer] Jacquelyn Heredia RN RN jw7 Sean Cross MD MD sp4
[2023-01-06 06:39] VITALS: TEMP 97.8
[2023-01-06 06:53] VITALS: O2SAT 98
[2023-01-06 07:02] VITALS: BP 116/81
--- NOTE | 2023-01-06 13:45 | RAD REPORT ---
EXAM DESCRIPTION: Chest Single View CLINICAL HISTORY: CHEST PAIN COMPARISON: None TECHNIQUE: Single AP view of the chest. FINDINGS: Lung volumes diminished. Mild bronchovascular crowding. Cardiac silhouette is normal in size. No pneumothorax. No large pleural effusion. No focal consolidation. No acute bony finding. IMPRESSION: 1. No acute cardiopulmonary findings. 2. Low lung volumes with associated hypoventilatory changes. Electronically signed by: Kirk Pedraza MD 01/06/2023 03:34 AM SERVICE ELECTRICIAN Due to temporary technical issues with the PACS/Fluency reporting system, reports are being signed by the in house radiologists without review as a courtesy to insure prompt reporting. The interpreting radiologist is fully responsible for the content of the report.
--- NOTE | 2023-01-07 16:53 | EKG ---
Test Date: 2023-01-06 Test Time: 02:46:10 Icu Manager: CESILIA MEASUREMENT RESULTS: Intervals: Rate: 84 CT: 146 QRSD: 76 QT: 352 QTc: 415 [place]: P: 59 CT: 146 QRS: 55 T: 77 INTERPRETIVE STATEMENTS: Normal sinus rhythm Normal ECG Compared to ECG 08/19/2022 21:05:27 No significant changes Electronically Signed On 01-07-23 16:50:07 CEMETERY MANAGER by Dillon Alegria
== END 2023-01-06 06:29 | disposition home or self-care (01) ==
LOC: ER 02:37
DX: R07.9 Chest pain, unspecified (principal); F41.9 Anxiety disorder, unspecified; F32.A Depression, unspecified; K21.9 Gastro-esophageal reflux disease without esophagitis; Z88.8 Allergy status to other drugs, medicaments and biological substances
CPT/HCPCS: 36415; 71045; 80048; 80076; 83735; 83880; 84443; 84484; 85025; 85610; 93005; 96374; 96375; 99285; J2405

== ENCOUNTER → 2023-04-15 | Emergency (ER) | payer OTHER ==
[~2023-04-15] MED LIST: dexAMETHasone 10 MG/ML VIAL ONE
--- OUTSIDE RECORDS SUMMARY | 2023-04-15 17:31 | XMS REPORT | Continuity of Care Document ---
Author Name Unknown Address [address] [facility] [address] [place] [address] [facility] Address [address] [facility] [address] [place] [address] Care Team Providers Care Manager Channel Name Role Phone Van Hinson MD Primary Care Physician + [phone] VAN HINSON Attending Clinician VAN Nieves Attending Clinician Ronen le 2, [facility] Attending Clinician Unavailable JOSSUE MARTIN K.Augustina Attending Clinician Raudel Martin MD, Jossue K.HEmber Attending Clinician + [phone] Nathalie Prajapati LMSW Attending Clinician Unava ilayden Doctor Unassigned, Dysart Attending Clinician U navailable Nurse, Ang Rmchp Rgv Cprit Obgyn Attending Clini allie Unavailable Brandi Angela Attending Clinician + BRANDI COLE Attending Clinician Unavail MARIELA Carvajal Attending Clinician Mariela Marquez CNM Attending Clinician [phone] [email or web address] Attending Clinician UnavailYFN Branham Attending Clinician YFN Rodriguez Attending Clinician Raudel cates Pcp, Patient Does Not Have A Attending Clinician Raju_P Attending Clinician Unavailable JOSSUE MARTIN.HEmber Admitting Clinician Unavaildarleen darryn LLANESLULAMARIELA A Admitting Clinician Unavaildarleen cates [email or web address]_Kadiyala_S Admitting Clinician Unavaila darryn Mohan_P Admitting Clinician Unavailable Payers Payer Name Policy Type Policy Number Effective Date Expirati on Date Source [employer] [id number] 2023 00:00:00 [employer] [id number] 2023 00:00:00 [employer] P[employer] [id number] 2023 00:00:00 2023 00:00:00 Problems Condition Name Condition Details Condition Category Status Onset Date Resolution Date Last Treatment Date Treating Clinician Comments Source Declines flu vaccine Declines flu vaccine Disease Active 2022-02 00:00: 00 [facility] Menorrhagi a with irregular cycle Menorrhagi a with irregular cycle Disease Active 2022-02 00:00: 00 [facility] Dysmenorrh ea Dysmenorrh ea Disease Active 2022-02 00:00: 00 [facility] History of abnormal cervical Pap smear History of abnormal cervical Pap smear Disease Active 2022-02 0 00:00: 00 Overview: Formattin g of this note might be different from the original. 5 negative pap with +hpv02/23 negative pap and hpv2022 LGSIL with +HPV, FU 1 year per ASCCP guideline s [facility] History of tubal ligation History of tubal ligation Disease Active 05-25 00:00: 00 [facility] Over weight Over weight Disease Active 02-24 00:00: 00 [facility] History of depression History of depression Disease Active 02-24 00:00: 00 [facility] History of anxiety History of anxiety Disease Active 02-24 00:00: 00 [facility] Encounter for other general counseling or advice on contracept ion Encounter for other general counseling or advice on contracept ion Disease Active 02-24 00:00: 00 [facility] Obesity (BMI 30-39.9) Obesity (BMI 30-39.9) Disease Active 02-24 00:00: 00 [facility] Anxiety and depression Anxiety and depression Disease Active 02-24 00:00: 00 [facility] Cervical high risk human papillomav irus (HPV) DNA test positive Cervical high risk human papillomav irus (HPV) DNA test positive Disease Active 2014-02 00:00: 00 Overview: Formattin g of this note might be different from the original. Pap pending [facility] Well woman exam Well woman exam Disease Active 2014-02 00:00: 00 [facility] History of herpes genitalis History of herpes genitalis Disease Active 2014-02 00:00: 00 [facility] Allergies, Adverse Reactions, Alerts Allergy Name Allergy Type Status Severity Reaction(s) Onset Date Inactive Date Treating Clinician Comments Source IBUPROFE N DRUG INGREDI Active N/V 2014-02 00:00: 00 [facility] IODINE DRUG INGREDI Active Rash 2014-02 00:00: 00 [facility] Ibuprofe n Propensi ty to adverse reaction s Active Nausea and/or Vomiting 2014-02 00:00: 00 [facility] Iodine Propensi ty to adverse reaction s Active Rash 2014-02 00:00: 00 [facility] Social History Social Habit Start Date Stop Date Quantity Comments Source Gender identity [facility] Alcohol intake 2023-02-19 00:00:00 2023-02-19 00:00:00 0 /d [facility] Tobacco use and exposure 2023-01-20 00:00:00 2023-01-20 00:00:00 Smokeless tobacco non-user [facility] History of Social function 2023-01-15 00:00:00 2023-01-15 00:00:00 [facility] Sex Assigned At 1985 00:00:00 1985 00:00:00 [facility] Smoking Status Start Date Stop Date Source Never smoked tobacco [facility] Medications Ordered Medication Name Filled Medication Name Start Date Stop Date Current Medication? Ordering Clinician Indication Dosage Frequency Signature (SIG) Comments Components Source diphenhydrA MINE 25 mg tablet 4-0 2-20 00:00: 00 04-10 05:59 :00 Yes 25mg Take 1 tablet by mouth every 12 (twelve) hours for 3 doses. Start morning before procedure. Take last dose morning of procedure [facility] famotidine 20 mg tablet 4-0 2-20 00:00: 00 04-10 05:59 :00 Yes 20mg Take 1 tablet by mouth every 12 (twelve) hours for 3 doses. Start morning before procedure. Take last dose morning of procedure [facility] diphenhydrA MINE 25 mg tablet 4-0 2-20 00:00: 00 04-10 05:59 :00 Yes 25mg Take 1 tablet by mouth every 12 (twelve) hours for 3 doses. Start morning before procedure. Take last dose morning of procedure [facility] famotidine 20 mg tablet 4-0 2-20 00:00: 00 04-10 05:59 :00 Yes 20mg Take 1 tablet by mouth every 12 (twelve) hours for 3 doses. Start morning before procedure. Take last dose morning of procedure [facility] diphenhydrA MINE 25 mg tablet 2023-0 2-20 00:00: 00 04-10 05:59 :00 Yes 25mg Take 1 tablet by mouth every 12 (twelve) hours for 3 doses. Start morning before procedure. Take last dose morning of procedure [facility] famotidine 20 mg tablet 4-0 2-20 00:00: 00 04-10 05:59 :00 Yes 20mg Take 1 tablet by mouth every 12 (twelve) hours for 3 doses. Start morning before procedure. Take last dose morning of procedure [facility] diphenhydrA MINE 25 mg tablet 4-0 2-20 00:00: 00 04-10 05:59 :00 Yes 25mg Take 1 tablet by mouth every 12 (twelve) hours for 3 doses. Start morning before procedure. Take last dose morning of procedure [facility] famotidine 20 mg tablet 4-0 2-20 00:00: 00 04-10 05:59 :00 Yes 20mg Take 1 tablet by mouth every 12 (twelve) hours for 3 doses. Start morning before procedure. Take last dose morning of procedure [facility] diphenhydrA MINE 25 mg tablet 4-0 2-20 00:00: 00 04-10 05:59 :00 Yes 25mg Take 1 tablet by mouth every 12 (twelve) hours for 3 doses. Start morning before procedure. Take last dose morning of procedure [facility] famotidine 20 mg tablet 4-0 2-20 00:00: 00 04-10 05:59 :00 Yes 20mg Take 1 tablet by mouth every 12 (twelve) hours for 3 doses. Start morning before procedure. Take last dose morning of procedure [facility] diphenhydrA MINE 25 mg tablet 2023-0 2-20 00:00: 00 04-10 05:59 :00 Yes 25mg Take 1 tablet by mouth every 12 (twelve) hours for 3 doses. Start morning before procedure. Take last dose morning of procedure [facility] famotidine 20 mg tablet 4-0 2-20 00:00: 00 04-10 05:59 :00 Yes 20mg Take 1 tablet by mouth every 12 (twelve) hours for 3 doses. Start morning before procedure. Take last dose morning of procedure [facility] diphenhydrA MINE 25 mg tablet 2023-0 2-20 00:00: 00 04-10 05:59 :00 Yes 25mg Take 1 tablet by mouth every 12 (twelve) hours for 3 doses. Start morning before procedure. Take last dose morning of procedure [facility] famotidine 20 mg tablet 4-0 2-20 00:00: 00 04-10 05:59 :00 Yes 20mg Take 1 tablet by mouth every 12 (twelve) hours for 3 doses. Start morning before procedure. Take last dose morning of procedure [facility] diphenhydrA MINE 25 mg tablet 4-0 2-20 00:00: 00 04-10 05:59 :00 Yes 25mg Take 1 tablet by mouth every 12 (twelve) hours for 3 doses. Start morning before procedure. Take last dose morning of procedure [facility] famotidine 20 mg tablet 4-0 2-20 00:00: 00 04-10 05:59 :00 Yes 20mg Take 1 tablet by mouth every 12 (twelve) hours for 3 doses. Start morning before procedure. Take last dose morning of procedure [facility] diphenhydrA MINE 25 mg tablet 2023-0 2-20 00:00: 00 04-10 05:59 :00 Yes 25mg Take 1 tablet by mouth every 12 (twelve) hours for 3 doses. Start morning before procedure. Take last dose morning of procedure [facility] famotidine 20 mg tablet 2023-0 2-20 00:00: 00 04-10 05:59 :00 Yes 20mg Take 1 tablet by mouth every 12 (twelve) hours for 3 doses. Start morning before procedure. Take last dose morning of procedure [facility] diphenhydrA MINE 25 mg tablet 2023-0 2-20 00:00: 00 04-10 05:59 :00 Yes 25mg Take 1 tablet by mouth every 12 (twelve) hours for 3 doses. Start morning before procedure. Take last dose morning of procedure [facility] famotidine 20 mg tablet 2023-0 2-20 00:00: 00 04-10 05:59 :00 Yes 20mg Take 1 tablet by mouth every 12 (twelve) hours for 3 doses. Start morning before procedure. Take last dose morning of procedure [facility] diphenhydrA MINE 25 mg tablet 2023-0 2-20 00:00: 00 04-10 05:59 :00 Yes 25mg Take 1 tablet by mouth every 12 (twelve) hours for 3 doses. Start morning before procedure. Take last dose morning of procedure [facility] famotidine 20 mg tablet 2023-0 2-20 00:00: 00 04-10 05:59 :00 Yes 20mg Take 1 tablet by mouth every 12 (twelve) hours for 3 doses. Start morning before procedure. Take last dose morning of procedure [facility] predniSONE 20 mg tablet 2023-0 2-20 00:00: 00 04-09 05:59 :00 Yes 40mg Take 2 tablets by mouth every 6 (six) hours for 4 doses. Start morning before procedure. Take last dose morning of procedure [facility] predniSONE 20 mg tablet 4-0 2-20 00:00: 00 04-09 05:59 :00 Yes 40mg Take 2 tablets by mouth every 6 (six) hours for 4 doses. Start morning before procedure. Take last dose morning of procedure [facility] predniSONE 20 mg tablet 4-0 2-20 00:00: 00 04-09 05:59 :00 Yes 40mg Take 2 tablets by mouth every 6 (six) hours for 4 doses. Start morning before procedure. Take last dose morning of procedure [facility] predniSONE 20 mg tablet 4-0 2-20 00:00: 00 04-09 05:59 :00 Yes 40mg Take 2 tablets by mouth every 6 (six) hours for 4 doses. Start morning before procedure. Take last dose morning of procedure [facility] predniSONE 20 mg tablet 4-0 2-20 00:00: 00 04-09 05:59 :00 Yes 40mg Take 2 tablets by mouth every 6 (six) hours for 4 doses. Start morning before procedure. Take last dose morning of procedure [facility] predniSONE 20 mg tablet 4-0 2-20 00:00: 00 04-09 05:59 :00 Yes 40mg Take 2 tablets by mouth every 6 (six) hours for 4 doses. Start morning before procedure. Take last dose morning of procedure [facility] predniSONE 20 mg tablet 4-0 2-20 00:00: 00 04-09 05:59 :00 Yes 40mg Take 2 tablets by mouth every 6 (six) hours for 4 doses. Start morning before procedure. Take last dose morning of procedure [facility] predniSONE 20 mg tablet 4-0 2-20 00:00: 00 04-09 05:59 :00 Yes 40mg Take 2 tablets by mouth every 6 (six) hours for 4 doses. Start morning before procedure. Take last dose morning of procedure [facility] predniSONE 20 mg tablet 4-0 2-20 00:00: 00 04-09 05:59 :00 Yes 40mg Take 2 tablets by mouth every 6 (six) hours for 4 doses. Start morning before procedure. Take last dose morning of procedure [facility] predniSONE 20 mg tablet 4-0 2-20 00:00: 00 04-09 05:59 :00 Yes 40mg Take 2 tablets by mouth every 6 (six) hours for 4 doses. Start morning before procedure. Take last dose morning of procedure [facility] predniSONE 20 mg tablet 4-0 2-20 00:00: 00 04-09 05:59 :00 Yes 40mg Take 2 tablets by mouth every 6 (six) hours for 4 doses. Start morning before procedure. Take last dose morning of procedure [facility] QUEtiapine 25 mg tablet 4-0 1-24 00:00: 00 Yes [id number] 25mg Take 1 tablet by mouth at bedtime. [facility] QUEtiapine 25 mg tablet 4-0 1-24 00:00: 00 Yes [id number] 25mg Take 1 tablet by mouth at bedtime. [facility] QUEtiapine 25 mg tablet 4-0 1-24 00:00: 00 Yes [id number] 25mg Take 1 tablet by mouth at bedtime. [facility] QUEtiapine 25 mg tablet 4-0 1-24 00:00: 00 Yes [id number] 25mg Take 1 tablet by mouth at bedtime. [facility] QUEtiapine 25 mg tablet 4-0 1-24 00:00: 00 Yes [id number] 25mg Take 1 tablet by mouth at bedtime. [facility] QUEtiapine 25 mg tablet 4-0 1-24 00:00: 00 Yes [id number] 25mg Take 1 tablet by mouth at bedtime. [facility] QUEtiapine 25 mg tablet 4-0 1-24 00:00: 00 Yes [id number] 25mg Take 1 tablet by mouth at bedtime. [facility] QUEtiapine 25 mg tablet 2024-0 1-24 00:00: 00 Yes [id number] 25mg Take 1 tablet by mouth at bedtime. [facility] QUEtiapine 25 mg tablet 4-0 1-24 00:00: 00 Yes [id number] 25mg Take 1 tablet by mouth at bedtime. [facility] QUEtiapine 25 mg tablet 0 24 00:00: 00 Yes [id number] 25mg Take 1 tablet by mouth at bedtime. [facility] QUEtiapine 25 mg tablet 0 24 00:00: 00 Yes [id number] 25mg Take 1 tablet by mouth at bedtime. [facility] QUEtiapine 25 mg tablet 0 24 00:00: 00 Yes [id number] 25mg Take 1 tablet by mouth at bedtime. [facility] QUEtiapine 25 mg tablet 2023-0 24 00:00: 00 Yes [id number] 25mg Take 1 tablet by mouth at bedtime. [facility] busPIRone 7.5 mg tablet 0 02-19 00:00: 00 Yes [id number] 7.5mg Take 1 tablet by mouth in the morning and 1 tablet in the evening. [facility] busPIRone 7.5 mg tablet 2023-0 02-19 00:00: 00 Yes [id number] 7.5mg Take 1 tablet by mouth in the morning and 1 tablet in the evening. [facility] busPIRone 7.5 mg tablet 02-19 00:00: 00 Yes [id number] 7.5mg Take 1 tablet by mouth in the morning and 1 tablet in the evening. [facility] busPIRone 7.5 mg tablet 0 02-19 00:00: 00 Yes [id number] 7.5mg Take 1 tablet by mouth in the morning and 1 tablet in the evening. [facility] busPIRone 7.5 mg tablet 2023-0 04 00:00: 00 Yes [id number] 7.5mg Take 1 tablet by mouth in the morning and 1 tablet in the evening. [facility] busPIRone 7.5 mg tablet 2023-0 02-19 00:00: 00 Yes [id number] 7.5mg Take 1 tablet by mouth in the morning and 1 tablet in the evening. [facility] busPIRone 7.5 mg tablet 2023-0 02-19 00:00: 00 Yes [id number] 7.5mg Take 1 tablet by mouth in the morning and 1 tablet in the evening. [facility] busPIRone 7.5 mg tablet 2023-0 02-19 00:00: 00 Yes [id number] 7.5mg Take 1 tablet by mouth in the morning and 1 tablet in the evening. [facility] busPIRone 7.5 mg tablet 2023-0 02-19 00:00: 00 Yes [id number] 7.5mg Take 1 tablet by mouth in the morning and 1 tablet in the evening. [facility] busPIRone 7.5 mg tablet 2023-0 02-19 00:00: 00 Yes [id number] 7.5mg Take 1 tablet by mouth in the morning and 1 tablet in the evening. [facility] busPIRone 7.5 mg tablet 2023-0 02-19 00:00: 00 Yes [id number] 7.5mg Take 1 tablet by mouth in the morning and 1 tablet in the evening. [facility] busPIRone 7.5 mg tablet 2023-0 02-19 00:00: 00 Yes [id number] 7.5mg Take 1 tablet by mouth in the morning and 1 tablet in the evening. [facility] busPIRone 7.5 mg tablet 2023-0 02-19 00:00: 00 Yes [id number] 7.5mg Take 1 tablet by mouth in the morning and 1 tablet in the evening. [facility] busPIRone 7.5 mg tablet 2023-0 02-19 00:00: 00 Yes [id number] 7.5mg Take 1 tablet by mouth in the morning and 1 tablet in the evening. [facility] busPIRone 7.5 mg tablet 2023-0 02-19 00:00: 00 Yes [id number] 7.5mg Take 1 tablet by mouth in the morning and 1 tablet in the evening. [facility] busPIRone 7.5 mg tablet 4-0 02-19 00:00: 00 Yes [id number] 7.5mg Take 1 tablet by mouth in the morning and 1 tablet in the evening. [facility] busPIRone 7.5 mg tablet 0 02-19 00:00: 00 Yes [id number] 7.5mg Take 1 tablet by mouth in the morning and 1 tablet in the evening. [facility] busPIRone 7.5 mg tablet 02-19 00:00: 00 Yes [id number] 7.5mg Take 1 tablet by mouth in the morning and 1 tablet in the evening. [facility] busPIRone 7.5 mg tablet 02-19 00:00: 00 02-19 00:00 :00 No [id number] 7.5mg Take 1 tablet by mouth in the morning and 1 tablet at noon and 1 tablet in the evening. [facility] busPIRone 7.5 mg tablet 02-19 00:00: 00 02-19 00:00 :00 No [id number] 7.5mg Take 1 tablet by mouth in the morning and 1 tablet at noon and 1 tablet in the evening. [facility] QUEtiapine 25 mg tablet 2022-02 00:00: 00 Yes [id number] 25mg Take 1 tablet by mouth at bedtime. [facility] QUEtiapine 25 mg tablet 2022-02 00:00: 00 Yes [id number] 25mg Take 1 tablet by mouth at bedtime. [facility] QUEtiapine 25 mg tablet 2022-02 00:00: 00 Yes [id number] 25mg Take 1 tablet by mouth at bedtime. [facility] QUEtiapine 25 mg tablet 2022-02 00:00: 00 Yes [id number] 25mg Take 1 tablet by mouth at bedtime. [facility] QUEtiapine 25 mg tablet 2022-02 00:00: 00 Yes [id number] 25mg Take 1 tablet by mouth at bedtime. [facility] QUEtiapine 25 mg tablet 2022-02 00:00: 00 Yes [id number] 25mg Take 1 tablet by mouth at bedtime. [facility] QUEtiapine 25 mg tablet 2022-02 00:00: 00 Yes [id number] 25mg Take 1 tablet by mouth at bedtime. [facility] QUEtiapine 25 mg tablet 2022-02 00:00: 00 Yes [id number] 25mg Take 1 tablet by mouth at bedtime. [facility] QUEtiapine 25 mg tablet 2022-02 00:00: 00 Yes [id number] 25mg Take 1 tablet by mouth at bedtime. [facility] QUEtiapine 25 mg tablet 2022-02 00:00: 00 Yes [id number] 25mg Take 1 tablet by mouth at bedtime. [facility] QUEtiapine 25 mg tablet 2022-02 00:00: 00 Yes [id number] 25mg Take 1 tablet by mouth at bedtime. [facility] QUEtiapine 25 mg tablet 2022-02 00:00: 00 Yes [id number] 25mg Take 1 tablet by mouth at bedtime. [facility] QUEtiapine 25 mg tablet 2022-02 00:00: 00 Yes [id number] 25mg Take 1 tablet by mouth at bedtime. [facility] QUEtiapine 25 mg tablet 2022-02 00:00: 00 Yes [id number] 25mg Take 1 tablet by mouth at bedtime. [facility] QUEtiapine 25 mg tablet 2022-02 00:00: 00 03-11 00:00 :00 No [id number] 25mg Take 1 tablet by mouth at bedtime. [facility] pantoprazol e 20 mg EC tablet 2022-02 00:00: 00 01-16 05:59 :00 Yes [id number] 20mg Take 1 tablet by mouth ONCE PRN (reflux) for up to 1 dose. [facility] pantoprazol e 20 mg EC tablet 2022-02 00:00: 00 01-16 05:59 :00 Yes [id number] 20mg Take 1 tablet by mouth ONCE PRN (reflux) for up to 1 dose. [facility] clonazePAM 1 mg tablet 2022-02 00:00: 00 Yes 1mg Take 1 tablet by mouth as needed (anxiety). [facility] clonazePAM 1 mg tablet 2022-02 00:00: 00 Yes 1mg Take 1 tablet by mouth as needed (anxiety). [facility] clonazePAM 1 mg tablet 2022-02 00:00: 00 Yes 1mg Take 1 tablet by mouth as needed (anxiety). [facility] clonazePAM 1 mg tablet 2022-02 00:00: 00 Yes 1mg Take 1 tablet by mouth as needed (anxiety). [facility] clonazePAM 1 mg tablet 2022-02 00:00: 00 Yes 1mg Take 1 tablet by mouth as needed (anxiety). [facility] clonazePAM 1 mg tablet 2022-02 00:00: 00 Yes 1mg Take 1 tablet by mouth as needed (anxiety). [facility] clonazePAM 1 mg tablet 2022-02 00:00: 00 Yes 1mg Take 1 tablet by mouth as needed (anxiety). [facility] clonazePAM 1 mg tablet 2022-02 00:00: 00 Yes 1mg Take 1 tablet by mouth as needed (anxiety). [facility] clonazePAM 1 mg tablet 2022-02 00:00: 00 Yes 1mg Take 1 tablet by mouth as needed (anxiety). [facility] clonazePAM 1 mg tablet 2022-02 00:00: 00 Yes 1mg Take 1 tablet by mouth as needed (anxiety). [facility] clonazePAM 1 mg tablet 2022-02 00:00: 00 Yes 1mg Take 1 tablet by mouth as needed (anxiety). [facility] clonazePAM 1 mg tablet 2022-02 00:00: 00 Yes 1mg Take 1 tablet by mouth as needed (anxiety). [facility] clonazePAM 1 mg tablet 2022-1 03-08 00:00: 00 Yes 1mg Take 1 tablet by mouth as needed (anxiety). [facility] clonazePAM 1 mg tablet 2022-03-08 00:00: 00 Yes 1mg Take 1 tablet by mouth as needed (anxiety). [facility] clonazePAM 1 mg tablet 2022-02 00:00: 00 Yes 1mg Take 1 tablet by mouth as needed (anxiety). [facility] clonazePAM 1 mg tablet 2022-02 00:00: 00 Yes 1mg Take 1 tablet by mouth as needed (anxiety). [facility] clonazePAM 1 mg tablet 2022-02 00:00: 00 Yes 1mg Take 1 tablet by mouth as needed (anxiety). [facility] clonazePAM 1 mg tablet 2022-02 00:00: 00 Yes 1mg Take 1 tablet by mouth as needed (anxiety). [facility] clonazePAM 1 mg tablet 2022-02 00:00: 00 Yes 1mg Take 1 tablet by mouth as needed (anxiety). [facility] clonazePAM 1 mg tablet 2022-02 00:00: 00 Yes 1mg Take 1 tablet by mouth as needed (anxiety). [facility] clonazePAM 1 mg tablet 2022-02 00:00: 00 Yes 1mg Take 1 tablet by mouth as needed (anxiety). [facility] clonazePAM 1 mg tablet 2022-02 00:00: 00 Yes 1mg Take 1 tablet by mouth as needed (anxiety). [facility] clonazePAM 1 mg tablet 2022-02 00:00: 00 Yes 1mg Take 1 tablet by mouth as needed (anxiety). [facility] [facility] clonazePAM 1 mg tablet 2022-02 00:00: 00 Yes 1mg Take 1 tablet by mouth as needed (anxiety). [facility] clonazePAM 1 mg tablet 2022-02 00:00: 00 Yes 1mg Take 1 tablet by mouth as needed (anxiety). [facility] clonazePAM 1 mg tablet 2022-1 03-08 00:00: 00 Yes 1mg Take 1 tablet by mouth as needed (anxiety). [facility] clonazePAM 1 mg tablet 2022-02 00:00: 00 Yes 1mg Take 1 tablet by mouth as needed (anxiety). [facility] clonazePAM 1 mg tablet 2022-02 1- 00:00: 00 Yes 1mg Take 1 tablet by mouth as needed (anxiety). [facility] ibuprofen 600 mg tablet 08-20 00:00: 00 Yes TAKE 1 TABLET BY MOUTH EVERY 6 HOURS NEEDED FOR PAIN TAKE WITH FOOD [facility] PAXLOVID, EUA, 300 mg (150 mg x 2)-100 mg tablet 08-20 00:00: 00 Yes TAKE BY MOUTH DIRECTED 2 TABLETS 2 TIMES A DAY [facility] proMETHazin e 25 mg tablet 08-20 00:00: 00 Yes TAKE BY MOUTH 1 TABLET EVERY 6 HOURS NEEDED FOR NAUSEA [facility] ibuprofen 600 mg tablet 08-20 00:00: 00 12-09 00:00 :00 No TAKE 1 TABLET BY MOUTH EVERY 6 HOURS NEEDED FOR PAIN TAKE WITH FOOD [facility] PAXLOVID, EUA, 300 mg (150 mg x 2)-100 mg tablet 08-20 00:00: 00 12-09 00:00 :00 No TAKE BY MOUTH DIRECTED 2 TABLETS 2 TIMES A DAY [facility] proMETHazin e 25 mg tablet 08-20 00:00: 00 12-09 00:00 :00 No TAKE BY MOUTH 1 TABLET EVERY 6 HOURS NEEDED FOR NAUSEA [facility] ibuprofen 600 mg tablet 08-20 00:00: 00 12-09 00:00 :00 No TAKE 1 TABLET BY MOUTH EVERY 6 HOURS NEEDED FOR PAIN TAKE WITH FOOD [facility] PAXLOVID, EUA, 300 mg (150 mg x 2)-100 mg tablet 08-20 00:00: 00 12-09 00:00 :00 No TAKE BY MOUTH DIRECTED 2 TABLETS 2 TIMES A DAY [facility] proMETHazin e 25 mg tablet 08-20 00:00: 00 12-09 00:00 :00 No TAKE BY MOUTH 1 TABLET EVERY 6 HOURS NEEDED FOR NAUSEA [facility] orphenadrin e 100 mg SR tablet 07-11 00:00: 00 Yes TAKE 1 TABLET BY MOUTH TWICE A DAY NEEDED [facility] orphenadrin e 100 mg SR tablet 07-11 00:00: 00 12-09 00:00 :00 No TAKE 1 TABLET BY MOUTH TWICE A DAY NEEDED [facility] orphenadrin e 100 mg SR tablet 07-11 00:00: 00 12-09 00:00 :00 No TAKE 1 TABLET BY MOUTH TWICE A DAY NEEDED [facility] CIPROFLOXAC IN HCL (CIPRO ORAL) 05-25 13:57: 52 Yes Take by mouth. [facility] citalopram (CELEXA) 20 mg tablet 02-26 00:00: 00 Yes [id number] 20mg Take 1 tablet by mouth daily. [facility] citalopram (CELEXA) 20 mg tablet 02-26 00:00: 00 Yes [id number] 20mg Take 1 tablet by mouth daily. [facility] citalopram (CELEXA) 20 mg tablet 02-26 00:00: 00 Yes [id number] 20mg Take 1 tablet by mouth daily. [facility] citalopram (CELEXA) 20 mg tablet 02-26 00:00: 00 12-09 00:00 :00 No [id number] 20mg Take 1 tablet by mouth daily. [facility] citalopram (CELEXA) 20 mg tablet 02-26 00:00: 00 12-09 00:00 :00 No [id number] 20mg Take 1 tablet by mouth daily. [facility] Immunizations Ordered Immunization Name Filled Immunization Name Date Status Comments Source SARS-COV-2 COVID-19 VACCINE, BIVALENT (MODERNA BOOSTER) 2021-12-23 00:00:00 Completed [facility] SARS-COV-2 COVID-19 VACCINE - (MODERNA) 2021-09-12 00:00:00 Completed [facility] SARS-COV-2 COVID-19 VACCINE - (MODERNA) 2020-07-09 00:00:00 Completed [facility] SARS-COV-2 COVID-19 VACCINE - (MODERNA) 2020-06-12 00:00:00 Completed [facility] TDAP 2016-02-25 00:00:00 Completed [facility] SARS-COV-2 COVID-19 VACCINE - (MODERNA) Unknown Completed [facility] SARS-COV-2 COVID-19 VACCINE - (MODERNA) Unknown Completed [facility] SARS-COV-2 COVID-19 VACCINE - (MODERNA) Unknown Completed [facility] SARS-COV-2 COVID-19 VACCINE, BIVALENT (MODERNA BOOSTER) Unknown Completed [facility] HPV9 Unknown Completed [facility] TDAP Unknown Completed [facility] SARS-COV-2 COVID-19 VACCINE - (MODERNA) Unknown Completed [facility] SARS-COV-2 COVID-19 VACCINE - (MODERNA) Unknown Completed [facility] SARS-COV-2 COVID-19 VACCINE - (MODERNA) Unknown Completed [facility] SARS-COV-2 COVID-19 VACCINE, BIVALENT (MODERNA BOOSTER) Unknown Completed [facility] HPV9 Unknown Completed [facility] TDAP Unknown Completed [facility] SARS-COV-2 COVID-19 VACCINE - (MODERNA) Unknown Completed [facility] SARS-COV-2 COVID-19 VACCINE - (MODERNA) Unknown Completed [facility] SARS-COV-2 COVID-19 VACCINE - (MODERNA) Unknown Completed [facility] SARS-COV-2 COVID-19 VACCINE, BIVALENT (MODERNA BOOSTER) Unknown Completed [facility] HPV9 Unknown Completed [facility] TDAP Unknown Completed [facility] SARS-COV-2 COVID-19 VACCINE - (MODERNA) Unknown Completed [facility] SARS-COV-2 COVID-19 VACCINE - (MODERNA) Unknown Completed [facility] SARS-COV-2 COVID-19 VACCINE - (MODERNA) Unknown Completed [facility] SARS-COV-2 COVID-19 VACCINE, BIVALENT (MODERNA BOOSTER) Unknown Completed [facility] HPV9 Unknown Completed [facility] TDAP Unknown Completed [facility] SARS-COV-2 COVID-19 VACCINE - (MODERNA) Unknown Completed [facility] SARS-COV-2 COVID-19 VACCINE - (MODERNA) Unknown Completed [facility] SARS-COV-2 COVID-19 VACCINE - (MODERNA) Unknown Completed [facility] SARS-COV-2 COVID-19 VACCINE, BIVALENT (MODERNA BOOSTER) Unknown Completed [facility] HPV9 Unknown Completed [facility] TDAP Unknown Completed [facility] SARS-COV-2 COVID-19 VACCINE - (MODERNA) Unknown Completed [facility] SARS-COV-2 COVID-19 VACCINE - (MODERNA) Unknown Completed [facility] SARS-COV-2 COVID-19 VACCINE - (MODERNA) Unknown Completed [facility] SARS-COV-2 COVID-19 VACCINE, BIVALENT (MODERNA BOOSTER) Unknown Completed [facility] HPV9 Unknown Completed [facility] TDAP Unknown Completed [facility] SARS-COV-2 COVID-19 VACCINE - (MODERNA) Unknown Completed [facility] SARS-COV-2 COVID-19 VACCINE - (MODERNA) Unknown Completed [facility] SARS-COV-2 COVID-19 VACCINE - (MODERNA) Unknown Completed [facility] SARS-COV-2 COVID-19 VACCINE, BIVALENT (MODERNA BOOSTER) Unknown Completed [facility] HPV9 Unknown Completed [facility] TDAP Unknown Completed [facility] SARS-COV-2 COVID-19 VACCINE - (MODERNA) Unknown Completed [facility] SARS-COV-2 COVID-19 VACCINE - (MODERNA) Unknown Completed [facility] SARS-COV-2 COVID-19 VACCINE - (MODERNA) Unknown Completed [facility] SARS-COV-2 COVID-19 VACCINE, BIVALENT (MODERNA BOOSTER) Unknown Completed [facility] HPV9 Unknown Completed [facility] HPV9 Unknown Completed [facility] TDAP Unknown Completed [facility] SARS-COV-2 COVID-19 VACCINE - (MODERNA) Unknown Completed [facility] SARS-COV-2 COVID-19 VACCINE - (MODERNA) Unknown Completed [facility] SARS-COV-2 COVID-19 VACCINE - (MODERNA) Unknown Completed [facility] SARS-COV-2 COVID-19 VACCINE, BIVALENT (MODERNA BOOSTER) Unknown Completed [facility] HPV9 Unknown Completed [facility] HPV9 Unknown Completed [facility] TDAP Unknown Completed [facility] SARS-COV-2 COVID-19 VACCINE - (MODERNA) Unknown Completed [facility] SARS-COV-2 COVID-19 VACCINE - (MODERNA) Unknown Completed [facility] SARS-COV-2 COVID-19 VACCINE - (MODERNA) Unknown Completed [facility] SARS-COV-2 COVID-19 VACCINE, BIVALENT (MODERNA BOOSTER) Unknown Completed [facility] HPV9 Unknown Completed [facility] HPV9 Unknown Completed [facility] TDAP Unknown Completed [facility] SARS-COV-2 COVID-19 VACCINE - (MODERNA) Unknown Completed [facility] SARS-COV-2 COVID-19 VACCINE - (MODERNA) Unknown Completed [facility] SARS-COV-2 COVID-19 VACCINE - (MODERNA) Unknown Completed [facility] SARS-COV-2 COVID-19 VACCINE, BIVALENT (MODERNA BOOSTER) Unknown Completed [facility] HPV9 Unknown Completed [facility] HPV9 Unknown Completed [facility] TDAP Unknown Completed [facility] SARS-COV-2 COVID-19 VACCINE - (MODERNA) Unknown Completed [facility] SARS-COV-2 COVID-19 VACCINE - (MODERNA) Unknown Completed [facility] SARS-COV-2 COVID-19 VACCINE - (MODERNA) Unknown Completed [facility] SARS-COV-2 COVID-19 VACCINE, BIVALENT (MODERNA BOOSTER) Unknown Completed [facility] HPV9 Unknown Completed [facility] HPV9 Unknown Completed [facility] TDAP Unknown Completed [facility] SARS-COV-2 COVID-19 VACCINE - (MODERNA) Unknown Completed [facility] SARS-COV-2 COVID-19 VACCINE - (MODERNA) Unknown Completed [facility] SARS-COV-2 COVID-19 VACCINE - (MODERNA) Unknown Completed [facility] SARS-COV-2 COVID-19 VACCINE, BIVALENT (MODERNA BOOSTER) Unknown Completed [facility] HPV9 Unknown Completed [facility] HPV9 Unknown Completed [facility] TDAP Unknown Completed [facility] SARS-COV-2 COVID-19 VACCINE - (MODERNA) Unknown Completed [facility] SARS-COV-2 COVID-19 VACCINE - (MODERNA) Unknown Completed [facility] SARS-COV-2 COVID-19 VACCINE - (MODERNA) Unknown Completed [facility] SARS-COV-2 COVID-19 VACCINE, BIVALENT (MODERNA BOOSTER) Unknown Completed [facility] HPV9 Unknown Completed [facility] HPV9 Unknown Completed [facility] TDAP Unknown Completed [facility] SARS-COV-2 COVID-19 VACCINE - (MODERNA) Unknown Completed [facility] SARS-COV-2 COVID-19 VACCINE - (MODERNA) Unknown Completed [facility] SARS-COV-2 COVID-19 VACCINE - (MODERNA) Unknown Completed [facility] SARS-COV-2 COVID-19 VACCINE, BIVALENT (MODERNA BOOSTER) Unknown Completed [facility] HPV9 Unknown Completed [facility] HPV9 Unknown Completed [facility] TDAP Unknown Completed [facility] SARS-COV-2 COVID-19 VACCINE - (MODERNA) Unknown Completed [facility] SARS-COV-2 COVID-19 VACCINE - (MODERNA) Unknown Completed [facility] SARS-COV-2 COVID-19 VACCINE - (MODERNA) Unknown Completed [facility] SARS-COV-2 COVID-19 VACCINE, BIVALENT (MODERNA BOOSTER) Unknown Completed [facility] HPV9 Unknown Completed [facility] HPV9 Unknown Completed [facility] TDAP Unknown Completed [facility] SARS-COV-2 COVID-19 VACCINE - (MODERNA) Unknown Completed [facility] TDAP Unknown Completed [facility] SARS-COV-2 COVID-19 VACCINE - (MODERNA) Unknown Completed [facility] SARS-COV-2 COVID-19 VACCINE - (MODERNA) Unknown Completed [facility] SARS-COV-2 COVID-19 VACCINE - (MODERNA) Unknown Completed [facility] SARS-COV-2 COVID-19 VACCINE - (MODERNA) Unknown Completed [facility] SARS-COV-2 COVID-19 VACCINE, BIVALENT (MODERNA BOOSTER) Unknown Completed [facility] HPV9 Unknown Completed [facility] HPV9 Unknown Completed [facility] SARS-COV-2 COVID-19 VACCINE - (MODERNA) Unknown Completed [facility] SARS-COV-2 COVID-19 VACCINE, BIVALENT (MODERNA BOOSTER) Unknown Completed [facility] TDAP Unknown Completed [facility] SARS-COV-2 COVID-19 VACCINE - (MODERNA) Unknown Completed [facility] SARS-COV-2 COVID-19 VACCINE - (MODERNA) Unknown Completed [facility] SARS-COV-2 COVID-19 VACCINE - (MODERNA) Unknown Completed [facility] SARS-COV-2 COVID-19 VACCINE, BIVALENT (MODERNA BOOSTER) Unknown Completed [facility] HPV9 Unknown Completed [facility] HPV9 Unknown Completed [facility] TDAP Unknown Completed [facility] SARS-COV-2 COVID-19 VACCINE - (MODERNA) Unknown Completed [facility] SARS-COV-2 COVID-19 VACCINE - (MODERNA) Unknown Completed [facility] SARS-COV-2 COVID-19 VACCINE - (MODERNA) Unknown Completed [facility] SARS-COV-2 COVID-19 VACCINE, BIVALENT (MODERNA BOOSTER) Unknown Completed [facility] HPV9 Unknown Completed [facility] HPV9 Unknown Completed [facility] TDAP Unknown Completed [facility] SARS-COV-2 COVID-19 VACCINE - (MODERNA) Unknown Completed [facility] SARS-COV-2 COVID-19 VACCINE - (MODERNA) Unknown Completed [facility] SARS-COV-2 COVID-19 VACCINE - (MODERNA) Unknown Completed [facility] SARS-COV-2 COVID-19 VACCINE, BIVALENT (MODERNA BOOSTER) Unknown Completed [facility] HPV9 Unknown Completed [facility] HPV9 Unknown Completed [facility] TDAP Unknown Completed [facility] SARS-COV-2 COVID-19 VACCINE - (MODERNA) Unknown Completed [facility] SARS-COV-2 COVID-19 VACCINE - (MODERNA) Unknown Completed [facility] SARS-COV-2 COVID-19 VACCINE - (MODERNA) Unknown Completed [facility] SARS-COV-2 COVID-19 VACCINE, BIVALENT (MODERNA BOOSTER) Unknown Completed [facility] HPV9 Unknown Completed [facility] HPV9 Unknown Completed [facility] TDAP Unknown Completed [facility] SARS-COV-2 COVID-19 VACCINE - (MODERNA) Unknown Completed [facility] SARS-COV-2 COVID-19 VACCINE - (MODERNA) Unknown Completed [facility] SARS-COV-2 COVID-19 VACCINE - (MODERNA) Unknown Completed [facility] SARS-COV-2 COVID-19 VACCINE, BIVALENT (MODERNA BOOSTER) Unknown Completed [facility] HPV9 Unknown Completed [facility] HPV9 Unknown Completed [facility] TDAP Unknown Completed [facility] SARS-COV-2 COVID-19 VACCINE - (MODERNA) Unknown Completed [facility] SARS-COV-2 COVID-19 VACCINE - (MODERNA) Unknown Completed [facility] SARS-COV-2 COVID-19 VACCINE - (MODERNA) Unknown Completed [facility] SARS-COV-2 COVID-19 VACCINE, BIVALENT (MODERNA BOOSTER) Unknown Completed [facility] HPV9 Unknown Completed [facility] HPV9 Unknown Completed [facility] TDAP Unknown Completed [facility] SARS-COV-2 COVID-19 VACCINE - (MODERNA) Unknown Completed [facility] TDAP Unknown Completed [facility] SARS-COV-2 COVID-19 VACCINE - (MODERNA) Unknown Completed [facility] SARS-COV-2 COVID-19 VACCINE - (MODERNA) Unknown Completed [facility] SARS-COV-2 COVID-19 VACCINE - (MODERNA) Unknown Completed [facility] SARS-COV-2 COVID-19 VACCINE, BIVALENT (MODERNA BOOSTER) Unknown Completed [facility] HPV9 Unknown Completed [facility] HPV9 Unknown Completed [facility] SARS-COV-2 COVID-19 VACCINE - (MODERNA) Unknown Completed [facility] TDAP Unknown Completed [facility] SARS-COV-2 COVID-19 VACCINE - (MODERNA) Unknown Completed [facility] SARS-COV-2 COVID-19 VACCINE - (MODERNA) Unknown Completed [facility] SARS-COV-2 COVID-19 VACCINE - (MODERNA) Unknown Completed [facility] SARS-COV-2 COVID-19 VACCINE - (MODERNA) Unknown Completed [facility] SARS-COV-2 COVID-19 VACCINE, BIVALENT (MODERNA BOOSTER) Unknown Completed [facility] HPV9 Unknown Completed [facility] HPV9 Unknown Completed [facility] SARS-COV-2 COVID-19 VACCINE, BIVALENT (MODERNA BOOSTER) Unknown Completed [facility] TDAP Unknown Completed [facility] SARS-COV-2 COVID-19 VACCINE - (MODERNA) Unknown Completed [facility] SARS-COV-2 COVID-19 VACCINE - (MODERNA) Unknown Completed [facility] SARS-COV-2 COVID-19 VACCINE - (MODERNA) Unknown Completed [facility] SARS-COV-2 COVID-19 VACCINE, BIVALENT (MODERNA BOOSTER) Unknown Completed [facility] HPV9 Unknown Completed [facility] HPV9 Unknown Completed [facility] TDAP Unknown Completed [facility] SARS-COV-2 COVID-19 VACCINE - (MODERNA) Unknown Completed [facility] SARS-COV-2 COVID-19 VACCINE - (MODERNA) Unknown Completed [facility] SARS-COV-2 COVID-19 VACCINE - (MODERNA) Unknown Completed [facility] SARS-COV-2 COVID-19 VACCINE, BIVALENT (MODERNA BOOSTER) Unknown Completed [facility] HPV9 Unknown Completed [facility] HPV9 Unknown Completed [facility] TDAP Unknown Completed [facility] SARS-COV-2 COVID-19 VACCINE - (MODERNA) Unknown Completed [facility] SARS-COV-2 COVID-19 VACCINE - (MODERNA) Unknown Completed [facility] SARS-COV-2 COVID-19 VACCINE - (MODERNA) Unknown Completed [facility] SARS-COV-2 COVID-19 VACCINE, BIVALENT (MODERNA BOOSTER) Unknown Completed [facility] HPV9 Unknown Completed [facility] HPV9 Unknown Completed [facility] TDAP Unknown Completed [facility] SARS-COV-2 COVID-19 VACCINE - (MODERNA) Unknown Completed [facility] SARS-COV-2 COVID-19 VACCINE - (MODERNA) Unknown Completed [facility] SARS-COV-2 COVID-19 VACCINE - (MODERNA) Unknown Completed [facility] SARS-COV-2 COVID-19 VACCINE, BIVALENT (MODERNA BOOSTER) Unknown Completed [facility] HPV9 Unknown Completed [facility] HPV9 Unknown Completed [facility] TDAP Unknown Completed [facility] SARS-COV-2 COVID-19 VACCINE - (MODERNA) Unknown Completed [facility] SARS-COV-2 COVID-19 VACCINE - (MODERNA) Unknown Completed [facility] SARS-COV-2 COVID-19 VACCINE - (MODERNA) Unknown Completed [facility] SARS-COV-2 COVID-19 VACCINE, BIVALENT (MODERNA BOOSTER) Unknown Completed [facility] HPV9 Unknown Completed [facility] HPV9 Unknown Completed [facility] TDAP Unknown Completed [facility] SARS-COV-2 COVID-19 VACCINE - (MODERNA) Unknown Completed [facility] SARS-COV-2 COVID-19 VACCINE - (MODERNA) Unknown Completed [facility] SARS-COV-2 COVID-19 VACCINE - (MODERNA) Unknown Completed [facility] SARS-COV-2 COVID-19 VACCINE, BIVALENT (MODERNA BOOSTER) Unknown Completed [facility] HPV9 Unknown Completed [facility] HPV9 Unknown Completed [facility] TDAP Unknown Completed [facility] SARS-COV-2 COVID-19 VACCINE - (MODERNA) Unknown Completed [facility] SARS-COV-2 COVID-19 VACCINE - (MODERNA) Unknown Completed [facility] SARS-COV-2 COVID-19 VACCINE - (MODERNA) Unknown Completed [facility] SARS-COV-2 COVID-19 VACCINE, BIVALENT (MODERNA BOOSTER) Unknown Completed [facility] [facility] HPV9 Unknown Completed [facility] HPV9 Unknown Completed [facility] TDAP Unknown Completed [facility] SARS-COV-2 COVID-19 VACCINE - (MODERNA) Unknown Completed [facility] SARS-COV-2 COVID-19 VACCINE - (MODERNA) Unknown Completed [facility] SARS-COV-2 COVID-19 VACCINE - (MODERNA) Unknown Completed [facility] SARS-COV-2 COVID-19 VACCINE, BIVALENT (MODERNA BOOSTER) Unknown Completed [facility] HPV9 Unknown Completed [facility] HPV9 Unknown Completed [facility] TDAP Unknown Completed [facility] SARS-COV-2 COVID-19 VACCINE - (MODERNA) Unknown Completed [facility] SARS-COV-2 COVID-19 VACCINE - (MODERNA) Unknown Completed [facility] SARS-COV-2 COVID-19 VACCINE - (MODERNA) Unknown Completed [facility] SARS-COV-2 COVID-19 VACCINE, BIVALENT (MODERNA BOOSTER) Unknown Completed [facility] HPV9 Unknown Completed [facility] HPV9 Unknown Completed [facility] TDAP Unknown Completed [facility] SARS-COV-2 COVID-19 VACCINE - (MODERNA) Unknown Completed [facility] SARS-COV-2 COVID-19 VACCINE - (MODERNA) Unknown Completed [facility] SARS-COV-2 COVID-19 VACCINE - (MODERNA) Unknown Completed [facility] SARS-COV-2 COVID-19 VACCINE, BIVALENT (MODERNA BOOSTER) Unknown Completed [facility] HPV9 Unknown Completed [facility] HPV9 Unknown Completed [facility] TDAP Unknown Completed [facility] SARS-COV-2 COVID-19 VACCINE - (MODERNA) Unknown Completed [facility] SARS-COV-2 COVID-19 VACCINE - (MODERNA) Unknown Completed [facility] SARS-COV-2 COVID-19 VACCINE - (MODERNA) Unknown Completed [facility] SARS-COV-2 COVID-19 VACCINE, BIVALENT (MODERNA BOOSTER) Unknown Completed [facility] HPV9 Unknown Completed [facility] HPV9 Unknown Completed [facility] TDAP Unknown Completed [facility] Vital Signs Vital Name Observation Time Observation Value Comments S ource Systolic blood pressure 2023-04-15 14:33:00 129 mm[Hg] [facility] Diastolic blood pressure 2023-04-15 14:33:00 75 mm[Hg] [facility] Heart rate 2023-04-15 14:33:00 79 /min [facility] Body temperature 2023-04-15 14:33:00 36.67 Arlen [facility] Body height 2023-04-15 14:33:00 162.6 cm [facility] Body weight 2023-04-15 14:33:00 101.061 kg [facility] BMI 2023-04-15 14:33:00 38.24 kg/m2 [facility] Oxygen saturation in Arterial blood by Pulse oximetry 2023-04-15 14:33:00 99 /min [facility] Systolic blood pressure 2023-02-19 14:24:00 121 mm[Hg] [facility] Diastolic blood pressure 2023-02-19 14:24:00 77 mm[Hg] [facility] Heart rate 2023-02-19 14:24:00 66 /min [facility] Body temperature 2023-02-19 14:24:00 36.56 Arlen [facility] Respiratory rate 2023-02-19 14:24:00 18 /min [facility] Body height 2023-02-19 14:24:00 165.1 cm [facility] Body weight 2023-02-19 14:24:00 98.703 kg [facility] BMI 2023-02-19 14:24:00 36.21 kg/m2 [facility] Oxygen saturation in Arterial blood by Pulse oximetry 2023-02-19 14:24:00 99 /min [facility] Systolic blood pressure 2023-02-17 17:00:00 130 mm[Hg] [facility] Diastolic blood pressure 2023-02-17 17:00:00 83 mm[Hg] [facility] Heart rate 2023-02-17 17:00:00 71 /min [facility] Respiratory rate 2023-02-17 17:00:00 20 /min [facility] Body height 2023-02-17 17:00:00 165.1 cm [facility] Body weight 2023-02-17 17:00:00 98.884 kg [facility] BMI 2023-02-17 17:00:00 36.28 kg/m2 [facility] Oxygen saturation in Arterial blood by Pulse oximetry 2023-02-17 17:00:00 99 /min [facility] Systolic blood pressure 2023-01-20 14:45:00 131 mm[Hg] [facility] Diastolic blood pressure 2023-01-20 14:45:00 79 mm[Hg] [facility] Heart rate 2023-01-20 14:45:00 68 /min [facility] Respiratory rate 2023-01-20 14:45:00 19 /min [facility] Body height 2023-01-20 14:45:00 165.1 cm [facility] Body weight 2023-01-20 14:45:00 98.748 kg [facility] BMI 2023-01-20 14:45:00 36.23 kg/m2 [facility] Oxygen saturation in Arterial blood by Pulse oximetry 2023-01-20 14:45:00 100 /min [facility] Systolic blood pressure 2023-01-15 14:03:00 123 mm[Hg] [facility] Diastolic blood pressure 2023-01-15 14:03:00 76 mm[Hg] [facility] Heart rate 2023-01-15 14:03:00 72 /min [facility] Body temperature 2023-01-15 14:03:00 37.17 Arlen [facility] Respiratory rate 2023-01-15 14:03:00 18 /min [facility] Body height 2023-01-15 14:03:00 165.1 cm [facility] Body weight 2023-01-15 14:03:00 98.975 kg [facility] BMI 2023-01-15 14:03:00 36.31 kg/m2 [facility] Oxygen saturation in Arterial blood by Pulse oximetry 2023-01-15 14:03:00 99 /min [facility] Body temperature 2023-01-13 14:21:00 36.72 Arlen [facility] Systolic blood pressure 2022-12-09 13:37:00 132 mm[Hg] [facility] Diastolic blood pressure 2022-12-09 13:37:00 83 mm[Hg] [facility] Heart rate 2022-12-09 13:37:00 68 /min [facility] Body temperature 2022-12-09 13:37:00 36.33 Arlen [facility] Respiratory rate 2022-12-09 13:37:00 18 /min [facility] Body height 2022-12-09 13:37:00 165.1 cm [facility] Body weight 2022-12-09 13:37:00 96.798 kg [facility] BMI 2022-12-09 13:37:00 35.51 kg/m2 [facility] Procedures Procedure Date / Time Performed Performing Clinician Source TRANSTHORACIC ECHO (TTE) COMPLETE 2023-03-24 15:39:18 Jossue Martin [facility] COMP. METABOLIC PANEL (21972) 2023-01-15 15:18:00 Van Hinson [facility] LIPID PANEL (21637)(TOTAL CHOLESTEROL, TRIGLYCERIDES, HDL) 2023-01-15 15:18:00 Van Hinson [facility] EKG (SCANNED DOCUMENTS) 2023-01-15 06:01:00 Doct or Unassigned, Dysart [facility] GARDASIL 9 (HPV 9V) VACCINE 2023-01-13 14:21:32 Brandi Cole [facility] US PELVIS COMPLETE WITH TRANSVAGINAL 2022-12-24 15:50:00 Mariela Llanes [facility] THYROID STIMULATING HORMONE 2022-12-09 14:35:00 Mariela Llanes [facility] CBC WITH DIFF 2022-12-09 14:35:00 Mariela Lalnes [facility] GLYCOSYLATED HEMOGLOBIN (A1C) 2022-12-09 14:35:00 Mariela Llanes [facility] HCV ANTIBODY 2022-12-09 14:35:00 Mariela Llanes [facility] HIV 1/2 AG-AB WITH REFLEX 2022-12-09 14:35:00 Mariela Llanes [facility] SYPHILIS IGG/IGM 2022-12-09 14:35:00 Mariela Llanes [facility] PAP SMEAR-LIQUID BASED-CP 2022-12-09 14:29:00 Mariela Llanes [facility] GARDASIL 9 (HPV 9V) VACCINE 2022-12-09 13:48:27 Brandi Cole [facility] ASSIGNMENT OF BENEFITS 2022-12-09 13:07:14 Docto r Unassigned, Dysart [facility] Encounters Start Date/Time End Date/Time Encounter Type Admission Type Attending Clinicians Care Facility Care Department Encounter ID Source 2023-06-16 08:30:00 2023-06-16 08:30:00 Outpatient R [facility] [id number] Neville [facility] 2023-04-21 09:40:00 2023-04-21 09:40:00 Outpatient R VAN HINSON UZOMA [facility] [id number] [facility] 2023-04-15 10:00:00 2023-04-15 10:00:00 Squaring Shear Operator Visit 2, Adc Lab [facility] 1.2.840.114 350.1.13.10 4.2.7.2.686 [id number] [facility] 2023-04-15 09:00:00 2023-04-15 09:44:34 Outpatient R JOSSUE MARTIN [facility] [id number] [facility] 2023-04-15 09:00:00 2023-04-15 09:44:34 Office Visit Jossue Martin [facility] 1.2.840.114 350.1.13.10 4.2.7.2.686 [id number] [facility] 2023-04-08 00:00:00 2023-04-08 00:00:00 Outpatient R JOSSUE MARTIN [facility] [id number] [facility] 2023-04-07 00:00:00 2023-04-07 00:00:00 Telephone Jossue MartinHEmber [facility] 1.2.840.114 350.1.13.10 4.2.7.2.686 [id number] [facility] 2023-03-24 08:24:48 2023-03-24 23:59:00 Outpatient R JOSSUE MARTIN [facility] [id number] [facility] 2023-03-24 08:24:48 2023-03-24 23:59:00 Hospital Encounter Jossue MartinHEmber [facility] 1.2.840.114 350.1.13.10 4.2.7.2.686 [id number] [facility] 2023-03-24 00:00:00 2023-03-24 00:00:00 Telephone Jossue MartinHEmber [facility] 1.2.840.114 350.1.13.10 4.2.7.2.686 [id number] [facility] 2023-03-17 11:00:00 2023-03-17 11:00:00 Outpatient R JOSSUE MARTIN [facility] [id number] [facility] 2023-03-11 00:00:00 2023-03-11 00:00:00 [facility] 1.2.840.114 350.1.13.10 4.2.7.2.686 [id number] [facility] 2023-03-11 00:00:00 2023-03-11 00:00:00 Patient Secure Msg Jossue Martin.HEmber [facility] 1.2.840.114 350.1.13.10 4.2.7.2.686 [id number] [facility] 2023-03-05 00:00:00 2023-03-05 00:00:00 Telephone Lu [facility] 1.2.840.114 350.1.13.10 4.2.7.2.686 [id number] [facility] 2023-02-27 00:00:00 2023-02-27 00:00:00 Telephone Jossue MartinHEmber [facility] 1.2.840.114 350.1.13.10 4.2.7.2.686 [id number] [facility] 2023-02-25 00:00:00 2023-02-25 00:00:00 Telephone Jossue Martin [facility] 1.2.840.114 350.1.13.10 4.2.7.2.686 [id number] [facility] 2023-02-19 08:20:00 2023-02-19 08:48:01 Outpatient R OBI-AURELIANO , V[facility] , [facility] [id number] [facility] 2023-02-19 08:20:00 2023-02-19 08:48:01 Office Visit Obi-Aureliano , [facility] 1.2.840.114 350.1.13.10 4.2.7.2.686 [id number] [facility] 2023-02-17 10:00:00 2023-02-17 23:59:00 Outpatient R JOSSUE MARTIN [facility] [id number] [facility] 2023-02-17 10:00:00 2023-02-17 23:59:00 Hospital Encounter Jossue Martin [facility] 1.2.840.114 350.1.13.10 4.2.7.2.686 [id number] [facility] 2023-01-30 00:00:00 2023-01-30 00:00:00 Letter (Out) [facility] 1.2.840.114 350.1.13.10 4.2.7.2.686 [id number] [facility] 2023-01-22 10:00:00 2023-01-22 10:00:00 Outpatient R OBI-AURELIANO , V[facility]BI[facility]O , [facility] [id number] [facility] 2023-01-21 00:00:00 2023-01-21 00:00:00 Patient Outreach Nathalie Prajapati [facility] 1.2.840.114 350.1.13.10 4.2.7.2.686 [id number] [facility] 2023-01-20 09:00:00 2023-01-20 09:24:23 Outpatient R JOSSUE MARTIN [facility] [id number] [facility] 2023-01-20 09:00:00 2023-01-20 09:24:23 Office Visit Jossue Martin [facility] 1.2.840.114 350.1.13.10 4.2.7.2.686 [id number] [facility] 2023-01-15 09:00:00 2023-01-15 09:30:55 Outpatient R OBI-AURELIANO , VAN OBI[facility]AURELIANO , [facility] [id number] [facility] 2023-01-15 09:00:00 2023-01-15 09:15:00 Squaring Shear Operator Visit 2, Adc Lab Obi-Aureliano [facility] 1.2.840.114 350.1.13.10 4.2.7.2.686 [id number] [facility] 2023-01-15 08:00:00 2023-01-15 08:56:25 Office Visit [facility]bi[facility]Aureliano [facility] 1.2.840.114 350.1.13.10 4.2.7.2.686 [id number] [facility] 2023-01-15 08:00:00 2023-01-15 08:00:00 Outpatient R OBI-AURELIANO , V[facility]BI[facility]LI[facility]O , [facility] [id number] [facility] 2023-01-15 00:00:00 2023-01-15 00:00:00 Orders Only Doctor Unassigned, Dysart [facility] 1.840.114 350.1.13.10 4.2.7.2.686 [id number] [facility] 2023-01-14 13:00:00 2023-01-14 13:00:00 Outpatient R OBI-AURELIANO , [id number] 2023-01-13 08:30:00 2023-01-13 08:45:00 Nurse Visit Nurse, Bubba Rmchp Rgv Cprit ObBrandi Wells [facility] 1.840.114 350.1.13.10 4.2.7.2.686 [id number] [facility] 2023-01-13 08:30:00 2023-01-13 08:30:00 Outpatient R BRANDI COLE [facility] [id number] [facility] 2023-01-12 00:00:00 2023-01-12 00:00:00 [facility] 1..840.114 350.1.13.10 4.2.7.2.686 [id number] [facility] 2022-12-24 08:57:28 2022-12-24 23:59:00 Outpatient R MARIELA LLANES [facility] [id number] [facility] 2022-12-24 08:57:28 2022-12-24 23:59:00 Hospital Encounter Mariela Llanes [facility] 1.840.114 350.1.13.10 4.2.7.2.686 [id number] [facility] 2022-12-23 00:00:00 2022-12-23 00:00:00 Telephone Mariela Llanes [facility] [employer] & CHILD [facility] 1.20.114 350.1.13.10 4.2.7.2.686 [id number] [facility] 2022-12-22 00:00:00 2022-12-22 00:00:00 Telephone Mariela Llanes [facility] 1.0.114 350.1.13.10 4.2.7.2.686 [id number] [facility] 2022-12-22 00:00:00 2022-12-22 00:00:00 Telephone Mariela Llanes [facility] [employer] [employer] CHILD [facility] 1.0.114 350.1.13.10 4.2.7.2.686 [id number] [facility] 2022-12-17 00:00:00 2022-12-17 00:00:00 Outpatient GC_GCBZW_Ka diyala_S [facility] [id number] [facility] 2022-12-09 09:00:00 2022-12-09 09:35:19 Outpatient R MARIELA LLANES [facility] [id number] [facility] 2022-12-09 09:00:00 2022-12-09 09:35:19 Office Visit Mariela Llanes [facility] CH[facility] 1..114 350.1.13.10 4.2.7.2.686 [id number] [facility] 2022-12-09 00:00:00 2022-12-09 00:00:00 Orders Only Doctor Unassigned, Dysart [facility] 1..114 350.1.13.10 4.2.7.2.686 [id number] [facility] 2022-10-06 09:30:00 2022-10-06 09:30:00 Outpatient Emily YFN BLOCK BETHYFN CASIANO [facility] [id number] [facility] 2022-10-02 00:00:00 2022-10-02 00:00:00 Patient Secure Msg Doctor Unassigned, Dysart [facility] 1.840.114 350.1.13.10 4.2.7.2.686 [id number] [facility] 2022-09-29 00:00:00 2022-09-29 00:00:00 Pre Visit Outreach Pcp, Patient Does Not Have A [facility] 1..840.114 350.1.13.10 4.2.7.2.686 [id number] [facility] 2020-03-28 09:06:00 2020-03-28 09:06:00 Outpatient Raju_P [facility] [id number] [facility] Results Test Description Test Time Test Comments Results Result Co mments Source [facility] ONLY - SYPHILIS [id number] 16:28:05* Test Item Value Reference Range Interpretation Comme nts Syphilis IgG/IgM (test code = 01539-4) Non-reactive Non-reactive MANGO (test code = MANGO) Non-reactive - No serologic evidence of T. pallidum infection. Cannot exclude incubating or early syphilis. Submit a second specimen in 2-4 weeks if syphilis is clinically suspected. Equivocal - Further testing to follow. Reactive - Further testing to follow. Lab Interpretation (test code = 72662-9) Normal [facility] ONLY - SYPHILIS [id number] 16:28:05* Test Item Value Reference Range Interpretation Comme nts Syphilis IgG/IgM (test code = 25160-1) Non-reactive Non-reactive MANGO (test code = MANGO) Non-reactive - No serologic evidence of T. pallidum infection. Cannot exclude incubating or early syphilis. Submit a second specimen in 2-4 weeks if syphilis is clinically suspected. Equivocal - Further testing to follow. Reactive - Further testing to follow. Lab Interpretation (test code = 97016-0) Normal [facility] 1/2 AG-AB WITH [id number] 08:00:17* Test Item Value Reference Range Interpretation Comme nts HIV Semi-quantitative (test code = 06686-5) 0.08 Negative MANGO (test code = MANGO) Non-reactive for HIV-1 antigen and HIV-1/HIV-2 antibodies. ?No laboratory evidence of HIV infection. ?Repeat in 2-4 weeks if acute HIV infection is suspected. [facility] 1/2 AG-AB WITH [id number] 08:00:17* Test Item Value Reference Range Interpretation Comme nts HIV Semi-quantitative (test code = 29345-1) 0.08 Negative MANGO (test code = MANGO) Non-reactive for HIV-1 antigen and HIV-1/HIV-2 antibodies. ?No laboratory evidence of HIV infection. ?Repeat in 2-4 weeks if acute HIV infection is suspected. [facility]20[facility]-12-10 07:25:06* Test Item Value Reference Range Interpretation Comme nts HGB A1C (test code = 4548-4) 5.2 % 4.0-5.7 MANGO (test code = MANGO) Reference RangesNormal: <5.7%Prediabetes: 5.7 - 6.4%Diabetes: > 6.5% Lab Interpretation (test code = 59978-6) Normal [facility]C)2022-12-10 07:25:06* Test Item Value Reference Range Interpretation Comme nts HGB A1C (test code = 4548-4) 5.2 % 4.0-5.7 MANGO (test code = MANGO) Reference RangesNormal: <5.7%Prediabetes: 5.7 - 6.4%Diabetes: > 6.5% Lab Interpretation (test code = 08284-3) Normal [facility] [id number] 06:52:12* Test Item Value Reference Range Interpretation Comme nts HCV Ab (test code = 34251-2) Negative HCV Semi-Quantitative (test code = 65280-6) 0.02 [facility] [id number] 06:52:12* Test Item Value Reference Range Interpretation Comme nts HCV Ab (test code = 04179-6) Negative HCV Semi-Quantitative (test code = 78025-1) 0.02 [facility] [id number] 06:35:06 * Test Item Value Reference Range Interpretation Comme nts TSH (test code = 3367886882) 1.04 See_Comment Biotin has been reported to cause a negative bias, interpret results relative to patient's use of biotin. [Automated message] The system which generated this result transmitted reference range: 0.45 - 4.70 mIU/L. The reference range was not used to interpret this result as normal/abnormal. Lab Interpretation (test code = 34481-8) Normal [facility] [id number] 06:35:06 * Test Item Value Reference Range Interpretation Comme nts TSH (test code = 4940092967) 1.04 See_Comment Biotin has been reported to cause a negative bias, interpret results relative to patient's use of biotin. [Automated message] The system which generated this result transmitted reference range: 0.45 - 4.70 mIU/L. The reference range was not used to interpret this result as normal/abnormal. Lab Interpretation (test code = 94563-5) Normal [facility] WITH [id number] 06:00:26* Test Item Value Reference Range Interpretation Comme nts WBC (test code = 6690-2) 3.63 See_Comment L [Automated messa ge] The system which generated this result transmitted reference range: 4.30 - 11.10 10*3/?L. The reference range was not used to interpret this result as normal/abnormal. RBC (test code = 789-8) 4.76 See_Comment [Automated messa ge] The system which generated this result transmitted reference range: 3.93 - 5.25 10*6/?L. The reference range was not used to interpret this result as normal/abnormal. HGB (test code = 718-7) 11.6 g/dL 11.6-15.0 HCT (test code = 4544-3) 38.2 % 35.7-45.2 MCV (test code = 787-2) 80.3 fL 80.6-95.5 L MCH (test code = 785-6) 24.4 pg 25.9-32.8 L MCHC (test code = 786-4) 30.4 g/dL 31.6-35.1 L RDW-SD (test code = 71367-5) 38.6 fL 39.0-49.9 L RDW-CV (test code = 788-0) 13.3 % 12.0-15.5 PLT (test code = 777-3) 368 See_Comment H [Automated Rocket[employer]olta ge] The system which generated this result transmitted reference range: 166 - 358 10*3/?L. The reference range was not used to interpret this result as normal/abnormal. MPV (test code = 15864-1) 11.4 fL 9.5-12.9 NRBC/100 WBC (test code = 1504334004) 0.0 See_Comment [Automated Backchat ssage] The system which generated this result transmitted reference range: 0.0 - 10.0 /100 WBCs. The reference range was not used to interpret this result as normal/abnormal. NRBC x10^3 (test code = 3442606885) See_Comment [Automated [employer] ge] The system which generated this result transmitted reference range: 10*3/?L. The reference range was not used to interpret this result as normal/abnormal. GRAN MAT (NEUT) % (test code = 770-8) 52.0 % IMM GRAN % (test code = 8273709205) 0.00 % LYMPH % (test code = 736-9) 27.5 % MONO % (test code = 5905-5) 18.2 % EOS % (test code = 713-8) 1.7 % BASO % (test code = 706-2) 0.6 % GRAN MAT x10^3(ANC) (test code = 8196887984) 1.89 10*3/uL 1.88-7.09 IMM GRAN x10^3 (test code = 4822140342) 0.00-0.06 LYMPH x10^3 (test code = 731-0) 1.00 10*3/uL 1.32-3.29 L MONO x10^3 (test code = 742-7) 0.66 10*3/uL 0.33-0.92 EOS x10^3 (test code = 711-2) 0.06 10*3/uL 0.03-0.39 BASO x10^3 (test code = 704-7) 0.01-0.07 Lab Interpretation (test code = 69379-2) Abnormal [facility] WITH [id number] 06:00:26* Test Item Value Reference Range Interpretation Comme nts WBC (test code = 6690-2) 3.63 See_Comment L [Automated messa ge] The system which generated this result transmitted reference range: 4.30 - 11.10 10*3/?L. The reference range was not used to interpret this result as normal/abnormal. RBC (test code = 789-8) 4.76 See_Comment [Automated messa ge] The system which generated this result transmitted reference range: 3.93 - 5.25 10*6/?L. The reference range was not used to interpret this result as normal/abnormal. HGB (test code = 718-7) 11.6 g/dL 11.6-15.0 HCT (test code = 4544-3) 38.2 % 35.7-45.2 MCV (test code = 787-2) 80.3 fL 80.6-95.5 L MCH (test code = 785-6) 24.4 pg 25.9-32.8 L MCHC (test code = 786-4) 30.4 g/dL 31.6-35.1 L RDW-SD (test code = 39679-4) 38.6 fL 39.0-49.9 L RDW-CV (test code = 788-0) 13.3 % 12.0-15.5 PLT (test code = 777-3) 368 See_Comment H [Automated messa ge] The system which generated this result transmitted reference range: 166 - 358 10*3/?L. The reference range was not used to interpret this result as normal/abnormal. MPV (test code = 48515-8) 11.4 fL 9.5-12.9 NRBC/100 WBC (test code = 6548690563) 0.0 See_Comment [Automated me ssage] The system which generated this result transmitted reference range: 0.0 - 10.0 /100 WBCs. The reference range was not used to interpret this result as normal/abnormal. NRBC x10^3 (test code = 4032142245) See_Comment [Automated messa ge] The system which generated this result transmitted reference range: 10*3/?L. The reference range was not used to interpret this result as normal/abnormal. GRAN MAT (NEUT) % (test code = 770-8) 52.0 % IMM GRAN % (test code = 9231814408) 0.00 % LYMPH % (test code = 736-9) 27.5 % MONO % (test code = 5905-5) 18.2 % EOS % (test code = 713-8) 1.7 % BASO % (test code = 706-2) 0.6 % GRAN MAT x10^3(ANC) (test code = 0940026135) 1.89 10*3/uL 1.88-7.09 IMM GRAN x10^3 (test code = 4985431283) 0.00-0.06 LYMPH x10^3 (test code = 731-0) 1.00 10*3/uL 1.32-3.29 L MONO x10^3 (test code = 742-7) 0.66 10*3/uL 0.33-0.92 EOS x10^3 (test code = 711-2) 0.06 10*3/uL 0.03-0.39 BASO x10^3 (test code = 704-7) 0.01-0.07 Lab Interpretation (test code = 14284-9) Abnormal [facility] Notes Date/Time Note Provider Source 2023-04-15 10:00:00 +4A9xCAckG/iiVk2EDpN M3iKjYzK9GLCE5 MewVnn1IRZzXIKT1M1yk7EmE4BTgyW9751 -02-28T10:00:00 Images from the original note were not included.Venipuncture collection performed by clean technique on the left anticubitus. Total of 1 attempts were made. Slight pressure and a bandage/dressing were applied to the site(s). The patient experienced no complications. The following specimens were processed according to instructions and sent to [facility] laboratories per lab order on 04/15/2023:LT BLUESST 1REDLAV 2PPTDK GREEN (LiHep)DK GREEN (SodH)GRAYDK BLUE (K2)DK BLUE (S)ACDBlood CultureNIPT/NTD 82447-0Npsij MnasHU6741-12-68Y36:51:08Nurse NoteTXT1.2.840.070232.1.13.104.2.7 .2.808395|[id number] for patient teap01622-3Mjqra NoteLNNARRATIVEFormatted C-CDA narrative textUT[address] IqrpJvtbbqrzmNzuhlpmwfKVNU40361933 85YORWSDGWNIBLSYSULNEZZY2841-07-61 T09:51:081.2.840.084846.1.72.3.15| 1.2.840.032141.1.13.104.2.7.2.7278 79_[id number] [facility] 2023-04-08 09:45:52 X0zkLTSoMsW3G6yz1Exu iguNHh0vPCyj4i CxqIfES22V9o0Gyc0XckMCDJnsdneK7177 -02-21T09:45:52 My chart message sent to notify Ms. Alas that Dr. Martin will discuss next steps during NOV on 04/15/23. 34149-9Lrlcoeayi encounter AjzxJB9994-11-14N55:46:16Telephone encounter NoteTXT1.2.840.224134.1.13.104.2.7 .2.547418|[id number] for patient rfvf71958-5LmumPKOTSYHXBNOJuxfqtal d C-CDA narrative pazp985147182Zlcd Sheavly RNUT[address] 29TYMRDWMFTSPBCJRHRETNFZ4234-52-94 T09:46:161.2.840.943926.1.72.3.15| 1.2.840.053376.1.13.104.2.7.2.7278 79_[id number] Rehana Cevallos RN [facility] 2023-04-07 22:55:35 1sMTA+hZJpT+k3F2lcMO OS3NibvwnW9wEg L7++aGbq72yJvKjtI0rJdgYZChzTGH6915 -02-20T22:55:35 I received a message from the radiology team that it got denied.The next option will be to do exercise NM stress test with the imaging component. I can discuss in detail in the upcoming office visit.Or once I see her and document we can appeal again to see if they will approve a cardiac CTA. 76847-3Szlewxski encounter DyamLQ0858-43-69N80:56:54Telephone encounter NoteTXT1.2.840.214880.1.13.104.2.7 .2.575257|[id number] for patient xsrn63284-5QtkkCOJQURMKZGQWxjmfnqg d C-CDA narrative text[address] 57CNVSDOFZZKWTDZPNRYBSKD0953-26-33 T22:56:541.2.840.599416.1.72.3.15| 1.2.840.148534.1.13.104.2.7.2.7278 79_[id number] [facility] 2023-04-07 15:35:10 1C2L1V5IyOVZQutkM1BO aSFzvB1vQDQRvw lRzWqZ820zsjvbFD3mRYD+amEKj6/Q2024 -04-07T15:35:[address] Martin with reason for denial of CTA.Routing to Dr. Martin to advise on next steps for patient."From: Kathy Langford VSent: 04/06/2023 9:53 AM CSTTo: Jossue Martin, MDSubject: - FELICIA ALAS - CASE DENIEDCARELON DENIED CASE FOR CPT: 37080 - CT ANGIOGRAPHY CORONARIES WITH CARDIAC CALCIUM SCORE: Case Summary Status: DENIED Status Detail: Your request has been denied by the benefit operations program manager. BENEFIT CAMPGROUND CARETAKER: [facility] Benefit Accounting Bookkeeper Note(s): Your doctor told us that you have chest pain. Your doctor is checking you for heart disease. Your doctor ordered a test that takes pictures of the blood vessels in your heart. This test is used to look for blocked blood vessels in your heart. This test should be used if you are at moderate or high risk for heart disease. Age, gender and the character of chest pain are used to calculate this risk. We reviewed the notes we received. The notes do not show that you are at moderate or high risk for heart disease. Thus, we cannot approve this request as medically necessary. We used [facility] Medical Benefits Management Clinical Guideline titled Imaging of the Heart, Coronary CT Angiography (CCTA) and CT Derived Fractional Flow [place] (FFR-CT) to make this decision. You may view this guideline at [email or web address] diology." 07298-6Wfwrshnur encounter YbnuEU6710-33-92S12:36:24Telephone encounter NoteTXT1.2.840.647839.1.13.104.2.7 .2.523810|8593437315GSMcdudfcac for patient wrev55922-9CynyAOFHXKBTNONInvjzbhb d C-CDA narrative [id number] Mart ABREU[address]vd[address] 61QXTBVDMGYRGYJNBDWCHLMV7355-07-73 T15:36:241.2.840.126477.1.72.3.15| 1.2.840.043065.1.13.104.2.7.2.7278 79_[id number] Rehana Mart RN [facility] 2023-04-07 08:40:57 /STOB3N78EgueHe7BeiS b25lLoJTnSMI2J O8EHsPQWPAqpIXlfwr25PEpw/OYu9e79512023T08:40:57 Felicia Alas is a 37 year old femalePt was supposed to get a CTA but ins. Wouldn't approve it will need a Pre-Auth .per radiology said it didn't have the correct diagnosis to get it approvedPlease call PtPlease advise 75725-6Moirmuoue encounter DcjqME1326-36-74Z13:44:41Telephone encounter NoteTXT1.2.840.819527.1.13.104.2.7 .2.027267|7082415771FIScxmwrnfr for patient ejbw65460-7UwmeEQUEOYQJWUIOiuahbxk d C-CDA narrative laps452965634Kvzuynp D Collins[address] 44CMBUCLZFETSQUXSNHLOLJU1082-97-73 T08:44:411.2.840.165166.1.72.3.15| 1.2.840.731782.1.13.104.2.7.2.7278 79_[id number] Zaynab Hess [facility] 2023-03-30 10:17:51 xSSkB7YE5NRqZeb3Wpo6 liJykJJJgO0ZbH +ZOEop+Y9Gf2J8g1jzkkAIFdEaWFvm9362 -02-12T10:17:51 SS notified. Will contact patient to offer sooner appointment 26508-8Xdwsqnbew encounter OmbdIF4754-76-19S08:18:06Telephone encounter NoteTXT1.2.840.574126.1.13.104.2.7 .2.937088|8064220910RAGurmsetdq for patient szgh97577-6PzutUDTJOQIXXNUSdpjwtwg d C-CDA narrative mnpv360443384Wnfo Sheavly [address] 61GPCPEPHWOROURFYZYRVVAG4451-06-13 T10:18:061.2.840.840412.1.72.3.15| 1.2.840.964084.1.13.104.2.7.2.7278 79_[id number] Rehana Cevallos RN [facility] 2023-03-29 20:18:37 3YqdOkQ2Xj3swlsiblgy YrwKpprN0iNibO yUUGFBZ+JUUFmBnqDe4cK3aYV1SARh0232 -02-11T20:18:37 [place]. [address]-0Ohujoxvpt encounter IaxyWE0548-41-74H75:18:49Telephone encounter NoteTXT1.2.840.906361.1.13.104.2.7 .2.643273|9938191340OVMqifksfsh for patient ktrl81310-2HamaFXJSZOLFTDDKwlvdpbj d C-CDA narrative text[address] 69MDNQQLPWVOSAGEITLFVVJC0582-88-16 T20:18:491.2.840.784769.1.72.3.15| 1.2.840.379320.1.13.104.2.7.2.7278 79_[id number] [facility] 2023-03-27 12:43:37 Qjf8jcPKxDSlMf34tjwS VHXtgubfnUJmS6 YKXVnugFLnV58ZkaPtPYqa3aiQUEi16166 -02-09T12:43:37 Patient notified of results. She verbalized understanding of results/recommendations via teach back.Patient can only come in for am appointments because she picks up her kids in the afternoon.Patient was concerned because appointment availability not until late April.Routing to Dr. Beyectronically signed by Rehana Cevallos RN at 03/27/2023 12:45 PM RQC84757-4Jidifkjap encounter UnyyUH3734-11-58H93:45:34Telephone encounter NoteTXT1.2.840.347132.1.13.104.2.7 .2.506750|4673643582OOEbucznnrf for patient kgid45798-6NfqiLOLVLHFQDUKUhdtuigd d C-CDA narrative cspp173000995Kjbv Sheavly RN[address] PdqoLgvmsiqzfCyxlriolnYQGK87223398 76DEMOBZBFWCJLZGFABEERYX1395-92-82 T12:45:341.2.840.529753.1.72.3.15| 1.2.840.143822.1.13.104.2.7.2.7278 79_[id number] Rehana Cevallos RN [facility] 2023-03-25 13:01:23 R3N2ah80VT+4y3haTgxu UjQb/Si9rImvYx LBTFo/jwvnivFTmmZrFYaBt09MlCVB9990 -02-07T13:01:23 Images from the original note were not included.Blood pressure log reviewed as noted below. Within acceptable limits,Awaiting cardiac CTAWill follow-up after the completion of the cardiac CTA.Please ask her to bring the blood pressure machine for comparison for the follow up office visit 14594-9Iexnjyhqx encounter LeltCU6977-72-54U53:03:01Telephone encounter NoteTXT1.2.840.996183.1.13.104.2.7 .2.073960|4538758615UJJtdqbpdnd for patient zkcw95624-7BtphIWCRZVZDLILHnpgcrke d C-CDA narrative text[address] 01ZSDKEWYKSTCDPEQDSVXKUQ4276-18-40 T13:03:011.2.840.420790.1.72.3.15| 1.2.840.062925.1.13.104.2.7.2.7278 79_[id number] [facility] 2023-03-24 09:08:05 828NjlPcVNgkA+gjM5XL F8DXpDcxdGE49v OLibmd943fijEpw/Kp4hQChvI9bSrA5562 -02-06T09:08:05 BP log received from patient and placed in Dr Martin's folder to be reviewed. 59314-4Koutrwdkj encounter SmkeEY8709-72-93S46:08:36Telephone encounter NoteTXT1.2.840.070084.1.13.104.2.7 .2.903557|0325225519SAZianfaupz for patient iwvp92622-3AxjqNPQVAJOHWROGctbktje d C-CDA narrative phds634771373Wcriyhrpk D Garcia MA[address] 98EHIEBYHDXYSDYXBJLJLZGP9639-49-59 T09:08:361.2.840.192296.1.72.3.15| 1.2.840.567826.1.13.104.2.7.2.7278 79_[id number] Marnie Jacob MA [facility] 2023-03-24 09:00:00 ZcFjQvi6ogtA9b37Iy04 Lete3WjREp7Iaj 2RRhubdb2WBfxklm+PST/IzsL6G6ee9095 -02-06T09:00:00 Echo with in acceptable limits. Preserved LVEF. No significant valve diease notedPlan to proceed with cardiac CTA as well as scheduled end of this month. 95909-3Eecwxluu locjDY0752-42-12B86:33:27Progress noteTXT1.2.840.336621.1.13.104.2.7 .2.742244|1468789598QTFkorxeell for patient oslq43473-7ZhsrGFMNNDZSFNYApjxdtee d C-CDA narrative [address] WabhQsewefimxTrhhovbwrXSYV50024099 37AUIBMLQOVAMFOHKNJPNZJB6402-42-78 T17:33:271.2.840.137058.1.72.3.15| 1.2.840.346152.1.13.104.2.7.2.7278 79_[id number] [facility] 2023-03-12 10:02:01 xU7wXve175KCQi63AI2A c2cufz+KYk/F6o mXFIkDLeszjS88hU3sWuoTZfsy6xNn8806 -01-25T10:02:01 Patient had questions about iodine prophylaxis.We discussed over the phone. Also sent via My Chart message so she has in writing. 52572-5Ewflsbyla encounter PsxkVA8335-38-61M28:19:32Telephone encounter NoteTXT1.2.840.810115.1.13.104.2.7 .2.756030|7746999232TUSoegulyqb for patient uivi42459-6EwbtBMUKZEYBAMXBanikruv d C-CDA narrative tjvk736614808Hytg Sheavly RN[address] DjhdIusvqfdraWvojgboqpNXUJ41381482 74BOXOOLFWXWMIEFUOICTKYY8045-66-52 T10:19:321.2.840.979630.1.72.3.15| 1.2.840.680249.1.13.104.2.7.2.7278 79_[id number] Rehana Cevallos RN [facility] 2023-03-11 08:41:16 UaogpFdBgXBJ3pVLKj3j EQav2MpCvT6m8C [facility]/HtbSchS3ShDh5V1lLZGR2ywcNi1320 -01-24T08:41:16 Images from the original note were not included.Requested RenewalsQUEtiapine 25 mg tabletSig: Take 1 tablet by mouth at bedtime.Disp: 30 tablet Refills: 1Start: 03/11/2023lass: eRXNon-formulary For: Anxiety and depression, Mood disorder, HallucinationLast ordered: 1 month ago (01/15/2023) by Lesley Florespsychotic (2nd generation) Zrszpp3603/11/2023 08:35 AMProtocol Details Prolactin Level (serum) in normal range and within 360 daysTotal Cholesterol in normal range and within 360 daysValid encounter within last 6 monthsGlucose (serum) in normal range and within 360 daysTriglycerides in normal range and within 360 daysLDL in normal range and within 360 daysHDL in normal range and within 360 llqgJXD5J in normal range and within 360 daysTo be filled at: [id number] - [facility] [address] [facility] 51-04-1385Hqgeapylkgyodk signed by Nuris Chapman MA at 03/11/2023 8:41 AM PFF28017-2Gaywxtggz encounter HhfoLY5322-65-44W40:41:41Telephone encounter NoteTXT1.2.840.661502.1.13.104.2.7 .2.454338|6855944414JRGzptnenqz for patient jkzf93993-4FldnUMAMKYBFRSDUmziydtw d C-CDA narrative dgww311261151Foxchu M Ari [address] 94AMSJPLNOGAPMNYJIMKUTNV2971-38-75 T08:41:411.2.840.869058.1.72.3.15| 1.2.840.112578.1.13.104.2.7.2.7278 79_[id number] Nuris Chapman [facility] 2023-03-06 10:47:47 Fzyk4xEmLrHgVlfyzS5U pLbp5Q+7SsdGwz gCgcViwLA/5CY4mSpKpJ8P3ymAo8oz5943 -01-19T10:47:47 Attempted to call pt to inform of prophylactic sent to pharmacy. No answer. Detailed message left with this info and to return call to clinic if she has any questions. 02556-6Nphfafyuq encounter XtrhCV2432-94-83I84:49:29Telephone encounter NoteTXT1.2.840.876085.1.13.104.2.7 .2.939420|7900064459AAMcsnlzzrb for patient fyfd23743-0PfyfWPDJWQJXLWXPvhgsdpv d C-CDA narrative jhub360303007Mlgcinlz A Cruz [address] 06HXUDLZQTKTEGDSSJSCWFIV3111-80-41 T10:49:291.2.840.056877.1.72.3.15| 1.2.840.581102.1.13.104.2.7.2.7278 79_[id number] Lila Dutta RN [facility] 2023-03-06 09:05:14 z4XK4pS4JEslZhdX7KwR [facility]+BYR0VzezGp Ip7MMlZJsLwVlYyzHwXegF8grKPmuh1720 -01-19T09:05:14 Yes. Please go ahead and send the iodine allergy protocol meds. 14948-3Xhnjzyfwj encounter GgpcKR0221-17-31G36:05:14Telephone encounter NoteTXT1.2.840.768459.1.13.104.2.7 .2.859601|3147451325PNGnebbxwcw for patient rgjz49177-6YuciTILZQYZTIXPLaahhiay d C-CDA narrative text[address]on[place]on[place] 97RWXJQXKGBLVCJBQEFCPPOY2086-71-56 T09:05:141.2.840.756897.1.72.3.15| 1.2.840.143154.1.13.104.2.7.2.7278 79_[id number] [facility] 2023-03-05 13:44:23 al/wJe3fizk4Piljzoeg bG1+0FUMRC08zK 2XpHTgS+s6ocRCfb7CTlVZ+7HP/6Oo8177T13:44:23 She needs to verify with cardiology for alternate image with her allergy 67609-1Evtucdmem encounter CxxnUF5237-35-20O24:02:12Telephone encounter NoteTXT1.2.840.190471.1.13.104.2.7 .2.778622|6494597163CPMzzejmnul for patient wbuf63711-0VpoiFVYMNSKISSWKterblbg d C-CDA narrative text[address] 95HUGNEOKMLXMRZOWFZSORLD5562-42-35 T14:02:121.2.840.557043.1.72.3.15| 1.2.840.770153.1.13.104.2.7.2.7278 79_[id number] [facility] 2023-03-05 11:24:14 MfNGCjSo4KmJTKCcDFhN hxR1HbfZz+Dco0 dGnFLH+rXcUf8fVfT6KdYOCfLTdNmd2328 -01-18T11:24:14 Patient is needing a prescription due to patient having an allergy to lodine, patient gets a rash with Lodine. Routing to provider. 76659-2Xszmnxssj encounter ZpnvTG8386-07-95F75:35:34Telephone encounter NoteTXT1.2.840.642747.1.13.104.2.7 .2.920350|3233279609AJJjdlpnhlk for patient mrye18692-3FbmnNJAOFCRLBFSBepcqrzh d C-CDA narrative uepk691073377Zglbuxtarsha CALLES[address] 77AGNMIILKGIOWZBKAYAQSZY8827-38-63 T11:35:341.2.840.523994.1.72.3.15| 1.2.840.405064.1.13.104.2.7.2.7278 79_[id number] Nuris Chapman MA [facility] 2023-03-05 11:03:02 /FIBGyXw1xSv74xGCDtj tMNH8eNy265Joc eRnPFLq14atPIHR0i78ASbqn7LUgdU0377 -01-18T11:03:02 Felicia Alas is a 37 year old female is requesting a call from the clinic in regards to needing a prescription sent to radiology. Please advise. [phone]. Patient has appointment on 04/08/2023. Please geri ASAP 62245-3Opvrsjsda encounter JvtsTX7828-88-22M51:06:09Telephone encounter NoteTXT1.2.840.922234.1.13.104.2.7 .2.532218|8218525063PFZmwtarzbj for patient nigv28293-4LglrLFMOFJNMMMZYcajjlyz d C-CDA narrative thko125261815Vlzloi D Donihoo[address] FltiDhfusgknsVutklzqamJNIJ31370252 83FNEIURRKCSPHMWKGGXYHYT2911-54-20 T11:06:091.2.840.291732.1.72.3.15| 1.2.840.353244.1.13.104.2.7.2.7278 79_[id number] Timmy Griffin [facility] 2023-03-02 10:52:26 MXQEIeDpIAZMP9eGSsrV s2tm1E+2KFTAej L4bCAGtXDaLWp43wmiBZmWg3SAOyXC1992 -01-15T10:52:26 LVM that cardiology does not order pain medications. If having cheast pain, recommend going to the ER for increased or continuing symptoms 89378-5Itdqnavrd encounter OqcjVD2554-26-94W75:54:55Telephone encounter NoteTXT1.2.840.198837.1.13.104.2.7 .2.298431|8554197747VOAmnttobih for patient tost19851-3MosxRWSBGFFUYNICkpzzlru d C-CDA narrative wayq385677620Lpesy A Roller [address] 76CHEJSEIAGLRJRPMUFZNSVL6595-14-06 T10:54:551.2.840.777952.1.72.3.15| 1.2.840.311334.1.13.104.2.7.2.7278 79_[id number] Karishma Stratton [facility] 2023-02-27 14:33:04 pNlR0fLj3CjVYzHm/pJC WZbnupBHSHQIWn 6gTHNJPG1w4ztHTFGFcwatWjQklwUJ6294 -01-12T14:33:04 Felicia Alas is a 37 year old female Pt is calling and stating that she's still having the pain in her chest and wanting to see if could call her something in. Pt said she discussed the symptom with And is very worried. Please advise 30643-6Gqckabzcx encounter DcxxSC2789-42-81X74:36:17Telephone encounter NoteTXT1.2.840.784462.1.13.104.2.7 .2.234281|6179473674YWVjpkrbszg for patient hofo49941-5TdkaUCRQYAKGAXTMjoqnpge d C-CDA narrative yrkq550308262Njknesk D [address] 45UDDVBHDHLCLNRHNKSTZGDF5444-64-50 T14:36:171.2.840.584544.1.72.3.15| 1.2.840.426079.1.13.104.2.7.2.7278 79_[id number] Zaynab Hess [facility] 2023-02-25 14:50:01 4jLXL7aFzKjFBMZ913iG SsIbEqw7y0ayIF 8/ZV/91jXJQsgomhFfjeif2LXNbPSB0878 -01-10T14:50:01 Images from the original note were not included.Patient called regarding stress test results, reviewed results, agrees to CTA, radiology did call to schedule but patient missed the call. Radiology notified will re-attempt to reach patientJossue Martin MD P Cardiology NurseStress test shows fair functional capacity. Borderline EKG changes concerning for ischemia noted.Plan to proceed with a cardiac CTA.Patient blood pressure log reviewed. Most of the numbers were within acceptable stable limits. Few diastolic numbers elevated more than 80. There is only 1 number elevated at 177/95.Please ask her to continue to monitor the blood pressure log.Plan to proceed with echocardiogram and cardiac CTA orders will be placed now for further assessment for underlying obstructive coronary artery disease. 63050-2Yyuuxdkxc encounter KdskHL5180-30-92X78:02:09Telephone encounter NoteTXT1.2.840.949648.1.13.104.2.7 .2.786251|3134691483ZSBrppmvzme for patient jfne35386-7VnyaECBHPNUZOUGZsfrzvlh d C-CDA narrative dgiw823833021HwjpbKarishma DE [address] DwooItnhnzwxlTjapmkiwmXDJI07313727 03JVJLUAVTFQJAHUABFRISOX3450-03-88 T15:02:091.2.840.762109.1.72.3.15| 1.2.840.597318.1.13.104.2.7.2.7278 79_[id number] Karishma Stratton RN [facility] 2023-01-20 09:00:00 0AIz0+cDlONY43L1uyCB bLaVAUslLA8z6t xE5e/TxEyvslunN9BwRCrQjA6Hq+[id number] -01-20T09:00:00Addended by: JOSSUE MARTIN on: 02/24/2023 04:48 PMModules accepted: Orders 51300-5Pfgfwzsl GhxgxfpsFZ1069-84-53S06:48:29Adden dum DocumentTXT1.2.840.761545.1.13.104 .2.7.2.472100|[id number] e for patient wnnr62291-2HxdbFBSQGQUTSRGWjovylkp d C-CDA narrative text[address] Sg[id number] 63DDQOBEBYYWUNULMORBZTSZ7086-06-05 T16:48:291.2.840.064407.1.72.3.15| 1.2.840.503772.1.13.104.2.7.2.7278 [id number] [facility] 2022-09-29 08:02:44 H+h+zGofcEsilGsiCtTj e6gSdtWyFCtpl1 ADQcsm+uQwM+panV0E6MJA88X3pk4N0732 -08-14T08:02:44Summary: Pre-Visit Outreach [facility], [facility], and Care Everywhere searched for patient records.No new records found. Casualingt Message sent to patient with open care gaps. Patient is established with [facility]. No call necessary. 79189-0Htncvdimi encounter FebrQV7837-54-99N48:03:34Telephone encounter NoteTXT1.2.840.365905.1.13.104.2.7 .2.929418|[id number] for patient dtas06288-4LifsYWQNKVHYCY[address] Pf[id number] 51WYUUSHCOYPVZTFJXQJXVHU2671-27-00 T08:03:341.2.840.717933.1.72.3.15| 1.2.840.562713.1.13.104.2.7.2.7278 [id number] [facility]
[2023-04-15 18:53] LABS: SARS-CoV-2 Antigen Rapid Res Negative (Negative)
--- NOTE | 2023-04-15 19:48 | RAD REPORT ---
EXAM DESCRIPTION: RAD - Chest Single View - 04/15/2023 7:30 pm CLINICAL HISTORY: Congestion;Cough Chest pain. COMPARISON: Chest Single View dated 01/06/2023; Chest Single View dated 08/19/2022; Chest Single View dated 07/07/2022; Chest Single View dated 02/21/2022 FINDINGS: Portable technique limits examination quality. The lungs are grossly clear. The heart is normal in size. No displaced fractures. IMPRESSION: No acute intrathoracic process suspected.
--- NOTE | 2023-04-15 19:54 | EDPHYS ---
Physician Documentation [facility] Name: Alanna Barreto Age: 37 yrs Sex: Female : 1985 Arrival Date: 04/15/2023 Time: 17:25 Bed 12 Private MD: Vinicius Leigh ED Physician Nida Simmons HPI: 04/15 20:43 This 37 yrs old Black Female presents to ER via Ambulatory with complaints of Flu kb Symptoms. 20:43 Pt is a 37 year old female who presents for cough, congestion, fever, bodyaches and kb sore throat that started 3 weeks ago. Denies shortness of breath or chest pain. 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 - Social history:: Smoking status: Patient denies any tobacco usage or history of. ROS: 20:42 Abdomen/GI: Negative for abdominal pain, nausea, vomiting, diarrhea, and constipation, kb 20:42 Constitutional: Positive for body aches, chills, fatigue, fever, malaise, 20:42 ENT: Positive for rhinorrhea, sinus congestion, sore throat, 20:42 Respiratory: Positive for cough, 20:42 All other systems are negative, Exam: 20:42 Constitutional: This is a well developed, well nourished patient who is awake, alert, kb and in no acute distress. Head/Face: Normocephalic, atraumatic. ENT: Moist Mucous membranes Cardiovascular: Regular rate Respiratory: Respirations even and unlabored. No increased work of breathing. Talking in full sentences Abdomen/GI: Soft, non-tender. No distention Skin: Warm, dry with normal turgor. Normal color. MS/ Extremity: Pulses equal, no cyanosis. Neurovascular intact. Full, normal range of motion. Neuro: Awake and alert, GCS 15, oriented to person, place, time, and situation. Moves all extremities. Normal gait. Vital Signs: 17:54 BP 129 / 85; Pulse 94; Resp 18; Temp 98.7; Pulse Ox 97% ; Weight 100.7 kg; Height 5 ft. iw 4 in. ; 20:17 BP 114 / 72; Pulse 88; Resp 17; Temp 98.4(O); Pulse Ox 98% on R/A; Pain 5/10; tl4 17:54 Body Mass Index 38.11 (100.70 kg, 162.56 cm) iw 20:17 Pain Scale: Adult tl4 MDM: 17:27 Patient medically screened. kb 20:43 Differential diagnosis: flu, covid, uri, pneumonia, strep. Data reviewed: vital signs, kb nurses notes. I considered the following discharge prescriptions or medication management in the emergency department I discussed and recommended Over The Counter medications, Antibiotics: At this time antibiotics are not recommended, Antivirals: At this time, antivirals are not recommended. Counseling: I had a detailed discussion with the patient and/or guardian regarding the historical points, exam findings, and any diagnostic results supporting the discharge/admit diagnosis, lab results, radiology results, the need for outpatient follow up, a family practitioner, to return to the emergency department if symptoms worsen or persist or if there are any questions or concerns that arise at home. 04/15 17:59 Order name: Flu; Complete Time: 18:54 kb 04/15 17:59 Order name: SARS-COV-2 Antigen Rapid; Complete Time: 18:54 kb 04/15 18:04 Order name: Chest Single View XRAY; Complete Time: 19:52 kb Administered Medications: 18:47 Drug: Dexamethasone IM 10 mg IM once Route: IM; Site: right gluteus; ll1 20:14 Follow up: Response: No adverse reaction tl4 Disposition Summary: 04/15/23 19:53 Discharge Ordered Notes: Location: Home kb Condition: Stable kb Diagnosis - Influenza due to identified novel influenza A virus kb Followup: kb - With: Emergency Department - When: As needed - Reason: Worsening of condition Followup: kb - With: Private Physician - When: 2 - 3 days - Reason: Recheck today's complaints, Continuance of care, Re-evaluation by your physician Discharge Instructions: - Discharge Summary Sheet kb - Influenza, Adult, [id number] kb Forms: - Medication Reconciliation Form kb - Thank You Letter kb - Antibiotic Education kb - Prescription Opioid Use kb - Patient Portal Instructions kb - Leadership Thank You Letter kb Prescriptions: - Tessalon Perles 100 mg Oral Capsule - take 1 capsule ORAL route every 8 hours As needed; 15 capsule; Refills: 0, kb Product Selection Permitted Signatures: Dispatcher [employer] Therese Rodríguez FNP-C FNP-Nancy Delatorre RN RN iw Charles Barry RN RN ll1 Lionel Sanchez RN tl4
--- NOTE | 2023-04-15 19:54 | ER ---
Nurse's Notes [facility] Name: Alanna Barreto Age: 37 yrs Sex: Female : 1985 Arrival Date: 04/15/2023 Time: 17:25 Bed 12 Private MD: Vinicius Leigh Diagnosis: Influenza due to identified novel influenza A virus Presentation: 04/15 17:52 Chief complaint: Patient states: cold , body aches, cough, congestion, fever, took a iw COVID test last week and it was negative , symptoms started around beginning of March. Coronavirus screen: Client presents with at least one sign or symptom that may indicate coronavirus-19. Ebola Screen: Patient negative for fever greater than or equal to 101.5 degrees Fahrenheit, and additional compatible Ebola Virus Disease symptoms Patient denies exposure to infectious person. Patient denies travel to an Ebola-affected area in the 21 days before illness onset. No symptoms or risks identified at this time. Initial Sepsis Screen: Does the patient meet any 2 criteria? No. Patient's initial sepsis screen is negative. Does the patient have a suspected source of infection? No. Patient's initial sepsis screen is negative. Risk Assessment: Do you want to hurt yourself or someone else? Patient reports no desire to harm self or others. Onset of symptoms was March 20, 2023. 17:52 Method Of Arrival: Ambulatory 17:52 Acuity: CHRISTOPHER 4 Triage Assessment: 20:24 General: Appears in no apparent distress. Behavior is calm, cooperative. Pain: Denies tl4 pain. 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 - Social history:: Smoking status: Patient denies any tobacco usage or history of. Screenin:48 [facility] ED Fall Risk Assessment (Adult) Score/Fall Risk Level 0 - 2 = Low Risk ll1 Oriented to surroundings, Maintained a safe environment, Educated pt \T\ family on fall prevention, incl call for assistance when getting out of bed, Hourly rounding (assess needs \T\ fall precautionary measures) done. Abuse screen: Denies threats or abuse. Nutritional screening: No deficits noted. Tuberculosis screening: No symptoms or risk factors identified. Assessment: 18:31 Reassessment: Patient and/or family updated on plan of care and expected duration. Pain ll1 level reassessed. 18:48 General: Appears uncomfortable, Behavior is calm, cooperative, appropriate for age. ll1 General: Reports feeling ill for fatigue for. Respiratory: Reports cough that is. EENT: Reports nasal congestion. Vital Signs: 17:54 BP 129 / 85; Pulse 94; Resp 18; Temp 98.7; Pulse Ox 97% ; Weight 100.7 kg; Height 5 ft. iw 4 in. ; 20:17 BP 114 / 72; Pulse 88; Resp 17; Temp 98.4(O); Pulse Ox 98% on R/A; Pain 5/10; tl4 17:54 Body Mass Index 38.11 (100.70 kg, 162.56 cm) iw 20:17 Pain Scale: Adult tl4 ED Course: 17:27 Patient arrived in ED. mr 17:27 Therese Warner, SHAMAR is [facility]. kb 17:27 Nida Simmons MD is Attending Physician. kb 17:28 Vinicius Leigh is Private Physician. mr 17:53 Triage completed. iw 17:54 Arm band placed on. iw 18:34 SARS-COV-2 Antigen Rapid Sent. iw 18:34 Flu Sent. iw 18:48 Patient has correct armband on for positive identification. Bed in low position. Call ll1 light in reach. Provided Education on: ER procedures and process. Cardiac monitoring not applicable on this patient. 19:32 Chest Single View XRAY In Process Unspecified. EDMS 20:17 No provider procedures requiring assistance completed. IV discontinued, intact, tl4 bleeding controlled, No redness/swelling at site. Pressure dressing applied. Administered Medications: 18:47 Drug: Dexamethasone IM 10 mg IM once Route: IM; Site: right gluteus; ll1 20:14 Follow up: Response: No adverse reaction tl4 Medication: 20:20 VIS not applicable for this client. tl4 Outcome: 19:53 Discharge ordered by . kb 20:24 Discharged to home ambulatory, tl4 20:24 Condition: stable 20:24 Discharge instructions given to patient, Instructed on discharge instructions, follow up and referral plans. medication usage, Demonstrated understanding of instructions, follow-up care, medications, Prescriptions given X 1, 20:25 Patient left the ED. tl4 Signatures: Dispatcher [employer] EDMS Therese Warner, CLASS B TRUCK DRIVER-C CLASS B TRUCK DRIVER-CkLin Mckinney, Reg Reg mr Nancy Hoffman, RN Charles Phillip RN RN ll1 Lionel Sanchez RN RN tl4
[2023-04-15 20:46] VITALS: BP 114/72; TEMP 98.4; O2SAT 98
== END ==
LOC: ER 17:25
DX: J10.1 Influenza due to other identified influenza virus with other respiratory manifestations (principal); F32.A Depression, unspecified; Z11.52 Encounter for screening for COVID-19; Z91.048 Other nonmedicinal substance allergy status
CPT/HCPCS: 36415; 87804 ×2; 71045; 87811; J1100

== ENCOUNTER 2024-02-21 15:59 | Emergency (ER) | payer OTHER ==
--- OUTSIDE RECORDS SUMMARY | 2024-02-21 16:05 | XMS REPORT | Continuity of Care Document ---
Author Name Unknown Address [address] [facility] [address] [place] [address] [facility] thconnect Address [address] [facility] [address] [place] [address] Care Team Providers Care Plant Taxonomy Teacher Name Role Phone Lu [place], Van Primary Care Physician + [phone] SARAH MOREL Attending Clinician Unavailable Adriel Sarah MEDRANO Attending Clinician [phone] Van Leigh MD Attending Clinician [phone] Mariela Llanes CNM Attending Clinician [phone] MARIELA LLANES Attending Clinician UnavailVAN Pagan Attending Clinician Unavailab VAN Kowalski Attending Clinician UnavailMariela Danielle CNM Attending Clinician [phone] Kelsey Brandi MEDRANO Attending Clinician + BRANDI COLE Attending Clinician Unavail ayden Martin MD, Jossue K.HEmber Attending Clinician + [phone] JOSSUE MARTIN.HEmber Attending Clinician Unavaildarleen cates 2, [facility] Attending Clinician Unavailable Nathalie Prajapati LMSW Attending Clinician Unava ilable Doctor Unassigned, [place] Attending Clinician U navailayden Nurse, Bubba Rmchp Rgv Cprit Obgyn Attending Clini allie Unavailable [email or web address]_S Attending Clinician UnavailYFN [place] Attending Clinician UnavailYFN [place] Attending Clinician Unavaila darryn Pcp, Patient Does Not Have A Attending Clinician Raju_P Attending Clinician Unavailable SARAH MOREL Admitting Clinician Unavailable JOSSUE MARTIN.HEmber Admitting Clinician Unavaila MARIELA Sood Admitting Clinician Unavaila darryn [email or web address]_S Admitting Clinician Unavaila darryn Mohan_P Admitting Clinician Unavailable Payers Payer Name Policy Type Policy Number Effective Date Expirati on Date Source [id number] 2023 00:00:00 CHLOE Mendez/ GERTRUDE HUSTON [id number] 2023 00:00:00 [employer] P[employer] [id number] 2023 00:00:00 2023 00:00:00 Problems Condition Name Condition Details Condition Category Status Onset Date Resolution Date Last Treatment Date Treating Clinician Comments Source Need for HPV vaccinatio n Need for HPV vaccinatio n Disease Active 06-15 00:00: 00 [facility] Declines flu vaccine Declines flu vaccine Disease Active 2022-02 0 00:00: 00 [facility] Menorrhagi a with irregular cycle Menorrhagi a with irregular cycle Disease Active 2022-02 0 00:00: [address] [facility] Dysmenorrh ea Dysmenorrh ea Disease Active 2022-02 0 00:00: 00 [facility] History of abnormal cervical Pap smear History of abnormal cervical Pap smear Disease Active 2022-02 0 00:00: 00 Overview: Formattin g of this note might be different from the original. 5 negative pap with +hpv02/23 negative pap and hpv2022 LGSIL with +HPV, FU 1 year per ASCCP guideline s [facility] History of tubal ligation History of tubal ligation Disease Active 05-25 00:00: 00 [facility] Over weight Over weight Disease Active 02-24 00:00: 00 [facility] History of anxiety History of anxiety Disease Active 02-24 00:00: 00 [facility] Anxiety and depression Anxiety and depression Disease Active 02-24 00:00: 00 [facility] History of herpes genitalis History of herpes genitalis Disease Active 2014-02 00:00: 00 [facility] Obesity (BMI 30-39.9) Obesity (BMI 30-39.9) Disease Resolve d 02-24 00:00: 00 2023-12-16 00:00:00 2023-12-16 08:47:09 [facility] History of depression History of depression Disease Resolve d 02-24 00:00: 00 2022-12-10 00:00:00 2022-12-10 09:43:05 [facility] Encounter for other general counseling or advice on contracept ion Encounter for other general counseling or advice on contracept ion Disease Resolve d 02-24 00:00: 00 2022-12-09 00:00:00 2022-12-09 08:53:50 [facility] Cervical high risk human papillomav irus (HPV) DNA test positive Cervical high risk human papillomav irus (HPV) DNA test positive Disease Resolve d 2014-02 00:00: 00 2022-12-09 00:00:00 2022-12-09 08:54:42 Overview: Formattin g of this note might be different from the original. Pap pending [facility] Well woman exam without gynecologi geri exam Well woman exam without gynecologi geri exam Disease Resolve d 02-24 00:00: 00 2018-05-25 00:00:00 2018-05-25 14:10:07 [facility] Screening examinatio n for venereal disease Screening examinatio n for venereal disease Disease Resolve d 04-24 00:00: 00 2018-05-25 00:00:00 2018-05-25 14:10:09 [facility] Bacterial vaginosis Bacterial vaginosis Disease Resolve d 2014-02 00:00: 00 2017-02-24 00:00:00 2017-02-24 15:51:33 [facility] S/P tubal ligation S/P tubal ligation Disease Resolve d 2014-02 00:00: 00 2017-02-24 00:00:00 2017-02-24 15:51:36 [facility] Chlamydia trachomati s infection of lower genitourin adrian sites Chlamydia trachomati s infection of lower genitourin adrian sites Disease Resolve d 2014-02 00:00: 00 2016-02-25 00:00:00 2016-02-25 09:01:16 [facility] Screening examinatio n for venereal disease Screening examinatio n for venereal disease Disease Resolve d 2014-02 00:00: 00 2016-02-25 00:00:00 2016-02-25 09:01:20 [facility] Allergies, Adverse Reactions, Alerts Allergy Name Allergy Type Status Severity Reaction(s) Onset Date Inactive Date Treating Clinician Comments Source IBUPROFE N DRUG INGREDI Active N/V 2014-02 00:00: 00 [facility] IODINE DRUG INGREDI Active Rash 2014-02 00:00: 00 [facility] Ibuprofe n Propensi ty to adverse reaction s Active Nausea and/or Vomiting 2014-02 00:00: 00 [facility] Iodine Propensi ty to adverse reaction s Active Rash 2014-02 00:00: 00 [facility] Social History Social Habit Start Date Stop Date Quantity Comments Source Gender identity [facility] Alcoholic beverage intake 2024-01-01 00:00:00 2024-01-01 00:00:00 0 /d [facility] History of Social function 2023-12-16 00:00:00 2023-12-16 00:00:00 [facility] Alcohol intake 2023-06-16 00:00:00 2023-06-16 00:00:00 0 /d [facility] Tobacco use and exposure 2023-01-20 00:00:00 2023-01-20 00:00:00 Smokeless tobacco non-user [facility] Sex assigned at 1985 00:00:00 1985 00:00:00 [facility] Smoking Status Start Date Stop Date Source Never smoked tobacco [facility] Medications Ordered Medication Name Filled Medication Name Start Date Stop Date Current Medication? Ordering Clinician Indication Dosage Frequency Signature (SIG) Comments Components Source doxepin 25 mg capsule 2023-02 00:00: 00 Yes [id number] 25mg Take 1 capsule by mouth at bedtime. [facility] metroNIDAZO LE 500 mg tablet 06-21 00:00: 00 12-15 00:00 :00 No [id number] 500mg Take 1 tablet by mouth in the morning and 1 tablet in the evening. [facility] doxepin 25 mg capsule - 00:00: 00 01-03 00:00 :00 No [id number] 25mg Take 1 capsule by mouth at bedtime. [facility] pantoprazol e 40 mg EC tablet 05-17 00:00: 00 Yes [id number] 40mg Take 1 tablet by mouth in the morning. [facility] tc 99m-tetrofo smin (MYOVIEW) injection 41.2 millicurie 05-11 14:45: 00 05-11 14:39 :00 No [id number] 41.2mCi 41.2 millicurie , Intravenou s, ONCE, 1 dose, On Thu05/12/23 at 0945, Routine [facility] regadenoson (LEXISCAN) injection 0.4 mg 05-11 14:30: 00 05-11 14:45 :00 No [id number] .[id number] 0.4 mg, IV Push, ONCE, 1 dose, On Thu05/12/23 at 0930, Routine
physics faculty member approving Restricted medication : BANDAR STEPHENS [facility] tc 99m-tetrofo smin (MYOVIEW) injection 16 millicurie 05-11 13:15: 00 05-11 13:14 :00 No [id number] 16mCi 16 millicurie , Intravenou s, ONCE, 1 dose, On Thu05/12/23 at 0815, Routine [facility] doxepin 25 mg capsule 305 00:00: 00 05-19 00:00 :00 No [id number] 25mg Take 1 capsule by mouth at bedtime for 30 days. [facility] pantoprazol e 40 mg EC tablet 04-20 00:00: 00 05-17 00:00 :00 No [id number] 40mg Take 1 tablet by mouth in the morning for 30 days. [facility] diphenhydrA MINE 25 mg tablet 2-20 00:00: 00 04-10 05:59 :00 No 25mg Take 1 tablet by mouth every 12 (twelve) hours for 3 doses. Start morning before procedure. Take last dose morning of procedure [facility] famotidine 20 mg tablet 2-20 00:00: 00 04-10 05:59 :00 No 20mg Take 1 tablet by mouth every 12 (twelve) hours for 3 doses. Start morning before procedure. Take last dose morning of procedure [facility] predniSONE 20 mg tablet 2-20 00:00: 00 04-09 05:59 :00 No 40mg Take 2 tablets by mouth every 6 (six) hours for 4 doses. Start morning before procedure. Take last dose morning of procedure [facility] QUEtiapine 25 mg tablet 03-11 00:00: 00 05-20 00:00 :00 No [id number] 25mg Take 1 tablet by mouth at bedtime. [facility] busPIRone 7.5 mg tablet 02-19 00:00: 00 05-20 00:00 :00 No [id number] 7.5mg Take 1 tablet by mouth in the morning and 1 tablet in the evening. [facility] QUEtiapine 25 mg tablet 2022-02 00:00: 00 03-11 00:00 :00 No [id number] 25mg Take 1 tablet by mouth at bedtime. [facility] pantoprazol e 20 mg EC tablet 2022-02 00:00: 00 01-16 05:59 :00 No [id number] 20mg Take 1 tablet by mouth ONCE PRN (reflux) for up to 1 dose. [facility] clonazePAM 1 mg tablet 2022-02 00:00: 00 05-20 00:00 :00 No 1mg Take 1 tablet by mouth as needed (anxiety). [facility] ibuprofen 600 mg tablet 08-20 00:00: 00 12-09 00:00 :00 No TAKE 1 TABLET BY MOUTH EVERY 6 HOURS NEEDED FOR PAIN TAKE WITH FOOD [facility] PAXLOVID, EUA, 300 mg (150 mg x 2)-100 mg tablet 08-20 00:00: 00 12-09 00:00 :00 No TAKE BY MOUTH DIRECTED 2 TABLETS 2 TIMES A DAY [facility] proMETHazin e 25 mg tablet 08-20 00:00: 00 12-09 00:00 :00 No TAKE BY MOUTH 1 TABLET EVERY 6 HOURS NEEDED FOR NAUSEA [facility] orphenadrin e 100 mg SR tablet 07-11 00:00: 00 12-09 00:00 :00 No TAKE 1 TABLET BY MOUTH TWICE A DAY NEEDED [facility] CIPROFLOXAC IN HCL (CIPRO ORAL) 05-25 13:57: 52 Yes Take by mouth. [facility] citalopram (CELEXA) 20 mg tablet -11 00:00: 00 12-09 00:00 :00 No [id number] 20mg Take 1 tablet by mouth daily. [facility] Immunizations Ordered Immunization Name Filled Immunization Name Date Status Comments Source Flu Injectable MDCK Pres-Free (FLUCELVAX) 2023-12-16 00:00:00 Completed [facility] HPV9 2023-06-16 00:00:00 Completed HPV9 2023-01-13 00:00:00 Completed HPV9 2022-12-09 00:00:00 Completed SARS-COV-2 COVID-19 VACCINE, BIVALENT (MODERNA BOOSTER) 2021-12-23 00:00:00 Completed SARS-COV-2 COVID-19 VACCINE, BIVALENT (MODERNA BOOSTER) 2021-12-23 00:00:00 Completed [facility] SARS-COV-2 COVID-19 VACCINE - (MODERNA) 2021-09-12 00:00:00 Completed SARS-COV-2 COVID-19 VACCINE - (MODERNA) 2021-09-12 00:00:00 Completed [facility] SARS-COV-2 COVID-19 VACCINE - (MODERNA) 2020-07-09 00:00:00 Completed SARS-COV-2 COVID-19 VACCINE - (MODERNA) 2020-07-09 00:00:00 Completed [facility] SARS-COV-2 COVID-19 VACCINE - (MODERNA) 2020-06-12 00:00:00 Completed [facility] SARS-COV-2 COVID-19 VACCINE - (MODERNA) 2020-06-12 00:00:00 Completed [facility] TDAP 2016-02-25 00:00:00 Completed TDAP 2016-02-25 00:00:00 Completed [facility] SARS-COV-2 COVID-19 VACCINE - (MODERNA) Unknown Completed [facility] SARS-COV-2 COVID-19 VACCINE, BIVALENT (MODERNA BOOSTER) Unknown Completed [facility] TDAP Unknown Completed [facility] SARS-COV-2 COVID-19 VACCINE - (MODERNA) Unknown Completed [facility] HPV9 Unknown Completed [facility] TDAP Unknown Completed [facility] SARS-COV-2 COVID-19 VACCINE - (MODERNA) Unknown Completed [facility] SARS-COV-2 COVID-19 VACCINE, BIVALENT (MODERNA BOOSTER) Unknown Completed [facility] HPV9 Unknown Completed [facility] SARS-COV-2 COVID-19 VACCINE, BIVALENT (MODERNA BOOSTER) Unknown Completed [facility] HPV9 Unknown Completed [facility] TDAP Unknown Completed [facility] TDAP Unknown Completed [facility] SARS-COV-2 COVID-19 VACCINE - (MODERNA) Unknown Completed [facility] SARS-COV-2 COVID-19 VACCINE, BIVALENT (MODERNA BOOSTER) Unknown Completed [facility] HPV9 Unknown Completed [facility] TDAP Unknown Completed [facility] SARS-COV-2 COVID-19 VACCINE - (MODERNA) Unknown Completed [facility] SARS-COV-2 COVID-19 VACCINE, BIVALENT (MODERNA BOOSTER) Unknown Completed [facility] HPV9 Unknown Completed [facility] TDAP Unknown Completed [facility] SARS-COV-2 COVID-19 VACCINE - (MODERNA) Unknown Completed [facility] SARS-COV-2 COVID-19 VACCINE, BIVALENT (MODERNA BOOSTER) Unknown Completed [facility] HPV9 Unknown Completed [facility] TDAP Unknown Completed [facility] SARS-COV-2 COVID-19 VACCINE - (MODERNA) Unknown Completed [facility] SARS-COV-2 COVID-19 VACCINE, BIVALENT (MODERNA BOOSTER) Unknown Completed [facility] HPV9 Unknown Completed [facility] TDAP Unknown Completed [facility] SARS-COV-2 COVID-19 VACCINE - (MODERNA) Unknown Completed [facility] SARS-COV-2 COVID-19 VACCINE, BIVALENT (MODERNA BOOSTER) Unknown Completed [facility] HPV9 Unknown Completed [facility] TDAP Unknown Completed [facility] SARS-COV-2 COVID-19 VACCINE - (MODERNA) Unknown Completed [facility] SARS-COV-2 COVID-19 VACCINE, BIVALENT (MODERNA BOOSTER) Unknown Completed [facility] HPV9 Unknown Completed [facility] TDAP Unknown Completed [facility] SARS-COV-2 COVID-19 VACCINE - (MODERNA) Unknown Completed [facility] SARS-COV-2 COVID-19 VACCINE, BIVALENT (MODERNA BOOSTER) Unknown Completed [facility] HPV9 Unknown Completed [facility] TDAP Unknown Completed [facility] SARS-COV-2 COVID-19 VACCINE, BIVALENT (MODERNA BOOSTER) Unknown Completed [facility] SARS-COV-2 COVID-19 VACCINE - (MODERNA) Unknown Completed [facility] HPV9 Unknown Completed [facility] TDAP Unknown Completed [facility] SARS-COV-2 COVID-19 VACCINE - (MODERNA) Unknown Completed [facility] SARS-COV-2 COVID-19 VACCINE, BIVALENT (MODERNA BOOSTER) Unknown Completed [facility] HPV9 Unknown Completed [facility] TDAP Unknown Completed [facility] SARS-COV-2 COVID-19 VACCINE - (MODERNA) Unknown Completed [facility] SARS-COV-2 COVID-19 VACCINE, BIVALENT (MODERNA BOOSTER) Unknown Completed [facility] HPV9 Unknown Completed [facility] TDAP Unknown Completed [facility] SARS-COV-2 COVID-19 VACCINE - (MODERNA) Unknown Completed [facility] SARS-COV-2 COVID-19 VACCINE, BIVALENT (MODERNA BOOSTER) Unknown Completed [facility] HPV9 Unknown Completed [facility] TDAP Unknown Completed [facility] SARS-COV-2 COVID-19 VACCINE - (MODERNA) Unknown Completed [facility] TDAP Unknown Completed [facility] SARS-COV-2 COVID-19 VACCINE - (MODERNA) Unknown Completed [facility] SARS-COV-2 COVID-19 VACCINE, BIVALENT (MODERNA BOOSTER) Unknown Completed [facility] HPV9 Unknown Completed [facility] SARS-COV-2 COVID-19 VACCINE, BIVALENT (MODERNA BOOSTER) Unknown Completed [facility] TDAP Unknown Completed [facility] SARS-COV-2 COVID-19 VACCINE, BIVALENT (MODERNA BOOSTER) Unknown Completed [facility] SARS-COV-2 COVID-19 VACCINE - (MODERNA) Unknown Completed [facility] HPV9 Unknown Completed [facility] TDAP Unknown Completed [facility] SARS-COV-2 COVID-19 VACCINE - (MODERNA) Unknown Completed [facility] SARS-COV-2 COVID-19 VACCINE, BIVALENT (MODERNA BOOSTER) Unknown Completed [facility] HPV9 Unknown Completed [facility] TDAP Unknown Completed [facility] SARS-COV-2 COVID-19 VACCINE - (MODERNA) Unknown Completed [facility] SARS-COV-2 COVID-19 VACCINE, BIVALENT (MODERNA BOOSTER) Unknown Completed [facility] HPV9 Unknown Completed [facility] TDAP Unknown Completed [facility] SARS-COV-2 COVID-19 VACCINE - (MODERNA) Unknown Completed [facility] SARS-COV-2 COVID-19 VACCINE, BIVALENT (MODERNA BOOSTER) Unknown Completed [facility] HPV9 Unknown Completed [facility] TDAP Unknown Completed [facility] SARS-COV-2 COVID-19 VACCINE - (MODERNA) Unknown Completed [facility] SARS-COV-2 COVID-19 VACCINE, BIVALENT (MODERNA BOOSTER) Unknown Completed [facility] HPV9 Unknown Completed [facility] TDAP Unknown Completed [facility] SARS-COV-2 COVID-19 VACCINE - (MODERNA) Unknown Completed [facility] TDAP Unknown Completed [facility] SARS-COV-2 COVID-19 VACCINE - (MODERNA) Unknown Completed [facility] SARS-COV-2 COVID-19 VACCINE, BIVALENT (MODERNA BOOSTER) Unknown Completed [facility] HPV9 Unknown Completed [facility] TDAP Unknown Completed [facility] SARS-COV-2 COVID-19 VACCINE - (MODERNA) Unknown Completed [facility] SARS-COV-2 COVID-19 VACCINE, BIVALENT (MODERNA BOOSTER) Unknown Completed [facility] HPV9 Unknown Completed [facility] SARS-COV-2 COVID-19 VACCINE, BIVALENT (MODERNA BOOSTER) Unknown Completed [facility] TDAP Unknown Completed [facility] SARS-COV-2 COVID-19 VACCINE - (MODERNA) Unknown Completed [facility] SARS-COV-2 COVID-19 VACCINE, BIVALENT (MODERNA BOOSTER) Unknown Completed [facility] HPV9 Unknown Completed [facility] TDAP Unknown Completed [facility] SARS-COV-2 COVID-19 VACCINE - (MODERNA) Unknown Completed [facility] SARS-COV-2 COVID-19 VACCINE, BIVALENT (MODERNA BOOSTER) Unknown Completed [facility] HPV9 Unknown Completed [facility] TDAP Unknown Completed [facility] SARS-COV-2 COVID-19 VACCINE, BIVALENT (MODERNA BOOSTER) Unknown Completed [facility] SARS-COV-2 COVID-19 VACCINE - (MODERNA) Unknown Completed [facility] HPV9 Unknown Completed [facility] TDAP Unknown Completed [facility] SARS-COV-2 COVID-19 VACCINE - (MODERNA) Unknown Completed [facility] SARS-COV-2 COVID-19 VACCINE, BIVALENT (MODERNA BOOSTER) Unknown Completed [facility] HPV9 Unknown Completed [facility] TDAP Unknown Completed [facility] SARS-COV-2 COVID-19 VACCINE, BIVALENT (MODERNA BOOSTER) Unknown Completed [facility] SARS-COV-2 COVID-19 VACCINE - (MODERNA) Unknown Completed [facility] HPV9 Unknown Completed [facility] TDAP Unknown Completed [facility] SARS-COV-2 COVID-19 VACCINE, BIVALENT (MODERNA BOOSTER) Unknown Completed [facility] SARS-COV-2 COVID-19 VACCINE - (MODERNA) Unknown Completed [facility] HPV9 Unknown Completed [facility] TDAP Unknown Completed [facility] SARS-COV-2 COVID-19 VACCINE - (MODERNA) Unknown Completed [facility] SARS-COV-2 COVID-19 VACCINE, BIVALENT (MODERNA BOOSTER) Unknown Completed [facility] HPV9 Unknown Completed [facility] TDAP Unknown Completed [facility] SARS-COV-2 COVID-19 VACCINE - (MODERNA) Unknown Completed [facility] SARS-COV-2 COVID-19 VACCINE, BIVALENT (MODERNA BOOSTER) Unknown Completed [facility] HPV9 Unknown Completed [facility] TDAP Unknown Completed [facility] SARS-COV-2 COVID-19 VACCINE - (MODERNA) Unknown Completed [facility] SARS-COV-2 COVID-19 VACCINE, BIVALENT (MODERNA BOOSTER) Unknown Completed [facility] HPV9 Unknown Completed [facility] TDAP Unknown Completed [facility] SARS-COV-2 COVID-19 VACCINE - (MODERNA) Unknown Completed [facility] SARS-COV-2 COVID-19 VACCINE, BIVALENT (MODERNA BOOSTER) Unknown Completed [facility] HPV9 Unknown Completed [facility] TDAP Unknown Completed [facility] SARS-COV-2 COVID-19 VACCINE - (MODERNA) Unknown Completed [facility] SARS-COV-2 COVID-19 VACCINE, BIVALENT (MODERNA BOOSTER) Unknown Completed [facility] HPV9 Unknown Completed [facility] TDAP Unknown Completed [facility] SARS-COV-2 COVID-19 VACCINE - (MODERNA) Unknown Completed [facility] SARS-COV-2 COVID-19 VACCINE, BIVALENT (MODERNA BOOSTER) Unknown Completed [facility] HPV9 Unknown Completed [facility] TDAP Unknown Completed [facility] SARS-COV-2 COVID-19 VACCINE, BIVALENT (MODERNA BOOSTER) Unknown Completed [facility] SARS-COV-2 COVID-19 VACCINE - (MODERNA) Unknown Completed [facility] HPV9 Unknown Completed [facility] TDAP Unknown Completed [facility] SARS-COV-2 COVID-19 VACCINE - (MODERNA) Unknown Completed [facility] SARS-COV-2 COVID-19 VACCINE, BIVALENT (MODERNA BOOSTER) Unknown Completed [facility] HPV9 Unknown Completed [facility] TDAP Unknown Completed [facility] SARS-COV-2 COVID-19 VACCINE - (MODERNA) Unknown Completed [facility] SARS-COV-2 COVID-19 VACCINE, BIVALENT (MODERNA BOOSTER) Unknown Completed [facility] HPV9 Unknown Completed [facility] TDAP Unknown Completed [facility] SARS-COV-2 COVID-19 VACCINE, BIVALENT (MODERNA BOOSTER) Unknown Completed [facility] SARS-COV-2 COVID-19 VACCINE - (MODERNA) Unknown Completed [facility] HPV9 Unknown Completed [facility] Vital Signs Vital Name Observation Time Observation Value Comments S gueropj Systolic blood pressure 2023-12-16 13:18:00 127 mm[Hg] [facility] Diastolic blood pressure 2023-12-16 13:18:00 83 mm[Hg] [facility] Heart rate 2023-12-16 13:18:00 77 /min [facility] Body temperature 2023-12-16 13:18:00 36.17 Arlen [facility] Respiratory rate 2023-12-16 13:18:00 17 /min [facility] Body height 2023-12-16 13:18:[address] [facility] Body weight 2023-12-16 13:18:00 108.682 kg Univ [facility] BMI 2023-12-16 13:18:00 41.13 kg/m2 Univ [facility] Systolic blood pressure 2023-06-16 14:02:00 120 mm[Hg] [facility] Diastolic blood pressure 2023-06-16 14:02:00 74 mm[Hg] [facility] Heart rate 2023-06-16 14:02:00 73 /min Unive [facility] Body temperature 2023-06-16 14:02:00 36.33 Arlen [facility] Respiratory rate 2023-06-16 14:02:00 18 /min [facility] Body height 2023-06-16 14:02:00 162.6 cm Univ [facility] Body weight 2023-06-16 14:02:00 103.193 kg [facility] BMI 2023-06-16 14:02:00 39.05 kg/m2 Univ [facility] Systolic blood pressure 2023-05-21 13:25:00 103 mm[Hg] [facility] Diastolic blood pressure 2023-05-21 13:25:00 64 mm[Hg] [facility] Heart rate 2023-05-21 13:25:00 77 /min Unive [facility] Body temperature 2023-05-21 13:25:00 36.56 Arlen [facility] Body height 2023-05-21 13:25:00 162.6 cm Univ [facility] Body weight 2023-05-21 13:25:00 102.059 kg Univ [facility] BMI 2023-05-21 13:25:00 38.62 kg/m2 [facility] Oxygen saturation in Arterial blood by Pulse oximetry 2023-05-21 13:25:00 99 /min [facility] Systolic blood pressure 2023-04-21 15:24:00 120 mm[Hg] [facility] Diastolic blood pressure 2023-04-21 15:24:00 78 mm[Hg] [facility] Heart rate 2023-04-21 15:24:00 62 /min Unive [facility] Body temperature 2023-04-21 15:24:00 36.11 Arlen [facility] Respiratory rate 2023-04-21 15:24:00 18 /min [facility] Body height 2023-04-21 15:24:00 162.6 cm [facility] Body weight 2023-04-21 15:24:00 99.837 kg [facility] BMI 2023-04-21 15:24:00 37.78 kg/m2 [facility] Oxygen saturation in Arterial blood by Pulse oximetry 2023-04-21 15:24:00 99 /min [facility] Systolic blood pressure 2023-04-15 14:33:00 129 mm[Hg] [facility] Diastolic blood pressure 2023-04-15 14:33:00 75 mm[Hg] [facility] Heart rate 2023-04-15 14:33:00 79 /min Unive [facility] Body temperature 2023-04-15 14:33:00 36.67 Arlen [facility] Body height 2023-04-15 14:33:00 162.6 cm [facility] Body weight 2023-04-15 14:33:00 101.061 kg [facility] BMI 2023-04-15 14:33:00 38.24 kg/m2 [facility] Oxygen saturation in Arterial blood by Pulse oximetry 2023-04-15 14:33:00 99 /min [facility] Systolic blood pressure 2023-02-19 14:24:00 121 mm[Hg] [facility] Diastolic blood pressure 2023-02-19 14:24:00 77 mm[Hg] [facility] Heart rate 2023-02-19 14:24:00 66 /min Unive [facility] Body temperature 2023-02-19 14:24:00 36.56 Arlen [facility] Respiratory rate 2023-02-19 14:24:00 18 /min [facility] Body height 2023-02-19 14:24:[address] Body weight 2023-02-19 14:24:[address] [facility] BMI 2023-02-19 14:24:00 36.21 kg/m2 Univ [facility] Oxygen saturation in Arterial blood by Pulse oximetry 2023-02-19 14:24:00 99 /min [facility] Systolic blood pressure 2023-02-17 17:00:00 130 mm[Hg] [facility] Diastolic blood pressure 2023-02-17 17:00:00 83 mm[Hg] [facility] Heart rate 2023-02-17 17:00:00 71 /min Unive [facility] Respiratory rate 2023-02-17 17:00:00 20 /min [facility] Body height 2023-02-17 17:00:[address] Body weight 2023-02-17 17:00:00 98.884 kg Univ [facility] BMI 2023-02-17 17:00:00 36.28 kg/m2 Univ [facility] Oxygen saturation in Arterial blood by Pulse oximetry 2023-02-17 17:00:00 99 /min [facility] Systolic blood pressure 2023-01-20 14:45:00 131 mm[Hg] [facility] Diastolic blood pressure 2023-01-20 14:45:00 79 mm[Hg] [facility] Heart rate 2023-01-20 14:45:00 68 /min [facility] Respiratory rate 2023-01-20 14:45:00 19 /min [facility] Body height 2023-01-20 14:45:[address] Body weight 2023-01-20 14:45:00 98.748 kg Univ [facility] BMI 2023-01-20 14:45:00 36.23 kg/m2 [facility] Oxygen saturation in Arterial blood by Pulse oximetry 2023-01-20 14:45:00 100 /min [facility] Systolic blood pressure 2023-01-15 14:03:00 123 mm[Hg] [facility] Diastolic blood pressure 2023-01-15 14:03:00 76 mm[Hg] [facility] Heart rate 2023-01-15 14:03:00 72 /min Unive [facility] Body temperature 2023-01-15 14:03:00 37.17 Arlen [facility] Respiratory rate 2023-01-15 14:03:00 18 /min [facility] Body height 2023-01-15 14:03:00 165.1 cm Univ [facility] Body weight 2023-01-15 14:03:00 98.975 kg Univ [facility] BMI 2023-01-15 14:03:00 36.31 kg/m2 [facility] Oxygen saturation in Arterial blood by Pulse oximetry 2023-01-15 14:03:00 99 /min [facility] Body temperature 2023-01-13 14:21:00 36.72 Arlen [facility] Systolic blood pressure 2022-12-09 13:37:00 132 mm[Hg] [facility] Diastolic blood pressure 2022-12-09 13:37:00 83 mm[Hg] [facility] Heart rate 2022-12-09 13:37:00 68 /min Unive [facility] Body temperature 2022-12-09 13:37:00 36.33 Arlen [facility] Respiratory rate 2022-12-09 13:37:00 18 /min [facility] Body height 2022-12-09 13:37:00 165.1 cm Univ [facility] Body weight 2022-12-09 13:37:00 96.798 kg Univ [facility] BMI 2022-12-09 13:37:00 35.51 kg/m2 Univ [facility] Procedures Procedure Date / Time Performed Performing Clinician Source BI ULTRASOUND BREAST LIMITED LEFT 2024-02-16 16:36:56 Sarah Morel [facility] BI DIAGNOSTIC TOMOSYNTHESIS LEFT 2024-02-16 15:57:13 Sarah Morel [facility] CBC WITH DIFF 2023-12-16 14:22:00 Sarah [facility]l [facility] GC & CHLAMYDIA AMPLIFIED ASSAY 2023-12-16 14:22:00 Sarah Morel [facility] HIV 1/2 AG-AB WITH REFLEX 2023-12-16 14:22:00 Sarah Morel [facility] PAP SMEAR-LIQUID BASED-CP 2023-12-16 14:22[facility] 2023-12-16 14:22:00 [facility] FLU VACC (), 6 MO-64 YRS, .5ML, IM, TIV (FLUCELVAX) 2023-12-16 13:28:56 Sarah Morel [facility] POCT TEST 2023-06-16 14:40:00 Sid Cole [facility] GARDASIL 9 (HPV 9V) VACCINE 2023-06-16 14:08:54 Brandi Cole [facility] MYOCARDIUM PERFUSION STRESS AND REST 2023-05-12 15:42:00 Jossue Martin [facility] MYOCARDIUM PERFUSION STRESS AND REST 2023-05-12 15:42:00 Veronica Sendvidal [facility] MYOCARDIUM PERFUSION STRESS AND REST 2023-05-12 15:42:00 Veronica Sendil [facility] MYOCARDIUM PERFUSION STRESS AND REST 2023-05-12 15:42:00 Veronica, Sendvidal [facility] TRANSTHORACIC ECHO (TTE) COMPLETE 2023-03-24 15:39:18 Veronica, Sendvidal [facility] COMP. METABOLIC PANEL (87079) 2023-01-15 15:18:00 Wilbur-Van Bedoya [facility] LIPID PANEL (54247)(TOTAL CHOLESTEROL, TRIGLYCERIDES, HDL) 2023-01-15 15:18:00 Obi-AurelianoThomasma [facility] EKG (SCANNED DOCUMENTS) 2023-01-15 06:01:00 Doct or Unassigned, Arcadia [facility] GARDASIL 9 (HPV 9V) VACCINE 2023-01-13 14:21:32 Brandi Cole [facility] US PELVIS COMPLETE WITH TRANSVAGINAL 2022-12-24 15:50:00 Mariela Llanes [facility] THYROID STIMULATING HORMONE 2022-12-09 14:35:00 Mariela Llanes [facility] CBC WITH DIFF 2022-12-09 14:35:00 Mariela Llanes [facility] GLYCOSYLATED HEMOGLOBIN (A1C) 2022-12-09 14:35:00 Mariela Llanes [facility] HCV ANTIBODY 2022-12-09 14:35:[address] [facility] HIV 1/2 AG-AB WITH REFLEX 2022-12-09 14:35:00 Mariela Llanes [facility] SYPHILIS IGG/IGM 2022-12-09 14:35:00 Mariela Llanes [facility] PAP SMEAR-LIQUID BASED-CP 2022-12-09 14:29:00 Mariela Llanes [facility] GARDASIL 9 (HPV 9V) VACCINE 2022-12-09 13:48:27 Brandi Cole [facility] ASSIGNMENT OF BENEFITS 2022-12-09 13:07:14 Docto r Unassigned, Arcadia [facility] Encounters Start Date/Time End Date/Time Encounter Type Admission Type Attending Clinicians Care Facility Care Department Encounter ID Source 2024-03-04 09:30:00 2024-03-04 09:30:00 Outpatient R [facility] [id number] [facility] 2024-02-16 09:23:39 2024-02-16 23:59:00 Outpatient R SARAH MOREL [facility] [id number] [facility] 2024-02-16 09:23:39 2024-02-16 23:59:00 Hospital Encounter Sarah Morel [facility] 1.2.840.114 350.1.13.10 4.2.7.2.686 [id number] [facility] 2024-02-16 09:23:05 2024-02-16 23:59:00 Hospital Encounter Sarah Morel [facility] 1.2.840.114 350.1.13.10 4.2.7.2.686 [id number] 800 [id number] [facility] 2024-01-06 00:00:00 2024-01-06 11:37:38 Patient Secure Msg Donna Morelice [facility] HEAD OF ENGLISH [facility] MATERNAL & CHILD [facility] 1.2.840.114 350.1.13.10 4.2.7.2.686 [id number] [facility] 2024-01-05 00:00:00 2024-01-05 14:43:21 Telephone AdrielSarah [facility] HEAD OF ENGLISH [facility] & CHILD [facility] 1.2.840.114 350.1.13.10 4.2.7.2.686 [id number] [facility] 2024-01-04 00:00:00 2024-01-04 13:35:03 Refill Van Leigh [facility] PROFESSIO [facility] 1.2.840.114 350.1.13.10 4.2.7.2.686 [id number] [facility] 2024-01-01 09:51:03 2024-01-01 23:59:00 Outpatient R ADRIELSARAH [facility] [id number] [facility] 2024-01-01 09:51:03 2024-01-01 23:59:00 Hospital Encounter AdrielSarah [facility] 1.2.840.114 350.1.13.10 4.2.7.2.686 [id number] 800 [id number] [facility] 2023-12-31 00:00:00 2023-12-31 11:31:32 Telephone Sarah Morel [facility] HEAD OF [facility] & CHILD [facility] 1.2.840.114 350.1.13.10 4.2.7.2.686 [id number] [facility] 2023-12-25 00:00:00 2023-12-30 14:08:26 Telephone Sarah Morel [facility] HEAD OF ENGLISH [facility] CHILD [facility] 1.840.114 350.1.13.10 4.2.7.2.686 [id number] 107 [id number] [facility] 2023-12-16 08:15:00 2023-12-16 09:22:06 Outpatient R SARAH MOREL [facility] [id number] [facility] 2023-12-16 08:15:00 2023-12-16 09:22:06 Office Visit Sarah Morel Brenda A [facility] HEAD OF ENGLISH [facility] CHILD [facility] 1.840.114 350.1.13.10 4.2.7.2.686 [id number] [facility] 2023-08-24 08:40:00 2023-08-24 08:40:00 Outpatient R OBI-AURELIANO , VAN OBI-AURELIANO , [facility] [id number] [facility] 2023-05-22 00:00:00 2023-06-27 18:13:06 Patient Secure Mariela Ortiz [facility] HEAD OF [facility] & CHILD [facility] 1.2.840.114 350.1.13.10 4.2.7.2.686 [id number] [facility] 2023-06-22 00:00:00 2023-06-22 17:00:16 Telephone Brandi Cole [facility] HEAD OF [facility] & CHILD [facility] 1.2840.114 350.1.13.10 4.2.7.2.686 [id number] [facility] 2023-06-16 08:45:00 2023-06-16 09:38:58 Outpatient R BRANDI COLE [facility] [id number] [facility] 2023-06-16 08:45:00 2023-06-16 09:38:58 Office Visit Brandi Cole [facility] HEAD OF [facility] [facility] & CHILD [facility] 1.2840.114 350.1.13.10 4.2.7.2.686 [id number] [facility] 2023-05-21 08:40:00 2023-05-21 08:45:40 Outpatient R OBI-VAN BEDOYA OBAwais[facility] [id number] [facility] 2023-05-21 08:40:00 2023-05-21 08:45:40 Office Visit Lu [facility] 1.2.114 350.1.13.10 4.2.7.2.686 [id number] [facility] 2023-05-21 00:00:00 2023-05-21 00:00:00 Telephone Jossue Martin [facility] BUILD[facility] 1.20.114 350.1.13.10 4.2.7.2.686 [id number] [facility] 2023-05-20 00:00:00 2023-05-20 00:00:00 [facility] 1.20.114 350.1.13.10 4.2.7.2.686 [id number] [facility] 2023-05-18 00:00:00 2023-05-18 00:00:00 Refill Van Leigh [facility] PROFESSIFRAH [facility] BUILD[facility] 1.2.840.114 350.1.13.10 4.2.7.2.686 [id number] [facility] 2023-05-12 08:10:56 2023-05-12 23:59:00 Hospital Encounter Jossue Martin [facility] 1.2.840.114 350.1.13.10 4.2.7.2.686 [id number] [facility] 2023-05-12 08:10:50 2023-05-12 23:59:00 Hospital Encounter Jossue Martin [facility] 1.2.840.114 350.1.13.10 4.2.7.2.686 [id number] [facility] 2023-05-12 08:10:44 2023-05-12 23:59:00 Outpatient R VERONICA EDERVIDAL [facility] [id number] [facility] 2023-05-12 08:10:44 2023-05-12 23:59:00 Hospital Encounter Jossue Martin [facility] 1.2.840.114 350.1.13.10 4.2.7.2.686 [id number] [facility] 2023-05-12 08:10:37 2023-05-12 23:59:00 [facility] 1.2.840.114 350.1.13.10 4.2.7.2.686 [id number] [facility] 2023-04-21 09:40:00 2023-04-21 10:22:00 Outpatient R OBI-VAN BEDOYA OBAwais[facility] [id number] [facility] 2023-04-21 09:40:00 2023-04-21 10:22:00 [facility] 1.2.840.114 350.1.13.10 4.2.7.2.686 [id number] [facility] 2023-04-15 10:00:00 2023-04-15 10:00:00 Veterinary Livestock Inspector Visit 2, Adc Lab Lu [facility] BUILDING 1.2.840.114 350.1.13.10 4.2.7.2.686 [id number] [facility] 2023-04-15 09:00:00 2023-04-15 09:44:34 Outpatient R JOSSUE MARTIN [facility] [id number] [facility] 2023-04-15 09:00:00 2023-04-15 09:44:34 Office Visit Jossue Martin [facility] 1.2.840.114 350.1.13.10 4.2.7.2.686 [id number] [facility] 2023-04-15 00:00:00 2023-04-15 00:00:00 Patient Secure Msg [facility]bur[facility] 1.2.840.114 350.1.13.10 4.2.7.2.686 [id number] [facility] 2023-04-08 00:00:00 2023-04-08 00:00:00 Outpatient R JOSUSE MARTIN [facility] [id number] [facility] 2023-04-07 00:00:00 2023-04-07 00:00:00 Telephone Veronica Jossue PaulineEmber [facility] 1.2.840.114 350.1.13.10 4.2.7.2.686 [id number] [facility] 2023-03-24 08:24:48 2023-03-24 23:59:00 Outpatient R VERONICA JOSSUE [facility] [id number] [facility] 2023-03-24 08:24:48 2023-03-24 23:59:00 Hospital Encounter Martin Jossue RandolphEmberEmber [facility] 1.2.840.114 350.1.13.10 4.2.7.2.686 [id number] [facility] 2023-03-24 00:00:00 2023-03-24 00:00:00 Telephone Jossue MartinLataEmber [facility] 1.2.840.114 350.1.13.10 4.2.7.2.686 [id number] [facility] 2023-03-17 11:00:00 2023-03-17 11:00:00 Outpatient R MARTINEDERVIDAL [facility] [id number] [facility] 2023-03-11 00:00:00 2023-03-11 00:00:00 Refill Van Leigh [facility] 1.2.840.114 350.1.13.10 4.2.7.2.686 [id number] [facility] 2023-03-11 00:00:00 2023-03-11 00:00:00 Patient Secure Msg Jossue MartinLataEmber [facility] 1.2.840.114 350.1.13.10 4.2.7.2.686 [id number] [facility] 2023-03-05 00:00:00 2023-03-05 00:00:00 [facility] 1.2.840.114 350.1.13.10 4.2.7.2.686 [id number] [facility] 2023-02-27 00:00:00 2023-02-27 00:00:00 Telephone Jossue Martin [facility] 1.2.840.114 350.1.13.10 4.2.7.2.686 [id number] [facility] 2023-02-25 00:00:00 2023-02-25 00:00:00 Telephone Jossue Martin [facility] 1.2.840.114 350.1.13.10 4.2.7.2.686 [id number] [facility] 2023-02-19 08:20:00 2023-02-19 08:48:01 Outpatient R OBAwais-AURELIANO VAN NANETTEAwais-AURELIANO [facility] [id number] [facility] 2023-02-19 08:20:00 2023-02-19 08:48:01 Office Visit Obawais-Aureliano , [facility] BUILDING 1.2.840.114 350.1.13.10 4.2.7.2.686 [id number] [facility] 2023-02-17 10:00:00 2023-02-17 23:59:00 Outpatient R JOSSUE MARTIN [facility] [id number] [facility] 2023-02-17 10:00:00 2023-02-17 23:59:00 Hospital Encounter Jossue Martin [facility] 1.2.840.114 350.1.13.10 4.2.7.2.686 [id number] [facility] 2023-01-30 00:00:00 2023-01-30 00:00:00 Letter (Out) [facility] 1.2.840.114 350.1.13.10 4.2.7.2.686 [id number] [facility] 2023-01-22 10:00:00 2023-01-22 10:00:00 Outpatient R OBI-AURELIANO , VAN OBI-AURELIANO , [facility] [id number] [facility] 2023-01-21 00:00:00 2023-01-21 00:00:00 Patient Outreach Nathalie Prajapati R [facility] 1.2.840.114 350.1.13.10 4.2.7.2.686 [id number] [facility] 2023-01-20 09:00:00 2023-01-20 09:24:23 Outpatient R JOSSUE MARTIN [facility] [id number] [facility] 2023-01-20 09:00:00 2023-01-20 09:24:23 Office Visit Josuse Martin [facility] 1.2.840.114 350.1.13.10 4.2.7.2.686 [id number] [facility] 2023-01-15 09:00:00 2023-01-15 09:30:55 Outpatient R OBI-AURELIANO , VAN OBI-AURELIANO , [facility] [id number] [facility] 2023-01-15 09:00:00 2023-01-15 09:15:00 Veterinary Livestock Inspector Visit 2, Adc Lab Obi-Aureliano Van [facility] 1..840.114 350.1.13.10 4.2.7.2.686 [id number] [facility] 2023-01-15 08:00:00 2023-01-15 08:56:25 [facility].114 350.1.13.10 4.2.7.2.686 [id number] [facility] 2023-01-15 08:00:00 2023-01-15 08:00:00 Outpatient R OBI-VAN BEDOYA [facility]wais[facility]LI[facility] [id number] [facility] 2023-01-15 00:00:00 2023-01-15 00:00:00 Orders Only Doctor Unassigned, [place] [facility] 1.840.114 350.1.13.10 [id number] [id number] [facility] 2023-01-14 13:00:00 2023-01-14 13:00:00 Outpatient R OBI-AURELIANOVAN Nazario [facility] [id number] [facility] 2023-01-13 08:30:00 2023-01-13 08:45:00 Nurse Visit Nurse, Bubba Rmchp Rgv Cprit Obgyn Brandi Cole [facility] HEAD OF [facility] MAT[facility]NAL & [facility] 1.840.114 350.1.13.10 [id number] [id number] [facility] 2023-01-13 08:30:00 2023-01-13 08:30:00 Outpatient R BRANDI COLE [facility] [id number] [facility] 2023-01-12 00:00:00 2023-01-12 00:00:00 Telephone Wilbur-Aureliano Thomas[facility] [facility] 1.2.840.114 350.1.13.10 4.2.7.2.686 [id number] [facility] 2022-12-24 08:57:28 2022-12-24 23:59:00 Outpatient R MARIELA LLANES [facility] [id number] [facility] 2022-12-24 08:57:28 2022-12-24 23:59:00 Hospital Encounter Mariela Llanes [facility] 1.2840.114 350.1.13.10 4.2.7.2.686 [id number] [facility] 2022-12-23 00:00:00 2022-12-23 00:00:00 Telephone Mariela Llanes [facility] HEAD OF [facility] 1.2.840.114 350.1.13.10 4.2.7.2.686 [id number] [facility] 2022-12-22 00:00:00 2022-12-22 00:00:00 Telephone Mariela Llanes [facility] HEAD OF [place] [facility] 1.2.840.114 350.1.13.10 4.2.7.2.686 [id number] [facility] 2022-12-22 00:00:00 2022-12-22 00:00:00 Telephone Mariela Llanes [facility] HEAD OF [place] [facility] 1.2.840.114 350.1.13.10 4.2.7.2.686 [id number] [facility] 2022-12-17 00:00:00 2022-12-17 00:00:00 Outpatient GC_GCBZW_Ka jg_S [facility] [id number] [facility] 2022-12-09 09:00:00 2022-12-09 09:35:19 Outpatient R MARIELA LLANES [facility] [id number] [facility] 2022-12-09 09:00:00 2022-12-09 09:35:19 Office Visit Mariela Llanes [facility] HEAD OF [place] [facility]ILD [facility] 1..114 350.1.13.10 4.2.7.2.686 [id number] [facility] 2022-12-09 00:00:00 2022-12-09 00:00:00 Orders Only Doctor Unassigned, [place] [facility] 1..114 350.1.13.10 4.2.7.2.686 [id number] [facility] 2022-10-06 09:30:00 2022-10-06 09:30:00 Outpatient R YFN BLOCK CHERYAL [facility] [id number] [facility] 2022-10-02 00:00:00 2022-10-02 00:00:00 Patient Secure Msg Doctor Unassigned, [place] [facility] 1.114 350.1.13.10 4.2.7.2.686 [id number] [facility] 2022-09-29 00:00:00 2022-09-29 00:00:00 Pre Visit Outreach Pcp, Patient Does Not Have A [facility] 1..114 350.1.13.10 4.2.7.2.686 [id number] [facility] 2020-03-28 09:06:00 2020-03-28 09:06:00 Outpatient Raju_P [facility] [id number] [facility] Results Test Description Test Time Test Comments Results Resul t Comments Source BI Ultrasound breast limited left 2024-01-19 1 17:09:36 Examination:BI DIAGNOSTIC TOMOSYNTHESIS LEFTBI Ultrasound breast limited left History:Patient is 38 year old and is seen for: ?Abnormal l mammo. ? Comparisons: 01/01/2024 BI SCREENING TOMOSYNTHESIS BILATERAL Prior exam with the following findings: LeftThere is a focal asymmetry in the upper outer quadrant, posterior depth (LCC 30/65, L MLO 17/82). CURRENT EXAM: ? Findings:BI DIAGNOSTIC TOMOSYNTHESIS LEFTThere are scattered areas of fibroglandular density. The focal asymmetry at 3 o'clock, posterior depth, (best seen on LSCC image 26 of 44 and LML image 15 of 81) has the appearance of normal superimposed breast tissue. BI Ultrasound breast limited leftTargeted left breast ultrasound was performed. A ridge of normal-appearing breast tissue is noted at 3:00, 16 cm from the nipple, and this is favored to correlate with the previously noted mammographic focal asymmetry at 3:00, posterior depth. The visualized level 1 axillary lymph nodes appear unremarkable. Impression: Left: There is no evidence of malignancy. Recommendation:Sary al mammographic follow-up - Left ? BI-RADS Category: Left: 2 - BenignOverall: 2 - Benign [facility] BI DIAGNOSTIC TOMOSYNTHESIS LEFT 2024-01-19 1 17:09:36 Examination:BI DIAGNOSTIC TOMOSYNTHESIS LEFTBI Ultrasound breast limited left History:Patient is 38 year old and is seen for: ?Abnormal l mammo. ? Comparisons: 01/01/2024 BI SCREENING TOMOSYNTHESIS BILATERAL Prior exam with the following findings: LeftThere is a focal asymmetry in the upper outer quadrant, posterior depth (LCC 30/65, L MLO 17/82). CURRENT EXAM: ? Findings:BI DIAGNOSTIC TOMOSYNTHESIS LEFTThere are scattered areas of fibroglandular density. The focal asymmetry at 3 o'clock, posterior depth, (best seen on LSCC image 26 of 44 and LML image 15 of 81) has the appearance of normal superimposed breast tissue. BI Ultrasound breast limited leftTargeted left breast ultrasound was performed. A ridge of normal-appearing breast tissue is noted at 3:00, 16 cm from the nipple, and this is favored to correlate with the previously noted mammographic focal asymmetry at 3:00, posterior depth. The visualized level 1 axillary lymph nodes appear unremarkable. Impression: Left: There is no evidence of malignancy. Recommendation:Sary guillen mammographic follow-up - Left ? BI-RADS Category: Left: 2 - BenignOverall: 2 - [facility]ign [facility] [id number] 14:40:00* Test Item Value Reference Range Interpretation Comme nts POCT PREG (test code = 1605) Negative On board controls acceptable with C Line (test code = 3574) Yes POCT PREG LOT # (test code = 3575) POCT PREG TEST DATE ( test code = 3576) [facility] 23:32:57* Test Item Value Reference Range Interpretation Comme nts Height (test code = 6271866775) 65 in Weight (test code = 9022489055) 217 lbs Systolic BP (test code = 0197296159) 122 mmHg Diastolic BP (test code = 7260818197) 83 mmHg Heart Rate (test code = 8866985055) 66 bpm BSA (test code = 3750036422) 2.05 m2 LVIDD (test code = 5375906175) 4.40 cm Left Ventricular End Diastolic Volume by Teichholz Method (test code = 5308349) 88.8 mL IVS (test code = 6288940035) 1.12 cm Interventricular Septum Diastolic Thickness by 2D (test code = 1004754) 1.12 cm LVPWD (test code = 9595694929) 1.23 cm PW (test code = 7200398761) 1.23 cm 0.6-1.1 EF(Teich) (test code = 3331455380) 55.90 % LVIDS (test code = 2078354680) 3.10 cm Left Ventricular End Systolic Volume by Teichholz Method (test code = 8893308) 39.2 mL FS (test code = 0122377216) 29 % EF - 2D (test code = 68972828) 55.90 % LVOT diameter (test code = 8949372830) 2.08 cm LVOT area (test code = 7727888654) 3.40 cm2 ACS (test code = 0219150576) 2.25 cm Ao root diam (test code = 5565895156) 3.20 cm Aortic root (test code = 9859455148) 3.2 cm Ao root annulus (test code = 6293132374) 3.2 cm LA size (test code = 9711517236) 3.6 cm E wave decelartion time (test code = 6601271052) 0.16 s MV Peak E Nato (test code = 7086908049) 92.2 cm/s MV Peak A Nato (test code = 1349682034) 81.8 cm/s E/A ratio (test code = 6476347025) 1.13 ratio MR max PG (test code = 8904359418) 35.40 mm[Hg] MR max nato (test code = 9587003801) 297.70 cm/s Mr max nato (test code = 3017758898) 297.7 m/s MV Prop V (test code = 6209253493) 93.80 cm/s Tapse (test code = 2026992974) 1.88 cm TR Peak Nato (test code = 4537813238) 218.2 cm/s Triscuspid Valve Regurgitation Peak Gradient (test code = 9496408759) 19.0 mmHg LVOT stroke volume (test code = 3706618519) 85.50 cm3 LVOT peak nato (test code = 8688802131) 102.7 cm/s LVOT mn grad (test code = 8108987659) 1.8 mmHg AV LVOT peak gradient (test code = 4464285929) 4.2 mmHg LVOT peak VTI (test code = 8814543724) 25.1 cm LV V1 mean (test code = 3355787813) 61.40 cm/s Aortic valve mean velocity (test code = 2595817745) 87.6 cm/s Ao peak nato (test code = 7217430929) 140.9 cm/s Ao VTI (test code = 2534177523) 38.0 cm AV area by cont VTI (test code = 2155550715) 2.3 cm2 AV area peak nato (test code = 0563667776) 2.5 cm2 Ao max PG (test code = 2172668033) 7.90 mm[Hg] AV peak gradient (test code = 9073916779) 7.9 mmHg AV valve area (test code = 2750297737) 2.25 cm2 AV mean gradient (test code = 5401728543) 3.6 mmHg Radiology Study observation (narrative) (test code = 03148-5) MANGO (test code = MANGO) ?Left?Ventricle: Left ventricle size is normal. Normal wall thickness. Normal wall motion. Normal systolic function with a visually estimated EF of 55 - 60%. Normal diastolic function. ?Tricuspid?Valve: Trace transvalvular regurgitation. Right ventricular systolic pressure is 15-20 mmHg. ?RA pressure is 0-5 mmHg. Left VentricleLeft ventricle size is normal. Normal wall thickness. Normal wall motion. Normal systolic function with a visually estimated EF of 55 - 60%. Normal diastolic function.Right VentricleRight ventricle size is normal. Normal systolic function.Left AtriumLeft atrium size is normal.Right AtriumRight atrium size is normal.Mitral ValveMitral valve structure is normal. Trace transvalvular regurgitation.Tricusp id ValveTricuspid valve structure is grossly normal. Trace transvalvular regurgitation. Right ventricular systolic pressure is 15-20 mmHg. RA pressure is 0-5 mmHg.Aortic ValveTricuspid.Pulmon ic ValvePulmonic valve is grossly normal in structure and function. Trace transvalvular regurgitation.Ascendi ng AortaNormal sized aortic root.PericardiumNo pericardial effusion.Study DetailsStudy quality was adequate. A complete echocardiogram was performed using 2D, color flow Doppler and spectral Doppler. The apical, parasternal, subcostal and suprasternal views were obtained. [facility] ONLY - SYPHILIS [id number] 16:28:05* Test Item Value Reference Range Interpretation Comme nts Syphilis IgG/IgM (test code = 21204-8) Non-reactive Non-reactive MANGO (test code = MANGO) Non-reactive - No serologic evidence of T. pallidum infection. Cannot exclude incubating or early syphilis. Submit a second specimen in 2-4 weeks if syphilis is clinically suspected. Equivocal - Further testing to follow. Reactive - Further testing to follow. Lab Interpretation (test code = 73203-9) Normal [facility] ONLY - SYPHILIS [id number] 16:28:05* Test Item Value Reference Range Interpretation Comme nts Syphilis IgG/IgM (test code = 68539-4) Non-reactive Non-reactive MANGO (test code = MANGO) Non-reactive - No serologic evidence of T. pallidum infection. Cannot exclude incubating or early syphilis. Submit a second specimen in 2-4 weeks if syphilis is clinically suspected. Equivocal - Further testing to follow. Reactive - Further testing to follow. Lab Interpretation (test code = 74402-6) Normal [facility] 1/2 AG-AB WITH [id number] 08:00:17* Test Item Value Reference Range Interpretation Comme nts HIV Semi-quantitative (test code = 89792-7) 0.08 Negative MANGO (test code = MANGO) Non-reactive for HIV-1 antigen and HIV-1/HIV-2 antibodies. ?No laboratory evidence of HIV infection. ?Repeat in 2-4 weeks if acute HIV infection is suspected. [facility] 1/2 AG-AB WITH [id number] 08:00:17* Test Item Value Reference Range Interpretation Comme nts HIV Semi-quantitative (test code = 08545-7) 0.08 Negative MANGO (test code = MANGO) Non-reactive for HIV-1 antigen and HIV-1/HIV-2 antibodies. ?No laboratory evidence of HIV infection. ?Repeat in 2-4 weeks if acute HIV infection is suspected. [facility]2022-12-10 07:25:06* Test Item Value Reference Range Interpretation Comme nts HGB A1C (test code = 4548-4) 5.2 % 4.0-5.7 MANGO (test code = MANGO) Reference RangesNormal: <5.7%Prediabetes: 5.7 - 6.4%Diabetes: > 6.5% Lab Interpretation (test code = 98004-6) Normal [facility]A1C)2022-12-10 07:25:06* Test Item Value Reference Range Interpretation Comme nts HGB A1C (test code = 4548-4) 5.2 % 4.0-5.7 MANGO (test code = MANGO) Reference RangesNormal: <5.7%Prediabetes: 5.7 - 6.4%Diabetes: > 6.5% Lab Interpretation (test code = 31334-3) Normal [facility] [id number] 06:52:12* Test Item Value Reference Range Interpretation Comme nts HCV Ab (test code = 74286-6) Negative HCV Semi-Quantitative (test code = 05836-0) 0.02 [facility] [id number] 06:52:12* Test Item Value Reference Range Interpretation Comme nts HCV Ab (test code = 43086-2) Negative HCV Semi-Quantitative (test code = 68322-4) 0.02 [facility] [id number] 06:35:06 * Test Item Value Reference Range Interpretation Comme nts TSH (test code = 3878537734) 1.04 See_Comment Biotin has been reported to cause a negative bias, interpret results relative to patient's use of biotin. [Automated message] The system which generated this result transmitted reference range: 0.45 - 4.70 mIU/L. The reference range was not used to interpret this result as normal/abnormal. Lab Interpretation (test code = 34170-4) Normal [facility] [id number] 06:35:06 * Test Item Value Reference Range Interpretation Comme nts TSH (test code = 7351582060) 1.04 See_Comment Biotin has been reported to cause a negative bias, interpret results relative to patient's use of biotin. [Automated message] The system which generated this result transmitted reference range: 0.45 - 4.70 mIU/L. The reference range was not used to interpret this result as normal/abnormal. Lab Interpretation (test code = 32468-0) Normal [facility] WITH [id number] 06:00:26* Test Item Value Reference Range Interpretation [...] g/dL 31.6-35.1 L RDW-SD (test code = 84145-2) 38.6 fL 39.0-49.9 L RDW-CV (test code = 788-0) 13.3 % 12.0-15.5 PLT (test code = 777-3) 368 See_Comment H [Automated [employer]] The system which generated this result transmitted reference range: 166 - 358 10*3/?L. The reference range was not used to interpret this result as normal/abnormal. MPV (test code = 12724-5) 11.4 fL 9.5-12.9 NRBC/100 WBC (test code = 6631670402) 0.0 See_Comment [Automated [employer]] The system which generated this result transmitted reference range: 0.0 - 10.0 /100 WBCs. The reference range was not used to interpret this result as normal/abnormal. NRBC x10^3 (test code = 3205599576) See_Comment [Automated [employer] evolso] The system which generated this result transmitted reference range: 10*3/?L. The reference range was not used to interpret this result as normal/abnormal. GRAN MAT (NEUT) % (test code = 770-8) 52.0 % IMM GRAN % (test code = 1170351028) 0.00 % LYMPH % (test code = 736-9) 27.5 % MONO % (test code = 5905-5) 18.2 % EOS % (test code = 713-8) 1.7 % BASO % (test code = 706-2) 0.6 % GRAN MAT x10^3(ANC) (test code = 4445296226) 1.89 10*3/uL 1.88-7.09 IMM GRAN x10^3 (test code = 0067571584) 0.00-0.06 LYMPH x10^3 (test code = 731-0) 1.00 10*3/uL 1.32-3.29 L MONO x10^3 (test code = 742-7) 0.66 10*3/uL 0.33-0.92 EOS x10^3 (test code = 711-2) 0.06 10*3/uL 0.03-0.39 BASO x10^3 (test code = 704-7) 0.01-0.07 Lab Interpretation (test code = 54766-2) Abnormal [facility] WITH [id number] 06:00:26* Test Item Value Reference Range Interpretation [...] g/dL 31.6-35.1 L RDW-SD (test code = 67790-5) 38.6 fL 39.0-49.9 L RDW-CV (test code = 788-0) 13.3 % 12.0-15.5 PLT (test code = 777-3) 368 See_Comment H [Automated messa ge] The system which generated this result transmitted reference range: 166 - 358 10*3/?L. The reference range was not used to interpret this result as normal/abnormal. MPV (test code = 17838-5) 11.4 fL 9.5-12.9 NRBC/100 WBC (test code = 3103642187) 0.0 See_Comment [Automated me ssage] The system which generated this result transmitted reference range: 0.0 - 10.0 /100 WBCs. The reference range was not used to interpret this result as normal/abnormal. NRBC x10^3 (test code = 5835701130) See_Comment [Automated messa ge] The system which generated this result transmitted reference range: 10*3/?L. The reference range was not used to interpret this result as normal/abnormal. GRAN MAT (NEUT) % (test code = 770-8) 52.0 % IMM GRAN % (test code = 1316968748) 0.00 % LYMPH % (test code = 736-9) 27.5 % MONO % (test code = 5905-5) 18.2 % EOS % (test code = 713-8) 1.7 % BASO % (test code = 706-2) 0.6 % GRAN MAT x10^3(ANC) (test code = 8205410764) 1.89 10*3/uL 1.88-7.09 IMM GRAN x10^3 (test code = 8561469045) 0.00-0.06 LYMPH x10^3 (test code = 731-0) 1.00 10*3/uL 1.32-3.29 L MONO x10^3 (test code = 742-7) 0.66 10*3/uL 0.33-0.92 EOS x10^3 (test code = 711-2) 0.06 10*3/uL 0.03-0.39 BASO x10^3 (test code = 704-7) 0.01-0.07 Lab Interpretation (test code = 79233-1) Abnormal [facility]
[2024-02-21] MEDS ORDERED: NA CHLORIDE 0.9% 1,000 ML ONE (17:18)
[2024-02-21] MEDS ORDERED: ONDANSETRON 4 MG/2 ML VIAL ONE (17:18)
[2024-02-21 17:27] LABS: Absolute Lymphocytes (CBC) 1.3 K/uL (0.7-4.9); Absolute Monocytes 0.4 K/uL (0.1-1.3); Absolute Neutrophil 2.5 K/uL (1.8-8.0); Basophils % 0.4 % (0-1.3); Eosinophils % 1.1 % (0-4.4); Hematocrit 35.2 % (36.0-45.0); Hemoglobin 11.1 g/dL (12.0-15.0); Lymphocytes % 30.8 % (15.3-44.8); MCH 23.7 pg (27.0-35.0); MCHC 31.5 g/dL (32.0-36.0); MCV 75.3 fL (80-100); Monocytes % 8.5 % (3.3-12.3); Neutrophils % 59.2 % (41.7-73.7); Nucleated Red Blood Cells % 0.2 % (0-0); Platelets 425 thou/uL (152-406); RBC Red Blood Cell Count 4.67 M/uL (3.86-4.86); Specific Gravity 1.008 (1.005-1.030)
[2024-02-21 17:28] LABS: Specific Gravity 1.008 (1.005-1.030); Sqamous Epithelial <5 /HPF (None Seen); Urine Bacteria None Seen /HPF (<20); Urine Bilirubin NEGATIVE (Negative); Urine Blood 3+ (OVER) (Negative); Urine Clarity Clear (Clear); Urine Color Colorless (Yellow); Urine Crystals Unidentified Few /HPF (None Seen); Urine Culture Reflex Order NOT NEEDED; Urine Glucose NEGATIVE (Negative); Urine Ketones NEGATIVE (Negative); Urine Microscopic Reflex YN ORDER UMIC; Urine Nitrite NEGATIVE (Negative); Urine Protein NEGATIVE (Negative); Urine RBC <5 /HPF (None Seen); Urine Urobilinogen Normal (Normal); Urine WBC <5 /HPF (<5); Urine Yeast (Budding) Trace /HPF (None Seen)
[2024-02-21 17:42] LABS: Albumin 3.3 g/dL (3.4-5.0); Albumin/Globulin Ratio 0.7 (1.1-1.8); Anion Gap 7.6 mEq/L (5.0-15.0); Bilirubin Total 0.3 mg/dL (0.2-1.0); Globulin 4.7 g/dL (2.3-3.5); Potassium 3.6 mEq/L (3.5-5.1)
--- NOTE | 2024-02-21 17:45 | RAD REPORT ---
EXAMINATION: Pelvis Complete CLINICAL INDICATION: Vaginal bleeding TECHNIQUE: Real-time ultrasonography of the pelvis was performed transabdominally.. Color and spectra l Doppler evaluation of the ovaries was performed. COMPARISON: No prior exam. Findings: The uterus measures 8 x 4 x 5 cm. A fibroid is not seen. Endometrial stripe measures 11 mm Right ovary normal in size and echotexture. Left ovary normal in size and echotexture. The ovaries contain many small follicles Right and left adnexa unremarkable. No significant free fluid IMPRESSION: Many small follicles within each ovary. This can be seen with polycystic ovarian syndrome.
[2024-02-21] MEDS ORDERED: KETOROLAC 30 MG/ML INJ ONE (19:04)
--- NOTE | 2024-02-21 19:04 | EDPHYS ---
Physician Documentation [facility] Name: Alanna Barreto Age: 38 yrs Sex: Female : 1985 Arrival Date: 02/21/2024 Time: 15:59 Bed 6 Private MD: KENNETH Physician Alberto Ponce HPI: 02/20 18:56 This 38 yrs old Black Female presents to ER via Ambulatory with complaints of Vaginal esmer Bleeding. 18:56 The patient presents with vaginal bleeding that is moderate. Onset: The esmer symptoms/episode began/occurred 10 day(s) ago. Modifying factors: The symptoms are alleviated by nothing, the symptoms are aggravated by nothing. Associated signs and symptoms: The patient has no apparent associated signs or symptoms. Severity of symptoms: At their worst the symptoms were moderate, in the emergency department the symptoms are unchanged. The patient is not sexually active. The patient has not experienced similar symptoms in the past. 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 - Infectious Disease History:: Denies. - Social history:: Smoking status: Patient denies any tobacco usage or history of. - Family history:: not pertinent. ROS: 18:56 Constitutional: Negative for fever, chills, and weight loss, Eyes: Negative for injury, esmer pain, redness, and discharge, ENT: Negative for injury, pain, and discharge, Neck: Negative for injury, pain, and swelling, Cardiovascular: Negative for chest pain, palpitations, and edema, Respiratory: Negative for shortness of breath, cough, wheezing, and pleuritic chest pain, Abdomen/GI: Negative for abdominal pain, nausea, vomiting, diarrhea, and constipation, Back: Negative for injury and pain, MS/Extremity: Negative for injury and deformity, Skin: Negative for injury, rash, and discoloration, Neuro: Negative for headache, weakness, numbness, tingling, and seizure, Psych: Negative for depression, anxiety, suicide ideation, homicidal ideation, and hallucinations, Allergy/Immunology: Negative for hives, rash, and allergies, Endocrine: Negative for neck swelling, polydipsia, polyuria, polyphagia, and marked weight changes, Hematologic/Lymphatic: Negative for swollen nodes, abnormal bleeding, and unusual bruising, 18:56 : Positive for vaginal bleeding, Exam: 18:56 Constitutional: This is a well developed, well nourished patient who is awake, alert, esmer and in no acute distress. Head/Face: Normocephalic, atraumatic. Eyes: Pupils equal round and reactive to light, extra-ocular motions intact. Lids and lashes normal. Conjunctiva and sclera are non-icteric and not injected. Cornea within normal limits. Periorbital areas with no swelling, redness, or edema. ENT: Nares patent. No nasal discharge, no septal abnormalities noted. Tympanic membranes are normal and external auditory canals are clear. Oropharynx with no redness, swelling, or masses, exudates, or evidence of obstruction, uvula midline. Mucous membranes moist. Neck: Trachea midline, no thyromegaly or masses palpated, and no cervical lymphadenopathy. Supple, full range of motion without nuchal rigidity, or vertebral point tenderness. No Meningismus. Chest/axilla: Normal chest wall appearance and motion. Nontender with no deformity. No lesions are appreciated. Cardiovascular: Regular rate and rhythm with a normal S1 and S2. No gallops, murmurs, or rubs. Normal PMI, no JVD. No pulse deficits. Respiratory: Lungs have equal breath sounds bilaterally, clear to auscultation and percussion. No rales, rhonchi or wheezes noted. No increased work of breathing, no retractions or nasal flaring. Abdomen/GI: Soft, non-tender, with normal bowel sounds. No distension or tympany. No guarding or rebound. No evidence of tenderness throughout. Back: No spinal tenderness. No costovertebral tenderness. Full range of motion. Skin: Warm, dry with normal turgor. Normal color with no rashes, no lesions, and no evidence of cellulitis. MS/ Extremity: Pulses equal, no cyanosis. Neurovascular intact. Full, normal range of motion., bilateral aka Neuro: Awake and alert, GCS 15, oriented to person, place, time, and situation. Cranial nerves II-XII grossly intact. Motor strength 5/5 in all extremities. Sensory grossly intact. Cerebellar exam normal. Normal gait. Psych: Awake, alert, with orientation to person, place and time. Behavior, mood, and affect are within normal limits. Vital Signs: 16:21 BP 145 / 94; Pulse 83; Resp 15; Temp 98.6(O); Pulse Ox 100% ; Weight 113.85 kg; Height cm10 5 ft. 4 in. ; Pain 10/10; 17:12 BP 112 / 63; Pulse 77; Resp 16; Pulse Ox 100% on R/A; db 17:30 BP 97 / 64; Pulse 78; Resp 18; Pulse Ox 100% on R/A; db 18:00 BP 97 / 74; Pulse 71; Resp 16; Pulse Ox 100% ; db 18:15 BP 107 / 60; Pulse 73; Resp 16; Pulse Ox 100% on R/A; db 19:23 BP 106 / 95; Pulse 77; Resp 17; Temp 98.6; Pulse Ox 100% ; Pain 7/10; bm8 16:21 Body Mass Index 43.08 (113.85 kg, 162.56 cm) cm10 16:21 Pain Scale: Adult cm10 19:23 Pain Scale: Adult bm8 [place] Coma Score: 19:23 Eye Response: spontaneous(4). Motor Response: obeys commands(6). Verbal Response: bm8 oriented(5). Total: 15. MDM: 16:15 Medical Screening Exam initiated esmer 18:58 Differential diagnosis: dysmenorrhea, menometrorrhagia, menorrhea, nonspecific esmer abdominal pain, ovarian cyst, uterine fibroids. Data reviewed: vital signs, nurses notes, lab test result(s), radiologic studies, ultrasound. Consideration of Admission/Observation Escalation of care including admission/observation considered. I considered the following discharge prescriptions or medication management in the emergency department Medications were administered in the Emergency Department. See MAR. Independent interpretation of the following test(s) in the Emergency Department Radiology Department Ultrasound: My interpretation is VAG PROBE USG. Historians other than the Patient: PT WELL INFORMED. Care significantly affected by the following chronic conditions: Obesity, DEPRESSION, GERD, HPV, ANXIETY. 02/20 16:16 Order name: CBC with Diff; Complete Time: 18:34 [facility] 02/20 16:16 Order name: CMP; Complete Time: 18:34 [facility] 02/20 16:16 Order name: Lipase; Complete Time: 18:34 [facility] 02/20 16:16 Order name: Test, Urine; Complete Time: 18:34 [facility] 02/20 16:16 Order name: Urinalysis w/ reflexes; Complete Time: 18:34 [facility] 02/20 17:13 Order name: Pelvis Complete; Complete Time: 18:34 [facility] 02/20 17:46 Order name: Transvaginal Study Probe [facility] 02/20 16:16 Order name: IV Saline Lock; Complete Time: 17:23 [facility] 02/20 16:16 Order name: Labs collected and sent; Complete Time: 17:23 [facility] Administered Medications: 17:18 Drug: NS 0.9% IV 1000 ml IV at 1 bolus Per protocol; to be given as a bolus over 60 db minutes Route: IV; Rate: 1 bolus; Site: right antecubital; 19:09 Follow up: Response: No adverse reaction; IV Status: Completed infusion; IV Intake: bm8 1000ml 17:20 Drug: Ondansetron IVP 4 mg IVP once; over 2 minutes Route: IVP; Site: right antecubital;db 19:09 Follow up: Response: No adverse reaction bm8 19:09 Not Given (medication unavailablee): Provera 10 mg PO once bm8 19:09 Drug: Ketorolac IVP 30 mg IVP once Route: IVP; Site: right antecubital; bm8 19:24 Follow up: Response: No adverse reaction bm8 Disposition Summary: 02/21/24 19:03 Discharge Ordered Notes: Location: Home esmer Problem: new esmer Symptoms: have improved esmer Condition: Stable esmer Diagnosis - Abnormal uterine and vaginal bleeding, unspecified esmer - Other specified abnormal uterine and vaginal bleeding - MENOMETRORRHAGIA esmer Followup: esmer - With: Private Physician - When: 2 - 3 days - Reason: Recheck today's complaints, Continuance of care, Re-evaluation by your physician Followup: esmer - With: Michelle Ryan MD - When: 2 - 3 days - Reason: Recheck today's complaints, Re-evaluation by your physician Discharge Instructions: - Discharge Summary Sheet esmer - Abnormal Uterine Bleeding esmer - Menorrhagia esmer - Dysfunctional Uterine Bleeding esmer - Menorrhagia, [id number] esmer - Abnormal Uterine Bleeding, [id number] [facility] Forms: - Medication Reconciliation Form esmer - Antibiotic Education esmer - Prescription Opioid Use esmer - Patient Portal Instructions [facility] - Leadership Thank You Letter [facility] Prescriptions: - Provera 10 mg Oral tablet - take 1 tablet ORAL route daily; 9 tablet; Refills: 0, Product Selection [facility] Permitted - Ibuprofen 600 mg Oral Tablet - take 1 tablet ORAL route every 6 hours As needed take with food; 30 tablet; [facility] Refills: 0, Product Selection Permitted Signatures: Dispatcher [employer] Alberto Saravia MD MD cha Benton, Danielle, RN RN db Mecredes Brink, RN RN cm10 Hilario Bazan RN RN bm8 Corrections: (The following items were deleted from the chart) 16:17 16:17 Transvaginal Study (Probe)+[id number] ordered. [facility] KENNETHCO
--- NOTE | 2024-02-21 19:04 | ER ---
Nurse's Notes [facility] Name: Alanna Barreto Age: 38 yrs Sex: Female : 1985 Arrival Date: 02/21/2024 Time: 15:59 Bed 6 Private MD: Diagnosis: Abnormal uterine and vaginal bleeding, unspecified;Other specified abnormal uterine and vaginal bleeding-MENOMETRORRHAGIA Presentation: 02/20 16:21 Chief complaint: Patient states: vaginal bleeding onset 02/10. Pt states that she has cm10 irregular periods and is having increased cramps. 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 Coronavirus screen: Client denies travel out of the [place] in the last 14 days. Ebola Screen: Patient denies travel to an Ebola-affected area in the 21 days before illness onset. Initial Sepsis Screen: Does the patient meet any 2 criteria? No. Patient's initial sepsis screen is negative. Does the patient have a suspected source of infection? No. Patient's initial sepsis screen is negative. Risk Assessment: Do you want to hurt yourself or someone else? Patient reports no desire to harm self or others. Onset of symptoms was February 11, 2024. 16:21 Method Of Arrival: Ambulatory cm10 16:21 Acuity: CHRISTOPHER 3 cm10 Triage Assessment: 16:25 General: Appears in no apparent distress. uncomfortable, Behavior is calm, cooperative. cm10 Neuro: No deficits noted. Level of Consciousness is awake, alert, obeys commands, Oriented to person, place, time, situation, Appropriate for age. Respiratory: No deficits noted. Airway is patent Respiratory effort is even, unlabored, Respiratory pattern is regular, symmetrical. 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 - Infectious Disease History:: Denies. - Social history:: Smoking status: Patient denies any tobacco usage or history of. - Family history:: not pertinent. Screenin:46 [facility] ED Fall Risk Assessment (Adult) History of falling in the last 3 months, db including since admission No falls in past 3 months (0 pts) Confusion or Disorientation No (0 pts) Intoxicated or Sedated No (0 pts) Impaired Gait No (0 pts) Mobility Assist Device Used No (0 pt) Altered Elimination No (0 pt) Score/Fall Risk Level 0 - 2 = Low Risk Oriented to surroundings, Maintained a safe environment. Abuse screen: Denies threats or abuse. Denies injuries from another. Nutritional screening: No deficits noted. Tuberculosis screening: No symptoms or risk factors identified. Assessment: 17:18 Reassessment: Patient appears in no apparent distress at this time. Patient and/or db family updated on plan of care and expected duration. Pain level reassessed. Patient is alert, oriented x 3, equal unlabored respirations, skin warm/dry/pink. General: Appears in no apparent distress. comfortable, Behavior is calm, cooperative. Pain: Complains of pain in pelvis. Neuro: Level of Consciousness is awake, alert, obeys commands, Oriented to person, place, time, situation. Respiratory: Airway is patent Respiratory effort is even, unlabored, Respiratory pattern is regular, symmetrical. : Reports vaginal bleeding that is heavy flow. : Reports. 19:23 Reassessment: Patient appears in no apparent distress at this time. Patient and/or bm8 family updated on plan of care and expected duration. Pain level reassessed. Patient is alert, oriented x 3, equal unlabored respirations, skin warm/dry/pink. Patient states feeling better. Patient states symptoms have improved. Vital Signs: 16:21 BP 145 / 94; Pulse 83; Resp 15; Temp 98.6(O); Pulse Ox 100% ; Weight 113.85 kg; Height cm10 5 ft. 4 in. ; Pain 10/10; 17:12 BP 112 / 63; Pulse 77; Resp 16; Pulse Ox 100% on R/A; db 17:30 BP 97 / 64; Pulse 78; Resp 18; Pulse Ox 100% on R/A; db 18:00 BP 97 / 74; Pulse 71; Resp 16; Pulse Ox 100% ; db 18:15 BP 107 / 60; Pulse 73; Resp 16; Pulse Ox 100% on R/A; db 19:23 BP 106 / 95; Pulse 77; Resp 17; Temp 98.6; Pulse Ox 100% ; Pain 7/10; bm8 16:21 Body Mass Index 43.08 (113.85 kg, 162.56 cm) cm10 16:21 Pain Scale: Adult cm10 19:23 Pain Scale: Adult bm8 [place] Coma Score: 19:23 Eye Response: spontaneous(4). Motor Response: obeys commands(6). Verbal Response: bm8 oriented(5). Total: 15. ED Course: 16:02 Patient arrived in ED. ra3 16:15 Alberto Ponce MD is Attending Physician. esmer 16:24 Triage completed. cm10 16:25 Arm band placed on right wrist. Patient placed in waiting room. cm10 17:13 Flavia Kay, RN is Primary Nurse. db 17:14 Pelvis Complete In Process Unspecified. EDMS 17:18 Initial lab(s) drawn, by pa, sent to lab. Urine collected:. Inserted saline lock: 20 db gauge in right antecubital area, using aseptic technique. Blood collected. Flushed with 10 mL NS. 17:46 Transvaginal Study Probe In Process Unspecified. EDMS 17:46 Patient has correct armband on for positive identification. Bed in low position. Call db light in reach. Side rails up X 1. Pulse ox on. NIBP on. Pillow given. 19:01 Michelle Ryan MD is Referral Physician. [facility] 19:08 Hilario Bazan, RN is Primary Nurse. bm8 19:23 Provided Education on: post er care. bm8 19:23 No provider procedures requiring assistance completed. IV discontinued, intact, bm8 bleeding controlled, No redness/swelling at site. Pressure dressing applied. Patient maintains SpO2 saturation greater than 95% on room air. Administered Medications: 17:18 Drug: NS 0.9% IV 1000 ml IV at 1 bolus Per protocol; to be given as a bolus over 60 db minutes Route: IV; Rate: 1 bolus; Site: right antecubital; 19:09 Follow up: Response: No adverse reaction; IV Status: Completed infusion; IV Intake: bm8 1000ml 17:20 Drug: Ondansetron IVP 4 mg IVP once; over 2 minutes Route: IVP; Site: right antecubital;db 19:09 Follow up: Response: No adverse reaction bm8 19:09 Not Given (medication unavailablee): Provera 10 mg PO once bm8 19:09 Drug: Ketorolac IVP 30 mg IVP once Route: IVP; Site: right antecubital; bm8 19:24 Follow up: Response: No adverse reaction bm8 Medication: 19:23 VIS not applicable for this client. bm8 Intake: 19:09 IV: 1000ml; Total: 1000ml. bm8 Outcome: 19:03 Discharge ordered by . esmer 19:23 Discharged to home ambulatory, bm8 19:23 Condition: stable 19:23 Discharge instructions given to patient, Instructed on discharge instructions, follow up and referral plans. Demonstrated understanding of instructions, follow-up care, medications, Prescriptions given X 2, 19:25 Patient left the ED. bm8 Signatures: Dispatcher [employer] EDMS Alberto Ponce MD MD cha Benton, Danielle, RN RN Mercedes Rockwell RN RN 10 Elizabeth Amezcua 3 Hilario Bazan RN RN bm8
--- NOTE | 2024-02-21 19:11 | RAD REPORT ---
EXAMINATION: Transvaginal Study Probe CLINICAL INDICATION: Vaginal bleeding TECHNIQUE: Real-time ultrasonography of the pelvis was performed transvaginally. Color and spectral D oppler evaluation of the ovaries was performed. COMPARISON: No prior exam. FINDINGS: The uterus measures 8 x 4 x 5 cm. A fibroid is not seen. Endometrial stripe measures 11 mm Right ovary normal in size and echotexture. Left ovary normal in size and echotexture. The ovaries contain many small follicles Right and left adnexa unremarkable. No significant free fluid IMPRESSION: Many small follicles within each ovary. This can be seen with polycystic ovarian syndrome.
[2024-02-21 20:05] VITALS: TEMP 98.6; O2SAT 100
[2024-02-21 20:12] VITALS: BP 106/95
== END 2024-02-21 19:25 | disposition home or self-care (01) ==
LOC: ER 15:59
DX: N92.1 Excessive and frequent menstruation with irregular cycle (principal)
CPT/HCPCS: 96361; 85025; 81001; 36415; 81025; 83690; 80053; 76856; 76830; 96375; 96374; 99284; J2405; J7030

== ENCOUNTER 2024-03-06 22:41 | Emergency (ER) | payer OTHER ==
--- OUTSIDE RECORDS SUMMARY | 2024-03-06 22:45 | XMS REPORT | Continuity of Care Document ---
Author Name Unknown Address [address] [facility] [address] [place] [address] [facility] thconnect Address [address] [facility] [address] [place] [address] Care Team Providers Care Retail Associate Manager Bilingual Name Role Phone Van Leigh MD Primary Care Physician + [phone] SARAH MOREL Attending Clinician Unavailable KORIN MCKEON Attending Clinician Unavailable Resource, Ang-Rmp Colpo Attending Clinician Un available Korin Solares Attending Clinician [phone] Sarah Huizar Attending Clinician [phone] Van Leigh MD Attending Clinician [phone] Mariela Llanes CNM Attending Clinician [phone] MARIELA LLANES Attending Clinician UnavailVAN Pagan Attending Clinician Unavailab VAN Kowalski Attending Clinician UnavailMariela Danielle CNM Attending Clinician [phone] Brandi Angela Attending Clinician + BRANDI COLE Attending Clinician Unavail Jossue Rocha MD Attending Clinician + [phone] JOSSUE MARTIN Attending Clinician Unavaildarleen cates 2, [facility] Attending Clinician Unavailable Nathalie Prajapati LMSW Attending Clinician Unava ilable Doctor Unassigned, [place] Attending Clinician U navailable Nurse, Bubba Rmchp Rgv Cprit Obgyn Attending Clini allie Unavailable [email or web address]_S Attending Clinician Unavaila ble TRITSCHLER, ZOFIAYAL Attending Clinician Unavaila ble TRITSCHLER, CHERYAL Attending Clinician Unavaila ble Pcp, Patient Does Not Have A Attending Clinician Raju_P Attending Clinician Unavailable SARAH MOREL Admitting Clinician Unavailable JOSSUE MARTIN Admitting Clinician Unavaila MARIELA Sood Admitting Clinician Unavaila ble [email or web address]_S Admitting Clinician Unavaila ble Raju_P Admitting Clinician Unavailable Payers Payer Name Policy Type Policy Number Effective Date Expirati on Date Source [id number] 2023 00:00:00 CHLOE Mendez/ GERTRUDE HUSTON [id number] 2023 00:00:00 [employer] P[employer] [id number] 2023 00:00:00 2023 00:00:00 Problems Condition Name Condition Details Condition Category Status Onset Date Resolution Date Last Treatment Date Treating Clinician Comments Source Need for HPV vaccinatio n Need for HPV vaccinatio n Disease Active 4-30 00:00: 00 [facility] Declines flu vaccine Declines flu vaccine Disease Active 2022-02 0 00:00: 00 [facility] Menorrhagi a with irregular cycle Menorrhagi a with irregular cycle Disease Active 2022-02 0 00:00: 00 [facility] Dysmenorrh ea Dysmenorrh ea Disease Active 2022-02 0- 00:00: 00 [facility] History of abnormal cervical Pap smear History of abnormal cervical Pap smear Disease Active 2022-02 0- 00:00: 00 Overview: Formattin g of this note might be different from the original. 5 negative pap with +hpv02/23 negative pap and hpv2022 LGSIL with +HPV, FU 1 year per ASCCP guideline s [facility] History of tubal ligation History of tubal ligation Disease Active 05-25 00:00: 00 [facility] Over weight Over weight Disease Active 02-24 00:00: 00 [facility] History of anxiety History of anxiety Disease Active 02-24 00:00: 00 [facility] Anxiety and depression Anxiety and depression Disease Active 02-24 00:00: 00 [facility] History of herpes genitalis History of herpes genitalis Disease Active 2014-02 00:00: 00 [facility] Obesity (BMI 30-39.9) Obesity (BMI 30-39.9) Disease Resolve d 02-24 00:00: 00 2023-12-16 00:00:00 2023-12-16 08:47:09 [facility] History of depression History of depression Disease Resolve d 02-24 00:00: 00 2022-12-10 00:00:00 2022-12-10 09:43:05 [facility] Encounter for other general counseling or advice on contracept ion Encounter for other general counseling or advice on contracept ion Disease Resolve d 02-24 00:00: 00 2022-12-09 00:00:00 2022-12-09 08:53:50 [facility] Cervical high risk human papillomav irus (HPV) DNA test positive Cervical high risk human papillomav irus (HPV) DNA test positive Disease Resolve d 2014-02 00:00: 00 2022-12-09 00:00:00 2022-12-09 08:54:42 Overview: Formattin g of this note might be different from the original. Pap pending [facility] Well woman exam without gynecologi geri exam Well woman exam without gynecologi geri exam Disease Resolve d 02-24 00:00: 00 2018-05-25 00:00:00 2018-05-25 14:10:07 [facility] Screening examinatio n for venereal disease Screening examinatio n for venereal disease Disease Resolve d 04-24 00:00: 00 2018-05-25 00:00:00 2018-05-25 14:10:09 [facility] Bacterial vaginosis Bacterial vaginosis Disease Resolve d 2014-02 00:00: 00 2017-02-24 00:00:00 2017-02-24 15:51:33 [facility] S/P tubal ligation S/P tubal ligation Disease Resolve d 2014-02 00:00: 00 2017-02-24 00:00:00 2017-02-24 15:51:36 [facility] Chlamydia trachomati s infection of lower genitourin adrian sites Chlamydia trachomati s infection of lower genitourin adrian sites Disease Resolve d 2014-02 00:00: 00 2016-02-25 00:00:00 2016-02-25 09:01:16 [facility] Screening examinatio n for venereal disease Screening examinatio n for venereal disease Disease Resolve d 2014-02 00:00: 00 2016-02-25 00:00:00 2016-02-25 09:01:20 [facility] Allergies, Adverse Reactions, Alerts Allergy Name Allergy Type Status Severity Reaction(s) Onset Date Inactive Date Treating Clinician Comments Source IBUPROFE N DRUG INGREDI Active N/V 2014-02 00:00: 00 [facility] IODINE DRUG INGREDI Active Rash 2014-02 00:00: 00 [facility] Ibuprofe n Propensi ty to adverse reaction s Active Nausea and/or Vomiting 2014-02 00:00: 00 [facility] Iodine Propensi ty to adverse reaction s Active Rash 2014-02 00:00: 00 [facility] Social History Social Habit Start Date Stop Date Quantity Comments Source Gender identity [facility] intake 2024-03-04 00:00:00 2024-03-04 00:00:00 0 /d [facility] History of Social function 2023-12-16 00:00:00 2023-12-16 00:00:00 [facility] Alcohol intake 2023-06-16 00:00:00 2023-06-16 00:00:00 0 /d [facility] Tobacco use and exposure 2023-01-20 00:00:00 2023-01-20 00:00:00 Smokeless tobacco non-user [facility] Sex assigned at 1985 00:00:00 1985 00:00:00 [facility] Smoking Status Start Date Stop Date Source Never smoked tobacco [facility] Medications Ordered Medication Name Filled Medication Name Start Date Stop Date Current Medication? Ordering Clinician Indication Dosage Frequency Signature (SIG) Comments Components Source doxepin 25 mg capsule 2023-02 00:00: 00 Yes [id number] 25mg Take 1 capsule by mouth at bedtime. [facility] metroNIDAZO LE 500 mg tablet 06-21 00:00: 00 12-15 00:00 :00 No [id number] 500mg Take 1 tablet by mouth in the morning and 1 tablet in the evening. [facility] doxepin 25 mg capsule 05-20 00:00: 00 01-03 00:00 :00 No [id number] 25mg Take 1 capsule by mouth at bedtime. [facility] pantoprazol e 40 mg EC tablet 05-17 00:00: 00 Yes [id number] 40mg Take 1 tablet by mouth in the morning. [facility] tc 99m-tetrofo smin (MYOVIEW) injection 41.2 millicurie 05-11 14:45: 00 05-11 14:39 :00 No [id number] 41.2mCi 41.2 millicurie , Intravenou s, ONCE, 1 dose, On Thu05/12/23 at 0945, Routine [facility] regadenoson (LEXISCAN) injection 0.4 mg 05-11 14:30: 00 05-11 14:45 :00 No [id number] .4mg 0.4 mg, IV Push, ONCE, 1 dose, On Thu05/12/23 at 0930, Routine
direct support staff member approving Restricted medication : BANDAR STEPHENS [facility] tc 99m-tetrofo smin (MYOVIEW) injection 16 millicurie 05-11 13:15: 00 05-11 13:14 :00 No [id number] 16mCi 16 millicurie , Intravenou s, ONCE, 1 dose, On Thu05/12/23 at 0815, Routine [facility] doxepin 25 mg capsule 3 00:00: 00 05-19 00:00 :00 No [id number] 25mg Take 1 capsule by mouth at bedtime for 30 days. [facility] pantoprazol e 40 mg EC tablet 04-20 00:00: 00 05-17 00:00 :00 No [id number] 40mg Take 1 tablet by mouth in the morning for 30 days. [facility] diphenhydrA MINE 25 mg tablet 2- 00:00: 00 04-10 05:59 :00 No 25mg Take 1 tablet by mouth every 12 (twelve) hours for 3 doses. Start morning before procedure. Take last dose morning of procedure [facility] famotidine 20 mg tablet 2-20 00:00: 00 04-10 05:59 :00 No 20mg Take 1 tablet by mouth every 12 (twelve) hours for 3 doses. Start morning before procedure. Take last dose morning of procedure [facility] predniSONE 20 mg tablet 2-20 00:00: 00 04-09 05:59 :00 No 40mg Take 2 tablets by mouth every 6 (six) hours for 4 doses. Start morning before procedure. Take last dose morning of procedure [facility] QUEtiapine 25 mg tablet 1-24 00:00: 00 05-20 00:00 :00 No [id number] 25mg Take 1 tablet by mouth at bedtime. [facility] busPIRone 7.5 mg tablet - 00:00: 00 05-20 00:00 :00 No [id number] 7.5mg Take 1 tablet by mouth in the morning and 1 tablet in the evening. [facility] QUEtiapine 25 mg tablet 2022-02 00:00: 00 03-11 00:00 :00 No [id number] 25mg Take 1 tablet by mouth at bedtime. [facility] pantoprazol e 20 mg EC tablet 2022-02 00:00: 00 01-16 05:59 :00 No [id number] 20mg Take 1 tablet by mouth ONCE PRN (reflux) for up to 1 dose. [facility] clonazePAM 1 mg tablet 2022-02 00:00: 00 05-20 00:00 :00 No 1mg Take 1 tablet by mouth as needed (anxiety). [facility] ibuprofen 600 mg tablet 08-20 00:00: 00 12-09 00:00 :00 No TAKE 1 TABLET BY MOUTH EVERY 6 HOURS NEEDED FOR PAIN TAKE WITH FOOD [facility] PAXLOVID, EUA, 300 mg (150 mg x 2)-100 mg tablet 08-20 00:00: 00 12-09 00:00 :00 No TAKE BY MOUTH DIRECTED 2 TABLETS 2 TIMES A DAY [facility] proMETHazin e 25 mg tablet 08-20 00:00: 00 12-09 00:00 :00 No TAKE BY MOUTH 1 TABLET EVERY 6 HOURS NEEDED FOR NAUSEA [facility] orphenadrin e 100 mg SR tablet 07-11 00:00: 00 12-09 00:00 :00 No TAKE 1 TABLET BY MOUTH TWICE A DAY NEEDED [facility] CIPROFLOXAC IN HCL (CIPRO ORAL) 05-25 13:57: 52 Yes Take by mouth. [facility] citalopram (CELEXA) 20 mg tablet 02-26 00:00: 00 12-09 00:00 :00 No [id number] 20mg Take 1 tablet by mouth daily. [facility] Immunizations Ordered Immunization Name Filled Immunization Name Date Status Comments Source Flu Injectable MDCK Pres-Free (FLUCELVAX) 2023-12-16 00:00:00 Completed [facility] HPV9 2023-06-16 00:00:00 Completed HPV9 2023-01-13 00:00:00 Completed HPV9 2022-12-09 00:00:00 Completed SARS-COV-2 COVID-19 VACCINE, BIVALENT (MODERNA BOOSTER) 2021-12-23 00:00:00 Completed SARS-COV-2 COVID-19 VACCINE, BIVALENT (MODERNA BOOSTER) 2021-12-23 00:00:00 Completed [facility] SARS-COV-2 COVID-19 VACCINE - (MODERNA) 2021-09-12 00:00:00 Completed SARS-COV-2 COVID-19 VACCINE - (MODERNA) 2021-09-12 00:00:00 Completed [facility] SARS-COV-2 COVID-19 VACCINE - (MODERNA) 2020-07-09 00:00:00 Completed SARS-COV-2 COVID-19 VACCINE - (MODERNA) 2020-07-09 00:00:00 Completed [facility] SARS-COV-2 COVID-19 VACCINE - (MODERNA) 2020-06-12 00:00:00 Completed [facility] SARS-COV-2 COVID-19 VACCINE - (MODERNA) 2020-06-12 00:00:00 Completed [facility] TDAP 2016-02-25 00:00:00 Completed TDAP 2016-02-25 00:00:00 Completed [facility] SARS-COV-2 COVID-19 VACCINE - (MODERNA) Unknown Completed [facility] SARS-COV-2 COVID-19 VACCINE, BIVALENT (MODERNA BOOSTER) Unknown Completed [facility] TDAP Unknown Completed [facility] SARS-COV-2 COVID-19 VACCINE - (MODERNA) Unknown Completed [facility] HPV9 Unknown Completed [facility] TDAP Unknown Completed [facility] SARS-COV-2 COVID-19 VACCINE - (MODERNA) Unknown Completed [facility] SARS-COV-2 COVID-19 VACCINE, BIVALENT (MODERNA BOOSTER) Unknown Completed [facility] HPV9 Unknown Completed [facility] SARS-COV-2 COVID-19 VACCINE, BIVALENT (MODERNA BOOSTER) Unknown Completed [facility] HPV9 Unknown Completed [facility] TDAP Unknown Completed [facility] TDAP Unknown Completed [facility] SARS-COV-2 COVID-19 VACCINE - (MODERNA) Unknown Completed [facility] SARS-COV-2 COVID-19 VACCINE, BIVALENT (MODERNA BOOSTER) Unknown Completed [facility] HPV9 Unknown Completed [facility] TDAP Unknown Completed [facility] SARS-COV-2 COVID-19 VACCINE - (MODERNA) Unknown Completed [facility] SARS-COV-2 COVID-19 VACCINE, BIVALENT (MODERNA BOOSTER) Unknown Completed [facility] HPV9 Unknown Completed [facility] TDAP Unknown Completed [facility] SARS-COV-2 COVID-19 VACCINE - (MODERNA) Unknown Completed [facility] SARS-COV-2 COVID-19 VACCINE, BIVALENT (MODERNA BOOSTER) Unknown Completed [facility] HPV9 Unknown Completed [facility] TDAP Unknown Completed [facility] SARS-COV-2 COVID-19 VACCINE - (MODERNA) Unknown Completed [facility] SARS-COV-2 COVID-19 VACCINE, BIVALENT (MODERNA BOOSTER) Unknown Completed [facility] HPV9 Unknown Completed [facility] TDAP Unknown Completed [facility] SARS-COV-2 COVID-19 VACCINE - (MODERNA) Unknown Completed [facility] SARS-COV-2 COVID-19 VACCINE, BIVALENT (MODERNA BOOSTER) Unknown Completed [facility] HPV9 Unknown Completed [facility] TDAP Unknown Completed [facility] SARS-COV-2 COVID-19 VACCINE - (MODERNA) Unknown Completed [facility] SARS-COV-2 COVID-19 VACCINE, BIVALENT (MODERNA BOOSTER) Unknown Completed [facility] HPV9 Unknown Completed [facility] TDAP Unknown Completed [facility] SARS-COV-2 COVID-19 VACCINE - (MODERNA) Unknown Completed [facility] SARS-COV-2 COVID-19 VACCINE, BIVALENT (MODERNA BOOSTER) Unknown Completed [facility] HPV9 Unknown Completed [facility] TDAP Unknown Completed [facility] SARS-COV-2 COVID-19 VACCINE, BIVALENT (MODERNA BOOSTER) Unknown Completed [facility] SARS-COV-2 COVID-19 VACCINE - (MODERNA) Unknown Completed [facility] HPV9 Unknown Completed [facility] TDAP Unknown Completed [facility] SARS-COV-2 COVID-19 VACCINE - (MODERNA) Unknown Completed [facility] SARS-COV-2 COVID-19 VACCINE, BIVALENT (MODERNA BOOSTER) Unknown Completed [facility] HPV9 Unknown Completed [facility] TDAP Unknown Completed [facility] SARS-COV-2 COVID-19 VACCINE - (MODERNA) Unknown Completed [facility] SARS-COV-2 COVID-19 VACCINE, BIVALENT (MODERNA BOOSTER) Unknown Completed [facility] HPV9 Unknown Completed [facility] TDAP Unknown Completed [facility] SARS-COV-2 COVID-19 VACCINE - (MODERNA) Unknown Completed [facility] SARS-COV-2 COVID-19 VACCINE, BIVALENT (MODERNA BOOSTER) Unknown Completed [facility] HPV9 Unknown Completed [facility] TDAP Unknown Completed [facility] SARS-COV-2 COVID-19 VACCINE - (MODERNA) Unknown Completed [facility] TDAP Unknown Completed [facility] SARS-COV-2 COVID-19 VACCINE - (MODERNA) Unknown Completed [facility] SARS-COV-2 COVID-19 VACCINE, BIVALENT (MODERNA BOOSTER) Unknown Completed [facility] HPV9 Unknown Completed [facility] SARS-COV-2 COVID-19 VACCINE, BIVALENT (MODERNA BOOSTER) Unknown Completed [facility] TDAP Unknown Completed [facility] SARS-COV-2 COVID-19 VACCINE, BIVALENT (MODERNA BOOSTER) Unknown Completed [facility] SARS-COV-2 COVID-19 VACCINE - (MODERNA) Unknown Completed [facility] HPV9 Unknown Completed [facility] TDAP Unknown Completed [facility] SARS-COV-2 COVID-19 VACCINE - (MODERNA) Unknown Completed [facility] SARS-COV-2 COVID-19 VACCINE, BIVALENT (MODERNA BOOSTER) Unknown Completed [facility] HPV9 Unknown Completed [facility] TDAP Unknown Completed [facility] SARS-COV-2 COVID-19 VACCINE - (MODERNA) Unknown Completed [facility] SARS-COV-2 COVID-19 VACCINE, BIVALENT (MODERNA BOOSTER) Unknown Completed [facility] HPV9 Unknown Completed [facility] TDAP Unknown Completed [facility] SARS-COV-2 COVID-19 VACCINE - (MODERNA) Unknown Completed [facility] SARS-COV-2 COVID-19 VACCINE, BIVALENT (MODERNA BOOSTER) Unknown Completed [facility] HPV9 Unknown Completed [facility] TDAP Unknown Completed [facility] SARS-COV-2 COVID-19 VACCINE - (MODERNA) Unknown Completed [facility] SARS-COV-2 COVID-19 VACCINE, BIVALENT (MODERNA BOOSTER) Unknown Completed [facility] HPV9 Unknown Completed [facility] TDAP Unknown Completed [facility] SARS-COV-2 COVID-19 VACCINE - (MODERNA) Unknown Completed [facility] TDAP Unknown Completed [facility] SARS-COV-2 COVID-19 VACCINE - (MODERNA) Unknown Completed [facility] SARS-COV-2 COVID-19 VACCINE, BIVALENT (MODERNA BOOSTER) Unknown Completed [facility] HPV9 Unknown Completed [facility] TDAP Unknown Completed [facility] SARS-COV-2 COVID-19 VACCINE - (MODERNA) Unknown Completed [facility] SARS-COV-2 COVID-19 VACCINE, BIVALENT (MODERNA BOOSTER) Unknown Completed [facility] HPV9 Unknown Completed [facility] SARS-COV-2 COVID-19 VACCINE, BIVALENT (MODERNA BOOSTER) Unknown Completed [facility] TDAP Unknown Completed [facility] SARS-COV-2 COVID-19 VACCINE - (MODERNA) Unknown Completed [facility] SARS-COV-2 COVID-19 VACCINE, BIVALENT (MODERNA BOOSTER) Unknown Completed [facility] HPV9 Unknown Completed [facility] TDAP Unknown Completed [facility] SARS-COV-2 COVID-19 VACCINE - (MODERNA) Unknown Completed [facility] SARS-COV-2 COVID-19 VACCINE, BIVALENT (MODERNA BOOSTER) Unknown Completed [facility] HPV9 Unknown Completed [facility] TDAP Unknown Completed [facility] SARS-COV-2 COVID-19 VACCINE, BIVALENT (MODERNA BOOSTER) Unknown Completed [facility] SARS-COV-2 COVID-19 VACCINE - (MODERNA) Unknown Completed [facility] HPV9 Unknown Completed [facility] TDAP Unknown Completed [facility] SARS-COV-2 COVID-19 VACCINE - (MODERNA) Unknown Completed [facility] SARS-COV-2 COVID-19 VACCINE, BIVALENT (MODERNA BOOSTER) Unknown Completed [facility] HPV9 Unknown Completed [facility] TDAP Unknown Completed [facility] SARS-COV-2 COVID-19 VACCINE, BIVALENT (MODERNA BOOSTER) Unknown Completed [facility] SARS-COV-2 COVID-19 VACCINE - (MODERNA) Unknown Completed [facility] HPV9 Unknown Completed [facility] TDAP Unknown Completed [facility] SARS-COV-2 COVID-19 VACCINE, BIVALENT (MODERNA BOOSTER) Unknown Completed [facility] SARS-COV-2 COVID-19 VACCINE - (MODERNA) Unknown Completed [facility] HPV9 Unknown Completed [facility] TDAP Unknown Completed [facility] SARS-COV-2 COVID-19 VACCINE - (MODERNA) Unknown Completed [facility] SARS-COV-2 COVID-19 VACCINE, BIVALENT (MODERNA BOOSTER) Unknown Completed [facility] HPV9 Unknown Completed [facility] TDAP Unknown Completed [facility] SARS-COV-2 COVID-19 VACCINE - (MODERNA) Unknown Completed [facility] SARS-COV-2 COVID-19 VACCINE, BIVALENT (MODERNA BOOSTER) Unknown Completed [facility] HPV9 Unknown Completed [facility] TDAP Unknown Completed [facility] SARS-COV-2 COVID-19 VACCINE - (MODERNA) Unknown Completed [facility] SARS-COV-2 COVID-19 VACCINE, BIVALENT (MODERNA BOOSTER) Unknown Completed [facility] HPV9 Unknown Completed [facility] TDAP Unknown Completed [facility] SARS-COV-2 COVID-19 VACCINE - (MODERNA) Unknown Completed [facility] SARS-COV-2 COVID-19 VACCINE, BIVALENT (MODERNA BOOSTER) Unknown Completed [facility] HPV9 Unknown Completed [facility] TDAP Unknown Completed [facility] SARS-COV-2 COVID-19 VACCINE - (MODERNA) Unknown Completed [facility] SARS-COV-2 COVID-19 VACCINE, BIVALENT (MODERNA BOOSTER) Unknown Completed [facility] HPV9 Unknown Completed [facility] TDAP Unknown Completed [facility] SARS-COV-2 COVID-19 VACCINE - (MODERNA) Unknown Completed [facility] SARS-COV-2 COVID-19 VACCINE, BIVALENT (MODERNA BOOSTER) Unknown Completed [facility] HPV9 Unknown Completed [facility] TDAP Unknown Completed [facility] SARS-COV-2 COVID-19 VACCINE, BIVALENT (MODERNA BOOSTER) Unknown Completed [facility] SARS-COV-2 COVID-19 VACCINE - (MODERNA) Unknown Completed [facility] HPV9 Unknown Completed [facility] TDAP Unknown Completed [facility] SARS-COV-2 COVID-19 VACCINE - (MODERNA) Unknown Completed [facility] SARS-COV-2 COVID-19 VACCINE, BIVALENT (MODERNA BOOSTER) Unknown Completed [facility] HPV9 Unknown Completed [facility] TDAP Unknown Completed [facility] SARS-COV-2 COVID-19 VACCINE - (MODERNA) Unknown Completed [facility] SARS-COV-2 COVID-19 VACCINE, BIVALENT (MODERNA BOOSTER) Unknown Completed [facility] HPV9 Unknown Completed [facility] TDAP Unknown Completed [facility] SARS-COV-2 COVID-19 VACCINE, BIVALENT (MODERNA BOOSTER) Unknown Completed [facility] SARS-COV-2 COVID-19 VACCINE - (MODERNA) Unknown Completed [facility] HPV9 Unknown Completed [facility] Vital Signs Vital Name Observation Time Observation Value Comments S ource Systolic blood pressure 2024-03-04 15:31:00 115 mm[Hg] [facility] Diastolic blood pressure 2024-03-04 15:31:00 76 mm[Hg] [facility] Heart rate 2024-03-04 15:31:00 80 /min Unive [facility] Body temperature 2024-03-04 15:31:00 36.5 Arlen [facility] Respiratory rate 2024-03-04 15:31:00 18 /min [facility] Body weight 2024-03-04 15:31:00 111.812 kg Univ [facility] BMI 2024-03-04 15:31:00 42.31 kg/m2 [facility] Systolic blood pressure 2024-02-23 15:40:00 127 mm[Hg] [facility] Diastolic blood pressure 2024-02-23 15:40:00 67 mm[Hg] [facility] Heart rate 2024-02-23 15:40:00 82 /min Unive [facility] Body temperature 2024-02-23 15:40:00 35.56 Arlen [facility] Respiratory rate 2024-02-23 15:40:00 18 /min [facility] Body height 2024-02-23 15:40:00 162.6 cm Univ [facility] Body weight 2024-02-23 15:40:00 112.038 kg Univ [facility] BMI 2024-02-23 15:40:00 42.40 kg/m2 [facility] Systolic blood pressure 2023-12-16 13:18:00 127 mm[Hg] [facility] Diastolic blood pressure 2023-12-16 13:18:00 83 mm[Hg] [facility] Heart rate 2023-12-16 13:18:00 77 /min Unive [facility] Body temperature 2023-12-16 13:18:00 36.17 Arlen [facility] Respiratory rate 2023-12-16 13:18:00 17 /min [facility] Body height 2023-12-16 13:18:00 162.6 cm [facility] 2023-12-16 13:18:00 108.682 kg [facility] BMI 2023-12-16 13:18:00 41.13 kg/m2 Univ [facility] Systolic blood pressure 2023-06-16 14:02:00 120 mm[Hg] [facility] Diastolic blood pressure 2023-06-16 14:02:00 74 mm[Hg] [facility] Heart rate 2023-06-16 14:02:00 73 /min Unive [facility] Body temperature 2023-06-16 14:02:00 36.33 Arlen [facility] Respiratory rate 2023-06-16 14:02:00 18 /min [facility] Body height 2023-06-16 14:02:00 162.6 cm Univ [facility] Body weight 2023-06-16 14:02:00 103.193 kg [facility] BMI 2023-06-16 14:02:00 39.05 kg/m2 [facility] Systolic blood pressure 2023-05-21 13:25:00 103 mm[Hg] [facility] Diastolic blood pressure 2023-05-21 13:25:00 64 mm[Hg] [facility] Heart rate 2023-05-21 13:25:00 77 /min Unive [facility] Body temperature 2023-05-21 13:25:00 36.56 Arlen [facility] Body height 2023-05-21 13:25:00 162.6 cm Univ [facility] Body weight 2023-05-21 13:25:00 102.059 kg [facility] BMI 2023-05-21 13:25:00 38.62 kg/m2 [facility] Oxygen saturation in Arterial blood by Pulse oximetry 2023-05-21 13:25:00 99 /min [facility] Systolic blood pressure 2023-04-21 15:24:00 120 mm[Hg] [facility] Diastolic blood pressure 2023-04-21 15:24:00 78 mm[Hg] [facility] Heart rate 2023-04-21 15:24:00 62 /min [facility] Body temperature 2023-04-21 15:24:00 36.11 Arlen [facility] Respiratory rate 2023-04-21 15:24:00 18 /min [facility] Body height 2023-04-21 15:24:00 162.6 cm Univ [facility] Body weight 2023-04-21 15:24:00 99.837 kg [facility] BMI 2023-04-21 15:24:00 37.78 kg/m2 [facility] Oxygen saturation in Arterial blood by Pulse oximetry 2023-04-21 15:24:00 99 /min [facility] Systolic blood pressure 2023-04-15 14:33:00 129 mm[Hg] [facility] Diastolic blood pressure 2023-04-15 14:33:00 75 mm[Hg] [facility] Heart rate 2023-04-15 14:33:00 79 /min Unive [facility] Body temperature 2023-04-15 14:33:00 36.67 Arlen [facility] Body height 2023-04-15 14:33:00 162.6 cm [facility] Body weight 2023-04-15 14:33:00 101.061 kg [facility] BMI 2023-04-15 14:33:00 38.24 kg/m2 [facility] Oxygen saturation in Arterial blood by Pulse oximetry 2023-04-15 14:33:00 99 /min [facility] Systolic blood pressure 2023-02-19 14:24:00 121 mm[Hg] [facility] Diastolic blood pressure 2023-02-19 14:24:00 77 mm[Hg] [facility] Heart rate 2023-02-19 14:24:00 66 /min Unive [facility] Body temperature 2023-02-19 14:24:00 36.56 Arlen [facility] Respiratory rate 2023-02-19 14:24:00 18 /min [facility] Body height 2023-02-19 14:24:00 165.1 cm [facility] Body weight 2023-02-19 14:24:00 98.703 kg [facility] BMI 2023-02-19 14:24:00 36.21 kg/m2 [facility] Oxygen saturation in Arterial blood by Pulse oximetry 2023-02-19 14:24:00 99 /min [facility] Systolic blood pressure 2023-02-17 17:00:00 130 mm[Hg] [facility] Diastolic blood pressure 2023-02-17 17:00:00 83 mm[Hg] [facility] Heart rate 2023-02-17 17:00:00 71 /min Unive [facility] Respiratory rate 2023-02-17 17:00:00 20 /min [facility] Body height 2023-02-17 17:00:00 165.1 cm [facility] Body weight 2023-02-17 17:00:00 98.884 kg [facility] BMI 2023-02-17 17:00:00 36.28 kg/m2 [facility] Oxygen saturation in Arterial blood by Pulse oximetry 2023-02-17 17:00:00 99 /min [facility] Systolic blood pressure 2023-01-20 14:45:00 131 mm[Hg] [facility] Diastolic blood pressure 2023-01-20 14:45:00 79 mm[Hg] [facility] Heart rate 2023-01-20 14:45:00 68 /min Unive [facility] Respiratory rate 2023-01-20 14:45:00 19 /min [facility] Body height 2023-01-20 14:45:00 165.1 cm [facility] Body weight 2023-01-20 14:45:00 98.748 kg [facility] BMI 2023-01-20 14:45:00 36.23 kg/m2 [facility] Oxygen saturation in Arterial blood by Pulse oximetry 2023-01-20 14:45:00 100 /min [facility] Systolic blood pressure 2023-01-15 14:03:00 123 mm[Hg] [facility] Diastolic blood pressure 2023-01-15 14:03:00 76 mm[Hg] [facility] Heart rate 2023-01-15 14:03:00 72 /min [facility] Body temperature 2023-01-15 14:03:00 37.17 Arlen [facility] Respiratory rate 2023-01-15 14:03:00 18 /min [facility] Body height 2023-01-15 14:03:00 165.1 cm [facility] Body weight 2023-01-15 14:03:00 98.975 kg [facility] BMI 2023-01-15 14:03:00 36.31 kg/m2 [facility] Oxygen saturation in Arterial blood by Pulse oximetry 2023-01-15 14:03:00 99 /min [facility] Body temperature 2023-01-13 14:21:00 36.72 Arlen [facility] Systolic blood pressure 2022-12-09 13:37:00 132 mm[Hg] [facility] Diastolic blood pressure 2022-12-09 13:37:00 83 mm[Hg] [facility] Heart rate 2022-12-09 13:37:00 68 /min [facility] Body temperature 2022-12-09 13:37:00 36.33 Arlen [facility] Respiratory rate 2022-12-09 13:37:00 18 /min [facility] Body height 2022-12-09 13:37:00 165.1 cm [facility] Body weight 2022-12-09 13:37:00 96.798 kg [facility] BMI 2022-12-09 13:37:00 35.51 kg/m2 [facility] Procedures Procedure Date / Time Performed Performing Clinician Source POCT TEST 2024-03-04 15:30:00 Sid Cole [facility] BI ULTRASOUND BREAST LIMITED LEFT 2024-02-16 16:36:56 Sarah Morel [facility] BI DIAGNOSTIC TOMOSYNTHESIS LEFT 2024-02-16 15:57:13 Sarah Morel [facility] CBC WITH DIFF 2023-12-16 14:22:00 Sarah Morel [facility] GC & CHLAMYDIA AMPLIFIED ASSAY 2023-12-16 14:22:00 Sarah Morel [facility] HIV 1/2 AG-AB WITH REFLEX 2023-12-16 14:22:00 Sarah Morel [facility] PAP SMEAR-LIQUID BASED-CP 2023-12-16 14:22[facility]23-12-16 14:22:00 [facility]ACC ([id number]), 6 MO-64 YRS, .5ML, IM, TIV (FLUCELVAX) 2023-12-16 13:28:56 Sarah Morel [facility] POCT TEST 2023-06-16 14:40:00 iSd Cole [facility] GARDASIL 9 (HPV 9V) VACCINE 2023-06-16 14:08:54 Brandi Cole [facility] MYOCARDIUM PERFUSION STRESS AND REST 2023-05-12 15:42:00 Juanpablo Sendil [facility] MYOCARDIUM PERFUSION STRESS AND REST 2023-05-12 15:42:00 Juanpablo, Sendil [facility] MYOCARDIUM PERFUSION STRESS AND REST 2023-05-12 15:42:00 Juanpablo, Sendil [facility] MYOCARDIUM PERFUSION STRESS AND REST 2023-05-12 15:42:00 Juanpablo Sendil [facility] TRANSTHORACIC ECHO (TTE) COMPLETE 2023-03-24 15:39:18 Juanpablo, Sendil [facility] COMP. METABOLIC PANEL (33755) 2023-01-15 15:18:00 Obi-Aureliano [facility] LIPID PANEL (82211)(TOTAL CHOLESTEROL, TRIGLYCERIDES, HDL) 2023-01-15 15:18:00 Wilbur-Aureliano [facility] EKG (SCANNED DOCUMENTS) 2023-01-15 06:01:00 Doct or Unassigned, [place] [facility] GARDASIL 9 (HPV 9V) VACCINE 2023-01-13 14:21:32 Brandi Cole [facility] US PELVIS COMPLETE WITH TRANSVAGINAL 2022-12-24 15:50:00 Mariela Llanes [facility] THYROID STIMULATING HORMONE 2022-12-09 14:35:00 Mariela Llanes [facility] CBC WITH DIFF 2022-12-09 14:35:00 Mariela Llanes [facility] GLYCOSYLATED HEMOGLOBIN (A1C) 2022-12-09 14:35:00 Mariela Llanes [facility] HCV ANTIBODY 2022-12-09 14:35:00 [facility]/2 AG-AB WITH REFLEX 2022-12-09 14:35:00 Mariela Llanes [facility] SYPHILIS IGG/IGM 2022-12-09 14:35:00 Mariela Llanes [facility] PAP SMEAR-LIQUID BASED-CP 2022-12-09 14:29:00 Mariela Llanes [facility] GARDASIL 9 (HPV 9V) VACCINE 2022-12-09 13:48:27 Brandi Cole [facility] ASSIGNMENT OF BENEFITS 2022-12-09 13:07:14 Docto r Unassigned, [place] [facility] Encounters Start Date/Time End Date/Time Encounter Type Admission Type Attending Clinicians Care Facility Care Department Encounter ID Source 2024-03-04 09:30:00 2024-03-04 10:34:39 Outpatient R KORIN MCKEON [facility] [id number] [facility] 2024-03-04 09:30:00 2024-03-04 10:34:39 Office Visit Resource, Bubba-Korin Flores Resource, Audrey Moreno [facility]IC[facility] SPECIALIST [facility] 1.2.840.114 350.1.13.10 4.2.7.2.686 [id number] [facility] 2024-02-23 09:30:00 2024-02-23 10:24:50 Outpatient R SARAH OMREL [facility] [id number] [facility] 2024-02-23 09:30:00 2024-02-23 10:24:50 Office Visit Sarah Morel [facility]IC[facility] SPECIALIST [facility] 1.2.840.114 350.1.13.10 4.2.7.2.686 [id number] 107 [id number] [facility] 2024-02-16 09:23:39 2024-02-16 23:59:00 Outpatient R SARAH MOREL [facility] [id number] [facility] 2024-02-16 09:23:39 2024-02-16 23:59:00 Hospital Encounter Sarah Morel AT [facility] 1.2.840.114 350.1.13.10 4.2.7.2.686 [id number] [facility] 2024-02-16 09:23:05 2024-02-16 23:59:00 Hospital Encounter Sarah Morel AT [facility] 1.2.840.114 350.1.13.10 4.2.7.2.686 [id number] [facility] 2024-01-06 00:00:00 2024-01-06 11:37:38 Patient Secure Msg Sarah Morel [facility] MEDIC[facility] SPECIAL[facility] 1.2.840.114 350.1.13.10 4.2.7.2.686 [id number] [facility] 2024-01-05 00:00:00 2024-01-05 14:43:21 Telephone Sarah Morel [facility]IC[facility] SPECIAL[facility] 1.2.840.114 350.1.13.10 4.2.7.2.686 [id number] [facility] 2024-01-04 00:00:00 2024-01-04 13:35:03 Refill Obi-Aureliano , Van [facility] 1..840.114 350.1.13.10 4.2.7.2.686 [id number] [facility] 2024-01-01 09:51:03 2024-01-01 23:59:00 Outpatient R SARAH MOREL [facility] [id number] [facility] 2024-01-01 09:51:03 2024-01-01 23:59:00 Hospital Encounter Sarah Morel [facility] AT [facility] 1.840.114 350.1.13.10 4.2.7.2.686 [id number] [facility] 2023-12-31 00:00:00 2023-12-31 11:31:32 Telephone Sarah Morel [facility]IC[facility] SPECIAL[facility] 1.840.114 350.1.13.10 4.2.7.2.686 [id number] [facility] 2023-12-25 00:00:00 2023-12-30 14:08:26 Telephone Sarah Morel [facility]IC[facility] SPECIAL[facility] 1..840.114 350.1.13.10 4.2.7.2.686 [id number] [facility] 2023-12-16 08:15:00 2023-12-16 09:22:06 Outpatient R SARAH MOREL [facility] [id number] [facility] 2023-12-16 08:15:00 2023-12-16 09:22:06 Office Visit Sarah Morel Brenda A [facility] MEDIC[facility] SPECIAL[facility] 1..840.114 350.1.13.10 4.2.7.2.686 [id number] [facility] 2023-08-24 08:40:00 2023-08-24 08:40:00 Outpatient R OBI-AURELIANO , VAN OBI-AURELIANO , VAN [facility] [id number] [facility] 2023-05-22 00:00:00 2023-06-27 18:13:06 Patient Secure Mariela Ortiz [facility]IC[facility] SPECIAL[facility] 1..114 350.1.13.10 4.2.7.2.686 [id number] [facility] 2023-06-22 00:00:00 2023-06-22 17:00:16 Telephone Brandi Cole [facility]IC[facility] SPECIAL[facility] 1..114 350.1.13.10 4.2.7.2.686 [id number] [facility] 2023-06-16 08:45:00 2023-06-16 09:38:58 Outpatient R BRANDI COLE [facility] [id number] [facility] 2023-06-16 08:45:00 2023-06-16 09:38:58 Office Visit Brandi Cole [facility] MEDIC[facility] SPECIALIST [facility] 1..114 350.1.13.10 4.2.7.2.686 [id number] [facility] 2023-05-21 08:40:00 2023-05-21 08:45:40 Outpatient R OBI-AURELIANO , VAN OBI-AURELIANO , VAN [facility] [id number] [facility] 2023-05-21 08:40:00 2023-05-21 08:45:40 Office Visit Obi-Aureliano , Van [facility] 1..114 350.1.13.10 4.2.7.2.686 [id number] [facility] 2023-05-21 00:00:00 2023-05-21 00:00:00 Telephone Jossue Martin RandolphEmberLataEmber [facility] 1.2.840.114 350.1.13.10 4.2.7.2.686 [id number] [facility] 2023-05-20 00:00:00 2023-05-20 00:00:00 [facility] 1.2.840.114 350.1.13.10 4.2.7.2.686 [id number] [facility] 2023-05-18 00:00:00 2023-05-18 00:00:00 Refill Obi-Aureliano [facility] 1.2.840.114 350.1.13.10 4.2.7.2.686 [id number] [facility] 2023-05-12 08:10:56 2023-05-12 23:59:00 Hospital Encounter Jossue Martin RandolphEmberLataEmber [facility] 1.2.840.114 350.1.13.10 4.2.7.2.686 [id number] [facility] 2023-05-12 08:10:50 2023-05-12 23:59:00 Hospital Encounter Juanpablo Gisaranya RandolphEmberLataEmber [facility] 1.2.840.114 350.1.13.10 4.2.7.2.686 [id number] [facility] 2023-05-12 08:10:44 2023-05-12 23:59:00 Outpatient R JOSSUE MARTIN [facility] [id number] [facility] 2023-05-12 08:10:44 2023-05-12 23:59:00 Hospital Encounter Jossue Martin [facility] 1.2.840.114 350.1.13.10 4.2.7.2.686 [id number] [facility] 2023-05-12 08:10:37 2023-05-12 23:59:00 Hospital Encounter Jossue Martin [facility] 1.2.840.114 350.1.13.10 4.2.7.2.686 [id number] [facility] 2023-04-21 09:40:00 2023-04-21 10:22:00 Outpatient R WILBUR-VAN BEDOYA [facility] [id number] [facility] 2023-04-21 09:40:00 2023-04-21 10:22:00 Office Visit Van Leigh [facility] 1.2.840.114 350.1.13.10 4.2.7.2.686 [id number] [facility] 2023-04-15 10:00:00 2023-04-15 10:00:00 Mutuel Department Manager Visit 2, Adc Lab Lu Van [facility] 1.2.840.114 350.1.13.10 4.2.7.2.686 [id number] [facility] 2023-04-15 09:00:00 2023-04-15 09:44:34 Outpatient R JOSSUE MARTNI [facility] [id number] [facility] 2023-04-15 09:00:00 2023-04-15 09:44:34 Office Visit Jossue Martin [facility] 1.2.840.114 350.1.13.10 4.2.7.2.686 [id number] [facility] 2023-04-15 00:00:00 2023-04-15 00:00:00 Patient Secure [facility] 1.2.840.114 350.1.13.10 4.2.7.2.686 [id number] [facility] 2023-04-08 00:00:00 2023-04-08 00:00:00 Outpatient R JOSSUE MARTIN [facility] [id number] [facility] 2023-04-07 00:00:00 2023-04-07 00:00:00 Telephone Jossue MartinHEmber [facility] 1.2.840.114 350.1.13.10 4.2.7.2.686 [id number] [facility] 2023-03-24 08:24:48 2023-03-24 23:59:00 Outpatient R JOSSUE MARTIN [facility] [id number] [facility] 2023-03-24 08:24:48 2023-03-24 23:59:00 Hospital Encounter Jossue MaritnHEmber [facility] 1..840.114 350.1.13.10 4.2.7.2.686 [id number] [facility] 2023-03-24 00:00:00 2023-03-24 00:00:00 Telephone Jossue MartinHEmber [facility] 1..840.114 350.1.13.10 4.2.7.2.686 [id number] [facility] 2023-03-17 11:00:00 2023-03-17 11:00:00 Outpatient R JOSSUE MARTIN [facility] [id number] [facility] 2023-03-11 00:00:00 2023-03-11 00:00:00 Refill BenjataeAureliano [facility] BUILD[facility] 1.2.840.114 350.1.13.10 4.2.7.2.686 [id number] [facility] 2023-03-11 00:00:00 2023-03-11 00:00:00 Patient Secure Msg Jossue MartinHEmber [facility] 1.2.840.114 350.1.13.10 4.2.7.2.686 [id number] [facility] 2023-03-05 00:00:00 2023-03-05 00:00:00 Telephone Lu [facility] 1.2.840.114 350.1.13.10 4.2.7.2.686 [id number] [facility] 2023-02-27 00:00:00 2023-02-27 00:00:00 Telephone Jossue MartinHEmber [facility] 1.2.840.114 350.1.13.10 4.2.7.2.686 [id number] [facility] 2023-02-25 00:00:00 2023-02-25 00:00:00 Telephone Jossue MartinHEmber [facility] 1.2.840.114 350.1.13.10 4.2.7.2.686 [id number] [facility] 2023-02-19 08:20:00 2023-02-19 08:48:01 Outpatient R WILBUR-VAN BEDOYA [facility] [id number] [facility] 2023-02-19 08:20:00 2023-02-19 08:48:01 Office Visit ObVan Chaidez [facility] 1.2.840.114 350.1.13.10 4.2.7.2.686 [id number] [facility] 2023-02-17 10:00:00 2023-02-17 23:59:00 Outpatient R JOSSUE MARTIN [facility] [id number] [facility] 2023-02-17 10:00:00 2023-02-17 23:59:00 Hospital Encounter Jossue Martin [facility] 1.2.840.114 350.1.13.10 4.2.7.2.686 [id number] [facility] 2023-01-30 00:00:00 2023-01-30 00:00:00 Letter (Out) [facility] 1.2.840.114 350.1.13.10 4.2.7.2.686 [id number] [facility] 2023-01-22 10:00:00 2023-01-22 10:00:00 Outpatient R OBI-VAN BEDOYA OBI-VAN BEDOYA [facility] [id number] [facility] 2023-01-21 00:00:00 2023-01-21 00:00:00 Patient Outreach Nathalie Prajapati Emily [facility] 1.2.840.114 350.1.13.10 4.2.7.2.686 [id number] [facility] 2023-01-20 09:00:00 2023-01-20 09:24:23 Outpatient R JOSSUE MARTIN [facility] [id number] [facility] 2023-01-20 09:00:00 2023-01-20 09:24:23 Office Visit Jossue Martin [facility] 1.2.840.114 350.1.13.10 4.2.7.2.686 [id number] [facility] 2023-01-15 09:00:00 2023-01-15 09:30:55 Outpatient R OBI-AURELIANO , VAN OBI-AURELIANO , VAN [facility] [id number] [facility] 2023-01-15 09:00:00 2023-01-15 09:15:00 Mutuel Department Manager Visit 2, Adc Lab [facility] 1.2.840.114 350.1.13.10 4.2.7.2.686 [id number] [facility] 2023-01-15 08:00:00 2023-01-15 08:56:25 Office Visit Obi-Aureliano , Van [facility] 1..840.114 350.1.13.10 4.2.7.2.686 [id number] [facility] 2023-01-15 08:00:00 2023-01-15 08:00:00 Outpatient R OBI-AURELIANO , V[facility]LI[facility] , [facility] [id number] [facility] 2023-01-15 00:00:00 2023-01-15 00:00:00 Orders Only Doctor Unassigned, [place] [facility] 1.2.840.114 350.1.13.10 4.2.7.2.686 [id number] [facility] 2023-01-14 13:00:00 2023-01-14 13:00:00 Outpatient R OBI-AURELIANO , VAN OBI[facility]AURELIANO , [facility] [id number] [facility] 2023-01-13 08:30:00 2023-01-13 08:45:00 Nurse Visit Nurse, Bubba Rmchp Rgv Cprit ObBrandi Wells [facility] 1.840.114 350.1.13.10 4.2.7.2.686 [id number] [facility] 2023-01-13 08:30:00 2023-01-13 08:30:00 Outpatient R BRANDI COLE [facility] [id number] [facility] 2023-01-12 00:00:00 2023-01-12 00:00:00 Telephone [place] [facility] 1.840.114 350.1.13.10 4.2.7.2.686 [id number] [facility] 2022-12-24 08:57:28 2022-12-24 23:59:00 Outpatient R MARIELA LLANES [facility] [id number] [facility] 2022-12-24 08:57:28 2022-12-24 23:59:00 Hospital Encounter Mariela Llanes [facility] 1.84.114 350.1.13.10 4.2.7.2.686 [id number] [facility] 2022-12-23 00:00:00 2022-12-23 00:00:00 Telephone Mariela Llanes [facility] ADOLESCENT MEDICINE SPECIALIST [facility] ..114 350.1.13.10 4.2.7.2.686 [id number] [facility] 2022-12-22 00:00:00 2022-12-22 00:00:00 Telephone Mariela Llanes [facility] ADOLESCENT MEDICINE SPECIALIST [facility] 1..114 350.1.13.10 4.2.7.2.686 [id number] [facility] 2022-12-22 00:00:00 2022-12-22 00:00:00 Telephone Mariela Llanes [facility] ADOLESCENT MEDICINE SPECIALIST [facility] 1.114 350.1.13.10 4.2.7.2.686 [id number] [facility] 2022-12-17 00:00:00 2022-12-17 00:00:00 Outpatient GC_GCBZW_Ka diyala_S [facility]IV [facility] [id number] [facility] 2022-12-09 09:00:00 2022-12-09 09:35:19 Outpatient R MARIELA LLANES [facility] [id number] [facility] 2022-12-09 09:00:00 2022-12-09 09:35:19 Office Visit Mariela Llanes [facility] ADOLESCENT MEDICINE SPECIALIST [facility] 1.114 350.1.13.10 4.2.7.2.686 [id number] [facility] 2022-12-09 00:00:00 2022-12-09 00:00:00 Orders Only Doctor Unassigned, [place] [facility] .114 350.1.13.10 4.2.7.2.686 [id number] [facility] 2022-10-06 09:30:00 2022-10-06 09:30:00 Outpatient R YFN BLOCK CHERYAL [facility] [id number] [facility] 2022-10-02 00:00:00 2022-10-02 00:00:00 Patient Secure Msg Doctor Unassigned, [place] [facility] ..114 350.1.13.10 4.2.7.2.686 [id number] [facility] 2022-09-29 00:00:00 2022-09-29 00:00:00 Pre Visit Outreach Pcp, Patient Does Not Have A SHEARN NAINA RINALDI [id number] 350.1.13.10 4.2.7.2.686 [id number] [facility] 2020-03-28 09:06:00 2020-03-28 09:06:00 Outpatient Raju_P MMG MMG [id number] [facility] Results Test Description Test Time Test Comments Results Result Co mments Source [facility] Ultrasound breast limited [id number] 17:09:36Examination:BI DIAGNOSTIC TOMOSYNTHESIS [facility] Ul[facility] breast limited left History:Patient is 38year old and is seen for: ?Abnormal l [...] Left: There is no evidence of malignancy. Recommendation:Annual mammographic follow-up - Left ? BI-RADS Category: Left:2 - BenignOverall: 2 [facility] [id number] 17:09:36Examination:BI DIAGNOSTIC TOMOSYNTHESIS [facility] Ultrasound breast limited left History:Patient is 38year old and is seen for: ?Abnormal l [...] breast ultrasound was performed. A ridge of normal- appearing breast tissue is noted at 3:00, 16 cm from the nipple, and this is favored to correlate with the previously noted mammographic focal asymmetry at 3:00, posterior depth. The visualized level 1 axillary lymph nodes appear unremarkable. Impression: Left: There is no evidence of malignancy. Recommendation:Annual mammographic follow-up - Left ? BI-RADS Category: Left:2 - [facility]ignOverall: 2 [facility] Test 2023-06-16 14:40:00* Test Item Value Reference Range Interpretation Comme [facility] POCT PREG (test code = 1605) Negative On board controls acceptable with C Line (test code = 3574) Yes POCT PREG LOT # (test code = 3575) POCT PREG TEST DATE ( test code = 3576) [facility] [id number] 14:40:00* Test Item Value Reference Range Interpretation Comme [facility] POCT PREG (test code = 1605) Negative On board controls acceptable with C Line (test code = 3574) Yes POCT PREG LOT # (test code = 3575) POCT PREG TEST DATE ( test code = 3576) [facility] 23:32:57* Test Item Value Reference Range Interpretation Comme nts Height (test code = 8417641914) 65 in Weight (test code = 6927389960) 217 lbs Systolic BP (test code = 5768425361) 122 mmHg Diastolic BP (test code = 6887063102) 83 mmHg Heart Rate (test code = 0281744072) 66 bpm BSA (test code = 2116006278) 2.05 m2 LVIDD (test code = 6377098239) 4.40 cm Left Ventricular End Diastolic Volume by Teichholz Method (test code = 6807402) 88.8 mL IVS (test code = 2692900613) 1.12 cm Interventricular Septum Diastolic Thickness by 2D (test code = 7775384) 1.12 cm LVPWD (test code = 5558577821) 1.23 cm PW (test code = 4352681659) 1.23 cm 0.6-1.1 EF(Teich) (test code = 7293066319) 55.90 % LVIDS (test code = 4671594483) 3.10 cm Left Ventricular End Systolic Volume by Teichholz Method (test code = 4070655) 39.2 mL FS (test code = 8364656688) 29 % EF - 2D (test code = 53586472) 55.90 % LVOT diameter (test code = 3272374576) 2.08 cm LVOT area (test code = 0946290456) 3.40 cm2 ACS (test code = 5213564160) 2.25 cm Ao root diam (test code = 0727069427) 3.20 cm Aortic root (test code = 3501941657) 3.2 cm Ao root annulus (test code = 0528634039) 3.2 cm LA size (test code = 2923435152) 3.6 cm E wave decelartion time (test code = 2069093767) 0.16 s MV Peak E Nato (test code = 2588260897) 92.2 cm/s MV Peak A Nato (test code = 5994295905) 81.8 cm/s E/A ratio (test code = 9715936501) 1.13 ratio MR max PG (test code = 0753123741) 35.40 mm[Hg] MR max nato (test code = 7508124126) 297.70 cm/s Mr max nato (test code = 4086954533) 297.7 m/s MV Prop V (test code = 8769823560) 93.80 cm/s Tapse (test code = 8047255657) 1.88 cm TR Peak Nato (test code = 1497605392) 218.2 cm/s Triscuspid Valve Regurgitation Peak Gradient (test code = 2957237069) 19.0 mmHg LVOT stroke volume (test code = 8820274307) 85.50 cm3 LVOT peak nato (test code = 5134592492) 102.7 cm/s LVOT mn grad (test code = 2279325024) 1.8 mmHg AV LVOT peak gradient (test code = 5600466131) 4.2 mmHg LVOT peak VTI (test code = 9008981864) 25.1 cm LV V1 mean (test code = 2761376370) 61.40 cm/s Aortic valve mean velocity (test code = 0697231343) 87.6 cm/s Ao peak nato (test code = 0118328546) 140.9 cm/s Ao VTI (test code = 4000088228) 38.0 cm AV area by cont VTI (test code = 7594065248) 2.3 cm2 AV area peak nato (test code = 3252600086) 2.5 cm2 Ao max PG (test code = 0687951744) 7.90 mm[Hg] AV peak gradient (test code = 6987376152) 7.9 mmHg AV valve area (test code = 4854470395) 2.25 cm2 AV mean gradient (test code = 5420918698) 3.6 mmHg Radiology Study observation (narrative) (test code = 94929-5) MANGO (test code = MANGO) ?Left?Ventricle: Left [...] parasternal, subcostal and suprasternal views were obtained. [facility] ONLY - SYPHILIS [id number] 16:28:05* Test Item Value Reference Range Interpretation Comme [facility] Syphilis IgG/IgM (test code = 71616-0) Non-reactive Non-reactive MANGO (test code = MANGO) Non-reactive - No serologic evidence of T. pallidum infection. Cannot exclude incubating or early syphilis. Submit a second specimen in 2-4 weeks if syphilis is clinically suspected. Equivocal - Further testing to follow. Reactive - Further testing to follow. Lab Interpretation (test code = 42398-7) Normal [facility] ONLY - SYPHILIS [id number] 16:28:05* Test Item Value Reference Range Interpretation Comme [facility] Syphilis IgG/IgM (test code = 28525-7) Non-reactive Non-reactive MANGO (test code = MANGO) Non-reactive - No serologic evidence of T. pallidum infection. Cannot exclude incubating or early syphilis. Submit a second specimen in 2-4 weeks if syphilis is clinically suspected. Equivocal - Further testing to follow. Reactive - Further testing to follow. Lab Interpretation (test code = 02194-3) Normal [facility] 1/2 AG-AB WITH [id number] 08:00:17* Test Item Value Reference Range Interpretation Comme [facility] HIV Semi-quantitative (test code = 39742-4) 0.08 Negative MANGO (test code = MANGO) Non-reactive for HIV-1 antigen and HIV-1/HIV-2 antibodies. ?No laboratory evidence of HIV infection. ?Repeat in 2-4 weeks if acute HIV infection is suspected. [facility] acute hospital 1/2 AG-AB WITH [id number] 08:00:17* Test Item Value Reference Range Interpretation Comme [facility] HIV Semi-quantitative (test code = 42580-6) 0.08 Negative MANGO (test code = MANGO) Non-reactive for HIV-1 antigen and HIV-1/HIV-2 antibodies. ?No laboratory evidence of HIV infection. ?Repeat in 2-4 weeks if acute HIV infection is suspected. [facility]20[facility]-12-10 07:25:06* Test Item Value Reference Range Interpretation Comme nts HGB A1C (test code = 4548-4) 5.2 % 4.0-5.7 MANGO (test code = MANGO) Reference RangesNormal: <5.7%Prediabetes: 5.7 - 6.4%Diabetes: > 6.5% Lab Interpretation (test code = 77348-9) Normal [facility]2022-12-10 07:25:06* Test Item Value Reference Range Interpretation Comme nts HGB A1C (test code = 4548-4) 5.2 % 4.0-5.7 MANGO (test code = MANGO) Reference RangesNormal: <5.7%Prediabetes: 5.7 - 6.4%Diabetes: > 6.5% Lab Interpretation (test code = 38292-7) Normal [facility] [id number] 06:52:12* Test Item Value Reference Range Interpretation Comme nts HCV Ab (test code = 09259-3) Negative HCV Semi-Quantitative (test code = 94365-7) 0.02 [facility] [id number] 06:52:12* Test Item Value Reference Range Interpretation Comme nts HCV Ab (test code = 87406-7) Negative HCV Semi-Quantitative (test code = 64538-2) 0.02 [facility] [id number] 06:35:06 * Test Item Value Reference Range Interpretation Comme nts TSH (test code = 7722988920) 1.04 See_Comment Biotin has been reported to cause a negative bias, interpret results relative to patient's use of biotin. [Automated message] The system which generated this result transmitted reference range: 0.45 - 4.70 mIU/L. The reference range was not used to interpret this result as normal/abnormal. Lab Interpretation (test code = 70864-5) Normal [facility] [id number] 06:35:06 * Test Item Value Reference Range Interpretation Comme nts TSH (test code = 7602526360) 1.04 See_Comment Biotin has been reported to cause a negative bias, interpret results relative to patient's use of biotin. [Automated message] The system which generated this result transmitted reference range: 0.45 - 4.70 mIU/L. The reference range was not used to interpret this result as normal/abnormal. Lab Interpretation (test code = 02240-4) Normal [facility] WITH [id number] 06:00:26* Test Item Value Reference Range Interpretation [...] g/dL 31.6-35.1 L RDW-SD (test code = 94256-2) 38.6 fL 39.0-49.9 L RDW-CV (test code = 788-0) 13.3 % 12.0-15.5 PLT (test code = 777-3) 368 See_Comment H [Automated messa ge] The system which generated this result transmitted reference range: 166 - 358 10*3/?L. The reference range was not used to interpret this result as normal/abnormal. MPV (test code = 76277-0) 11.4 fL 9.5-12.9 NRBC/100 WBC (test code = 3398230250) 0.0 See_Comment [Automated Vixlo ssage] The system which generated this result transmitted reference range: 0.0 - 10.0 /100 WBCs. The reference range was not used to interpret this result as normal/abnormal. NRBC x10^3 (test code = 2431886046) See_Comment [Automated messa ge] The system which generated this result transmitted reference range: 10*3/?L. The reference range was not used to interpret this result as normal/abnormal. GRAN MAT (NEUT) % (test code = 770-8) 52.0 % IMM GRAN % (test code = 5621271186) 0.00 % LYMPH % (test code = 736-9) 27.5 % MONO % (test code = 5905-5) 18.2 % EOS % (test code = 713-8) 1.7 % BASO % (test code = 706-2) 0.6 % GRAN MAT x10^3(ANC) (test code = 1790052313) 1.89 10*3/uL 1.88-7.09 IMM GRAN x10^3 (test code = 1411493995) 0.00-0.06 LYMPH x10^3 (test code = 731-0) 1.00 10*3/uL 1.32-3.29 L MONO x10^3 (test code = 742-7) 0.66 10*3/uL 0.33-0.92 EOS x10^3 (test code = 711-2) 0.06 10*3/uL 0.03-0.39 BASO x10^3 (test code = 704-7) 0.01-0.07 Lab Interpretation (test code = 58532-1) Abnormal [facility] WITH [id number] 06:00:26* Test Item Value Reference Range Interpretation [...] g/dL 31.6-35.1 L RDW-SD (test code = 82545-4) 38.6 fL 39.0-49.9 L RDW-CV (test code = 788-0) 13.3 % 12.0-15.5 PLT (test code = 777-3) 368 See_Comment H [Automated messa ge] The system which generated this result transmitted reference range: 166 - 358 10*3/?L. The reference range was not used to interpret this result as normal/abnormal. MPV (test code = 27805-6) 11.4 fL 9.5-12.9 NRBC/100 WBC (test code = 2558166214) 0.0 See_Comment [Automated Vixlo ssage] The system which generated this result transmitted reference range: 0.0 - 10.0 /100 WBCs. The reference range was not used to interpret this result as normal/abnormal. NRBC x10^3 (test code = 5778223746) See_Comment [Automated messa ge] The system which generated this result transmitted reference range: 10*3/?L. The reference range was not used to interpret this result as normal/abnormal. GRAN MAT (NEUT) % (test code = 770-8) 52.0 % IMM GRAN % (test code = 4503419887) 0.00 % LYMPH % (test code = 736-9) 27.5 % MONO % (test code = 5905-5) 18.2 % EOS % (test code = 713-8) 1.7 % BASO % (test code = 706-2) 0.6 % GRAN MAT x10^3(ANC) (test code = 1053736171) 1.89 10*3/uL 1.88-7.09 IMM GRAN x10^3 (test code = 8459505502) 0.00-0.06 LYMPH x10^3 (test code = 731-0) 1.00 10*3/uL 1.32-3.29 L MONO x10^3 (test code = 742-7) 0.66 10*3/uL 0.33-0.92 EOS x10^3 (test code = 711-2) 0.06 10*3/uL 0.03-0.39 BASO x10^3 (test code = 704-7) 0.01-0.07 Lab Interpretation (test code = 04920-4) Abnormal [facility]
[2024-03-06] MEDS ORDERED: HYDROCODONE/APAP 5/325 MG TAB ONE (23:04)
[2024-03-06] MEDS ORDERED: ONDANSETRON 4 MG (ODT) TAB ONE (23:04)
[2024-03-06] MEDS ORDERED: NA CHLORIDE 0.9% 1,000 ML ONE (23:04)
[2024-03-06 23:20] LABS: PT Prothrombin Time 11.5 SECONDS (9.4-12.5); Protime INR 1.1
[2024-03-06 23:24] LABS: Absolute Eosinophils 0.1 K/uL (0-0.5); Absolute Lymphocytes (CBC) 1.4 K/uL (0.7-4.9); Absolute Monocytes 0.3 K/uL (0.1-1.3); Absolute Neutrophil 3.1 K/uL (1.8-8.0); Basophils % 0.7 % (0-1.3); Hematocrit 34.9 % (36.0-45.0); Hemoglobin 11.1 g/dL (12.0-15.0); Lymphocytes % 28.8 % (15.3-44.8); MCH 24.1 pg (27.0-35.0); MCHC 31.8 g/dL (32.0-36.0); MCV 75.8 fL (80-100); MPV 8.1 fL (7.6-11.3); Monocytes % 6.7 % (3.3-12.3); Neutrophils % 62.8 % (41.7-73.7); Nucleated Red Blood Cells % 0.2 % (0-0); Platelets 452 thou/uL (152-406); Red Cell Distribution Width 14.2 % (12.1-15.2)
[2024-03-06 23:31] LABS: Albumin 3.4 g/dL (3.4-5.0); Albumin/Globulin Ratio 0.7 (1.1-1.8); Anion Gap 8.7 mEq/L (5.0-15.0); Bilirubin Total 0.3 mg/dL (0.2-1.0); Globulin 4.7 g/dL (2.3-3.5); Potassium 3.7 mEq/L (3.5-5.1); Protein, Total 8.1 g/dL (6.4-8.2)
--- NOTE | 2024-03-07 00:29 | RAD REPORT ---
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 COMPARISON: US Pelvis 02/21/2024. TECHNIQUE: Utilizing a transabdominal array transducer, real-time ultrasound evaluation of the female pelvis was performed. Color Doppler imaging was used to assess vascular flow. FINDINGS: The uterus is anteverted and measures 9.1 x 4.8 x 5.6 cm. The endometrial stripe demonstrate to be normal and measure 18.5 mm. No focal masses were identified within the uterus. The right ovary measures 2.9 x 1.7 x 1.9 cm in length. There are no focal lesions seen. Normal color and doppler flow is visualized. The left ovary measures 3.6 x 1.8 x 2.5 cm in length. There are no focal lesions seen. Normal color a nd doppler flow is visualized. No free fluid was identified in the posterior cul-de-sac, no adnexal masses seen. IMPRESSION: Normal pelvic ultrasound. Electronically signed by: Fareed Merlos MD 03/07/2024 12:25 AM [facility] Due to temporary technical issues with the PACS/Neverfailibe reporting system, reports are being signed by the in-house radiologist without review as a courtesy to ensure prompt reporting the interpreting radiologist is fully responsible for the content of the report. Transcribed Date/Time: 03/07/2024 12:29 AM
[2024-03-07] MEDS ORDERED: HYDROCODONE/APAP 5/325 MG TAB ONE (00:42)
--- NOTE | 2024-03-07 01:04 | ER ---
Nurse's Notes [facility] Name: Alanna Barreto Age: 38 yrs Sex: Female : 1985 Arrival Date: 03/06/2024 Time: 22:41 Bed 2 Private MD: Diagnosis: Abnormal uterine and vaginal bleeding, unspecified;Dysfunctional uterine bleeding Presentation: 03/06 22:48 Chief complaint: EMS states: TONED OUT FOR VAGINAL BLEEDING. PT REPORTS VAGINAL dd2 BLEEDING SINCE Jan, WAS HERE IN THIS ER ON Feb AND HAD A VAGINAL PROCEDURE ON Feb, REPORTING CONTINUOUS BLEEDING SINCE. PT REPORTS 10 LARGE PADS OF BRIGHT RED BLOOD A DAY WITH LOWER ABDOMINAL PAIN RADIATING TO THE BACK. Coronavirus screen: At this time, the client does not indicate any symptoms associated with coronavirus-19. Ebola Screen: No symptoms or risks identified at this time. Initial Sepsis Screen: Does the patient meet any 2 criteria? No. Patient's initial sepsis screen is negative. Does the patient have a suspected source of infection? No. Patient's initial sepsis screen is negative. Risk Assessment: Do you want to hurt yourself or someone else? Patient reports no desire to harm self or others. Onset of symptoms was February 13, 2024. Care prior to arrival: Glucose check: 108. 22:48 Method Of Arrival: EMS: [facility] dd2 22:48 Acuity: CHRISTOPHER 3 dd2 Triage Assessment: 22:53 General: Appears in no apparent distress. Behavior is calm, cooperative, appropriate dd2 for age. Pain: Complains of pain in low back area, suprapubic area, right lower quadrant and left lower quadrant Pain currently is 10 out of 10 on a pain scale. Quality of pain is described as crampy. EENT: No deficits noted. No signs and/or symptoms were reported regarding the EENT system. Neuro: Cormier Agitation-Sedation Scale (RASS): 0 - Alert and Calm Level of Consciousness is awake, alert, obeys commands, Oriented to person, place, time, situation, Appropriate for age. Cardiovascular: No deficits noted. Respiratory: No deficits noted. Airway is patent Respiratory effort is even, unlabored, Respiratory pattern is regular, symmetrical, Breath sounds are clear bilaterally. GI: Abdomen is non-distended, obese, Abd is soft and non tender X 4 quads. Reports lower abdominal pain, cramping. : Reports cramping, in bilateral lower quadrant(s) lower back vaginal bleeding that is bright red, heavy flow since feb 12. Derm: No deficits noted. No signs and/or symptoms reported regarding the dermatologic system. Musculoskeletal: No deficits noted. Circulation, motion, and sensation intact. Range of motion: intact in all extremities. [employer]: 22:53 LMP N/A - Depo-provera, Not dd2 Historical: - Allergies: 22:53 Iodine (Hives, swelling); dd2 22:53 Ibuprofen; dd2 - PMHx: 22:53 Anxiety; Depression; GERD; Human papilloma virus infection; PTSD (Human papilloma virus dd2 infection); - PSHx: 22:53 Ligation of fallopian tube; dd2 - Immunization history:: Adult Immunizations up to date. - Infectious Disease History:: Denies. - Social history:: Smoking status: Patient denies any tobacco usage or history of. - Family history:: not pertinent. Screenin:59 [facility] ED Fall Risk Assessment (Adult) History of falling in the last 3 months, dd2 including since admission No falls in past 3 months (0 pts) Confusion or Disorientation No (0 pts) Intoxicated or Sedated No (0 pts) Impaired Gait No (0 pts) Mobility Assist Device Used No (0 pt) Altered Elimination No (0 pt) Score/Fall Risk Level 0 - 2 = Low Risk Oriented to surroundings, Maintained a safe environment, Educated pt \T\ family on fall prevention, incl call for assistance when getting out of bed, Assessed \T\ reinforced patient's understanding of fall precautions, Hourly rounding (assess needs \T\ fall precautionary measures) done. Abuse screen: Denies threats or abuse. Nutritional screening: No deficits noted. Tuberculosis screening: No symptoms or risk factors identified. Assessment: 22:59 Reassessment: SEE TRIAGE ASSESSMENT FOR FULL ASSESSMENT. dd2 03/07 00:30 Reassessment: Patient and/or family updated on plan of care and expected duration. Pain ha1 level reassessed. Patient is alert, oriented x 3, equal unlabored respirations, skin warm/dry/pink. Vital Signs: 03/06 22:48 BP 142 / 80; Pulse 77; Resp 16; Temp 98.4; Pulse Ox 100% on R/A; Weight 107.05 kg (R); dd2 Height 5 ft. 4 in. ; Pain 10/10; 22:59 BP 128 / 82; Pulse 85; Resp 16; Pulse Ox 100% on R/A; dd2 03/07 00:30 BP 110 / 96; Pulse 81; Resp 18 S; Pulse Ox 100% on R/A; ha1 01:24 BP 128 / 85; Pulse 83; Resp 16; Temp 98.2; Pulse Ox 100% ; dd2 03/06 22:48 Body Mass Index 40.51 (107.05 kg, 162.56 cm) dd2 03/06 22:48 Pain Scale: Adult dd2 Janiya Coma Score: 03/06 22:59 Eye Response: spontaneous(4). Motor Response: obeys commands(6). Verbal Response: dd2 oriented(5). Total: 15. 03/07 06:00 Eye Response: spontaneous(4). Motor Response: obeys commands(6). Verbal Response: sp4 oriented(5). Total: 15. ED Course: 03/06 22:47 Patient arrived in ED. dd2 22:48 Sean Cross MD is Attending Physician. sp4 22:53 Triage completed. dd2 22:53 Arm band placed on right wrist. Patient placed in an exam room, on a stretcher, on dd2 pulse oximetry. 22:59 Patient has correct armband on for positive identification. Bed in low position. Call dd2 light in reach. Side rails up X2. Client placed on continuous cardiac and pulse oximetry monitoring. NIBP monitoring applied. Door closed. Noise minimized. Warm blanket given. Pillow given. Verbal reassurance given. 22:59 Patient maintains SpO2 saturation greater than 95% on room air. dd2 23:02 KATJA CUNHA, RN is Primary Nurse. dd2 23:07 Inserted saline lock: 20 gauge in right antecubital area, using aseptic technique. mm11 Blood collected. Flushed with 10 mL NS. 23:09 PT-INR Sent. mm11 23:09 CBC with Diff Sent. mm11 23:09 CMP Sent. mm11 23:09 Type And Screen Sent. mm11 23:42 US Pelvis Complete In Process Unspecified. EDMS 03/07 00:29 Test, Urine Sent. dd2 00:29 Urinalysis w/ reflexes Sent. dd2 00:41 Provided Education on: Pelvic exam. ha1 01:02 Assist provider with pelvic exam: Set up pelvic tray. Performed by Sean Cross MD dd2 Patient tolerated well. 01:25 IV discontinued, intact, bleeding controlled, No redness/swelling at site. Pressure dd2 dressing applied. Administered Medications: 03/06 23:40 Drug: NS 0.9% IV 1000 ml IV at 1 bolus Per protocol; to be given as a bolus over 60 ha1 minutes Route: IV; Rate: 1 bolus; Site: right antecubital; 23:55 Follow up: Response: No adverse reaction dd2 03/07 00:40 Follow up: IV Status: Completed infusion; IV Intake: 1000ml dd2 03/06 23:40 Drug: HYDROcodone-acetaminophen PO 5 mg-325 mg 2 tabs PO once Route: PO; ha1 03/07 00:10 Follow up: Response: No adverse reaction dd2 03/06 23:40 Drug: Ondansetron PO 4 mg PO once Route: PO; [facility] 03/07 00:10 Follow up: Response: No adverse reaction dd2 Medication: 03/06 22:59 VIS not applicable for this client. dd2 Intake: 03/07 00:40 IV: 1000ml; Total: 1000ml. dd2 Outcome: 01:04 Discharge ordered by . sp4 01:25 Discharged to home ambulatory, dd2 01:25 Condition: stable 01:25 Discharge instructions given to patient, Instructed on discharge instructions, follow up and referral plans. medication usage, Demonstrated understanding of instructions, follow-up care, medications, Prescriptions given X 2, 01:25 Patient left the ED. dd2 Signatures: Dispatcher [employer] Carmel Linares, RN RN ha1 Sean Cross MD MD sp4 KATJA CUNHA RN RN dd2 angel gomez mm11
--- NOTE | 2024-03-07 01:04 | EDPHYS ---
Physician Documentation [facility] Name: Alanna Barreto Age: 38 yrs Sex: Female : 1985 Arrival Date: 03/06/2024 Time: 22:41 Bed 2 Private MD: ED Physician Sean Cross HPI: 03/07 00:47 This 38 yrs old Black Female presents to ER via EMS with complaints of Vaginal Bleeding.sp4 06:00 38-year-old female with history of anxiety, depression, GERD, HPV, PTSD presents with sp4 complaint of persistent vaginal bleeding for several months. Patient states in the past she was put on Provera which did not help.. 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 - Infectious Disease History:: Denies. - Social history:: Smoking status: Patient denies any tobacco usage or history of. - Family history:: not pertinent. ROS: 03/07 06:00 Constitutional: Negative for fever, chills, and weight loss, positive persistent sp4 vaginal bleeding, positive pelvic cramps All other systems are negative, Exam: 06:00 Constitutional: This is a well developed, well nourished patient who is awake, alert, sp4 and in no acute distress. Head/Face: Normocephalic, atraumatic. Eyes: Pupils equal round and reactive to light, extra-ocular motions intact. Lids and lashes normal. Conjunctiva and sclera are not injected. Cornea within normal limits. Periorbital areas with no swelling, redness, or edema. ENT: Nares patent. No nasal discharge, no septal abnormalities noted. Tympanic membranes are normal and external auditory canals are clear. Oropharynx with no redness, swelling, or masses, exudates, or evidence of obstruction, uvula midline. Mucous membranes moist. Neck: Trachea midline, no thyromegaly or masses palpated, and no cervical lymphadenopathy. Supple, full range of motion without nuchal rigidity, or vertebral point tenderness. Chest/axilla: Normal chest wall appearance and motion. Nontender with no deformity. No lesions are appreciated. Cardiovascular: Regular rate and rhythm with a normal S1 and S2. No gallops, murmurs, or rubs. Normal PMI, no JVD. No pulse deficits. Respiratory: Lungs have equal breath sounds bilaterally, clear to auscultation and percussion. No rales, rhonchi or wheezes noted. No increased work of breathing, no retractions or nasal flaring. Abdomen/GI: Soft, with normal bowel sounds. No distension or tympany. No guarding or rebound. No evidence of tenderness throughout. Back: No spinal tenderness. No costovertebral tenderness. Pelvic Exam: Normal external genitalia. Speculum exam with closed cervical os, there is dark red vaginal bleeding mild to moderate amount. No cervical lesions otherwise no discharge. 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 Normal color with no rashes, no lesions, and no evidence of cellulitis. MS/ Extremity: Pulses equal, no cyanosis. Neurovascular intact. Full, normal range of motion. Neuro: Awake and alert, GCS 15, oriented to person, place, time, and situation. Cranial nerves II-XII grossly intact. Motor strength 5/5 in all extremities. Sensory grossly intact. Psych: Awake, alert, with orientation to person, place and time. Behavior, mood, and affect are within normal limits Vital Signs: 03/06 22:48 BP 142 / 80; Pulse 77; Resp 16; Temp 98.4; Pulse Ox 100% on R/A; Weight 107.05 kg (R); dd2 Height 5 ft. 4 in. ; Pain 10/10; 22:59 BP 128 / 82; Pulse 85; Resp 16; Pulse Ox 100% on R/A; dd2 03/07 00:30 BP 110 / 96; Pulse 81; Resp 18 S; Pulse Ox 100% on R/A; ha1 01:24 BP 128 / 85; Pulse 83; Resp 16; Temp 98.2; Pulse Ox 100% ; dd2 03/06 22:48 Body Mass Index 40.51 (107.05 kg, 162.56 cm) dd2 03/06 22:48 Pain Scale: Adult dd2 [place] Coma Score: 03/06 22:59 Eye Response: spontaneous(4). Motor Response: obeys commands(6). Verbal Response: dd2 oriented(5). Total: 15. 03/07 06:00 Eye Response: spontaneous(4). Motor Response: obeys commands(6). Verbal Response: sp4 oriented(5). Total: 15. 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 COMPARISON: US Pelvis 02/21/2024. TECHNIQUE: Utilizing a transabdominal array transducer, real-time ultrasound evaluation of the female pelvis was performed. Color Doppler imaging was used to assess vascular flow. FINDINGS: The uterus is anteverted and measures 9.1 x 4.8 x 5.6 cm. The endometrial stripe demonstrate to be normal and measure 18.5 mm. No focal masses were identified within the uterus. The right ovary measures 2.9 x 1.7 x 1.9 cm in length. There are no focal lesions seen. Normal color and doppler flow is visualized. The left ovary measures 3.6 x 1.8 x 2.5 cm in length. There are no focal lesions seen. Normal color and doppler flow is visualized. No free fluid was identified in the posterior cul-de-sac, no adnexal masses seen. IMPRESSION: Normal pelvic ultrasound.. 06:02 Differential diagnosis: karl infection, cervicitis, dysfunctional uterine bleeding, sp4 dysmenorrhea. Data reviewed: vital signs, nurses notes, lab test result(s), radiologic studies, ultrasound. Consideration of Admission/Observation Escalation of care including admission/observation considered. ED course: Patient stable for discharge home advised follow-up with TEST DESK OPERATOR. Advised to discuss options with TEST DESK OPERATOR including hysterectomy. 03/06 22:48 Order name: Type And Screen; Complete Time: 00:09 4 03/06 22:49 Order name: CBC with Diff; Complete Time: 00:02 4 03/06 22:49 Order name: CMP; Complete Time: 00:02 4 03/06 22:49 Order name: Test, Urine; Complete Time: 07:00 4 03/06 22:49 Order name: Urinalysis w/ reflexes; Complete Time: 07:00 sp4 03/06 22:49 Order name: PT-INR; Complete Time: 00:02 sp4 03/06 22:49 Order name: US Pelvis Complete sp4 03/06 22:49 Order name: IV Saline Lock; Complete Time: 23:09 sp4 03/06 22:49 Order name: Labs collected and sent; Complete Time: 23:09 sp4 03/06 22:50 Order name: Pelvic Exam Setup; Complete Time: 00:33 sp4 Administered Medications: 03/06 23:40 Drug: NS 0.9% IV 1000 ml IV at 1 bolus Per protocol; to be given as a bolus over 60 ha1 minutes Route: IV; Rate: 1 bolus; Site: right antecubital; 23:55 Follow up: Response: No adverse reaction dd2 03/07 00:40 Follow up: IV Status: Completed infusion; IV Intake: 1000ml dd2 03/06 23:40 Drug: HYDROcodone-acetaminophen PO 5 mg-325 mg 2 tabs PO once Route: PO; ha1 03/07 00:10 Follow up: Response: No adverse reaction dd2 03/06 23:40 Drug: Ondansetron PO 4 mg PO once Route: PO; 1 03/07 00:10 Follow up: Response: No adverse reaction dd2 Disposition Summary: 03/07/24 01:04 Discharge Ordered Notes: Location: Home sp4 Problem: new sp4 Symptoms: have improved sp4 Condition: Stable sp4 Diagnosis - Abnormal uterine and vaginal bleeding, unspecified sp4 - Dysfunctional uterine bleeding sp4 Followup: sp4 - With: Private Physician - When: 7 - 10 days - Reason: Recheck today's complaints Discharge Instructions: - Discharge Summary Sheet sp4 - Dysfunctional Uterine Bleeding sp4 Forms: - Patient Portal Instructions sp4 Prescriptions: - Sprintec (28) 0.25-35 mg-mcg Oral tablet - take 1 tablet ORAL route daily for 28 days Dispense one blister pack; 1 Pack; sp4 Refills: 0, Product Selection Permitted - dicyclomine 20 mg Oral tablet - take 1 tablet ORAL route every 8 hours PRN crampy pain; 30 tablet; Refills: 0, sp4 Product Selection Permitted Signatures: Dispatcher Medst Carmel Linares RN RN ha1 Sean Cross MD MD sp4 KATJA CUNHA, BRADY RN dd2
[2024-03-07 01:15] LABS: Sqamous Epithelial None Seen /HPF (None Seen); Urine Bacteria None Seen /HPF (<20); Urine Bilirubin NEGATIVE (Negative); Urine Blood 3+ (OVER) (Negative); Urine Clarity Extremely Turbid (Clear); Urine Color Brown (Yellow); Urine Culture Reflex Order NOT NEEDED; Urine Glucose NEGATIVE (Negative); Urine Ketones NEGATIVE (Negative); Urine Microscopic Reflex YN ORDER UMIC; Urine Mucus Slight /HPF (None Seen); Urine Nitrite NEGATIVE (Negative); Urine Protein TRACE (Negative); Urine RBC >50 /HPF (None Seen); Urine Urobilinogen 1+ (Normal); Urine WBC <5 /HPF (<5)
[2024-03-07 01:51] VITALS: O2SAT 100
[2024-03-07 01:54] VITALS: BP 128/85; TEMP 98.2
== END 2024-03-07 01:25 | disposition home or self-care (01) ==
LOC: ER 22:41
DX: N93.8 Other specified abnormal uterine and vaginal bleeding (principal)
CPT/HCPCS: 85025; 81001; 36415; 86900; 86850; 81025; 85610; 86901; 80053; 76856; 96360; 99285; Q0162; J7030

== ENCOUNTER 2024-03-28 08:58 | Emergency (ER) | payer OTHER ==
--- OUTSIDE RECORDS SUMMARY | 2024-03-28 09:04 | XMS REPORT | Continuity of Care Document ---
Author Name Unknown Address [address] [facility] [address] [place] [address] [facility] thconnect Address [address] [facility] [place] [address] Care Team Providers Care Digital Forensic Analyst Name Role Phone Van Leigh MD Primary Care Physician + [phone] SARAH MOREL Attending Clinician Unavailable Sarah Huizar Attending Clinician [phone] TODD STEWART Attending Clinician Unavailable Pgy4-B Attending Clinician Unavailable Todd Stewart DO Attending Clinician [phone] Korin Solares Attending Clinician [phone] OLIVIA SANDOVAL Attending Clinician Unavailable OLIVIA SANDOVAL Attending Clinician Unavailable Olivia Sandoval MD Attending Clinician [phone] KORIN SCHULTZ Attending Clinician Unavailable [facility] Attending Clinician Un available Van Leigh MD Attending Clinician [phone] Mariela Llanes CNM Attending Clinician [phone] MARIELA LLANES Attending Clinician Unavaila VAN Vallecillo Attending Clinician Unavailab VAN Kowalski Attending Clinician Unavailab Mariela Shelley CNM Attending Clinician [phone] Brandi Angela Attending Clinician + BRANDI COLE Attending Clinician Unavail ayden Martin MD, Jossue LutherHEmber Attending Clinician [phone] JOSSUE MARTIN Attending Clinician Raudel cates 2, [facility] Attending Clinician Unavailable Nathalie Prajapati LMSW Attending Clinician Unava ilable Doctor Unassigned, [place] Attending Clinician U navailable Nurse, Ang Rmchp Rgv Cprit Obgyn Attending Clini allie Unavailable [email or web address]_S Attending Clinician Unavaila YFN Keys Attending Clinician Unavaila YFN Keys Attending Clinician Unavaildarleen cates Pcp, Patient Does Not Have A Attending Clinician Raju_P Attending Clinician Unavailable SARAH MOREL Admitting Clinician Unavailable JOSSUE MARTIN Admitting Clinician UnavailMARIELA Prajapati Admitting Clinician Unavaila darryn [email or web address]_S Admitting Clinician Unavaila darryn Raju_P Admitting Clinician Unavailable Payers Payer Name Policy Type Policy Number Effective Date Expirati on Date Source [facility] STAR [id number] 2023 00:00:00 CHLOE Mendez/ GERTRUDE HUSTON [id number] 2023 00:00:00 [employer] P[employer] [id number] 2023 00:00:00 2023 00:00:00 Problems Condition Name Condition Details Condition Category Status Onset Date Resolution Date Last Treatment Date Treating Clinician Comments Source Need for HPV vaccinatio n Need for HPV vaccinatio n Disease Active 4-30 00:00: 00 [facility] Declines flu vaccine Declines flu vaccine Disease Active 2022-02 0 00:00: 00 [facility] Menorrhagi a with irregular cycle Menorrhagi a with irregular cycle Disease Active 2022-02 0 00:00: 00 [facility] Dysmenorrh ea Dysmenorrh ea Disease Active 2022-02 0 00:00: 00 [facility] History of abnormal cervical Pap smear History of abnormal cervical Pap smear Disease Active 2022-02 0-24 00:00: 00 Overview: Formattin g of this note might be different from the original. 5 negative pap with +hpv02/23 negative pap and hpv2022 LGSIL with +HPV, FU 1 year per ASCCP guideline s [facility] History of tubal ligation History of tubal ligation Disease Active 05-25 00:00: 00 [facility] Over weight Over weight Disease Active 02-24 00:00: 00 [facility] History of anxiety History of anxiety Disease Active 02-24 00:00: 00 [facility] Anxiety and depression Anxiety and depression Disease Active 02-24 00:00: 00 [facility] History of herpes genitalis History of herpes genitalis Disease Active 2014-02 00:00: 00 [facility] Obesity (BMI 30-39.9) Obesity (BMI 30-39.9) Disease Resolve d 02-24 00:00: 00 2023-12-16 00:00:00 2023-12-16 08:47:09 [facility] History of depression History of depression Disease Resolve d 02-24 00:00: 00 2022-12-10 00:00:00 2022-12-10 09:43:05 [facility] Encounter for other general counseling or advice on contracept ion Encounter for other general counseling or advice on contracept ion Disease Resolve d 02-24 00:00: 00 2022-12-09 00:00:00 2022-12-09 08:53:50 [facility] Cervical high risk human papillomav irus (HPV) DNA test positive Cervical high risk human papillomav irus (HPV) DNA test positive Disease Resolve d 2014-02 00:00: 00 2022-12-09 00:00:00 2022-12-09 08:54:42 Overview: Formattin g of this note might be different from the original. Pap pending [facility] Well woman exam without gynecologi geri exam Well woman exam without gynecologi geri exam Disease Resolve d 02-24 00:00: 00 2018-05-25 00:00:00 2018-05-25 14:10:07 [facility] Screening examinatio n for venereal disease Screening examinatio n for venereal disease Disease Resolve d 04-24 00:00: 00 2018-05-25 00:00:00 2018-05-25 14:10:09 [facility] Bacterial vaginosis Bacterial vaginosis Disease Resolve d 2014-02 00:00: 00 2017-02-24 00:00:00 2017-02-24 15:51:33 [facility] S/P tubal ligation S/P tubal ligation Disease Resolve d 2014-02 00:00: 00 2017-02-24 00:00:00 2017-02-24 15:51:36 [facility] Chlamydia trachomati s infection of lower genitourin adrian sites Chlamydia trachomati s infection of lower genitourin adrian sites Disease Resolve d 2014-02 00:00: 00 2016-02-25 00:00:00 2016-02-25 09:01:16 [facility] Screening examinatio n for venereal disease Screening examinatio n for venereal disease Disease Resolve d 2014-02 00:00: 00 2016-02-25 00:00:00 2016-02-25 09:01:20 [facility] Allergies, Adverse Reactions, Alerts Allergy Name Allergy Type Status Severity Reaction(s) Onset Date Inactive Date Treating Clinician Comments Source IBUPROFE N DRUG INGREDI Active N/V 2014-02 00:00: 00 [facility] IODINE DRUG INGREDI Active Rash 2014-02 00:00: 00 [facility] Ibuprofe n Propensi ty to adverse reaction s Active Nausea and/or Vomiting 2014-02 00:00: 00 [facility] Iodine Propensi ty to adverse reaction s Active Rash 2014-02 00:00: 00 [facility] Social History Social Habit Start Date Stop Date Quantity Comments Source Gender identity [facility] Al[facility] intake 2024-01-01 00:00:00 2024-01-01 00:00:00 0 /d [facility] History of Social function 2023-12-16 00:00:00 2023-12-16 00:00:00 [facility] Alcohol intake 2023-06-16 00:00:00 2023-06-16 00:00:00 0 /d [facility] Tobacco use and exposure 2023-01-20 00:00:00 2023-01-20 00:00:00 Smokeless tobacco non-user [facility] Sex assigned at 1985 00:00:00 1985 00:00:00 [facility] Smoking Status Start Date Stop Date Source Never smoked tobacco [facility] Medications Ordered Medication Name Filled Medication Name Start Date Stop Date Current Medication? Ordering Clinician Indication Dosage Frequency Signature (SIG) Comments Components Source medroxyPROG ESTERone (CYCRIN) tablet 10 mg 03-10 21:45: 00 03-10 21:00 :00 No 10mg 10 mg, Oral, ONCE, 1 dose, On Thu03/10/24 at 1545, Routine [facility] medroxyPROG ESTERone 10 mg tablet 03-10 00:00: 00 Yes [id number] 100 10mg Take 1 tablet by mouth in the morning and 1 tablet at noon and 1 tablet in the evening. [facility] ferrous sulfate (IRON) 325 mg (65 mg iron) tablet 03-10 00:00: 00 Yes [id number] 100 325mg Take 1 tablet by mouth in the morning and 1 tablet at noon and 1 tablet in the evening. Take with meals. [facility] proMETHazin e 25 mg tablet 03-10 00:00: 00 Yes [id number] 100 25mg Take 1 tablet by mouth every 6 (six) hours as needed for Nausea and Vomiting (N/V). [facility] doxepin 25 mg capsule 2023-02 00:00: 00 Yes [id number] 25mg Take 1 capsule by mouth at bedtime. [facility] metroNIDAZO LE 500 mg tablet 2024-0 5-06 00:00: 00 12-15 00:00 :00 No [id number] 500mg Take 1 tablet by mouth in the morning and 1 tablet in the evening. [facility] doxepin 25 mg capsule 05-20 00:00: 00 01-03 00:00 :00 No [id number] 25mg Take 1 capsule by mouth at bedtime. [facility] pantoprazol e 40 mg EC tablet 05-17 00:00: 00 Yes [id number] 40mg Take 1 tablet by mouth in the morning. [facility] tc 99m-tetrofo smin (MYOVIEW) injection 41.2 millicurie 05-11 14:45: 00 05-11 14:39 :00 No [id number] 41.2mCi 41.2 millicurie , Intravenou s, ONCE, 1 dose, On Thu05/12/23 at 0945, Routine [facility] regadenoson (LEXISCAN) injection 0.4 mg 05-11 14:30: 00 05-11 14:45 :00 No [id number] .[id number] 0.4 mg, IV Push, ONCE, 1 dose, On Thu05/12/23 at 0930, Routine
education faculty member approving Restricted medication : BANDAR STEPHENS [facility] tc 99m-tetrofo smin (MYOVIEW) injection 16 millicurie 05-11 13:15: 00 05-11 13:14 :00 No [id number] 16mCi 16 millicurie , Intravenou s, ONCE, 1 dose, On Thu05/12/23 at 0815, Routine [facility] doxepin 25 mg capsule 04-20 00:00: 00 05-19 00:00 :00 No [id number] 25mg Take 1 capsule by mouth at bedtime for 30 days. [facility] pantoprazol e 40 mg EC tablet 04-20 00:00: 00 05-17 00:00 :00 No [id number] 40mg Take 1 tablet by mouth in the morning for 30 days. [facility] diphenhydrA MINE 25 mg tablet 2-20 00:00: 00 04-10 05:59 :00 No 25mg Take 1 tablet by mouth every 12 (twelve) hours for 3 doses. Start morning before procedure. Take last dose morning of procedure [facility] famotidine 20 mg tablet 2 00:00: 00 04-10 05:59 :00 No 20mg Take 1 tablet by mouth every 12 (twelve) hours for 3 doses. Start morning before procedure. Take last dose morning of procedure [facility] predniSONE 20 mg tablet 04-07 00:00: 00 04-09 05:59 :00 No 40mg Take 2 tablets by mouth every 6 (six) hours for 4 doses. Start morning before procedure. Take last dose morning of procedure [facility] QUEtiapine 25 mg tablet 03-11 00:00: 00 05-20 00:00 :00 No [id number] 25mg Take 1 tablet by mouth at bedtime. [facility] busPIRone 7.5 mg tablet 02-19 00:00: 00 05-20 00:00 :00 No [id number] 7.5mg Take 1 tablet by mouth in the morning and 1 tablet in the evening. [facility] QUEtiapine 25 mg tablet 2022-02 00:00: 00 03-11 00:00 :00 No [id number] 25mg Take 1 tablet by mouth at bedtime. [facility] pantoprazol e 20 mg EC tablet 2022-02 00:00: 00 01-16 05:59 :00 No [id number] 20mg Take 1 tablet by mouth ONCE PRN (reflux) for up to 1 dose. [facility] clonazePAM 1 mg tablet 2022-02 00:00: 00 05-20 00:00 :00 No 1mg Take 1 tablet by mouth as needed (anxiety). [facility] ibuprofen 600 mg tablet 08-20 00:00: 00 12-09 00:00 :00 No TAKE 1 TABLET BY MOUTH EVERY 6 HOURS NEEDED FOR PAIN TAKE WITH FOOD [facility] PAXLOVID, EUA, 300 mg (150 mg x 2)-100 mg tablet 08-20 00:00: 00 12-09 00:00 :00 No TAKE BY MOUTH DIRECTED 2 TABLETS 2 TIMES A DAY [facility] proMETHazin e 25 mg tablet 08-20 00:00: 00 12-09 00:00 :00 No TAKE BY MOUTH 1 TABLET EVERY 6 HOURS NEEDED FOR NAUSEA [facility] orphenadrin e 100 mg SR tablet 07-11 00:00: 00 12-09 00:00 :00 No TAKE 1 TABLET BY MOUTH TWICE A DAY NEEDED [facility] CIPROFLOXAC IN HCL (CIPRO ORAL) 09 13:57: 52 Yes Take by mouth. [facility] citalopram (CELEXA) 20 mg tablet -11 00:00: 00 12-09 00:00 :00 No [id number] 20mg Take 1 tablet by mouth daily. [facility] Immunizations Ordered Immunization Name Filled Immunization Name Date Status Comments Source Flu Injectable MDCK Pres-Free (FLUCELVAX) 2023-12-16 00:00:00 Completed [facility] HPV9 2023-06-16 00:00:00 Completed HPV9 2023-01-13 00:00:00 Completed HPV9 2022-12-09 00:00:00 Completed SARS-COV-2 COVID-19 VACCINE, BIVALENT (MODERNA BOOSTER) 2021-12-23 00:00:00 Completed SARS-COV-2 COVID-19 VACCINE, BIVALENT (MODERNA BOOSTER) 2021-12-23 00:00:00 Completed [facility] SARS-COV-2 COVID-19 VACCINE - (MODERNA) 2021-09-12 00:00:00 Completed SARS-COV-2 COVID-19 VACCINE - (MODERNA) 2021-09-12 00:00:00 Completed [facility] SARS-COV-2 COVID-19 VACCINE - (MODERNA) 2020-07-09 00:00:00 Completed SARS-COV-2 COVID-19 VACCINE - (MODERNA) 2020-07-09 00:00:00 Completed [facility] SARS-COV-2 COVID-19 VACCINE - (MODERNA) 2020-06-12 00:00:00 Completed [facility] SARS-COV-2 COVID-19 VACCINE - (MODERNA) 2020-06-12 00:00:00 Completed [facility] TDAP 2016-02-25 00:00:00 Completed TDAP 2016-02-25 00:00:00 Completed [facility] SARS-COV-2 COVID-19 VACCINE - (MODERNA) Unknown [facility]pleted [facility] SARS-COV-2 COVID-19 VACCINE, BIVALENT (MODERNA BOOSTER) Unknown Completed [facility] TDAP Unknown Completed [facility] SARS-COV-2 COVID-19 VACCINE - (MODERNA) Unknown Completed [facility] HPV9 Unknown Completed [facility] TDAP Unknown Completed [facility] SARS-COV-2 COVID-19 VACCINE - (MODERNA) Unknown Completed [facility] SARS-COV-2 COVID-19 VACCINE, BIVALENT (MODERNA BOOSTER) Unknown Completed [facility] HPV9 Unknown Completed [facility] SARS-COV-2 COVID-19 VACCINE, BIVALENT (MODERNA BOOSTER) Unknown Completed [facility] HPV9 Unknown Completed [facility] TDAP Unknown Completed [facility] TDAP Unknown Completed [facility] SARS-COV-2 COVID-19 VACCINE - (MODERNA) Unknown Completed [facility] SARS-COV-2 COVID-19 VACCINE, BIVALENT (MODERNA BOOSTER) Unknown Completed [facility] HPV9 Unknown Completed [facility] TDAP Unknown Completed [facility] SARS-COV-2 COVID-19 VACCINE - (MODERNA) Unknown Completed [facility] SARS-COV-2 COVID-19 VACCINE, BIVALENT (MODERNA BOOSTER) Unknown Completed [facility] HPV9 Unknown Completed [facility] TDAP Unknown Completed [facility] SARS-COV-2 COVID-19 VACCINE - (MODERNA) Unknown Completed [facility] SARS-COV-2 COVID-19 VACCINE, BIVALENT (MODERNA BOOSTER) Unknown Completed [facility] HPV9 Unknown Completed [facility] TDAP Unknown Completed [facility] SARS-COV-2 COVID-19 VACCINE - (MODERNA) Unknown Completed [facility] SARS-COV-2 COVID-19 VACCINE, BIVALENT (MODERNA BOOSTER) Unknown Completed [facility] HPV9 Unknown Completed [facility] TDAP Unknown Completed [facility] SARS-COV-2 COVID-19 VACCINE - (MODERNA) Unknown Completed [facility] SARS-COV-2 COVID-19 VACCINE, BIVALENT (MODERNA BOOSTER) Unknown Completed [facility] HPV9 Unknown Completed [facility] TDAP Unknown Completed [facility] SARS-COV-2 COVID-19 VACCINE - (MODERNA) Unknown Completed [facility] SARS-COV-2 COVID-19 VACCINE, BIVALENT (MODERNA BOOSTER) Unknown Completed [facility] HPV9 Unknown Completed [facility] TDAP Unknown Completed [facility] SARS-COV-2 COVID-19 VACCINE - (MODERNA) Unknown Completed [facility] SARS-COV-2 COVID-19 VACCINE, BIVALENT (MODERNA BOOSTER) Unknown Completed [facility] HPV9 Unknown Completed [facility] TDAP Unknown Completed [facility] SARS-COV-2 COVID-19 VACCINE, BIVALENT (MODERNA BOOSTER) Unknown Completed [facility] SARS-COV-2 COVID-19 VACCINE - (MODERNA) Unknown Completed [facility] HPV9 Unknown Completed [facility] TDAP Unknown Completed [facility] SARS-COV-2 COVID-19 VACCINE - (MODERNA) Unknown Completed [facility] SARS-COV-2 COVID-19 VACCINE, BIVALENT (MODERNA BOOSTER) Unknown Completed [facility] HPV9 Unknown Completed [facility] TDAP Unknown Completed [facility] SARS-COV-2 COVID-19 VACCINE - (MODERNA) Unknown Completed [facility] SARS-COV-2 COVID-19 VACCINE, BIVALENT (MODERNA BOOSTER) Unknown Completed [facility] HPV9 Unknown Completed [facility] TDAP Unknown Completed [facility] SARS-COV-2 COVID-19 VACCINE - (MODERNA) Unknown Completed [facility] SARS-COV-2 COVID-19 VACCINE, BIVALENT (MODERNA BOOSTER) Unknown Completed [facility] HPV9 Unknown Completed [facility] TDAP Unknown Completed [facility] SARS-COV-2 COVID-19 VACCINE - (MODERNA) Unknown Completed [facility] TDAP Unknown Completed [facility] SARS-COV-2 COVID-19 VACCINE - (MODERNA) Unknown Completed [facility] SARS-COV-2 COVID-19 VACCINE, BIVALENT (MODERNA BOOSTER) Unknown Completed [facility] HPV9 Unknown Completed [facility] SARS-COV-2 COVID-19 VACCINE, BIVALENT (MODERNA BOOSTER) Unknown Completed [facility] TDAP Unknown Completed [facility] SARS-COV-2 COVID-19 VACCINE, BIVALENT (MODERNA BOOSTER) Unknown Completed [facility] SARS-COV-2 COVID-19 VACCINE - (MODERNA) Unknown Completed [facility] HPV9 Unknown Completed [facility] TDAP Unknown Completed [facility] SARS-COV-2 COVID-19 VACCINE - (MODERNA) Unknown Completed [facility] SARS-COV-2 COVID-19 VACCINE, BIVALENT (MODERNA BOOSTER) Unknown Completed [facility] HPV9 Unknown Completed [facility] TDAP Unknown Completed [facility] SARS-COV-2 COVID-19 VACCINE - (MODERNA) Unknown Completed [facility] SARS-COV-2 COVID-19 VACCINE, BIVALENT (MODERNA BOOSTER) Unknown Completed [facility] HPV9 Unknown Completed [facility] TDAP Unknown Completed [facility] SARS-COV-2 COVID-19 VACCINE - (MODERNA) Unknown Completed [facility] SARS-COV-2 COVID-19 VACCINE, BIVALENT (MODERNA BOOSTER) Unknown Completed [facility] HPV9 Unknown Completed [facility] TDAP Unknown Completed [facility] SARS-COV-2 COVID-19 VACCINE - (MODERNA) Unknown Completed [facility] SARS-COV-2 COVID-19 VACCINE, BIVALENT (MODERNA BOOSTER) Unknown Completed [facility] HPV9 Unknown Completed [facility] TDAP Unknown Completed [facility] SARS-COV-2 COVID-19 VACCINE - (MODERNA) Unknown Completed [facility] TDAP Unknown Completed [facility] SARS-COV-2 COVID-19 VACCINE - (MODERNA) Unknown Completed [facility] SARS-COV-2 COVID-19 VACCINE, BIVALENT (MODERNA BOOSTER) Unknown Completed [facility] HPV9 Unknown Completed [facility] TDAP Unknown Completed [facility] SARS-COV-2 COVID-19 VACCINE - (MODERNA) Unknown Completed [facility] SARS-COV-2 COVID-19 VACCINE, BIVALENT (MODERNA BOOSTER) Unknown Completed [facility] HPV9 Unknown Completed [facility] SARS-COV-2 COVID-19 VACCINE, BIVALENT (MODERNA BOOSTER) Unknown Completed [facility] TDAP Unknown Completed [facility] SARS-COV-2 COVID-19 VACCINE - (MODERNA) Unknown Completed [facility] SARS-COV-2 COVID-19 VACCINE, BIVALENT (MODERNA BOOSTER) Unknown Completed [facility] HPV9 Unknown Completed [facility] TDAP Unknown Completed [facility] SARS-COV-2 COVID-19 VACCINE - (MODERNA) Unknown Completed [facility] SARS-COV-2 COVID-19 VACCINE, BIVALENT (MODERNA BOOSTER) Unknown Completed [facility] HPV9 Unknown Completed [facility] TDAP Unknown Completed [facility] SARS-COV-2 COVID-19 VACCINE, BIVALENT (MODERNA BOOSTER) Unknown Completed [facility] SARS-COV-2 COVID-19 VACCINE - (MODERNA) Unknown Completed [facility] HPV9 Unknown Completed [facility] TDAP Unknown Completed [facility] SARS-COV-2 COVID-19 VACCINE - (MODERNA) Unknown Completed [facility] SARS-COV-2 COVID-19 VACCINE, BIVALENT (MODERNA BOOSTER) Unknown Completed [facility] HPV9 Unknown Completed [facility] TDAP Unknown Completed [facility] SARS-COV-2 COVID-19 VACCINE, BIVALENT (MODERNA BOOSTER) Unknown Completed [facility] SARS-COV-2 COVID-19 VACCINE - (MODERNA) Unknown Completed [facility] HPV9 Unknown Completed [facility] TDAP Unknown Completed [facility] SARS-COV-2 COVID-19 VACCINE, BIVALENT (MODERNA BOOSTER) Unknown Completed [facility] SARS-COV-2 COVID-19 VACCINE - (MODERNA) Unknown Completed [facility] HPV9 Unknown Completed [facility] TDAP Unknown Completed [facility] SARS-COV-2 COVID-19 VACCINE - (MODERNA) Unknown Completed [facility] SARS-COV-2 COVID-19 VACCINE, BIVALENT (MODERNA BOOSTER) Unknown Completed [facility] HPV9 Unknown Completed [facility] TDAP Unknown Completed [facility] SARS-COV-2 COVID-19 VACCINE - (MODERNA) Unknown Completed [facility] SARS-COV-2 COVID-19 VACCINE, BIVALENT (MODERNA BOOSTER) Unknown Completed [facility] HPV9 Unknown Completed [facility] TDAP Unknown Completed [facility] SARS-COV-2 COVID-19 VACCINE - (MODERNA) Unknown Completed [facility] SARS-COV-2 COVID-19 VACCINE, BIVALENT (MODERNA BOOSTER) Unknown Completed [facility] HPV9 Unknown Completed [facility] TDAP Unknown Completed [facility] SARS-COV-2 COVID-19 VACCINE - (MODERNA) Unknown Completed [facility] SARS-COV-2 COVID-19 VACCINE, BIVALENT (MODERNA BOOSTER) Unknown Completed [facility] HPV9 Unknown Completed [facility] TDAP Unknown Completed [facility] SARS-COV-2 COVID-19 VACCINE - (MODERNA) Unknown Completed [facility] SARS-COV-2 COVID-19 VACCINE, BIVALENT (MODERNA BOOSTER) Unknown Completed [facility] HPV9 Unknown Completed [facility] TDAP Unknown Completed [facility] SARS-COV-2 COVID-19 VACCINE - (MODERNA) Unknown Completed [facility] SARS-COV-2 COVID-19 VACCINE, BIVALENT (MODERNA BOOSTER) Unknown Completed [facility] HPV9 Unknown Completed [facility] TDAP Unknown Completed [facility] SARS-COV-2 COVID-19 VACCINE, BIVALENT (MODERNA BOOSTER) Unknown Completed [facility] SARS-COV-2 COVID-19 VACCINE - (MODERNA) Unknown Completed [facility] HPV9 Unknown Completed [facility] TDAP Unknown Completed [facility] SARS-COV-2 COVID-19 VACCINE - (MODERNA) Unknown Completed [facility] SARS-COV-2 COVID-19 VACCINE, BIVALENT (MODERNA BOOSTER) Unknown Completed [facility] HPV9 Unknown Completed [facility] TDAP Unknown Completed [facility] SARS-COV-2 COVID-19 VACCINE - (MODERNA) Unknown Completed [facility] SARS-COV-2 COVID-19 VACCINE, BIVALENT (MODERNA BOOSTER) Unknown Completed [facility] HPV9 Unknown Completed [facility] TDAP Unknown Completed [facility] SARS-COV-2 COVID-19 VACCINE, BIVALENT (MODERNA BOOSTER) Unknown Completed [facility] SARS-COV-2 COVID-19 VACCINE - (MODERNA) Unknown Completed [facility] HPV9 Unknown Completed [facility] Vital Signs Vital Name Observation Time Observation Value Comments S ource Systolic blood pressure 2024-03-16 22:11:00 135 mm[Hg] [facility] Diastolic blood pressure 2024-03-16 22:11:00 80 mm[Hg] [facility] Heart rate 2024-03-16 22:11:00 90 /min [facility] Body temperature 2024-03-16 22:11:00 36.56 Arlen [facility] Respiratory rate 2024-03-16 22:11:00 16 /min [facility] Body height 2024-03-16 22:11:00 162.6 cm [facility] Body weight 2024-03-16 22:11:00 111.721 kg [facility] BMI 2024-03-16 22:11:00 42.28 kg/m2 [facility] Systolic blood pressure 2024-03-10 21:14:08 139 mm[Hg] [facility] Diastolic blood pressure 2024-03-10 21:14:08 102 mm[Hg] [facility] Heart rate 2024-03-10 21:14:08 86 /min [facility] Body temperature 2024-03-10 21:14:08 36.89 Arlen [facility] Respiratory rate 2024-03-10 21:14:08 16 /min [facility] Oxygen saturation in Arterial blood by Pulse oximetry 2024-03-10 21:14:08 100 /min [facility] Body height 2024-03-10 18:11:00 162.6 cm [facility] Body weight 2024-03-10 18:11:00 111.585 kg [facility] BMI 2024-03-10 18:11:00 42.23 kg/m2 [facility] Systolic blood pressure 2024-03-04 15:31:00 115 mm[Hg] [facility] Diastolic blood pressure 2024-03-04 15:31:00 76 mm[Hg] [facility] Heart rate 2024-03-04 15:31:00 80 /min [facility] Body temperature 2024-03-04 15:31:00 36.5 Arlen [facility] Respiratory rate 2024-03-04 15:31:00 18 /min [facility] Body weight 2024-03-04 15:31:00 111.812 kg [facility] BMI 2024-03-04 15:31:00 42.31 kg/m2 [facility] Systolic blood pressure 2024-02-23 15:40:00 127 mm[Hg] [facility] Diastolic blood pressure 2024-02-23 15:40:00 67 mm[Hg] [facility] Heart rate 2024-02-23 15:40:00 82 /min [facility] Body temperature 2024-02-23 15:40:00 35.56 Arlen [facility] Respiratory rate 2024-02-23 15:40:00 18 /min [facility] Body height 2024-02-23 15:40:00 162.6 cm [facility] Body weight 2024-02-23 15:40:00 112.038 kg [facility] BMI 2024-02-23 15:40:00 42.40 kg/m2 [facility] Systolic blood pressure 2023-12-16 13:18:00 127 mm[Hg] [facility] Diastolic blood pressure 2023-12-16 13:18:00 83 mm[Hg] [facility] Heart rate 2023-12-16 13:18:00 77 /min [facility] Body temperature 2023-12-16 13:18:00 36.17 Arlen [facility] Respiratory rate 2023-12-16 13:18:00 17 /min [facility] Body height 2023-12-16 13:18:00 162.6 cm [facility] Body weight 2023-12-16 13:18:00 108.682 kg [facility] BMI 2023-12-16 13:18:00 41.13 kg/m2 [facility] Systolic blood pressure 2023-06-16 14:02:00 120 mm[Hg] [facility] Diastolic blood pressure 2023-06-16 14:02:00 74 mm[Hg] [facility] Heart rate 2023-06-16 14:02:00 73 /min [facility] Body temperature 2023-06-16 14:02:00 36.33 Arlen [facility] Respiratory rate 2023-06-16 14:02:00 18 /min [facility] Body height 2023-06-16 14:02:00 162.6 cm [facility] Body weight 2023-06-16 14:02:00 103.193 kg [facility] BMI 2023-06-16 14:02:00 39.05 kg/m2 [facility] Systolic blood pressure 2023-05-21 13:25:00 103 mm[Hg] [facility] Diastolic blood pressure 2023-05-21 13:25:00 64 mm[Hg] [facility] Heart rate 2023-05-21 13:25:00 77 /min [facility] Body temperature 2023-05-21 13:25:00 36.56 Arlen [facility] Body height 2023-05-21 13:25:00 162.6 cm [facility] 2023-05-21 13:25:00 102.059 kg [facility] BMI 2023-05-21 13:25:00 38.62 kg/m2 [facility] Oxygen saturation in Arterial blood by Pulse oximetry 2023-05-21 13:25:00 99 /min [facility] Systolic blood pressure 2023-04-21 15:24:00 120 mm[Hg] [facility] Diastolic blood pressure 2023-04-21 15:24:00 78 mm[Hg] [facility] Heart rate 2023-04-21 15:24:00 62 /min [facility] Body temperature 2023-04-21 15:24:00 36.11 Arlen [facility] Respiratory rate 2023-04-21 15:24:00 18 /min [facility] Body height 2023-04-21 15:24:00 162.6 cm [facility] Body weight 2023-04-21 15:24:00 99.837 kg [facility] BMI 2023-04-21 15:24:00 37.78 kg/m2 [facility] Oxygen saturation in Arterial blood by Pulse oximetry 2023-04-21 15:24:00 99 /min [facility] Systolic blood pressure 2023-04-15 14:33:00 129 mm[Hg] [facility] Diastolic blood pressure 2023-04-15 14:33:00 75 mm[Hg] [facility] Heart rate 2023-04-15 14:33:00 79 /min [facility] Body temperature 2023-04-15 14:33:00 36.67 Arlen [facility] Body height 2023-04-15 14:33:00 162.6 cm [facility] weight 2023-04-15 14:33:00 101.061 kg [facility] BMI 2023-04-15 14:33:00 38.24 kg/m2 [facility] Oxygen saturation in Arterial blood by Pulse oximetry 2023-04-15 14:33:00 99 /min [facility] Systolic blood pressure 2023-02-19 14:24:00 121 mm[Hg] [facility] Diastolic blood pressure 2023-02-19 14:24:00 77 mm[Hg] [facility] Heart rate 2023-02-19 14:24:00 66 /min [facility] Body temperature 2023-02-19 14:24:00 36.56 Arlen [facility] Respiratory rate 2023-02-19 14:24:00 18 /min [facility] Body height 2023-02-19 14:24:00 165.1 cm [facility] Body weight 2023-02-19 14:24:00 98.703 kg [facility] BMI 2023-02-19 14:24:00 36.21 kg/m2 [facility] Oxygen saturation in Arterial blood by Pulse oximetry 2023-02-19 14:24:00 99 /min [facility] Systolic blood pressure 2023-02-17 17:00:00 130 mm[Hg] [facility] Diastolic blood pressure 2023-02-17 17:00:00 83 mm[Hg] [facility] Heart rate 2023-02-17 17:00:00 71 /min [facility] Respiratory rate 2023-02-17 17:00:00 20 /min [facility] Body height 2023-02-17 17:00:00 165.1 cm [facility] Body weight 2023-02-17 17:00:00 98.884 kg [facility] BMI 2023-02-17 17:00:00 36.28 kg/m2 [facility] Oxygen saturation in Arterial blood by Pulse oximetry 2023-02-17 17:00:00 99 /min [facility] Systolic blood pressure 2023-01-20 14:45:00 131 mm[Hg] [facility] Diastolic blood pressure 2023-01-20 14:45:00 79 mm[Hg] [facility] Heart rate 2023-01-20 14:45:00 68 /min [facility] Respiratory rate 2023-01-20 14:45:00 19 /min [facility] Body height 2023-01-20 14:45:00 165.1 cm [facility] Body weight 2023-01-20 14:45:00 98.748 kg [facility] BMI 2023-01-20 14:45:00 36.23 kg/m2 [facility] Oxygen saturation in Arterial blood by Pulse oximetry 2023-01-20 14:45:00 100 /min [facility] Systolic blood pressure 2023-01-15 14:03:00 123 mm[Hg] [facility] Diastolic blood pressure 2023-01-15 14:03:00 76 mm[Hg] [facility] Heart rate 2023-01-15 14:03:00 72 /min [facility] Body temperature 2023-01-15 14:03:00 37.17 Arlen [facility] Respiratory rate 2023-01-15 14:03:00 18 /min [facility] Body height 2023-01-15 14:03:00 165.1 cm [facility] Body weight 2023-01-15 14:03:00 98.975 kg [facility] BMI 2023-01-15 14:03:00 36.31 kg/m2 [facility] Oxygen saturation in Arterial blood by Pulse oximetry 2023-01-15 14:03:00 99 /min [facility] Body temperature 2023-01-13 14:21:00 36.72 Arlen [facility] Systolic blood pressure 2022-12-09 13:37:00 132 mm[Hg] [facility] Diastolic blood pressure 2022-12-09 13:37:00 83 mm[Hg] [facility] Heart rate 2022-12-09 13:37:00 68 /min [facility] Body temperature 2022-12-09 13:37:00 36.33 Arlen [facility] Respiratory rate 2022-12-09 13:37:00 18 /min [facility] Body height 2022-12-09 13:37:00 165.1 cm [facility] Body weight 2022-12-09 13:37:00 96.798 kg [facility] BMI 2022-12-09 13:37:00 35.51 kg/m2 [facility] Procedures Procedure Date / Time Performed Performing Clinician Source POCT TEST 2024-03-16 22:35:00 Todd Stewart [facility] POCT URINALYSIS W/O SPECIFIC GRAVITY 2024-03-16 22:23:00 Todd Stewart [facility] TEST, SERUM 2024-03-10 18:37:00 Inocencia Sandoval T [facility] COMP. METABOLIC PANEL (88408) 2024-03-10 18:37:00 Olivia Sandoval [facility] CBC WITH DIFF 2024-03-10 18:37:00 Olivia Sandoval [facility] PROTHROMBIN TIME / INR 2024-03-10 18:37:00 Meliza Sandoval [facility] HB ABO GROUPING 2024-03-10 18:37:00 Olivia Sandoval [facility] POCT TEST 2024-03-04 15:30:00 Sid Cole [facility] BI ULTRASOUND BREAST LIMITED LEFT 2024-02-16 16:36:56 Sarah Morel [facility] BI DIAGNOSTIC TOMOSYNTHESIS LEFT 2024-02-16 [facility]:57[facility] 2023-12-16 14:22:00 Sarah Morel [facility] GC & CHLAMYDIA AMPLIFIED ASSAY 2023-12-16 14:22:00 Sarah Morel [facility] HIV 1/2 AG-AB WITH REFLEX 2023-12-16 14:22:00 Sarah Morel [facility] PAP SMEAR-LIQUID BASED-CP 2023-12-16 14:22:00 Sarah Morel [facility] SYPHILIS IGG/IGM 2023-12-16 14:22:00 [facility] ([id number]), 6 MO-64 YRS, .5ML, IM, TIV (FLUCELVAX) 2023-12-16 13:28:56 Sarha Morel [facility] POCT TEST 2023-06-16 14:40:00 Sid Cole [facility] GARDASIL 9 (HPV 9V) VACCINE 2023-06-16 14:08:54 Brandi Cole [facility] MYOCARDIUM PERFUSION STRESS AND REST 2023-05-12 15:42:00 Martin, Sendil [facility] MYOCARDIUM PERFUSION STRESS AND REST 2023-05-12 15:42:00 Martin, Sendil [facility] MYOCARDIUM PERFUSION STRESS AND REST 2023-05-12 15:42:00 Martin, Sendil [facility] MYOCARDIUM PERFUSION STRESS AND REST 2023-05-12 15:42:00 Martin, Sendil [facility] TRANSTHORACIC ECHO (TTE) COMPLETE 2023-03-24 15:39:18 Martin, Sendil [facility] COMP. METABOLIC PANEL (23213) 2023-01-15 15:18:00 Wilbur-Aureliano [facility] LIPID PANEL (90758)(TOTAL CHOLESTEROL, TRIGLYCERIDES, HDL) 2023-01-15 15:18:00 Sravan [facility] EKG (SCANNED DOCUMENTS) 2023-01-15 06:01:00 Doct or Unassigned, [place] [facility] GARDASIL 9 (HPV 9V) VACCINE 2023-01-13 14:21:32 Brandi Cole [facility] US PELVIS COMPLETE WITH TRANSVAGINAL 2022-12-24 15:50:00 Mariela Llanes [facility] THYROID STIMULATING HORMONE 2022-12-09 14:35:00 Mariela Llanes [facility] CBC WITH DIFF 2022-12-09 14:35:00 Mariela Llanes [facility] GLYCOSYLATED HEMOGLOBIN (A1C) 2022-12-09 14:35:00 Mariela Llanes [facility] HCV ANTIBODY 2022-12-09 14:35:00 [facility]/2 AG-AB WITH REFLEX 2022-12-09 14:35:00 Mariela Llanes [facility] SYPHILIS IGG/IGM 2022-12-09 14:35:00 Mariela Llanes [facility] PAP SMEAR-LIQUID BASED-CP 2022-12-09 14:29:00 Mariela Llanes [facility] GARDASIL 9 (HPV 9V) VACCINE 2022-12-09 13:48:27 Brandi Cole [facility] ASSIGNMENT OF BENEFITS 2022-12-09 13:07:14 Docto r Unassigned, [place] [facility] Encounters Start Date/Time End Date/Time Encounter Type Admission Type Attending [facility] Care Facility Care Department Encounter ID Source 2024-03-31 08:30:00 2024-03-31 08:30:00 Outpatient R [facility] [id number] [facility] 2024-02-21 00:00:00 2024-03-26 18:20:49 Patient Secure Msg Donna Morelice [facility] EXECUTIVE ADMINISTRATOR [facility] 1..840.114 350.1.13.10 4.2.7.2.686 [id number] [facility] 2024-03-16 15:45:00 2024-03-16 17:00:44 Outpatient R TODD STEWART [facility] [id number] [facility] 2024-03-16 15:45:00 2024-03-16 17:00:44 Office Visit [id number] Todd Stewart [facility] 1..840.114 350.1.13.10 4.2.7.2.686 [id number] [facility] 2024-03-15 00:00:00 2024-03-15 13:06:32 Telephone Korin Schultz [facility] 1.2.840.114 350.1.13.10 4.2.7.2.686 [id number] [facility] 2024-03-14 00:00:00 2024-03-14 15:54:01 Telephone Korin Schultz [facility] 1.2.840.114 350.1.13.10 4.2.7.2.686 [id number] [facility] 2024-03-10 12:13:00 2024-03-10 15:18:00 Emergency X OLIVIA SANDOVAL [facility] [id number] [facility] 2024-03-10 12:13:00 2024-03-10 15:18:00 Emergency Olivia Sandoval [facility] AT [facility] 1.2.840.114 350.1.13.10 4.2.7.2.686 [id number] [facility] 2024-03-08 00:00:00 2024-03-10 11:36:24 Telephone Korin Schultz [facility] ([facility] 1.2.840.114 350.1.13.10 4.2.7.2.686 [id number] [facility] 2024-03-08 00:00:00 2024-03-10 10:44:28 Patient Secure Msg Sarah Morel [facility] EXECUTIVE ADMINISTRATOR [facility] 1.2.840.114 350.1.13.10 4.2.7.2.686 [id number] [facility] 2024-03-04 09:30:00 2024-03-04 10:34:39 Outpatient R KORIN SCHULTZ [facility] [id number] [facility] 2024-03-04 09:30:00 2024-03-04 10:34:39 Office Visit Resource, Ang-chp Josh WatersydKorin Resource, [facility] EXECUTIVE ADMINISTRATOR [facility]ILD [facility] 1.2.840.114 350.1.13.10 4.2.7.2.686 [id number] [facility] 2024-02-23 09:30:00 2024-02-23 10:24:50 Outpatient R SARAH MOREL [facility] [id number] [facility] 2024-02-23 09:30:00 2024-02-23 10:24:50 Office Visit Sarah Morel [facility] EXECUTIVE ADMINISTRATOR [facility] CHILD [facility] 1.0.114 350.1.13.10 4.2.7.2.686 [id number] [facility] 2024-02-16 09:23:39 2024-02-16 23:59:00 Outpatient R SARAH MOREL [facility] [id number] [facility] 2024-02-16 09:23:39 2024-02-16 23:59:00 Hospital Encounter Sarah Morel AT [facility] 1.2840.114 350.1.13.10 4.2.7.2.686 [id number] [facility] 2024-02-16 09:23:05 2024-02-16 23:59:00 Hospital Encounter Sarah Morel AT [facility] 1.2.840.114 350.1.13.10 4.2.7.2.686 [id number] [facility] 2024-01-06 00:00:00 2024-01-06 11:37:38 Patient Secure Msg Sarah Morel [facility] EXECUTIVE ADMINISTRATOR [facility] 1.2.840.114 350.1.13.10 4.2.7.2.686 [id number] [facility] 2024-01-05 00:00:00 2024-01-05 14:43:21 Telephone Sarah Morel [facility] EXECUTIVE ADMINISTRATOR [facility] 1.2.840.114 350.1.13.10 4.2.7.2.686 [id number] [facility] 2024-01-04 00:00:00 2024-01-04 13:35:03 Refill Van Leigh [facility] 1.284.114 350.1.13.10 4.2.7.2.686 [id number] [facility] 2024-01-01 09:51:03 2024-01-01 23:59:00 Outpatient R SARAH MOREL [facility] [id number] [facility] 2024-01-01 09:51:03 2024-01-01 23:59:00 Hospital Encounter Sarah Morel NDRONEN AT [facility] 1.2840.114 350.1.13.10 4.2.7.2.686 [id number] [facility] 2023-12-31 00:00:00 2023-12-31 11:31:32 Telephone Sarah Morel [facility] EXECUTIVE ADMINISTRATOR [facility] CHILD [facility] 1.2840.114 350.1.13.10 4.2.7.2.686 [id number] [facility] 2023-12-25 00:00:00 2023-12-30 14:08:26 Telephone Sarah Morel [facility] EXECUTIVE ADMINISTRATOR [facility] 1.2840.114 350.1.13.10 4.2.7.2.686 [id number] [facility] 2023-12-16 08:15:00 2023-12-16 09:22:06 Outpatient R SARAH MOREL [facility] [id number] [facility] 2023-12-16 08:15:00 2023-12-16 09:22:06 Office Visit Sarah Morel Brenda A [facility] EXECUTIVE ADMINISTRATOR [facility] 1.2.840.114 350.1.13.10 4.2.7.2.686 [id number] [facility] 2023-08-24 08:40:00 2023-08-24 08:40:00 Outpatient R OBI-AURELIANO , VAN OBI-AURELIANO , [facility]AN [facility] [id number] [facility] 2023-05-22 00:00:00 2023-06-27 18:13:06 Patient Secure Mariela Llanes [facility] EXECUTIVE ADMINISTRATOR [facility] 1.2.840.114 350.1.13.10 4.2.7.2.686 [id number] [facility] 2023-06-22 00:00:00 2023-06-22 17:00:16 Telephone Brandi Cole [facility] EXECUTIVE ADMINISTRATOR [facility] 1.2.840.114 350.1.13.10 4.2.7.2.686 [id number] [facility] 2023-06-16 08:45:00 2023-06-16 09:38:58 Outpatient R BRANDI COLE [facility] [id number] [facility] 2023-06-16 08:45:00 2023-06-16 09:38:58 Office Visit Brandi Cole [facility] EXECUTIVE ADMINISTRATOR [facility] 1.2.840.114 350.1.13.10 4.2.7.2.686 [id number] [facility] 2023-05-21 08:40:00 2023-05-21 08:45:40 Outpatient R OBI-AURELIANO , VAN OBI-AURELIANO , [facility] [id number] [facility] 2023-05-21 08:40:00 2023-05-21 08:45:40 Office Visit Sravan [facility] [employer] [facility] [facility] 1.2.840.114 350.1.13.10 4.2.7.2.686 [id number] [facility] 2023-05-21 00:00:00 2023-05-21 00:00:00 Telephone Jossue Martin [facility] 1.2.840.114 350.1.13.10 4.2.7.2.686 [id number] [facility] 2023-05-20 00:00:00 2023-05-20 00:00:00 Refill Sravan [facility] PROFON LICENSE OF [facility] BUILDING 1.2.840.114 350.1.13.10 4.2.7.2.686 [id number] [facility] 2023-05-18 00:00:00 2023-05-18 00:00:00 Refill Sravan [facility] BUILDING 1.2.840.114 350.1.13.10 4.2.7.2.686 [id number] [facility] 2023-05-12 08:10:56 2023-05-12 23:59:00 Hospital Encounter Jossue Martin [facility] 1.2.840.114 350.1.13.10 4.2.7.2.686 [id number] [facility] 2023-05-12 08:10:50 2023-05-12 23:59:00 Hospital Encounter Jossue Martin [facility] 1.2.840.114 350.1.13.10 4.2.7.2.686 [id number] [facility] 2023-05-12 08:10:44 2023-05-12 23:59:00 Outpatient R JOSSUE [facility] [id number] [facility] 2023-05-12 08:10:44 2023-05-12 23:59:00 [facility] 1.2.840.114 350.1.13.10 4.2.7.2.686 [id number] [facility] 2023-05-12 08:10:37 2023-05-12 23:59:00 [facility] 1.2.840.114 350.1.13.10 4.2.7.2.686 [id number] [facility] 2023-04-21 09:40:00 2023-04-21 10:22:00 Outpatient R WILBUR-AURELIANO [facility] [id number] [facility] 2023-04-21 09:40:00 2023-04-21 10:22:00 [facility] 1.2.840.114 350.1.13.10 4.2.7.2.686 [id number] [facility] 2023-04-15 10:00:00 2023-04-15 10:00:00 Salvage Worker Visit 2, [facility] Wilbur-Aureliano [facility] BUILDING 1.2.840.114 350.1.13.10 4.2.7.2.686 [id number] [facility] 2023-04-15 09:00:00 2023-04-15 09:44:34 Outpatient R JOSSUE [facility] [id number] [facility] 2023-04-15 09:00:00 2023-04-15 09:44:34 Office Visit Jossue Martin [facility] 1.2.840.114 350.1.13.10 4.2.7.2.686 [id number] [facility] 2023-04-15 00:00:00 2023-04-15 00:00:00 Patient Secure Msg Obi-Aureliano , Van [facility] 1.2.840.114 350.1.13.10 4.2.7.2.686 [id number] [facility] 2023-04-08 00:00:00 2023-04-08 00:00:00 Outpatient R JOSSUE [facility] [id number] [facility] 2023-04-07 00:00:00 2023-04-07 00:00:00 Telephone Jossue Martin [facility] 1.2.840.114 350.1.13.10 4.2.7.2.686 [id number] [facility] 2023-03-24 08:24:48 2023-03-24 23:59:00 Outpatient R JOSSUE [facility] [id number] [facility] 2023-03-24 08:24:48 2023-03-24 23:59:00 Hospital Encounter Jossue Martin [facility] [id number] [id number] [id number] [facility] 2023-03-24 00:00:00 2023-03-24 00:00:[address] [facility] [id number] [facility] 2023-03-17 11:00:00 2023-03-17 11:00:00 Outpatient R JOSSUE [facility] [id number] [facility] 2023-03-11 00:00:00 2023-03-11 00:00:00 Refill Sravan [facility] BUILDING 1.2.840.114 350.1.13.10 4.2.7.2.686 [id number] [facility] 2023-03-11 00:00:00 2023-03-11 00:00:00 Patient Secure MsJossue [place] [facility] BUILDING 1.2.840.114 350.1.13.10 4.2.7.2.686 [id number] [facility] 2023-03-05 00:00:00 2023-03-05 00:00:00 Telephone Sravan [facility] NAL BUILDING 1.2.840.114 350.1.13.10 4.2.7.2.686 [id number] [id number] [facility] 2023-02-27 00:00:00 2023-02-27 00:00:00 Telephone Jossue Martin [facility] NAL BUILDING 1.2.840.114 350.1.13.10 4.2.7.2.686 [id number] [id number] [facility] 2023-02-25 00:00:00 2023-02-25 00:00:00 Telephone Jossue Martin [facility] NAL BUILDING 1.2.840.114 350.1.13.10 4.2.7.2.686 [id number] [id number] [facility] 2023-02-19 08:20:00 2023-02-19 08:48:01 Outpatient R OBI-AURELIANO , VAN OBI-AURELIANO [facility] [id number] [facility] 2023-02-19 08:20:00 2023-02-19 08:48:01 [facility] 1.2.840.114 350.1.13.10 4.2.7.2.686 [id number] [facility] 2023-02-17 10:00:00 2023-02-17 23:59:00 Outpatient R JOSSUE MARTIN [facility] [id number] [facility] 2023-02-17 10:00:00 2023-02-17 23:59:00 Hospital Encounter Jossue Martin [facility] BUILDING 1..840.114 350.1.13.10 4.2.7.2.686 [id number] [facility] 2023-01-30 00:00:00 2023-01-30 00:00:00 Letter (Out) [facility] 1.2.840.114 350.1.13.10 4.2.7.2.686 [id number] [facility] 2023-01-22 10:00:00 2023-01-22 10:00:00 Outpatient R OBI-AURELIANO , [facility] [id number] [facility] 2023-01-21 00:00:00 2023-01-21 00:00:00 Patient Outreach Nathalie Prajapati [facility] BUILDING 1.2.840.114 350.1.13.10 4.2.7.2.686 [id number] [facility] 2023-01-20 09:00:00 2023-01-20 09:24:23 Outpatient R MARTIN JOSSUE [facility] [id number] [facility] 2023-01-20 09:00:00 2023-01-20 09:24:23 Office Visit Jossue Martin [facility] BUILDING 1.2.840.114 350.1.13.10 4.2.7.2.686 [id number] [facility] 2023-01-15 09:00:00 2023-01-15 09:30:55 Outpatient R OBI-AURELIANO , VAN OBI-AURELIANO , [facility] [id number] [facility] 2023-01-15 09:00:00 2023-01-15 09:15:00 Salvage Worker Visit 2, Adc Lab Obawais-Aureliano [facility] BUILDING 1.2.840.114 350.1.13.10 4.2.7.2.686 [id number] [facility] 2023-01-15 08:00:00 2023-01-15 08:56:25 Office Visit Sravan [facility] BUILDING 1.2.840.114 350.1.13.10 4.2.7.2.686 [id number] [facility] 2023-01-15 08:00:00 2023-01-15 08:00:00 Outpatient R OBI-AURELIANO , VAN OBI-AURELIANO , [facility] [id number] [facility] 2023-01-15 00:00:00 2023-01-15 00:00:00 Orders Only Doctor Unassigned, [place] [facility] 1.840.114 350.1.13.10 4.2.7.2.686 [id number] [facility] 2023-01-14 13:00:00 2023-01-14 13:00:00 Outpatient R OBI-Munir BEDOYAZOMA OBAwais-VAN BEDOYA [facility] [id number] [facility] 2023-01-13 08:30:00 2023-01-13 08:45:00 Nurse Visit Nurse, Bubba Rmchp Rgv Cprit ObgyBrandi Dominguez [facility] EXECUTIVE ADMINISTRATOR [facility] 1.840.114 350.1.13.10 4.2.7.2.686 [id number] [facility] 2023-01-13 08:30:00 2023-01-13 08:30:00 Outpatient R BRANDI COLE [facility] [id number] [facility] 2023-01-12 00:00:00 2023-01-12 00:00:[address] [facility] 1.840.114 350.1.13.10 4.2.7.2.686 [id number] 044 [id number] [facility] 2022-12-24 08:57:28 2022-12-24 23:59:00 Outpatient R MARIELA LLANES [facility] [id number] [facility] 2022-12-24 08:57:28 2022-12-24 23:59:00 Hospital Encounter Mariela Llanes [facility] 1.840.114 350.1.13.10 4.2.7.2.686 [id number] [facility] 2022-12-23 00:00:00 2022-12-23 00:00:00 Telephone Mariela Llanes [facility] EXECUTIVE ADMINISTRATOR [facility] CHILD [facility] 1.0.114 350.1.13.10 4.2.7.2.686 [id number] [facility] 2022-12-22 00:00:00 2022-12-22 00:00:00 Telephone Trazachery Mariela Silverman [facility] EXECUTIVE ADMINISTRATOR [facility] CHILD [facility] 1.0.114 350.1.13.10 4.2.7.2.686 [id number] [facility] 2022-12-22 00:00:00 2022-12-22 00:00:00 Telephone Trazachery Mariela Darleen [facility] EXECUTIVE ADMINISTRATOR [facility] CHILD [facility] 1.0.114 350.1.13.10 4.2.7.2.686 [id number] [facility] 2022-12-17 00:00:00 2022-12-17 00:00:00 Outpatient GC_GCBZW_Ka diyala_S [facility] [id number] [facility] 2022-12-09 09:00:00 2022-12-09 09:35:19 Outpatient R MARIELA LLANES [facility] [id number] [facility] 2022-12-09 09:00:00 2022-12-09 09:35:19 Office Visit Mariela Llanes [facility] EXECUTIVE ADMINISTRATOR [facility] CHILD [facility] 1..114 350.1.13.10 4.2.7.2.686 [id number] [facility] 2022-12-09 00:00:00 2022-12-09 00:00:00 Orders Only Doctor Unassigned, [place] [facility] 1.0.114 350.1.13.10 4.2.7.2.686 [id number] [facility] 2022-10-06 09:30:00 2022-10-06 09:30:00 Outpatient YFN SYKES CHERYAL [facility] [id number] [facility] 2022-10-02 00:00:00 2022-10-02 00:00:00 Patient Secure Msg Doctor Unassigned, [place] [facility] 1..840.114 350.1.13.10 4.2.7.2.686 [id number] [facility] 2022-09-29 00:00:00 2022-09-29 00:00:00 Pre Visit Outreach Pcp, Patient Does Not Have A [place] 1.2.840.114 350.1.13.10 4.2.7.2.686 [id number] [facility] 2020-03-28 09:06:00 2020-03-28 09:06:00 Outpatient Raju_P [facility] [id number] [facility] Results Test Description Test Time Test Comments Results Result Co mments Source [facility] w/o Specific [id number] 22:23:00* Test Item Value Reference Range Interpretation Comme nts POCT PH U (test code = 3254) 6 mg/dl 5-8 POCT U LEUK EST (test code = 3263) 1+ Negative - Negative POCT U NIT (test code = 3262) neg Negative - Negati ve POCT U PROT (test code = 3259) neg Negative - Negat ethel POCT U GLU (test code = 3256) normql Negative - Negati ve POCT U KETONE (test code = 3258) neg Negative - Neg ative POCT U BLD (test code = 3257) 250 Negative - Negati ve Lab Interpretation (test cod e = 79979-7) Abnormal [facility]thrombin Time / [id number] 19:19:35* Test Item Value Reference Range Interpretation Comme nts PROTIME PATIENT (test code = 5964-2) 13.1 10.1-12.6 H INR (test code = 6301-6) 1.1 Normal INR <1.1; Warfarin Therapeutic range 2.0 to 3.0 or 2.5 to 3.5, depending upon the indications. Lab Interpretation (test code = 19896-6) Abnormal [facility]regnancy Test, [id number] 19:15:21* Test Item Value Reference Range Interpretation Comme nts PREG SERUM (test code = 2626014848) Negative MANGO (test code = MANGO) Less than 10 IU/L. ?If low titer or ectopic is suspected, resubmit specimen in 48-72 hours. [facility]. Metabolic Panel ([id number])2024-03-10 19:14:35* Test Item Value Reference Range Interpretation Comme nts NA (test code = 6439332662) 138 mmol/L 135-145 K (test code = 9856628081) 3.8 mmol/L 3.5-5.0 CL (test code = 1385017894) 104 mmol/L 98-108 CO2 TOTAL (test code = 0466461276) 25 mmol/L 23-31 AGAP (test code = 5720479034) 9 2-16 BUN (test code = 2248989083) 10 mg/dL 7-23 GLUCOSE (test code = 3603872375) 106 mg/dL 70-110 CREATININE (test code = 2160-0) 0.85 mg/dL 0.50-1.04 TOTAL BILI (test code = 3365130903) 0.4 mg/dL 0.1-1.1 CALCIUM (test code = 0193509414) 8.9 mg/dL 8.6-10.6 T PROTEIN (test code = 5290684213) 7.9 g/dL 6.3-8.2 ALBUMIN (test code = 8356102570) 4.3 g/dL 3.5-5.0 ALK PHOS (test code = 6004513030) 77 U/L 34-122 ALTv (test code = 1742-6) 48 U/L 5-35 H AST(SGOT) (test code = 9345237999) 68 U/L 13-40 H eGFR (test code = 15002-8) 88.9 mL/min/1.73m2 CKD-EPI eGFR (2020). Assuming creatinine has been stable day-to-day for at least three months, the eGFR indicates Category G2 (60 - 89 mL/min/1.73 m2) Lab Interpretation (test code = 55470-2) Abnormal [facility] with [id number] 19:01:31* Test Item Value Reference Range Interpretation Comme nts WBC (test code = 6690-2) 5.59 4.30-11.10 RBC (test code = 789-8) 3.64 3.93-5.25 L HGB (test code = 718-7) 8.9 g/dL 11.6-15.0 L HCT (test code = 4544-3) 28.7 % 35.7-45.2 L MCV (test code = 787-2) 78.8 fL 80.6-95.5 L MCH (test code = 785-6) 24.5 pg 25.9-32.8 L MCHC (test code = 786-4) 31.0 g/dL 31.6-35.1 L RDW-SD (test code = 81417-9) 41.6 fL 39.0-49.9 RDW-CV (test code = 788-0) 14.5 % 12.0-15.5 PLT (test code = 777-3) 400 166-358 H MPV (test code = 38137-5) 10.5 fL 9.5-12.9 NRBC/100 WBC (test code = 9266730178) 0.0 0.0-10.0 NRBC x10^3 (test code = 4164314741) See_Comment [Automated messa ge] The system which generated this result transmitted reference range: 10*3/?L. The reference range was not used to interpret this result as normal/abnormal. GRAN MAT (NEUT) % (test code = 770-8) 62.3 % IMM GRAN % (test code = 6115589894) 0.40 % LYMPH % (test code = 736-9) 28.3 % MONO % (test code = 5905-5) 8.2 % EOS % (test code = 713-8) 0.4 % BASO % (test code = 706-2) 0.4 % GRAN MAT x10^3(ANC) (test code = 5363876574) 3.49 10*3/uL 1.88-7.09 IMM GRAN x10^3 (test code = 2382572964) 0.00-0.06 LYMPH x10^3 (test code = 731-0) 1.58 10*3/uL 1.32-3.29 MONO x10^3 (test code = 742-7) 0.46 10*3/uL 0.33-0.92 EOS x10^3 (test code = 711-2) 0.03-0.39 L BASO x10^3 (test code = 704-7) 0.01-0.07 Lab Interpretation (test code = 02046-3) [facility]normal [facility] Screen - ONCE [id number] 18:57:00 * Test Item Value Reference Range Interpretation Comme nts ABO & RH (test code = 20) A POSITIVE IAT (test code = 1185) Negative [facility] [id number] 15:30:00* Test Item Value Reference Range Interpretation Comme nts POCT PREG (test code = 1605) Negative On board controls acceptable with C Line (test code = 3574) Yes POCT PREG LOT # (test code = 3575) POCT PREG TEST DATE ( test code = 3576) [facility] Ultrasound breast limited [id number] 17:09:36Examination:BI DIAGNOSTIC TOMOSYNTHESIS LEFTBI Ultrasound breast limited left History:Patient is 38year [...] BI-RADS Category: Left:2 - BenignOverall: 2 - [facility]AGNOST[facility]OSYNTHESIS [id number] 17:09:36Examination:BI DIAGNOSTIC TOMOSYNTHESIS LEFTBI Ultrasound breast limited left History:Patient is 38year old and is seen for: ?Abnormal l mammo. ? Comparisons: 01/01/2024 BI SCREENING TOMOSYNTHESIS BI LATERAL Prior exam with the following findings: LeftThere [...] BI-RADS Category: Left:2 - BenignOverall: 2 - [facility]UnBeat[facility] HospitalCT [id number] 14:40:00* Test Item Value Reference Range Interpretation Comme [facility] POCT PREG (test code = 1605) Negative On board controls acceptable with C Line (test code = 3574) Yes POCT PREG LOT # (test code = 3575) POCT PREG TEST DATE ( test code = 3576) [facility] [id number] 14:40:00* Test Item Value Reference Range Interpretation Comme nts POCT PREG (test code = 1605) Negative On board controls acceptable with C Line (test code = 3574) Yes POCT PREG LOT # (test code = 3575) POCT PREG TEST DATE ( test code = 3576) [facility]enton[facility]ansthor[facility] (TTE)2023-03-24 23:32:57* Test Item Value Reference Range Interpretation Comme nts Height (test code = 2555347576) 65 in Weight (test code = 0561422969) 217 lbs Systolic BP (test code = 6532649086) 122 mmHg Diastolic BP (test code = 4568348952) 83 mmHg Heart Rate (test code = 0044745943) 66 bpm BSA (test code = 8724200275) 2.05 m2 LVIDD (test code = 8923918699) 4.40 cm Left Ventricular End Diastolic Volume by Teichholz Method (test code = 3353832) 88.8 mL IVS (test code = 2969977185) 1.12 cm Interventricular Septum Diastolic Thickness by 2D (test code = 8018917) 1.12 cm LVPWD (test code = 3636235921) 1.23 cm PW (test code = 6590007900) 1.23 cm 0.6-1.1 EF(Teich) (test code = 5440225516) 55.90 % LVIDS (test code = 4103937991) 3.10 cm Left Ventricular End Systolic Volume by Teichholz Method (test code = 7881112) 39.2 mL FS (test code = 2427678029) 29 % EF - 2D (test code = 05331076) 55.90 % LVOT diameter (test code = 2849983846) 2.08 cm LVOT area (test code = 0647093648) 3.40 cm2 ACS (test code = 1376422008) 2.25 cm Ao root diam (test code = 1784874706) 3.20 cm Aortic root (test code = 2422291198) 3.2 cm Ao root annulus (test code = 0019568296) 3.2 cm LA size (test code = 8273124020) 3.6 cm E wave decelartion time (test code = 7661530393) 0.16 s MV Peak E Nato (test code = 1400043028) 92.2 cm/s MV Peak A Nato (test code = 3082785530) 81.8 cm/s E/A ratio (test code = 6796501676) 1.13 ratio MR max PG (test code = 4838343360) 35.40 mm[Hg] MR max nato (test code = 7123894304) 297.70 cm/s Mr max nato (test code = 4800218435) 297.7 m/s MV Prop V (test code = 9942716459) 93.80 cm/s Tapse (test code = 0917479791) 1.88 cm TR Peak Nato (test code = 6721010970) 218.2 cm/s Triscuspid Valve Regurgitation Peak Gradient (test code = 7353938963) 19.0 mmHg LVOT stroke volume (test code = 0528004591) 85.50 cm3 LVOT peak nato (test code = 6975030898) 102.7 cm/s LVOT mn grad (test code = 1261843716) 1.8 mmHg AV LVOT peak gradient (test code = 6053242639) 4.2 mmHg LVOT peak VTI (test code = 6691025489) 25.1 cm LV V1 mean (test code = 8528873414) 61.40 cm/s Aortic valve mean velocity (test code = 4484238775) 87.6 cm/s Ao peak nato (test code = 6311619872) 140.9 cm/s Ao VTI (test code = 0406268137) 38.0 cm AV area by cont VTI (test code = 7658529455) 2.3 cm2 AV area peak nato (test code = 0038489795) 2.5 cm2 Ao max PG (test code = 5578787839) 7.90 mm[Hg] AV peak gradient (test code = 0663430675) 7.9 mmHg AV valve area (test code = 1182099115) 2.25 cm2 AV mean gradient (test code = 7438237399) 3.6 mmHg Radiology Study observation (narrative) (test code = 51104-3) MANGO (test code = MANGO) ?Left?Ventricle: Left [...] parasternal, subcostal and suprasternal views were obtained. [facility] ONLY - SYPHILIS [id number] 16:28:05* Test Item Value Reference Range Interpretation Comme [facility] Syphilis IgG/IgM (test code = 55841-8) Non-reactive Non-reactive MANGO (test code = MANGO) Non-reactive - No serologic evidence of T. pallidum infection. Cannot exclude incubating or early syphilis. Submit a second specimen in 2-4 weeks if syphilis is clinically suspected. Equivocal - Further testing to follow. Reactive - Further testing to follow. Lab Interpretation (test code = 54195-4) Normal [facility] ONLY - SYPHILIS [id number] 16:28:05* Test Item Value Reference Range Interpretation Comme [facility] Syphilis IgG/IgM (test code = 34490-7) Non-reactive Non-reactive MANGO (test code = MANGO) Non-reactive - No serologic evidence of T. pallidum infection. Cannot exclude incubating or early syphilis. Submit a second specimen in 2-4 weeks if syphilis is clinically suspected. Equivocal - Further testing to follow. Reactive - Further testing to follow. Lab Interpretation (test code = 47784-5) Normal [facility] 1/2 AG-AB WITH [id number] 08:00:17* Test Item Value Reference Range Interpretation Comme [facility] HIV Semi-quantitative (test code = 76827-3) 0.08 Negative MANGO (test code = MANGO) Non-reactive for HIV-1 antigen and HIV-1/HIV-2 antibodies. ?No laboratory evidence of HIV infection. ?Repeat in 2-4 weeks if acute HIV infection is suspected. [facility] WITH [id number] 08:00:17* Test Item Value Reference Range Interpretation Comme nts HIV Semi-quantitative (test code = 20781-2) 0.08 Negative MANGO (test code = MANGO) Non-reactive for HIV-1 antigen and HIV-1/HIV-2 antibodies. ?No laboratory evidence of HIV infection. ?Repeat in 2-4 weeks if acute HIV infection is suspected. [facility]YC[facility] HEM[facility]GLOBIN (A1C)2022-12-10 07:25:06* Test Item Value Reference Range Interpretation Comme nts HGB A1C (test code = 4548-4) 5.2 % 4.0-5.7 MANGO (test code = MANGO) Reference RangesNormal: <5.7%Prediabetes: 5.7 - 6.4%Diabetes: > 6.5% Lab Interpretation (test code = 15659-7) Normal [facility]YCOS[facility] H[facility]GLOB[facility] (A1C)2022-12-10 07:25:06* Test Item Value Reference Range Interpretation Comme nts HGB A1C (test code = 4548-4) 5.2 % 4.0-5.7 MANGO (test code = MANGO) Reference RangesNormal: <5.7%Prediabetes: 5.7 - 6.4%Diabetes: > 6.5% Lab Interpretation (test code = 37123-5) Normal [facility] [id number] 06:52:12* Test Item Value Reference Range Interpretation Comme nts HCV Ab (test code = 34214-1) Negative HCV Semi-Quantitative (test code = 27640-3) 0.02 [facility] [id number] 06:52:12* Test Item Value Reference Range Interpretation Comme nts HCV Ab (test code = 08109-2) Negative HCV Semi-Quantitative (test code = 55792-6) 0.02 [facility]enton[facility]YROID STIMULATING [id number] 06:35:06 * Test Item Value Reference Range Interpretation Comme nts TSH (test code = 2188445497) 1.04 See_Comment Biotin has been reported to cause a negative bias, interpret results relative to patient's use of biotin. [Automated message] The system which generated this result transmitted reference range: 0.45 - 4.70 mIU/L. The reference range was not used to interpret this result as normal/abnormal. Lab Interpretation (test code = 47397-4) Normal [facility] ST[facility] [id number] 06:35:06 * Test Item Value Reference Range Interpretation Comme nts TSH (test code = 8244127691) 1.04 See_Comment Biotin has been reported to cause a negative bias, interpret results relative to patient's use of biotin. [Automated message] The system which generated this result transmitted reference range: 0.45 - 4.70 mIU/L. The reference range was not used to interpret this result as normal/abnormal. Lab Interpretation (test code = 26529-5) Normal [facility] WITH [id number] 06:00:26* Test Item Value Reference Range Interpretation Comme nts WBC (test code = 6690-2) 3.63 See_Comment L [Automated messa ge] The system which generated this result transmitted reference range: 4.30 - 11.10 10*3/?L. The reference range was not used to interpret this result as normal/abnormal. RBC (test code = 789-8) 4.76 See_Comment [Automated Farmiv[place] ge] The system which generated this result [...] g/dL 31.6-35.1 L RDW-SD (test code = 20670-4) 38.6 fL 39.0-49.9 L RDW-CV (test code = 788-0) 13.3 % 12.0-15.5 PLT (test code = 777-3) 368 See_Comment H [Automated messa ge] The system which generated this result transmitted reference range: 166 - 358 10*3/?L. The reference range was not used to interpret this result as normal/abnormal. MPV (test code = 93314-2) 11.4 fL 9.5-12.9 NRBC/100 WBC (test code = 4336931383) 0.0 See_Comment [Automated Epitiro ssage] The system which generated this result transmitted reference range: 0.0 - 10.0 /100 WBCs. The reference range was not used to interpret this result as normal/abnormal. NRBC x10^3 (test code = 4215178867) See_Comment [Automated messa ge] The system which generated this result transmitted reference range: 10*3/?L. The reference range was not used to interpret this result as normal/abnormal. GRAN MAT (NEUT) % (test code = 770-8) 52.0 % IMM GRAN % (test code = 0421491748) 0.00 % LYMPH % (test code = 736-9) 27.5 % MONO % (test code = 5905-5) 18.2 % EOS % (test code = 713-8) 1.7 % BASO % (test code = 706-2) 0.6 % GRAN MAT x10^3(ANC) (test code = 1809598992) 1.89 10*3/uL 1.88-7.09 IMM GRAN x10^3 (test code = 5757157224) 0.00-0.06 LYMPH x10^3 (test code = 731-0) 1.00 10*3/uL 1.32-3.29 L MONO x10^3 (test code = 742-7) 0.66 10*3/uL 0.33-0.92 EOS x10^3 (test code = 711-2) 0.06 10*3/uL 0.03-0.39 BASO x10^3 (test code = 704-7) 0.01-0.07 Lab Interpretation (test code = 08019-2) Abnormal [facility] WITH [id number] 06:00:26* Test Item Value Reference Range Interpretation [...] g/dL 31.6-35.1 L RDW-SD (test code = 04580-4) 38.6 fL 39.0-49.9 L RDW-CV (test code = 788-0) 13.3 % 12.0-15.5 PLT (test code = 777-3) 368 See_Comment H [Automated messa ge] The system which generated this result transmitted reference range: 166 - 358 10*3/?L. The reference range was not used to interpret this result as normal/abnormal. MPV (test code = 43161-7) 11.4 fL 9.5-12.9 NRBC/100 WBC (test code = 3283765893) 0.0 See_Comment [Automated Epitiro ssage] The system which generated this result transmitted reference range: 0.0 - 10.0 /100 WBCs. The reference range was not used to interpret this result as normal/abnormal. NRBC x10^3 (test code = 4033083570) See_Comment [Automated messa ge] The system which generated this result transmitted reference range: 10*3/?L. The reference range was not used to interpret this result as normal/abnormal. GRAN MAT (NEUT) % (test code = 770-8) 52.0 % IMM GRAN % (test code = [id number]) 0.00 % LYMPH % (test code = 736-9) 27.5 % MONO % (test code = 5905-5) 18.2 % EOS % (test code = 713-8) 1.7 % BASO % (test code = 706-2) 0.6 % GRAN MAT x10^3(ANC) (test code = [id number]) 1.89 10*3/uL 1.88-7.09 IMM GRAN x10^3 (test code = [id number]) 0.00-0.06 LYMPH x10^3 (test code = 731-0) 1.00 10*3/uL 1.32-3.29 L MONO x10^3 (test code = 742-7) 0.66 10*3/uL 0.33-0.92 EOS x10^3 (test code = 711-2) 0.06 10*3/uL 0.03-0.39 BASO x10^3 (test code = 704-7) 0.01-0.07 Lab Interpretation (test code = 10079-7) Abnormal [facility]
[2024-03-28] MEDS ORDERED: TETRACAINE HCL 0.5% 4ML OPTH ONE (09:11)
[2024-03-28] MEDS ORDERED: FLUORESCEIN SODIUM 1 MG/WRAP ONE (09:12)
--- NOTE | 2024-03-28 09:36 | EDPHYS ---
Physician Documentation [facility] Name: Alanna Barreto Age: 38 yrs Sex: Female : 1985 Arrival Date: 03/28/2024 Time: 08:58 Bed 15 Private MD: ED Physician Leonard Lin HPI: 03/28 09:34 This 38 yrs old Black Female presents to ER via Ambulatory with complaints of Eye rn Problem. 09:34 The patient is experiencing matting or discharge, redness, tearing, The patient rn sustained None. to the right eye, caused by an unknown mechanism. Onset: The symptoms/episode began/occurred 5 day(s) ago. Duration: the symptoms are continuous. Aggravated by nothing. Alleviated by nothing. Severity of symptoms: At their worst the symptoms were mild in the emergency department the symptoms are unchanged. The patient has not experienced similar symptoms in the past. Patient reports redness and drainage of right eye, denies any trauma or injury. No vision changes. Denies pain of the eyeball itself but has slight discomfort of the area around the eye. No history of glaucoma. Does not wear contacts. No fever or chills.. Historical: - Allergies: 09:11 Iodine (Hives, swelling); ko1 09:11 Ibuprofen; ko1 - Home Meds: 09:11 doxepin 25 mg oral capsule 1 cap every day at bedtime for anxiety, depression [Active]; ko1 - PMHx: 09:11 Anxiety; Depression; Human papilloma virus infection; PTSD (Human papilloma vir); GERD; ko1 - PSHx: 09:11 Ligation of fallopian tube; ko1 - Immunization history:: Adult Immunizations unknown. - Infectious Disease History:: Denies. - Social history:: Smoking status: Patient denies any tobacco usage or history of. - Family history:: not pertinent. - Hospitalizations: : No recent hospitalization is reported. ROS: 09:34 Constitutional: Negative for fever, chills, and weight loss, Eyes: Positive for redness rn and drainage to right eye along with itching Cardiovascular: Negative for chest pain, palpitations, and edema, Respiratory: Negative for shortness of breath, cough, wheezing, and pleuritic chest pain, Neuro: Negative for headache, weakness, numbness, tingling, and seizure, Exam: 09:34 Constitutional: This is a well developed, well nourished patient who is awake, alert, rn and in no acute distress. Head/Face: Normocephalic, atraumatic. Eyes: Pupils equal round and reactive to light, extra-ocular motions intact. Lids and lashes normal. No stye. Mild erythema of the sclera, no fluorescein uptake, no foreign bodies, lids were everted and no foreign bodies identified. No dendritic lesions. Cornea within normal limits. Periorbital areas with no swelling, redness, or edema. Vital Signs: 09:10 BP 133 / 81; Pulse 88; Resp 15; Temp 97.4; Pulse Ox 98% on R/A; ko1 09:24 BP 119 / 72; Pulse 75; Resp 15; Pulse Ox 99% on R/A; ko1 MDM: 09:03 Medical Screening Exam initiated rn 09:34 Differential diagnosis: Corneal abrasion of Corneal ulcer of Foreign body in Acute rn glaucoma in Data reviewed: vital signs, nurses notes. Counseling: I had a detailed discussion with the patient and/or guardian regarding the historical points, exam findings, and any diagnostic results supporting the discharge/admit diagnosis, the need for outpatient follow up, to return to the emergency department if symptoms worsen or persist or if there are any questions or concerns that arise at home. Special discussion: I discussed with the patient/guardian in detail that at this point there is no indication for admission to the hospital. It is understood, however, that if the symptoms persist or worsen the patient needs to return immediately for re-evaluation. ED course: Prakash-Pen shows pressure of 20. 03/28 09:12 Order name: Fluoresene Opth strip; Complete Time: :17 rn 03/28 09:12 Order name: Eye Tray; Complete Time: : rn Administered Medications: : Drug: Tetracaine Ophthalmic Drops 0.5 % 1 drops Ophthalmic once Route: Ophthalmic; ko1 Site: right eye; 09:43 Follow up: Response: No adverse reaction ko1 Disposition Summary: 03/28/24 09:36 Discharge Ordered Notes: Location: Home rn Problem: new rn Symptoms: have improved rn Condition: Stable rn Diagnosis - Unspecified acute conjunctivitis, right eye rn Followup: rn - With: Private Physician - When: As needed - Reason: Recheck today's complaints, Re-evaluation by your physician Discharge Instructions: - Discharge Summary Sheet rn - How to Use Eye Drops and Eye Ointments rn Forms: - Medication Reconciliation Form rn - Antibiotic modern dancer - Prescription Opioid Use rn - Patient Portal Instructions rn - Leadership Thank You Letter rn Prescriptions: - Vigamox 0.5 % Ophthalmic Drops - instill 1 drop OPHTHALMIC route every 8 hours for 7 days; 5 milliliter; rn Refills: 0, Product Selection Permitted Signatures: Leonard Lin MD MD rn Oliver, Kathy, RN RN ko1 Corrections: (The following items were deleted from the chart) 09:13 09:11 Home Meds: gabapentin oral; ko1 ko1
--- NOTE | 2024-03-28 09:36 | ER ---
Nurse's Notes [facility] Name: Alanna Barreto Age: 38 yrs Sex: Female : 1985 Arrival Date: 03/28/2024 Time: 08:58 Bed 15 Private MD: Diagnosis: Unspecified acute conjunctivitis, right eye Presentation: 03/28 09:10 Chief complaint: Patient states: right eye pain for 5 days. Coronavirus screen: At this ko1 time, the client does not indicate any symptoms associated with coronavirus-19. Ebola Screen: No symptoms or risks identified at this time. Initial Sepsis Screen: Does the patient meet any 2 criteria? No. Patient's initial sepsis screen is negative. Does the patient have a suspected source of infection? No. Patient's initial sepsis screen is negative. Risk Assessment: Do you want to hurt yourself or someone else? Patient reports no desire to harm self or others. Onset of symptoms is unknown. 09:10 Method Of Arrival: Ambulatory ko1 09:10 Acuity: CHRISTOPHER 4 ko1 Triage Assessment: 09:11 General: Appears in no apparent distress. Behavior is cooperative, appropriate for age, ko1 anxious. Pain: Complains of pain in right eye. Historical: - Allergies: 09:11 Iodine (Hives, swelling); ko1 09:11 Ibuprofen; ko1 - Home Meds: 09:11 doxepin 25 mg oral capsule 1 cap every day at bedtime for anxiety, depression [Active]; ko1 - PMHx: 09:11 Anxiety; Depression; Human papilloma virus infection; PTSD (Human papilloma vir); GERD; ko1 - PSHx: 09:11 Ligation of fallopian tube; ko1 - Immunization history:: Adult Immunizations unknown. - Infectious Disease History:: Denies. - Social history:: Smoking status: Patient denies any tobacco usage or history of. - Family history:: not pertinent. - Hospitalizations: : No recent hospitalization is reported. Screenin:24 [facility] ED Fall Risk Assessment (Adult) History of falling in the last 3 months, ko1 including since admission No falls in past 3 months (0 pts) Confusion or Disorientation No (0 pts) Intoxicated or Sedated No (0 pts) Impaired Gait No (0 pts) Mobility Assist Device Used No (0 pt) Altered Elimination No (0 pt) Score/Fall Risk Level 0 - 2 = Low Risk Oriented to surroundings, Maintained a safe environment, Educated pt \T\ family on fall prevention, incl call for assistance when getting out of bed, Assessed \T\ reinforced patient's understanding of fall precautions, Hourly rounding (assess needs \T\ fall precautionary measures) done. Abuse screen: Denies threats or abuse. Denies injuries from another. Nutritional screening: No deficits noted. Tuberculosis screening: No symptoms or risk factors identified. Assessment: 09:27 General: Appears in no apparent distress. Behavior is cooperative, appropriate for age. ko1 Pain: Complains of pain in right eye. Neuro: No deficits noted. Cardiovascular: No deficits noted. Respiratory: No deficits noted. GI: No deficits noted. No signs and/or symptoms were reported involving the gastrointestinal system. : No deficits noted. No signs and/or symptoms were reported regarding the genitourinary system. EENT: Reports pain in right eye. Derm: No deficits noted. No signs and/or symptoms reported regarding the dermatologic system. Musculoskeletal: No deficits noted. No signs and/or symptoms reported regarding the musculoskeletal system. Vital Signs: 09:10 BP 133 / 81; Pulse 88; Resp 15; Temp 97.4; Pulse Ox 98% on R/A; ko1 09:24 BP 119 / 72; Pulse 75; Resp 15; Pulse Ox 99% on R/A; ko1 ED Course: 09:00 Patient arrived in ED. mr 09:03 Leonard Lin MD is Attending Physician. rn 09:04 Eileen Blackman, BRADY is Primary Nurse. ko1 09:11 Triage completed. ko1 09:11 Arm band placed on right wrist. Patient placed in an exam room, on a stretcher, Patient ko1 notified of wait time. 09:24 Patient has correct armband on for positive identification. Allergy band placed. Bed in ko1 low position. Call light in reach. Provided Education on: meds. Client placed on continuous cardiac and pulse oximetry monitoring. NIBP monitoring applied. resolution agent on. Door closed. Noise minimized. Lights dimmed. Warm blanket given. Pillow given. 09:24 Assist provider with eye exam of right eye. using fluorescein stain, Performed by Leonard Lin MD. Patient did not have IV access during this emergency room visit. Administered Medications: 09:25 Drug: Tetracaine Ophthalmic Drops 0.5 % 1 drops Ophthalmic once Route: Ophthalmic; ko1 Site: right eye; 09:43 Follow up: Response: No adverse reaction ko1 Medication: 09:24 VIS not applicable for this client. ko1 Outcome: 09:32 Condition: stable ko1 09:36 Discharge ordered by . rn 09:43 Discharged to home ambulatory, ko1 09:43 Discharge instructions given to patient, Instructed on discharge instructions, follow up and referral plans. medication usage, Demonstrated understanding of instructions, follow-up care, medications, Prescriptions given X 1, 09:44 Patient left the ED. ko1 Signatures: Lin Solares, Slim Smalls mr Leonard Lin MD MD rn Oliver, Kathy, RN RN ko1 Corrections: (The following items were deleted from the chart) 09:13 09:11 Home Meds: gabapentin oral; ko1 ko1
[2024-03-28 09:48] VITALS: TEMP 97.4
[2024-03-28 09:50] VITALS: BP 119/72; O2SAT 99
== END 2024-03-28 09:44 | disposition home or self-care (01) ==
LOC: ER 08:58
DX: H10.31 Unspecified acute conjunctivitis, right eye (principal)
CPT/HCPCS: 99284